=== PATIENT | female | born 1985 | race Caucasian/White ===

== ENCOUNTER 2017-08-20 10:41 | Outpatient (CLI) | payer OTHER ==
--- NOTE | 2017-08-20 14:02 | PRG ---
DATE OF SERVICE: 08/20/2017 HISTORY: Ms. Preethi Carroll is a very pleasant 32-year-old who presents to the Wound Center for evaluation of an abdominal wound subsequent to excision and debridement for treatment of an abd ominal wall/panniculus abscess on 12/31/[address] Brito. The patient also underwent wound VAC appl ication at the time of surgery. Two days later on 01/02/2017, the patient underwent wide excision o f a necrotizing soft tissue abdominal wall infection also by Dr. Brito. Upon discharge from [facility], the patient was referred to the Wound Center for assistance with dressing changes of the wound VAC. The patient was discharged to home on Levaquin and Flagyl. The patient required readmission for intraoperative debridement which she underwent on 02/21/2017. The patient continued to receive negative pressure therapy with dressing changes of the wound VAC here in the und Center. A smaller wound of the anterior abdominal wall from incision and drainage of an abscess in the Wound Center on 04/03/2017 superior to the large abdominal wound has healed completely and r emains healed. PHYSICAL EXAMINATION: VITAL SIGNS: Temperature 98.6, pulse 81, respirations 18, blood pressure 133/73. Accu-Chek 193. ABDOMEN: The wound of the abdomen has divided into 3 wounds with the largest measuring approximatel y 7.5 x 2.7 cm. Granulation tissue is present within the wound margins. No purulent drainage is as sociated with the wound. No cellulitis of the anterior abdominal wall is appreciated. No maceratio n of the skin of the periwound is noted. ASSESSMENT AND PLAN: 1. Large abdominal wound subsequent to excision and debridement for treatment of an abdominal wall/ panniculus abscess on 12/31/2016 followed by wide excision of a necrotizing soft tissue of abdominal wall infection on 01/02/2017. The patient also underwent intraoperative debridement of her wound o n 02/21/2017. All procedures were performed by Dr. Brito. The patient has completed a course of neg ative pressure therapy and dressing changes of Arglaes powder followed by an ABD secured with tape w ill be continued on a daily basis after cleansing and irrigation. Gauze will also be utilized at th e time of dressing changes as needed. I will see Ms. Carroll again in 2 weeks. The patient descri bes discomfort associated with her abdominal wound, which began recently. Previous cultures reveale d the growth of MRSA and the patient has been given a prescription for Bactrim DS #20 one p.o. b.i.d . x10 days. The patient agrees to return for a followup visit in 2 weeks. 2. Diabetes mellitus. The patient's Accu-Chek in clinic today is 193. The patient has been remind ed that for optimal wound healing, her blood glucoses should remain below 150. 3. Hypertension. 4. Gastroesophageal reflux disease. 5. Osteoarthritis. 6. Anemia.
== END 2017-08-20 10:42 | disposition home or self-care (01) ==
LOC: WCC 10:41
PROVIDERS: ATTEND Family Medicine
DX: T81.89XD Other complications of procedures, not elsewhere classified, subsequent encounter (principal); E11.9 Type 2 diabetes mellitus without complications; I10 Essential (primary) hypertension; K21.9 Gastro-esophageal reflux disease without esophagitis; D64.9 Anemia, unspecified; M19.90 Unspecified osteoarthritis, unspecified site
CPT/HCPCS: 97602

== ENCOUNTER 2017-09-03 14:13 | Outpatient (CLI) | payer OTHER ==
--- NOTE | 2017-09-03 15:39 | PRG ---
DATE OF SERVICE: 09/03/2017 SUBJECTIVE: Ms. Preethi Carroll is a very pleasant 32-year-old who presents to the [facility] for evaluation of an abdominal wound subsequent to excision and debridement for treatment of an abdominal wall/panniculus abscess on 12/31/[address] Brito. The patient also underwent wound VAC application at the time of surgery. Two days later on 01/02/2017, the patient underwent wide excisi on of a necrotizing soft tissue abdominal wall infection also by Dr. Brito. Upon discharge from [facility], the patient was referred to the Wound Center for assistance with sharifa ssing changes of the wound VAC. The patient was discharged to home on Levaquin and Flagyl. The pat ient required readmission for intraoperative debridement, which she underwent on 02/21/2017. The pa tient continued to receive negative pressure therapy with dressing changes of the wound VAC here in the Wound Center. A smaller wound of the anterior abdominal wall from incision and drainage of an a bscess in the Wound Center on 04/03/2017, superior to the large abdominal wound has healed completel y and remains healed. PHYSICAL EXAMINATION: VITAL SIGNS: Temperature 97.4, pulse 91, respirations 18, blood pressure 130/71. Accu-Chek 192. ABDOMEN: The wound of the abdomen has divided with a largest wound measuring approximately 7.0 x 2. 5 cm. Granulation tissue is present within the wound margins. No purulent drainage is associated w ith the wound. No cellulitis of the anterior abdominal wall is appreciated. No maceration of the s kin of the periwound is noted. ASSESSMENT AND PLAN: 1. Large abdominal wound subsequent to excision and debridement for treatment of an abdominal wall/ panniculus abscess on 12/31/2016 followed by wide excision of a necrotizing soft tissue abdominal wa ll infection on 01/02/2017. The patient also underwent intraoperative debridement of her wound on 0 02/21/2017. All procedures were performed by Dr. Brito. The patient has completed a course of negat joann pressure therapy and dressing changes of Arglaes powder will be continued on a daily basis after cleansing and irrigation. Gauze as needed and an ABD will be utilized as secondary dressings. I w ill see Ms. Carroll again in 4 weeks. 2. Diabetes mellitus. The patient's Accu-Chek in clinic today is 192. The patient has been remind ed that for optimal wound healing, her blood glucoses should remain below 150. 3. Hypertension. 4. Gastroesophageal reflux disease. 5. Osteoarthritis. 6. Anemia.
[2017-09-03] MEDS ORDERED: Sodium Chloride 0.9% 15 ML NEB ONE (17:29)
== END 2017-09-03 14:14 | disposition home or self-care (01) ==
LOC: WCC 14:13
PROVIDERS: ATTEND Family Medicine
DX: T81.89XD Other complications of procedures, not elsewhere classified, subsequent encounter (principal); E11.9 Type 2 diabetes mellitus without complications; I10 Essential (primary) hypertension; K21.9 Gastro-esophageal reflux disease without esophagitis; M19.90 Unspecified osteoarthritis, unspecified site; D64.9 Anemia, unspecified
CPT/HCPCS: 97602; A4218

== ENCOUNTER 2017-10-08 11:27 | Outpatient (CLI) | payer OTHER ==
--- NOTE | 2017-10-08 16:34 | PRG ---
DATE OF SERVICE: 10/08/2017 HISTORY: Ms. Preethi Carroll is a very pleasant 32-year-old who presents to the Wound Center for evaluation of an abdominal wound subsequent to excision and debridement for treatment of an abdomina l wall/panniculus abscess on 12/31/[address] Brito. The patient also underwent wound VAC applicati on at the time of surgery. Two days later on 01/02/2017, the patient underwent wide excision of a ne crotizing soft tissue abdominal wall infection also by Dr. Brito. Upon discharge from [facility], the patient was referred to the Wound Center for assistance with dressing change s of the wound VAC. The patient was discharged to home on Levaquin and Flagyl. The patient required readmission for intraoperative debridement, which she underwent on 02/21/2017. The patient continue d to receive negative pressure therapy with dressing changes of the wound VAC here in the Wound Cente r. The smaller wound of the anterior abdominal wall from incision and drainage of an abscess in the Wound Center on 04/03/2017, superior to the large abdominal wound has healed completely and remains h ealed. The patient has completed a course of negative pressure therapy and since her last visit to [facility] has been receiving dressing changes of Arglaes powder on a daily basis after cleansin g and irrigation. Today, Ms. Carroll complains of pain associated with her abdominal wound. PHYSICAL EXAMINATION: VITAL SIGNS: Temperature 97.8, pulse 82, respirations 14, blood pressure 120/58. Accu-Chek 163. ABDOMEN: The wound of the abdomen measures approximately 3.0 x 9.5 cm. Granulation tissue is presen t within the wound margins. A sample of granulation tissue was excised with the use of scissors and sent for aerobic and anaerobic cultures. No purulent drainage is associated with the wound. No cell ulitis of the anterior abdominal wall is appreciated. No maceration of the skin of the periwound is noted. ASSESSMENT AND PLAN: 1. Large abdominal wound subsequent to excision and debridement for treatment of an abdominal wall/p anniculus abscess on 12/31/2016 followed by wide excision of a necrotizing soft tissue abdominal wall infection on 01/02/2017. The patient also underwent intraoperative debridement of her wound on 02/08. All procedures were performed by Dr. Brito. Dressing changes of Arglaes powder will be disc ontinued. Dressing changes of Multidex powder will be initiated today. These dressing changes are t o be performed on a daily basis after cleansing and irrigation. Gauze as needed and an ABD will be u tilized as secondary dressings. I will see Ms. Carroll again in two weeks. The patient has been gi sanjuanita a prescription for Bactrim DS #20 one p.o. b.i.d. x10 days. Antibiotic therapy will be modified based upon the results of the tissue cultures obtained today. 2. Diabetes mellitus. The patient's Accu-Chek in clinic today is 163. The patient has been reminde d that for optimal wound healing, her blood glucoses should remain below 150. 3. Hypertension. 4. Gastroesophageal reflux disease. 5. Osteoarthritis. 6. Anemia.
[2017-10-08] MEDS ORDERED: Sodium Chloride 0.9% 15 ML NEB ONE (17:48)
[2017-10-08] MEDS ORDERED: Lidocaine 2% Jelly 5 ML TUBE ONE (17:48)
== END 2017-10-08 11:28 | disposition home or self-care (01) ==
LOC: WCC 11:27
PROVIDERS: ATTEND Family Medicine
DX: T81.89XD Other complications of procedures, not elsewhere classified, subsequent encounter (principal); E11.9 Type 2 diabetes mellitus without complications; I10 Essential (primary) hypertension; K21.9 Gastro-esophageal reflux disease without esophagitis; M19.90 Unspecified osteoarthritis, unspecified site; D64.9 Anemia, unspecified
CPT/HCPCS: 87070; 87077; 87186; 87205; 97602; A4218

== ENCOUNTER 2017-11-19 14:04 | Outpatient (CLI) | payer OTHER ==
--- NOTE | 2017-11-19 18:02 | PRG ---
DATE OF SERVICE: 11/19/2017 HISTORY: Ms. Preethi Carroll is a very pleasant 32-year-old who presents to the Wound Center for evaluation of an abdominal wound subsequent to multiple surgical procedures. Today, the patient pres ents to the Wound Center for evaluation of a lesion of the left medial buttock. The patient states t hat the lesion has been present for 2 days. She reports significant pain associated with the lesion. She denies any fever or chills. PHYSICAL EXAMINATION: VITAL SIGNS: Temperature 98.2, pulse 85, respirations 19, blood pressure 132/63. Accu-Chek 173. BACK: An abscess of the left medial buttock is present. A sample of the purulent drainage from the abscess was sent for aerobic and anaerobic cultures with the use of a culturette. The left medial bu ttock was prepped with alcohol swabs followed by Betadine swabs, 2% injectable lidocaine was utilized to achieve local anesthesia, the lidocaine was injected in a subcutaneous fashion. A scalpel was th en utilized to enlarge the opening in the center of the abscess. Loculations within the abscess cavi ty were disrupted digitally. After irrigation of the wound with normal saline including the abscess cavity, the wound was dressed with iodoform gauze followed by 4 x 4s. ASSESSMENT AND PLAN: 1. Left medial buttock abscess. Incision and drainage of the left medial buttock abscess was perfor med in clinic today. The patient is to receive dressing changes of iodoform gauze followed by 4 x 4s on a daily basis after cleansing and irrigation. The patient has also been instructed to perform si tz baths on a daily basis. Ms. Carroll has been given a prescription for Bactrim DS #20 one p.o. b. i.d. x10 days. I will see the patient again in 1 week. 2. Large abdominal wound subsequent to multiple surgical procedures. Dressing changes of Multidex p owder will be continued on a daily basis after cleansing and irrigation. Gauze as needed and an ABD will be utilized as secondary dressings. 3. Diabetes mellitus. The patient's Accu-Chek in clinic today is 173. The patient has been reminde d that for optimal wound healing, her blood glucoses should remain below 150. 4. Hypertension. 5. Gastroesophageal reflux disease. 6. Osteoarthritis. 7. Anemia.
== END 2017-11-19 14:05 | disposition home or self-care (01) ==
LOC: WCC 14:04
PROVIDERS: ATTEND Family Medicine
DX: L02.31 Cutaneous abscess of buttock (principal); T81.89XD Other complications of procedures, not elsewhere classified, subsequent encounter; E11.9 Type 2 diabetes mellitus without complications; K21.9 Gastro-esophageal reflux disease without esophagitis; M19.90 Unspecified osteoarthritis, unspecified site; D64.9 Anemia, unspecified; I10 Essential (primary) hypertension
CPT/HCPCS: 87070; 87077; 87186; 87205; 97602; 99213; G0463

== ENCOUNTER 2017-12-11 13:58 | Outpatient (CLI) | payer OTHER ==
--- NOTE | 2017-12-11 17:47 | PRG ---
DATE OF SERVICE: 12/11/2017 HISTORY: Ms. Preethi Carroll is a very pleasant 32-year-old who presents to the Wound Center for evaluation of an abdominal wound subsequent to multiple surgical procedures. The patient also presents to the Wound Center with a wound of the left medial buttock subsequent to incision and drainage of an abscess. The patient has no other complaints today. She denies any fever or chills. PHYSICAL EXAMINATION: VITAL SIGNS: Temperature 97.7, pulse 88, respirations 18, blood pressure 133/ 61. Accu-Chek 163. ABDOMEN: A wound of the abdomen is present which measures approximately 3.5 x 7.0 cm. Granulation tissue is present within the wound margins. No purulent drainage is associated with the wound. No cellulitis of the anterior abdominal wall is appreciated. No maceration of the skin of the periwound is noted. EXTREMITIES: The left buttock wound has almost healed completely. ASSESSMENT AND PLAN: 1. Large abdominal wound subsequent to excisional debridement for treatment of an abdominal wall/panniculus abscess on 12/31/2016 followed by wide excision of a necrotizing soft tissue abdominal wall infection on 01/02/2017. The patient also underwent intraoperative debridement of her wound on 02/21/2017. All procedures were performed by Dr. Brito. Dressing changes of Multidex powder will be continued on a daily basis after cleansing and irrigation. Gauze as needed and an ABD will be utilized as secondary dressings. I will see Ms. Carroll again in four weeks. The patient states she completed Bactrim DS as previously prescribed. 2. Left buttock wound. As stated above, this wound has almost healed completely. The patient has been instructed to keep this wound clean, dry, and covered. 3. Diabetes mellitus. The patient's Accu-Chek in clinic today is 163. The patient has been reminded that for optimal wound healing, her blood glucoses should remain below 150. 4. Hypertension. 5. Gastroesophageal reflux disease. 6. Osteoarthritis. 7. Anemia. MTDD
== END 2017-12-11 13:59 | disposition home or self-care (01) ==
LOC: WCC 13:58
PROVIDERS: ATTEND Family Medicine
DX: T81.89XD Other complications of procedures, not elsewhere classified, subsequent encounter (principal); E11.9 Type 2 diabetes mellitus without complications; K21.9 Gastro-esophageal reflux disease without esophagitis; M19.90 Unspecified osteoarthritis, unspecified site; D64.9 Anemia, unspecified; I10 Essential (primary) hypertension
CPT/HCPCS: 97602

== ENCOUNTER 2018-02-04 10:14 | Outpatient (CLI) | payer OTHER ==
--- NOTE | 2018-02-04 11:33 | PRG ---
DATE OF SERVICE: 02/04/2018 SUBJECTIVE: Ms. Shona Carroll is a very pleasant 32-year-old who presents to the Wound Ce nter for evaluation of an abdominal wound subsequent to multiple surgical procedures. The patient estrada s no other complaints today. She denies any fever or chills. The patient has been receiving dressin g changes of Multidex powder for the abdominal wound. OBJECTIVE: VITAL SIGNS: Temperature 97.6, pulse 79, respirations 18, blood pressure 139/72. Accu-Chek 210. ABDOMEN: The wound of the abdomen has divided into 2 wounds with the largest measuring approximately 5.0 x 1.0 cm. Granulation tissue is present within the wound margins. No purulent drainage is asso ciated with the wound. No erythema of the skin surrounding the wound is present. No maceration of t he skin of the periwound is noted. ASSESSMENT AND PLAN: 1. Large abdominal wound subsequent to excision and debridement for treatment of an abdominal wall/p anniculus abscess on 12/31/2016, followed by wide excision of a necrotizing soft tissue abdominal wal l infection on 01/02/2017. The patient also underwent intraoperative debridement of her wound on . All procedures were performed by Dr. Brito. Dressing changes of Multidex powder will be co ntinued on a daily basis after cleansing and irrigation. Gauze and ABD will be utilized as secondary dressings. I will see Ms. Carroll again in four weeks. 2. Diabetes mellitus. The patient's Accu-Chek in clinic today is 210. The patient has been reminde d that for optimal wound healing, her blood glucoses should remain below 150. 3. Hypertension. 4. Gastroesophageal reflux disease. 5. Osteoarthritis. 6. Anemia.
[2018-02-04] MEDS ORDERED: Sodium Chloride 0.9% 15 ML NEB ONE (18:00)
== END 2018-02-04 10:15 | disposition home or self-care (01) ==
LOC: WCC 10:14
PROVIDERS: ATTEND Family Medicine
DX: T81.89XD Other complications of procedures, not elsewhere classified, subsequent encounter (principal); E11.9 Type 2 diabetes mellitus without complications; I10 Essential (primary) hypertension; K21.9 Gastro-esophageal reflux disease without esophagitis; M19.90 Unspecified osteoarthritis, unspecified site; D64.9 Anemia, unspecified
CPT/HCPCS: A4218

== ENCOUNTER 2018-03-11 13:36 | Outpatient (CLI) | payer OTHER ==
[~2018-03-11 13:36] MED LIST: Sodium Chloride 0.9% 15 ML NEB ONE
--- NOTE | 2018-03-11 14:10 | PRG ---
DATE OF SERVICE: 03/11/2018 HISTORY: Ms. Preethi Carroll is a very pleasant 32-year-old who presents to the Wound Center for evaluation of an abdominal wound subsequent to multiple surgical procedures. The patient has no other complaints today. She denies any fever or chills. The patient has been receiving dressing trung nges of Multidex powder for her abdominal wound. PHYSICAL EXAMINATION: VITAL SIGNS: Temperature 98.7, pulse 105, respirations 18, blood pressure 150/78. Accu-Chek 99. ABDOMEN: The wound of the abdomen has divided into 2 wounds with the largest measuring approximately 4.0 x 0.9 cm. Granulation tissue is present within the wound margins. No purulent drainage is asso ciated with the wound. No erythema of the skin surrounding the wound is present. No maceration of t he skin of the periwound is noted. ASSESSMENT AND PLAN: 1. Large abdominal wound subsequent to excision and debridement for treatment of an abdominal wall/p anniculus abscess on 12/31/2016 followed by wide excision of a necrotizing soft tissue abdominal wall infection on 01/02/2017. The patient also underwent intraoperative debridement of her wound on 02/08. All procedures were performed by Dr. Brito. Dressing changes of Multidex powder will be con tinued on a daily basis after cleansing and irrigation. Gauze and an ABD will be utilized as seconda ry dressings. I will see Ms. Carroll again in four weeks. 2. Diabetes mellitus. The patient's Accu-Chek in clinic today is 99. The patient has been reminded that for optimal wound healing, her blood glucoses should remain below 150. 3. Hypertension. 4. Gastroesophageal reflux disease. 5. Osteoarthritis. 6. Anemia.
== END 2018-03-11 13:37 | disposition home or self-care (01) ==
LOC: WCC 13:36
PROVIDERS: ATTEND Family Medicine
DX: T81.89XD Other complications of procedures, not elsewhere classified, subsequent encounter (principal); E11.9 Type 2 diabetes mellitus without complications; D64.9 Anemia, unspecified; I10 Essential (primary) hypertension; K21.9 Gastro-esophageal reflux disease without esophagitis; M19.90 Unspecified osteoarthritis, unspecified site
CPT/HCPCS: 97602; A4218

== ENCOUNTER 2018-04-16 10:01 | Outpatient (CLI) | payer OTHER ==
--- NOTE | 2018-04-16 11:50 | PRG ---
DATE OF SERVICE: 04/15/2018 HISTORY: Ms. Preethi Carroll is a very pleasant 32-year-old who presents to the Wound Center for evaluation of an abdominal wound subsequent to multiple surgical procedures. The patient has bee n receiving dressing changes of Multidex powder for her abdominal wound. Ms. Carroll also complains of tenderness of her anterior abdominal wall superior to her abdominal wound. She also reports feve r yesterday. PHYSICAL EXAMINATION: VITAL SIGNS: Temperature 97.8, pulse 101, respirations 19, blood pressure 174/81. Accu-Chek 162. ABDOMEN: The abdominal wound measures approximately 5.1 x 0.5 cm. Granulation tissue is present wit hin the wound margins. No purulent drainage is associated with the wound. No erythema of the skin s urrounding the wound is present. No maceration of the skin of the periwound is noted. A fluctuant m ass is present superior to the abdominal wound subsequent to multiple surgical procedures after the a nterior abdominal wall in the region of the fluctuant mass was prepped with alcohol and Betadine. Lo sampson anesthesia was obtained with the use of lidocaine injected in a subcutaneous fashion. An incisio n was made over the fluctuant mass with the scalpel resulting in the copious drainage of purulence. A sample of the drainage was sent for aerobic and anaerobic cultures. The wound was then irrigated w ith normal saline after the abscess cavity was freed of all loculations digitally. The abscess cavit y was packed with saline-moistened gauze. ASSESSMENT AND PLAN: 1. Large abdominal wound subsequent to excision and debridement for treatment of an abdominal wall/p anniculus abscess on 12/31/2016 followed by wide excision of a necrotizing soft tissue abdominal wall infection on 01/02/2017. The patient also underwent intraoperative debridement of her wound on 02/08. All procedures were performed by Dr. Brito. Dressing changes of Multidex powder will be con tinued on a daily basis after cleansing and irrigation. Gauze and an ABD will be utilized as seconda ry dressings. The patient is to receive wet to dry dressing changes on a daily basis for the abdomin al wound subsequent to incision and drainage today. I will see Ms. Carroll again in four weeks. Th e patient has been given prescriptions for Bactrim DS #20 one p.o. b.i.d. x10 days and Tylenol 3, #20 one to two p.o. q.4-6 hours p.r.n. pain. 2. Diabetes mellitus. The patient's Accu-Chek in clinic today is 162. The patient has been reminde d that for optimal wound healing, her blood glucoses should remain below 150. 3. Hypertension. 4. Gastroesophageal reflux disease. 5. Osteoarthritis. 6. Anemia.
== END 2018-04-16 10:02 | disposition home or self-care (01) ==
LOC: WCC 10:01
PROVIDERS: ATTEND Family Medicine
DX: T81.89XD Other complications of procedures, not elsewhere classified, subsequent encounter (principal); E11.9 Type 2 diabetes mellitus without complications; I10 Essential (primary) hypertension; K21.9 Gastro-esophageal reflux disease without esophagitis; D64.9 Anemia, unspecified; M19.90 Unspecified osteoarthritis, unspecified site
CPT/HCPCS: 87070; 87077; 87186; 87205

== ENCOUNTER 2018-05-14 13:30 | Outpatient (CLI) | payer OTHER ==
--- NOTE | 2018-05-14 14:35 | PRG ---
DATE OF SERVICE: 05/14/2018 HISTORY: Ms. Preethi Carroll is a very pleasant 33-year-old who presents to the Wound Center for evaluation of an abdominal wound subsequent to multiple surgical procedures. The patient also estrada s an abdominal wound subsequent to incision and drainage of an abscess of the anterior abdominal wall on 04/16/2018. Ms. Carroll has no complaints today. She denies any fever or chills. PHYSICAL EXAMINATION: VITAL SIGNS: Temperature 97.6, pulse 84, respirations 16, blood pressure 143/69. Accu-Chek 173. ABDOMEN: The abdominal wound subsequent to multiple surgical procedures measures approximately 0.3 x 2.0 cm. Granulation tissue is present within the wound margins. No purulent drainage is associated with the wound. No erythema of the skin surrounding the wound is present. No maceration of the ski n of the periwound is noted. The abdominal wound subsequent to incision and drainage of an abscess o f the anterior abdominal wall on 04/16/2018 is healing without complications or any signs of infectio n. ASSESSMENT AND PLAN: 1. Large abdominal wound subsequent to excision and debridement for treatment of an abdominal wall/p anniculus abscess on 12/31/2016 followed by wide excision of a necrotizing soft tissue abdominal wall infection on 01/02/2017. The patient also underwent intraoperative debridement of her wound on 02/08. All procedures were performed by Dr. Brito. Dressing changes of Multidex powder will be con tinued on a daily basis after cleansing and irrigation. Gauze and an ABD will be continued as second faviola dressings. The wound now measures as stated above approximately 2.0 x 0.3 cm. For the abdominal wound subsequent to incision and drainage of an abscess of the anterior abdominal wall on 04/16/2018 in the Wound Center, dressing changes of saline-moistened gauze secured with bordered gauze will be continued also on a daily basis after cleansing and irrigation. I will see Ms. Carroll again in 4 w eeks if her wounds are still present at this time. The patient understands and is in agreement with the preceding treatment plan. 2. Diabetes mellitus. The patient's Accu-Chek in clinic today is 173. The patient has been reminde d that for optimal wound healing, her blood glucoses should remain below 150. 3. Hypertension. 4. Gastroesophageal reflux disease. 5. Osteoarthritis. 6. Anemia.
== END 2018-05-14 13:31 | disposition home or self-care (01) ==
LOC: WCC 13:30
PROVIDERS: ATTEND Family Medicine
DX: T81.89XA Other complications of procedures, not elsewhere classified, initial encounter (principal); S31.109A Unspecified open wound of abdominal wall, unspecified quadrant without penetration into peritoneal cavity, initial encounter; E11.9 Type 2 diabetes mellitus without complications; I10 Essential (primary) hypertension; D64.9 Anemia, unspecified; K21.9 Gastro-esophageal reflux disease without esophagitis; M19.90 Unspecified osteoarthritis, unspecified site
CPT/HCPCS: 97602; A4218

== ENCOUNTER 2018-07-09 13:59 | Outpatient (CLI) | payer OTHER ==
--- NOTE | 2018-07-09 15:32 | PRG ---
DATE OF SERVICE: 07/09/2018 HISTORY: Ms. Preethi Carroll is a very pleasant 33-year-old who presents to the Wound Center for evaluation of an abdominal wound subsequent to multiple surgical procedures. The patient states that the wound had healed completely, but opened again after her nephew accidentally kicked her anter ior abdominal wall. The patient denies any fever or chills. PHYSICAL EXAMINATION: VITAL SIGNS: Temperature 98.1, pulse 86, respirations 16, blood pressure 140/74. Accu-Chek 172. ABDOMEN: An abdominal wound subsequent to multiple surgical procedures is present. Granulation tiss ue is present within the wound margins. No purulent drainage is associated with the wound. No eryth monique of the skin surrounding the wound is present. No maceration of the skin of the periwound is note d. ASSESSMENT AND PLAN: 1. Large abdominal wound subsequent to excisional debridement for treatment of an abdominal wall/mckeon niculus abscess on 12/31/2016 followed by wide excision of a necrotizing soft tissue abdominal wall i nfection on 01/02/2017. The patient also underwent intraoperative debridement of her wound on 2016. All procedures were performed by Dr. Brito. Dressing changes of Medihoney, gauze and an ABD s ecured with tape will be initiated today. These dressing changes are to be performed on a daily basi s after cleansing and irrigation. The wound now is small and the patient has been reassured that no signs of infection are associated with her wound. Ms. Carroll will return to clinic on an as needed basis. The patient understands and is in agreement with the preceding treatment plan. 2. Diabetes mellitus. The patient's Accu-Chek in clinic today is 172. The patient has been reminde d that for optimal wound healing, her blood glucoses should remain below 150. 3. Hypertension. 4. Gastroesophageal reflux disease. 5. Osteoarthritis. 6. Anemia.
== END 2018-07-09 14:00 | disposition home or self-care (01) ==
LOC: WCC 13:59
PROVIDERS: ATTEND Family Medicine
DX: T81.89XD Other complications of procedures, not elsewhere classified, subsequent encounter (principal); E11.9 Type 2 diabetes mellitus without complications; K21.9 Gastro-esophageal reflux disease without esophagitis; M19.90 Unspecified osteoarthritis, unspecified site; D64.9 Anemia, unspecified; I10 Essential (primary) hypertension
CPT/HCPCS: A4218

== ENCOUNTER 2018-09-25 16:47 | Emergency (ER) | payer OTHER ==
--- NOTE | 2018-09-25 20:53 | ULT ---
LEFT LOWER EXTREMITY VENOUS DOPPLER ULTRASOUND: 09/25/2018 HISTORY: Pain. Assess for DVT. COMPARISON: None. TECHNIQUE: Multiplanar feliz-scale sonographic imaging of the venous structures of the left lower extremity obtdevang arteaga, as detailed below. FINDINGS: Secondary to body habitus and immobility, the greater saphenous vein, the common femoral vein, the pr oximal aspect of the femoral vein, and the profunda femoral vein could not be adequately assessed. B lood flow is documented within the mid/distal femoral vein, as well as the popliteal vein and the pos terior tibial veins. IMPRESSION: The imaged venous structures of the left lower extremity are unremarkable with no evidence for deep v enous thrombosis; however, the venous structures from the level of the common femoral vein through th e mid femoral vein could not be assessed. POS: RANDI
== END 2018-09-25 20:22 | disposition home or self-care (01) ==
LOC: ERS 16:47
DX: M79.662 Pain in left lower leg (principal); R60.0 Localized edema; R79.1 Abnormal coagulation profile; E66.9 Obesity, unspecified; E78.5 Hyperlipidemia, unspecified; E10.40 Type 1 diabetes mellitus with diabetic neuropathy, unspecified; I10 Essential (primary) hypertension; M19.90 Unspecified osteoarthritis, unspecified site; F31.9 Bipolar disorder, unspecified; F41.9 Anxiety disorder, unspecified; Z79.899 Other long term (current) drug therapy; Z79.82 Long term (current) use of aspirin
CPT/HCPCS: 36415; 85379

== ENCOUNTER 2018-10-28 13:58 | Outpatient (CLI) | payer OTHER ==
[2018-10-28] MEDS ORDERED: Sodium Chloride 0.9% 15 ML NEB ONE (15:00)
--- NOTE | 2018-10-28 16:24 | PRG ---
DATE OF SERVICE: 10/28/2018 HISTORY: Ms. Preethi Carroll is a very pleasant 33-year-old, who presents to the wound center for evaluation of two small abdominal wounds subsequent to multiple surgical procedures. The patient previously stated that her abdominal wound had healed completely, but opened again after her nephew accidentally kicked her anterior abdominal wall. The patient has no complaints today. She denies any fever or chills. PHYSICAL EXAMINATION: VITAL SIGNS: Temperature 98.4, pulse 87, respirations 18, and blood pressure 164/72. Accu-Chek 173. ABDOMEN: Two small abdominal wounds which measured approximately 0.8 x 0.5 cm and 0.2 x 0.2 cm remain. No purulent drainage is associated with either wound. No erythema of the skin surrounding either wound is present. No maceration of the skin of the periwound of either wound is noted. ASSESSMENT AND PLAN: 1. Two small abdominal wounds as described above. 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 The patient also underwent intraoperative debridement of her wound on 02/21/2017. All procedures were performed by Dr. Brito. Dressing changes of Medihoney gauze and an ABD, secured with tape will be continued on a daily basis after cleansing and irrigation. The two remaining wounds are small and the patient has been reassured that no signs of infection are associated with either wound. The patient will return to clinic on an as-needed basis. Ms. Carroll understands and is in agreement with the preceding treatment plan. 2. Diabetes mellitus: The patient's Accu-Chek in clinic today is 173. The patient has been reminded that for optimal wound healing, her blood glucoses should remain below 150. 3. Hypertension. 4. Gastroesophageal reflux disease. 5. Osteoarthritis. 6. Anemia. Job ID: [id number]
== END 2018-10-28 13:59 | disposition home or self-care (01) ==
LOC: WCC 13:58
PROVIDERS: ATTEND Family Medicine
DX: T81.89XD Other complications of procedures, not elsewhere classified, subsequent encounter (principal); E11.9 Type 2 diabetes mellitus without complications; I10 Essential (primary) hypertension; K21.9 Gastro-esophageal reflux disease without esophagitis; M19.90 Unspecified osteoarthritis, unspecified site; D64.9 Anemia, unspecified
CPT/HCPCS: 97602; A4218

== ENCOUNTER 2018-12-22 09:48 | Outpatient (CLI) | payer OTHER | END 2018-12-22 09:49 | disposition home or self-care (01) | LOC: EDSTATUS 10:00 | PROVIDERS: ATTEND Nurse Practitioner Family | DX: Z74.09 Other reduced mobility (principal) ==

== ENCOUNTER 2019-01-20 08:44 | Outpatient (CLI) | payer OTHER | END 2019-01-20 08:45 | disposition home or self-care (01) | LOC: DTY/OP 08:44 | PROVIDERS: ATTEND Specialist | DX: Z01.818 Encounter for other preprocedural examination (principal); E66.01 Morbid (severe) obesity due to excess calories | CPT/HCPCS: 97802 ==

== ENCOUNTER 2019-02-10 18:43 | Emergency (ER) | payer OTHER ==
--- NOTE | 2019-02-10 19:58 | RAD ---
FEXAM: Left wrist radiographs 3 views PROVIDED CLINICAL HISTORY: Pain FINDINGS: There is no evidence for fracture or other acute osseous abnormality. Alignment appears anatomic. Neva nt spaces appear preserved. IMPRESSION: No evidence for an acute osseous abnormality. If there is persistent clinical concern, conservative m anagement and follow-up imaging advised.
--- NOTE | 2019-02-10 19:58 | RAD ---
FEXAM: Left knee radiographs 4 views PROVIDED CLINICAL HISTORY: Pain FINDINGS: There is no evidence for fracture or other acute osseous abnormality. Alignment appears anatomic. Neva nt spaces appear preserved. IMPRESSION: No evidence for an acute osseous abnormality. If there is persistent clinical concern, conservative m anagement and follow-up imaging advised.
--- NOTE | 2019-02-10 19:59 | RAD ---
FEXAM: Left elbow radiographs 4 views PROVIDED CLINICAL HISTORY: Pain FINDINGS: There is no evidence for fracture or other acute osseous abnormality. Alignment appears anatomic. Neva nt spaces appear preserved. IMPRESSION: No evidence for an acute osseous abnormality. If there is persistent clinical concern, conservative m anagement and follow-up imaging advised.
[2019-02-10] MEDS ORDERED: Ketorolac Tromethamine 60 MG/2 ML VIAL ONE (20:20)
== END 2019-02-10 20:52 | disposition home or self-care (01) ==
LOC: ERS 18:43
DX: S63.502A Unspecified sprain of left wrist, initial encounter (principal); S93.402A Sprain of unspecified ligament of left ankle, initial encounter; S53.402A Unspecified sprain of left elbow, initial encounter; M19.90 Unspecified osteoarthritis, unspecified site; E78.5 Hyperlipidemia, unspecified; E10.40 Type 1 diabetes mellitus with diabetic neuropathy, unspecified; I10 Essential (primary) hypertension; F31.9 Bipolar disorder, unspecified; F41.9 Anxiety disorder, unspecified; W19.XXXA Unspecified fall, initial encounter
CPT/HCPCS: 96372; J1885

== ENCOUNTER 2019-02-18 14:03 | Outpatient (CLI) | payer OTHER | END 2019-02-18 14:04 | disposition home or self-care (01) | LOC: DTY/OP 14:03 | PROVIDERS: ATTEND Specialist | DX: Z01.818 Encounter for other preprocedural examination (principal); E66.01 Morbid (severe) obesity due to excess calories | CPT/HCPCS: 97802 ==

== ENCOUNTER 2019-03-22 14:53 | Outpatient (CLI) | payer OTHER | END 2019-03-22 14:54 | disposition home or self-care (01) | LOC: DTY/OP 14:53 | PROVIDERS: ATTEND Specialist | DX: Z01.818 Encounter for other preprocedural examination (principal); E66.01 Morbid (severe) obesity due to excess calories | CPT/HCPCS: 97802 ==

== ENCOUNTER 2019-04-22 14:50 | Outpatient (CLI) | payer OTHER | END 2019-04-22 14:51 | disposition home or self-care (01) | LOC: DTY/OP 14:50 | PROVIDERS: ATTEND Specialist | DX: Z01.818 Encounter for other preprocedural examination (principal); E66.01 Morbid (severe) obesity due to excess calories | CPT/HCPCS: 97802 ==

== ENCOUNTER 2019-05-25 15:08 | Outpatient (CLI) | payer OTHER | END 2019-05-25 15:09 | disposition home or self-care (01) | LOC: DTY/OP 15:08 | PROVIDERS: ATTEND Specialist | DX: Z01.818 Encounter for other preprocedural examination (principal); E66.01 Morbid (severe) obesity due to excess calories | CPT/HCPCS: 97802 ==

== ENCOUNTER 2019-06-23 13:33 | Outpatient (CLI) | payer OTHER | END 2019-06-23 13:34 | disposition home or self-care (01) | LOC: DTY/OP 13:33 | PROVIDERS: ATTEND Specialist | DX: Z01.818 Encounter for other preprocedural examination (principal); E66.01 Morbid (severe) obesity due to excess calories | CPT/HCPCS: 97802 ==

== ENCOUNTER 2019-08-31 07:04 | Day surgery (SDC) | payer OTHER ==
--- NOTE | 2019-08-31 13:00 | OP ---
DATE OF PROCEDURE: 08/31/2019 [employer] C[employer]ER SURGEON: None. PROCEDURE PERFORMED: Esophagogastroduodenoscopy, diagnostic. INDICATIONS: 1. Chronic GERD. 2. Preoperative evaluation, for planned gastric bypass operation. 3. Morbid obesity. MEDICATIONS: See Anesthesia record. FINDINGS: After discussion of the risks, benefits, and alternatives of the procedure, informed consent was obtained and witnessed. Pre-endoscopic cardiopulmonary examination was satisfactory. Time-out was performed before sedation was achieved. Sedation was achieved with Anesthesia assistance in the endoscopy unit. A Pentax adult upper endoscope was placed into the oropharynx and passed through the cricopharyngeus under direct visualization. The esophageal mucosa appeared normal throughout with a normal-appearing Z-line at 38 cm from the incisors. The endoscope was then advanced into the stomach. Forward and retroflexed views of the entire gastric mucosa were obtained. The gastric mucosa appeared normal throughout. The endoscope was advanced through the pylorus and into the first and second portions of the duodenum, which also appeared normal. The upper endoscope was then completely withdrawn and the patient allowed to recover. The patient tolerated the procedure well. There were no immediate postprocedure complications. IMPRESSION: Normal esophagogastroduodenoscopy. RECOMMENDATIONS: 1. Discharge home on previous diet. 2. Follow up as planned with bariatric surgeon. 3. The patient can follow up in the GI clinic as needed. Job ID: [id number]
[2019-08-31] MEDS ORDERED: PROPOFOL 200 MG/20 ML VIAL ONE (15:45)
[2019-08-31] MEDS ORDERED: Lidocaine 1% PF 5 ML VIAL ONE (15:45)
== END 2019-08-31 10:55 | disposition home or self-care (01) ==
LOC: SDC 07:04
PROVIDERS: ATTEND Internal Medicine
PROC: 0DJ08ZZ Inspection of Upper Intestinal Tract, Via Natural or Artificial Opening Endoscopic (ICD-10-PCS; principal; 2019-08-31)
DX: K21.9 Gastro-esophageal reflux disease without esophagitis (principal); E66.01 Morbid (severe) obesity due to excess calories; F41.9 Anxiety disorder, unspecified; F32.9 Major depressive disorder, single episode, unspecified; I10 Essential (primary) hypertension; E10.9 Type 1 diabetes mellitus without complications; E78.00 Pure hypercholesterolemia, unspecified; Z68.45 Body mass index [BMI] 70 or greater, adult; Z79.4 Long term (current) use of insulin; Z79.82 Long term (current) use of aspirin; Z79.899 Other long term (current) drug therapy; Z79.1 Long term (current) use of non-steroidal anti-inflammatories (NSAID); Z88.0 Allergy status to penicillin; Z88.5 Allergy status to narcotic agent
CPT/HCPCS: 36416

== ENCOUNTER 2019-09-14 12:45 | Outpatient (CLI) | payer OTHER ==
--- NOTE | 2019-09-14 13:28 | RAD ---
XR Chest Pa Lat @ [facility] HISTORY: Dyspnea COMPARISON: 06/19/2013 study. FINDINGS: Heart size appears slightly enlarged. There are no infiltrative changes or signs of failure . Mediastinal structures appear unremarkable. There are arthritic changes of the spine. IMPRESSION: Mild cardiomegaly. Stable chest.
== END 2019-09-14 12:46 | disposition home or self-care (01) ==
LOC: RAD 12:45
PROVIDERS: ATTEND Internal Medicine Critical Care Medicine
DX: R06.00 Dyspnea, unspecified (principal); I51.7 Cardiomegaly
CPT/HCPCS: 71046

== ENCOUNTER 2019-12-07 20:30 | Outpatient (CLI) | payer OTHER | END 2019-12-07 20:31 | disposition home or self-care (01) | LOC: SLEEPLAB 20:30 | PROVIDERS: ATTEND Internal Medicine Critical Care Medicine | DX: G47.33 Obstructive sleep apnea (adult) (pediatric) (principal); R53.83 Other fatigue | CPT/HCPCS: 95811 ==

== ENCOUNTER 2020-08-10 08:59 | Outpatient (CLI) | payer OTHER ==
--- NOTE | 2020-08-10 11:59 | RAD ---
CHEST 2 VIEWS: Date: 08/10/2020 HISTORY: Dyspnea. COMPARISON: Radiograph dated 06/14/2020. FINDINGS: Heart size is enlarged. Moderate pulmonary edema. No pneumothorax. No significant effusion. No acute osseous abnormality. IMPRESSION: Cardiomegaly with moderate pulmonary edema. Atypical viral infectious process is felt somewhat less l ikely. POS: AH
== END 2020-08-10 09:00 | disposition home or self-care (01) ==
LOC: BICRAD 08:59
PROVIDERS: ATTEND Internal Medicine Critical Care Medicine
DX: R06.00 Dyspnea, unspecified (principal); I51.7 Cardiomegaly; J81.1 Chronic pulmonary edema
CPT/HCPCS: 71046

== ENCOUNTER 2021-03-07 02:10 | Inpatient (IN) | payer OTHER ==
[2021-03-07] MEDS ORDERED: Furosemide 40 MG/4 ML VIAL ONE (02:23)
[2021-03-07] MEDS ORDERED: Acetaminophen 500 MG TAB ONE (02:41)
[2021-03-07 03:26] LABS: ALT (SGPT) 8 U/L (8-55); AST (SGOT) 13 U/L (5-34); Albumin 2.7 g/dL (3.5-5.0); Alkaline Phosphatase 94 U/L (40-110); Anion Gap 14 mmol/L (10-20); BUN (Urea Nitrogen) 39 mg/dL (7.0-18.7); Bilirubin, Total 0.4 mg/dL (0.2-1.2); Calc. Creatinine Clearance 0 mL/min (70-130); Calcium 8.6 mg/dL (7.8-10.44); Carbon Dioxide 20 mmol/L (22-29); Chloride 108 mmol/L (98-107); Globulin 5.2 g/dL (2.4-3.5); Glucose 274 mg/dL (70-105); Magnesium 1.7 mg/dL (1.6-2.6); Potassium 6.5 mmol/L (3.5-5.1); Protein, Total 7.9 g/dL (6.0-8.3); Sodium 135 mmol/L (136-145)
[2021-03-07 03:45] LABS: CKMB 1.8 ng/mL (0-6.6)
[2021-03-07 03:47] LABS: SARS-CoV-2 NAA Rapid Test Not Detected (NotDetected)
[2021-03-07] MEDS ORDERED: Aspirin Chewable 81 MG TAB ONE (03:59)
[2021-03-07 04:11] LABS: Hemoglobin 7.6 g/dL (12.0-16.0); Mean Corpuscular HGB CONC 30.6 g/dL (32.0-36.0); Mean Corpuscular Hemoglobin 22.3 pg (27.0-31.0); Mean Corpuscular Volume 72.9 fL (78.0-98.0); Platelet Count 388 thou/uL (130-400); RBC Distribution Width 18.3 % (11.5-14.5); Red Blood Cell (RBC) Count 3.43 mill/uL (4.20-5.40); White Blood Cell (WBC) Count 25.6 thou/uL (4.8-10.8)
[2021-03-07 04:12] LABS: Anisocytosis SLIGHT = 6-15 cells (100X) (0-5/hpf); Band 12 % (5-11); Lymphocytes 5 % (21-51); MDiff Complete? YES; Microcytosis SLIGHT = 6-15 cells (100X) (0-5/hpf); Monocytes 2 % (0-10); Neutrophil 81 % (42-75)
[2021-03-07 04:16] LABS: Bacteria/HPF None Seen HPF (None Seen); Bilirubin Negative (Negative); Blood, Urine 2+ (Negative); Clarity Turbid (Clear); Glucose, Urine (Dipstick) 70 mg/dL (Negative); Ketone, Urine Negative (Negative); Leukocyte Negative Leu/uL (Negative); Nitrite Negative (Negative); Protein, Urine (Dipstick) 600 mg/dL (Neg-Trace); Specific Gravity, Urine 1.017 (1.002-1.036); Squamous Epithelial 0-3 HPF (0-3); Urobilinogen Normal mg/dL (Less than 2); WBC/HPF 0-3 HPF (0-3)
[2021-03-07 05:39] VITALS: BMI 109.9
[2021-03-07] MEDS ORDERED: Dextrose 5% in Water 1,000 ML IV PRN ×2 (05:52→07:40)
[2021-03-07] MEDS ORDERED: Dextrose 50% Abboject 50 ML SYRINGE SLOW IVP PRN ×2 (05:52→07:40)
[2021-03-07] MEDS ORDERED: HumaLOG 300 UNITS/3 ML VIAL SC PRN (05:52)
[2021-03-07 05:56] LABS: Anion Gap 14 mmol/L (10-20); BUN (Urea Nitrogen) 39 mg/dL (7.0-18.7); Calc. Creatinine Clearance 129 mL/min (70-130); Calcium 8.1 mg/dL (7.8-10.44); Carbon Dioxide 21 mmol/L (22-29); Chloride 108 mmol/L (98-107); Glucose 263 mg/dL (70-105); Sodium 136 mmol/L (136-145)
[2021-03-07 05:58] LABS: Potassium 6.6 mmol/L (3.5-5.1)
[2021-03-07] MEDS ORDERED: Calcium Gluc 4.6 MEQ/10 ML (100 MG/ML) SLOW IVP SCH (06:13)
[2021-03-07] MEDS ORDERED: Insulin Regular 300 UNITS/3 ML VIAL IVP SCH (06:15)
[2021-03-07 06:20] LABS: Troponin I 0.629 ng/mL (< 0.028)
[2021-03-07] MEDS ORDERED: Heparin 10,000 UNITS/ 10 ML VIAL SLOW IVP SCH (06:45)
[2021-03-07] MEDS ORDERED: Heparin 25,000 units/D5W 500 ML IVPB SCH (06:45)
[2021-03-07] MEDS ORDERED: Sodium Chloride 0.9% 1,000 ML IV SCH (07:45)
[2021-03-07] MEDS ORDERED: Vancomycin HCl 1.5 GM in Sodium Chloride 0.9% 250 ML 250 ML IVPB SCH (09:00)
[2021-03-07 09:26] LABS: Hemoglobin 6.3 g/dL (12.0-16.0); Platelet Count 325 thou/uL (130-400)
[2021-03-07] MEDS: cefTRIAXone\\ROCEPHIN 2 GM in Sodium Chloride 0.9% 100 ML IVPB SCH (09:29)
[2021-03-07 09:42] LABS: Glucose 265 mg/dL (70-105)
[2021-03-07 09:47] LABS: Anion Gap 15 mmol/L (10-20); BUN (Urea Nitrogen) 41 mg/dL (7.0-18.7); Calc. Creatinine Clearance 125 mL/min (70-130); Calcium 8.5 mg/dL (7.8-10.44); Carbon Dioxide 19 mmol/L (22-29); Chloride 108 mmol/L (98-107); Glucose 268 mg/dL (70-105); Sodium 135 mmol/L (136-145)
[2021-03-07 09:52] LABS: Potassium 6.7 mmol/L (3.5-5.1)
[2021-03-07 09:58] LABS: Troponin I 1.271 ng/mL (< 0.028)
[2021-03-07] MEDS ORDERED: Sodium Bicarbonate 150 MEQ in Dextrose 5% in Water 1,000 ML IV SCH (10:00)
[2021-03-07] MEDS: LOKELMA 10 GM PACKET PO SCH ×3 (11:03→20:56)
[2021-03-07 15:43] LABS: Glucose 281 mg/dL (70-105)
[2021-03-07 15:47] LABS: Anion Gap 13 mmol/L (10-20); BUN (Urea Nitrogen) 40 mg/dL (7.0-18.7); Calc. Creatinine Clearance 129 mL/min (70-130); Calcium 8.7 mg/dL (7.8-10.44); Carbon Dioxide 21 mmol/L (22-29); Chloride 106 mmol/L (98-107); Glucose 280 mg/dL (70-105); Potassium 5.9 mmol/L (3.5-5.1); Sodium 134 mmol/L (136-145)
[2021-03-07] MEDS: HumaLOG 300 UNITS/3 ML VIAL SC PRN ×2 (16:56→22:23)
[2021-03-07 17:02] LABS: Anion Gap 13 mmol/L (10-20); BUN (Urea Nitrogen) 39 mg/dL (7.0-18.7); Calc. Creatinine Clearance 129 mL/min (70-130); Calcium 8.3 mg/dL (7.8-10.44); Carbon Dioxide 20 mmol/L (22-29); Chloride 108 mmol/L (98-107); Glucose 264 mg/dL (70-105); Potassium 5.9 mmol/L (3.5-5.1); Sodium 135 mmol/L (136-145)
[2021-03-07] MEDS: Acetaminophen 325 MG TAB PO PRN (20:55)
[2021-03-07 22:06] LABS: Anion Gap 15 mmol/L (10-20); BUN (Urea Nitrogen) 38 mg/dL (7.0-18.7); Calc. Creatinine Clearance 137 mL/min (70-130); Calcium 8.1 mg/dL (7.8-10.44); Carbon Dioxide 19 mmol/L (22-29); Chloride 108 mmol/L (98-107); Glucose 289 mg/dL (70-105); Potassium 5.7 mmol/L (3.5-5.1); Sodium 136 mmol/L (136-145)
[2021-03-07] MEDS: HYDROcodone/Acetaminophen 5/325 mg Tablet PO PRN (22:22)
[2021-03-07] MEDS: cloNIDine 0.1 MG TAB PO PRN (22:22)
[2021-03-07] MEDS ORDERED: guaiFENesin ER 600 MG TAB PO SCH (22:30)
[2021-03-08 02:16] LABS: Glucose 272 mg/dL (70-105)
[2021-03-08] MEDS: HumaLOG 300 UNITS/3 ML VIAL SC PRN ×5 (02:59→21:28)
[2021-03-08 04:03] LABS: Anion Gap 14 mmol/L (10-20); BUN (Urea Nitrogen) 38 mg/dL (7.0-18.7); Calc. Creatinine Clearance 149 mL/min (70-130); Calcium 8.5 mg/dL (7.8-10.44); Carbon Dioxide 19 mmol/L (22-29); Chloride 106 mmol/L (98-107); Glucose 250 mg/dL (70-105); Potassium 5.3 mmol/L (3.5-5.1); Sodium 134 mmol/L (136-145)
[2021-03-08] MEDS: cloNIDine 0.1 MG TAB PO PRN ×3 (04:20→21:43)
[2021-03-08 04:31] LABS: Band 3 % (5-11); Hemoglobin 7.2 g/dL (12.0-16.0); Hypochromia SLIGHT = 6-15 cells (100X) (0-5/hpf); Lymphocytes 8 % (21-51); MDiff Complete? YES; Mean Corpuscular HGB CONC 30.5 g/dL (32.0-36.0); Mean Corpuscular Hemoglobin 22.7 pg (27.0-31.0); Mean Corpuscular Volume 74.4 fL (78.0-98.0); Mean Platelet Volume 9.6 fL (7.4-10.4); Microcytosis SLIGHT = 6-15 cells (100X) (0-5/hpf); Monocytes 2 % (0-10); Neutrophil 87 % (42-75); Platelet Count 287 thou/uL (130-400); RBC Distribution Width 18.8 % (11.5-14.5); Red Blood Cell (RBC) Count 3.19 mill/uL (4.20-5.40); White Blood Cell (WBC) Count 13.3 thou/uL (4.8-10.8)
[2021-03-08] MEDS ORDERED: Sodium Bicarbonate 150 MEQ in Dextrose 5% in Water 1,000 ML IV SCH (07:00)
[2021-03-08] MEDS ORDERED: Lantus 1000 UNITS/10 ML VIAL SC SCH (07:30)
[2021-03-08] MEDS ORDERED: Melatonin 3 MG TAB PO PRN (07:43)
[2021-03-08] MEDS ORDERED: hydrALAZINE 20 MG/ML VIAL SLOW IVP PRN (07:46)
[2021-03-08 07:52] LABS: Hemoglobin A1c 8.5 % (4.0-6.0)
[2021-03-08 08:19] LABS: Vancomycin, Trough 31.5 ug/mL
[2021-03-08] MEDS ORDERED: Amlodipine 5 MG TAB PO SCH ×2 (09:00→19:00)
[2021-03-08] MEDS ORDERED: Morphine 2 MG/ML VIAL SLOW IVP PRN (09:54)
[2021-03-08] MEDS ORDERED: Morphine 4 MG/ML VIAL ONE (09:55)
[2021-03-08] MEDS: Cholecalciferol 1,000 UNITS (25 MCG) TAB PO SCH (11:03)
[2021-03-08] MEDS: Escitalopram Oxalate 20 mg Tablet PO SCH (11:04)
[2021-03-08] MEDS: Ferrous Sulfate 325 MG TAB PO SCH (11:04)
[2021-03-08] MEDS: guaiFENesin ER 600 MG TAB PO SCH ×2 (11:04→21:31)
[2021-03-08] MEDS: Methocarbamol 500 MG TAB PO SCH ×2 (11:06→21:31)
[2021-03-08] MEDS: cefTRIAXone\\ROCEPHIN 2 GM in Sodium Chloride 0.9% 100 ML IVPB SCH (11:06)
[2021-03-08] MEDS: Cyanocobalamin (Vitamin B-12) 1,000 MCG TAB PO SCH ×2 (11:06→21:31)
[2021-03-08] MEDS: Lantus 1000 UNITS/10 ML VIAL SC SCH ×2 (11:08→21:28)
[2021-03-08] MEDS: Morphine 4 MG/ML VIAL SLOW IVP PRN (16:00)
[2021-03-08] MEDS: HYDROcodone/Acetaminophen 5/325 mg Tablet PO PRN (16:39)
[2021-03-08] MEDS: Atorvastatin Calcium 10 MG TAB PO SCH (21:31)
[2021-03-09] MEDS: HumaLOG 300 UNITS/3 ML VIAL SC PRN ×3 (00:22→20:47)
[2021-03-09] MEDS: Morphine 4 MG/ML VIAL SLOW IVP PRN ×7 (01:46→22:47)
[2021-03-09] MEDS: HYDROcodone/Acetaminophen 5/325 mg Tablet PO PRN ×3 (01:51→21:02)
[2021-03-09 03:57] LABS: #Eosinphils 0.1 thou/uL (0.0-0.7); #Lymphocytes 0.9 thou/uL (1.20-3.40); #Monocytes 0.7 thou/uL (0.11-0.59); #Neutrophils 8.9 thou/uL (1.40-6.50); %Basophils 0.2 % (0.0-1.0); %Eosinophils 1.2 % (0.0-10.0); %Lymphocytes 8.7 % (21.0-51.0); %Monocytes 6.6 % (0.0-10.0); %Neutrophils 83.3 % (42.0-75.0); Mean Corpuscular HGB CONC 30.4 g/dL (32.0-36.0); Mean Corpuscular Hemoglobin 22.6 pg (27.0-31.0); Mean Corpuscular Volume 74.2 fL (78.0-98.0); Mean Platelet Volume 9.1 fL (7.4-10.4); Platelet Count 285 thou/uL (130-400); RBC Distribution Width 18.4 % (11.5-14.5); Red Blood Cell (RBC) Count 2.67 mill/uL (4.20-5.40); White Blood Cell (WBC) Count 10.7 thou/uL (4.8-10.8)
[2021-03-09] MEDS: cloNIDine 0.1 MG TAB PO PRN ×3 (04:05→16:43)
[2021-03-09 04:23] LABS: Anion Gap 12 mmol/L (10-20); BUN (Urea Nitrogen) 43 mg/dL (7.0-18.7); Calc. Creatinine Clearance 147 mL/min (70-130); Calcium 8.2 mg/dL (7.8-10.44); Carbon Dioxide 23 mmol/L (22-29); Chloride 104 mmol/L (98-107); Glucose 220 mg/dL (70-105); Iron Less than 8 ug/dL (50-170); Iron Binding Capacity, Total 223 mcg/dL (265-497); Potassium 5.3 mmol/L (3.5-5.1); Sodium 134 mmol/L (136-145)
[2021-03-09] MEDS: Lantus 1000 UNITS/10 ML VIAL SC SCH ×2 (09:15→20:48)
[2021-03-09] MEDS: Cholecalciferol 1,000 UNITS (25 MCG) TAB PO SCH (09:17)
[2021-03-09] MEDS: cefTRIAXone\\ROCEPHIN 2 GM in Sodium Chloride 0.9% 100 ML IVPB SCH (09:18)
[2021-03-09] MEDS: Methocarbamol 500 MG TAB PO SCH ×2 (09:19→21:00)
[2021-03-09] MEDS: Escitalopram Oxalate 20 mg Tablet PO SCH (09:23)
[2021-03-09] MEDS: Amlodipine 10 MG TAB PO SCH (09:24)
[2021-03-09] MEDS: Ferrous Sulfate 325 MG TAB PO SCH (09:24)
[2021-03-09] MEDS: guaiFENesin ER 600 MG TAB PO SCH ×2 (09:24→21:02)
[2021-03-09] MEDS: Acetaminophen 325 MG TAB PO PRN (09:25)
[2021-03-09] MEDS: Cyanocobalamin (Vitamin B-12) 1,000 MCG TAB PO SCH ×2 (09:26→21:01)
[2021-03-09 13:47] LABS: Hemoglobin 6.8 g/dL (12.0-16.0)
[2021-03-09 14:05] LABS: Glucose 225 mg/dL (70-105)
[2021-03-09 14:09] LABS: Vancomycin, Random 17.4 ug/mL (See Comment)
[2021-03-09] MEDS ORDERED: BIOTENE MOUTH SPRAY 44.3 ML MM PRN (15:38)
[2021-03-09 16:44] VITALS: BP 177/72
[2021-03-09] MEDS: Cefepime 1 GM in Sodium Chloride 0.9% 100 ML IVPB SCH (18:32)
[2021-03-09] MEDS: Atorvastatin Calcium 10 MG TAB PO SCH (21:00)
[2021-03-09] MEDS: metroNIDAZOLE 250 MG, Admixture Fee 1 EACH in Premix Bag 1 BAG IVPB SCH (23:18)
[2021-03-10] MEDS: HumaLOG 300 UNITS/3 ML VIAL SC PRN (04:17)
[2021-03-10] MEDS: cloNIDine 0.1 MG TAB PO PRN (04:38)
[2021-03-10] MEDS: Morphine 4 MG/ML VIAL SLOW IVP PRN ×4 (04:39→21:50)
[2021-03-10] MEDS: metroNIDAZOLE 250 MG, Admixture Fee 1 EACH in Premix Bag 1 BAG IVPB SCH ×3 (06:26→21:37)
[2021-03-10 07:07] LABS: #Eosinphils 0.1 thou/uL (0.0-0.7); #Lymphocytes 1.1 thou/uL (1.20-3.40); #Neutrophils 10.1 thou/uL (1.40-6.50); %Basophils 0.1 % (0.0-1.0); %Eosinophils 1.1 % (0.0-10.0); %Lymphocytes 9.1 % (21.0-51.0); %Monocytes 8.2 % (0.0-10.0); %Neutrophils 81.6 % (42.0-75.0); Mean Corpuscular HGB CONC 31.2 g/dL (32.0-36.0); Mean Corpuscular Hemoglobin 23.4 pg (27.0-31.0); Mean Corpuscular Volume 74.9 fL (78.0-98.0); Mean Platelet Volume 9.3 fL (7.4-10.4); Platelet Count 286 thou/uL (130-400); RBC Distribution Width 18.4 % (11.5-14.5); Red Blood Cell (RBC) Count 3.01 mill/uL (4.20-5.40); White Blood Cell (WBC) Count 12.3 thou/uL (4.8-10.8)
[2021-03-10 07:26] LABS: Vancomycin, Trough 28.1 ug/mL
[2021-03-10 07:27] LABS: Anion Gap 15 mmol/L (10-20); BUN (Urea Nitrogen) 51 mg/dL (7.0-18.7); Calc. Creatinine Clearance 134 mL/min (70-130); Calcium 8.5 mg/dL (7.8-10.44); Carbon Dioxide 20 mmol/L (22-29); Chloride 104 mmol/L (98-107); Glucose 172 mg/dL (70-105); Potassium 5.5 mmol/L (3.5-5.1); Sodium 133 mmol/L (136-145)
[2021-03-10] MEDS: Methocarbamol 500 MG TAB PO SCH ×2 (08:40→21:38)
[2021-03-10] MEDS: guaiFENesin ER 600 MG TAB PO SCH ×2 (08:40→21:38)
[2021-03-10] MEDS: Escitalopram Oxalate 20 mg Tablet PO SCH (08:41)
[2021-03-10] MEDS: Cholecalciferol 1,000 UNITS (25 MCG) TAB PO SCH (08:41)
[2021-03-10] MEDS: Cyanocobalamin (Vitamin B-12) 1,000 MCG TAB PO SCH ×2 (08:41→21:38)
[2021-03-10] MEDS: Amlodipine 10 MG TAB PO SCH (08:41)
[2021-03-10] MEDS: Ferrous Sulfate 325 MG TAB PO SCH (08:41)
[2021-03-10] MEDS: Lantus 1000 UNITS/10 ML VIAL SC SCH ×2 (09:41→21:38)
[2021-03-10] MEDS: LOKELMA 10 GM PACKET PO SCH ×3 (12:33→23:50)
[2021-03-10] MEDS: Cefepime 1 GM in Sodium Chloride 0.9% 100 ML IVPB SCH (15:45)
[2021-03-10 20:18] LABS: Vancomycin, Random 20.5 ug/mL (See Comment)
[2021-03-10] MEDS: Atorvastatin Calcium 10 MG TAB PO SCH (21:39)
[2021-03-11] MEDS: Morphine 4 MG/ML VIAL SLOW IVP PRN (04:50)
[2021-03-11] MEDS: metroNIDAZOLE 250 MG, Admixture Fee 1 EACH in Premix Bag 1 BAG IVPB SCH ×2 (05:43→15:18)
[2021-03-11 06:18] LABS: #Eosinphils 0.3 thou/uL (0.0-0.7); #Lymphocytes 1.1 thou/uL (1.20-3.40); #Monocytes 1.2 thou/uL (0.11-0.59); #Neutrophils 11.6 thou/uL (1.40-6.50); %Basophils 0.1 % (0.0-1.0); %Eosinophils 2.4 % (0.0-10.0); %Monocytes 8.3 % (0.0-10.0); %Neutrophils 81.3 % (42.0-75.0); Mean Corpuscular HGB CONC 29.2 g/dL (32.0-36.0); Mean Corpuscular Hemoglobin 22.1 pg (27.0-31.0); Mean Corpuscular Volume 75.7 fL (78.0-98.0); Mean Platelet Volume 8.7 fL (7.4-10.4); Platelet Count 302 thou/uL (130-400); RBC Distribution Width 18.2 % (11.5-14.5); Red Blood Cell (RBC) Count 3.14 mill/uL (4.20-5.40); White Blood Cell (WBC) Count 14.3 thou/uL (4.8-10.8)
[2021-03-11 06:36] LABS: Anion Gap 15 mmol/L (10-20); BUN (Urea Nitrogen) 58 mg/dL (7.0-18.7); Calc. Creatinine Clearance 116 mL/min (70-130); Calcium 8.6 mg/dL (7.8-10.44); Carbon Dioxide 21 mmol/L (22-29); Chloride 104 mmol/L (98-107); Glucose 175 mg/dL (70-105); Potassium 5.5 mmol/L (3.5-5.1); Sodium 134 mmol/L (136-145)
[2021-03-11 07:26] VITALS: TEMP 97.6
[2021-03-11] MEDS: Methocarbamol 500 MG TAB PO SCH (08:17)
[2021-03-11] MEDS: Amlodipine 10 MG TAB PO SCH (08:17)
[2021-03-11] MEDS: Escitalopram Oxalate 20 mg Tablet PO SCH (08:18)
[2021-03-11] MEDS: Ferrous Sulfate 325 MG TAB PO SCH (08:18)
[2021-03-11] MEDS: Cholecalciferol 1,000 UNITS (25 MCG) TAB PO SCH (08:18)
[2021-03-11] MEDS: Lantus 1000 UNITS/10 ML VIAL SC SCH (08:18)
[2021-03-11] MEDS: Cyanocobalamin (Vitamin B-12) 1,000 MCG TAB PO SCH (08:18)
[2021-03-11] MEDS: guaiFENesin ER 600 MG TAB PO SCH (08:20)
== END 2021-03-11 16:57 | disposition left against medical advice (07) | DRG 871 ==
LOC: ERS 02:10 → IMCU/EMU 04:15
PROVIDERS: ADMIT Student in an Organized Health Care Education/Training Program; ATTEND Internal Medicine
PROC: 5A09457 Assistance with Respiratory Ventilation, 24-96 Consecutive Hours, Continuous Positive Airway Pressure (ICD-10-PCS; principal; 2021-03-08)
DX: A41.9 Sepsis, unspecified organism (principal); I50.33 Acute on chronic diastolic (congestive) heart failure; I21.A1 Myocardial infarction type 2; J96.01 Acute respiratory failure with hypoxia; N17.9 Acute kidney failure, unspecified; I13.0 Hypertensive heart and chronic kidney disease with heart failure and stage 1 through stage 4 chronic kidney disease, or unspecified chronic kidney disease; E87.2 Acidosis; Z68.45 Body mass index [BMI] 70 or greater, adult; E66.2 Morbid (severe) obesity with alveolar hypoventilation; E87.1 Hypo-osmolality and hyponatremia; N18.4 Chronic kidney disease, stage 4 (severe); Z20.822 Contact with and (suspected) exposure to COVID-19; E87.5 Hyperkalemia; Z53.29 Procedure and treatment not carried out because of patient's decision for other reasons; M19.90 Unspecified osteoarthritis, unspecified site; E78.5 Hyperlipidemia, unspecified; E78.00 Pure hypercholesterolemia, unspecified; K21.9 Gastro-esophageal reflux disease without esophagitis; G25.81 Restless legs syndrome; F31.9 Bipolar disorder, unspecified; E10.22 Type 1 diabetes mellitus with diabetic chronic kidney disease; E10.65 Type 1 diabetes mellitus with hyperglycemia; E88.09 Other disorders of plasma-protein metabolism, not elsewhere classified; F41.9 Anxiety disorder, unspecified; Z88.0 Allergy status to penicillin; Z88.5 Allergy status to narcotic agent; Z79.4 Long term (current) use of insulin; Z79.899 Other long term (current) drug therapy; E10.42 Type 1 diabetes mellitus with diabetic polyneuropathy; E55.9 Vitamin D deficiency, unspecified; I50.814 Right heart failure due to left heart failure
CPT/HCPCS: 0240U; 36415; 36416; 36430; 51702; 71045; 80048; 80053; 80202; 81003; 81015; 82553; 83036; 83540; 83550; 83605; 83735; 83880; 84484; 85007; 85025; 85027; 85730; 86850; 86900; 86901; 87040; 87086; 93005; 93306; 94660; 96365; 96375; J0692; J0696; J1644; J1815; J1940; J1956; J2001; J2270; J3370; J3490; J7030; J7070; P9016

== ENCOUNTER 2021-04-23 16:24 | Inpatient (IN) | payer OTHER ==
[~2021-04-23 16:24] MED LIST changes: +Acetaminophen 325 MG TAB PO PRN; +Ondansetron ODT 4 MG TAB SL PRN; +Ondansetron PF 4 MG/2 ML Vial IVP PRN; +Sodium Chloride 0.9% 1,000 ML IV SCH; -Sodium Chloride 0.9% 15 ML NEB ONE
[2021-04-23] MEDS ORDERED: hydrALAZINE 20 MG/ML VIAL SLOW IVP PRN (18:02)
[2021-04-23] MEDS ORDERED: Dextrose 5% in Water 1,000 ML IV PRN (18:02)
[2021-04-23] MEDS ORDERED: Dextrose 50% Abboject 50 ML SYRINGE SLOW IVP PRN (18:02)
[2021-04-23] MEDS ORDERED: Ondansetron PF 4 MG/2 ML Vial IVP PRN (18:02)
[2021-04-23] MEDS ORDERED: Morphine 2 MG/ML VIAL SLOW IVP PRN (18:02)
[2021-04-23] MEDS: Fentanyl 100 MCG/2 ML VIAL SLOW IVP PRN ×2 (18:13→21:06)
[2021-04-23 18:24] VITALS: BMI 102.0
[2021-04-23] MEDS ORDERED: Cyclobenzaprine 10 MG TAB PO PRN (18:40)
[2021-04-23] MEDS ORDERED: Acetaminophen/Codeine 30-300mg Tablet PO PRN (18:42)
[2021-04-23 18:46] LABS: Hemoglobin 6.1 g/dL (12.0-16.0); Mean Corpuscular HGB CONC 28.4 g/dL (32.0-36.0); Mean Corpuscular Hemoglobin 20.5 pg (27.0-31.0); Mean Corpuscular Volume 72.2 fL (78.0-98.0); Mean Platelet Volume 8.6 fL (7.4-10.4); Platelet Count 496 thou/uL (130-400); RBC Distribution Width 18.5 % (11.5-14.5); Red Blood Cell (RBC) Count 2.98 mill/uL (4.20-5.40); White Blood Cell (WBC) Count 16.2 thou/uL (4.8-10.8)
[2021-04-23] MEDS: tiZANidine HCl 4 MG TAB PO PRN (21:01)
[2021-04-23] MEDS: Pregabalin 75 MG CAP PO SCH (21:02)
[2021-04-23] MEDS: busPIRone HCl 5 MG TAB PO SCH (21:03)
[2021-04-23] MEDS: Senokot S 8.6-50 MG TAB PO SCH (21:03)
[2021-04-23] MEDS: rOPINIRole HCl 2 MG TAB PO SCH (21:03)
[2021-04-23] MEDS: Famotidine/PF 20 mg/2ml Vial SLOW IVP SCH (21:05)
[2021-04-23] MEDS ORDERED: Ibuprofen 600 MG TAB PO SCH (22:00)
[2021-04-23] MEDS: Acetaminophen 500 MG TAB PO SCH (23:15)
[2021-04-23] MEDS ORDERED: Sodium Chloride 0.9% 1,000 ML IV SCH (23:55)
[2021-04-24] MEDS: Acetaminophen 500 MG TAB PO SCH ×5 (00:39→18:41)
[2021-04-24 00:53] LABS: SARS-CoV-2 NAA Rapid Test Not Detected (NotDetected)
[2021-04-24] MEDS: Acetaminophen/Codeine 30-300mg Tablet PO PRN (03:04)
[2021-04-24] MEDS: tiZANidine HCl 4 MG TAB PO PRN ×2 (05:28→17:55)
[2021-04-24 07:27] LABS: #Eosinphils 0.2 thou/uL (0.0-0.7); #Lymphocytes 1.9 thou/uL (1.20-3.40); #Monocytes 1.3 thou/uL (0.11-0.59); #Neutrophils 11.3 thou/uL (1.40-6.50); %Basophils 0.1 % (0.0-1.0); %Eosinophils 1.6 % (0.0-10.0); %Lymphocytes 12.8 % (21.0-51.0); %Neutrophils 76.4 % (42.0-75.0); Hemoglobin 6.3 g/dL (12.0-16.0); Mean Corpuscular Hemoglobin 22.5 pg (27.0-31.0); Mean Corpuscular Volume 74.9 fL (78.0-98.0); Mean Platelet Volume 8.6 fL (7.4-10.4); Platelet Count 431 thou/uL (130-400); RBC Distribution Width 19.7 % (11.5-14.5); Red Blood Cell (RBC) Count 2.78 mill/uL (4.20-5.40); White Blood Cell (WBC) Count 14.8 thou/uL (4.8-10.8)
[2021-04-24] MEDS ORDERED: Clindamycin/D5W 900 MG in Premix Bag 1 BAG IVPB SCH (07:30)
[2021-04-24 07:40] LABS: Phosphorus 4.9 mg/dL (2.3-4.7)
[2021-04-24 07:43] LABS: Anion Gap 9 mmol/L (10-20); BUN (Urea Nitrogen) 43 mg/dL (7.0-18.7); Calc. Creatinine Clearance 124 mL/min (70-130); Calcium 7.8 mg/dL (7.8-10.44); Carbon Dioxide 23 mmol/L (22-29); Chloride 105 mmol/L (98-107); Glucose 141 mg/dL (70-105); Magnesium 1.6 mg/dL (1.6-2.6); Potassium 4.7 mmol/L (3.5-5.1); Sodium 132 mmol/L (136-145)
[2021-04-24 08:12] LABS: Hypochromia SLIGHT = 6-15 cells (100X) (0-5/hpf); MDiff Complete? YES; Microcytosis SLIGHT = 6-15 cells (100X) (0-5/hpf); Platelet Morphology Comment Appears Increased; Polychromasia SLIGHT = 2-3 cells (100X) (0-2/hpf)
[2021-04-24] MEDS ORDERED: Magnesium 2 GM/50 ML 2 GM in Premix Bag 1 BAG IVPB SCH (09:00)
[2021-04-24] MEDS: Famotidine/PF 20 mg/2ml Vial SLOW IVP SCH ×2 (09:19→20:43)
[2021-04-24] MEDS: Ferrous Sulfate 325 MG TAB PO SCH (10:23)
[2021-04-24] MEDS: busPIRone HCl 5 MG TAB PO SCH ×2 (10:23→20:43)
[2021-04-24] MEDS: Senokot S 8.6-50 MG TAB PO SCH ×2 (10:24→20:42)
[2021-04-24] MEDS: Polyethylene Glycol 3350 17 GM Packet PO SCH (10:24)
[2021-04-24 10:37] LABS: Bilirubin Negative (Negative); Blood, Urine Moderate (Negative); Glucose, Urine (Dipstick) Negative (Negative); Ketone, Urine Trace mg/dL (Negative); Leukocyte Negative (Negative); Nitrite Negative (Negative); Protein, Urine (Dipstick) 100 mg/dL (Neg-Trace); Urobilinogen 0.2 mg/dL (Less than 2)
[2021-04-24] MEDS ORDERED: Clindamycin/D5W 600 mg/50 ml Premix Bag ONE (10:38)
[2021-04-24 10:39] LABS: Clarity Hazy (Clear); Specific Gravity, Urine 1.018 (1.002-1.036)
[2021-04-24 10:45] LABS: RBC/HPF 21-50 HPF (0-3)
[2021-04-24 10:53] LABS: Bacteria/HPF 2+ HPF (None Seen)
[2021-04-24 10:55] LABS: Urine Culture Reflex No No
[2021-04-24] MEDS ORDERED: Fentanyl 100 MCG/2 ML VIAL ONE ×4 (12:06→15:08)
[2021-04-24] MEDS ORDERED: Sodium Chloride 0.9% 1,000 ML IV SCH (12:15)
[2021-04-24] MEDS ORDERED: Midazolam HCl 2 mg/2 ml Vial ONE (12:16)
[2021-04-24] MEDS ORDERED: Ondansetron PF 4 MG/2 ML Vial ONE (12:26)
[2021-04-24] MEDS ORDERED: PROPOFOL 200 MG/20 ML VIAL ONE (12:26)
[2021-04-24] MEDS ORDERED: Lidocaine 1% PF 5 ML VIAL ONE (12:26)
[2021-04-24] MEDS ORDERED: PHENYLEPHRINE-NS 100 MCG/ML 10 ML SYRINGE ONE (12:26)
[2021-04-24] MEDS ORDERED: Rocuronium Bromide 10 MG/ML (10ML VIAL) ONE (12:26)
[2021-04-24] MEDS ORDERED: Succinylcholine 200 MG/10 ml SYRINGE FS ONE (12:26)
[2021-04-24] MEDS ORDERED: Metoclopramide HCl 10 MG/2 ML VIAL ONE (12:26)
[2021-04-24] MEDS ORDERED: SUGAMMADEX SODIUM 500 MG/5 ML VIAL ONE (14:12)
[2021-04-24 16:14] LABS: Anion Gap 8 mmol/L (10-20); BUN (Urea Nitrogen) 44 mg/dL (7.0-18.7); Calc. Creatinine Clearance 112 mL/min (70-130); Calcium 7.6 mg/dL (7.8-10.44); Carbon Dioxide 25 mmol/L (22-29); Chloride 107 mmol/L (98-107); Glucose 112 mg/dL (70-105); Magnesium 1.6 mg/dL (1.6-2.6); Phosphorus 5.3 mg/dL (2.3-4.7); Potassium 4.6 mmol/L (3.5-5.1); Sodium 135 mmol/L (136-145)
[2021-04-24] MEDS: Escitalopram Oxalate 20 mg Tablet PO SCH (16:20)
[2021-04-24] MEDS: Pregabalin 75 MG CAP PO SCH (20:41)
[2021-04-24] MEDS: rOPINIRole HCl 2 MG TAB PO SCH (20:42)
[2021-04-24] MEDS: Clindamycin/D5W 900 MG in Premix Bag 1 BAG IVPB SCH (20:44)
[2021-04-25] MEDS: Acetaminophen 500 MG TAB PO SCH ×4 (01:41→18:53)
[2021-04-25] MEDS: tiZANidine HCl 4 MG TAB PO PRN ×2 (01:42→20:40)
[2021-04-25] MEDS: Clindamycin/D5W 900 MG in Premix Bag 1 BAG IVPB SCH (05:07)
[2021-04-25 06:03] LABS: #Eosinphils 0.3 thou/uL (0.0-0.7); #Lymphocytes 1.9 thou/uL (1.20-3.40); #Monocytes 1.6 thou/uL (0.11-0.59); #Neutrophils 12.2 thou/uL (1.40-6.50); %Basophils 0.1 % (0.0-1.0); %Eosinophils 1.7 % (0.0-10.0); %Lymphocytes 11.8 % (21.0-51.0); %Monocytes 9.7 % (0.0-10.0); %Neutrophils 76.8 % (42.0-75.0); Hemoglobin 6.2 g/dL (12.0-16.0); Mean Corpuscular HGB CONC 29.8 g/dL (32.0-36.0); Mean Corpuscular Hemoglobin 22.4 pg (27.0-31.0); Mean Corpuscular Volume 75.3 fL (78.0-98.0); Mean Platelet Volume 8.9 fL (7.4-10.4); Platelet Count 409 thou/uL (130-400); RBC Distribution Width 19.7 % (11.5-14.5); Red Blood Cell (RBC) Count 2.76 mill/uL (4.20-5.40); White Blood Cell (WBC) Count 15.9 thou/uL (4.8-10.8)
[2021-04-25 06:24] LABS: Anion Gap 16 mmol/L (10-20); BUN (Urea Nitrogen) 48 mg/dL (7.0-18.7); Calc. Creatinine Clearance 106 mL/min (70-130); Calcium 7.7 mg/dL (7.8-10.44); Carbon Dioxide 19 mmol/L (22-29); Chloride 105 mmol/L (98-107); Glucose 157 mg/dL (70-105); Magnesium 1.8 mg/dL (1.6-2.6); Phosphorus 5.5 mg/dL (2.3-4.7); Sodium 135 mmol/L (136-145)
[2021-04-25] MEDS: Senokot S 8.6-50 MG TAB PO SCH ×3 (08:34→20:40)
[2021-04-25] MEDS: Escitalopram Oxalate 20 mg Tablet PO SCH (08:34)
[2021-04-25] MEDS: busPIRone HCl 5 MG TAB PO SCH ×2 (08:34→20:39)
[2021-04-25] MEDS: Ferrous Sulfate 325 MG TAB PO SCH (08:35)
[2021-04-25] MEDS: Famotidine/PF 20 mg/2ml Vial SLOW IVP SCH ×2 (08:35→20:39)
[2021-04-25] MEDS: Polyethylene Glycol 3350 17 GM Packet PO SCH (08:36)
[2021-04-25] MEDS ORDERED: Magnesium 2 GM/50 ML 2 GM in Premix Bag 1 BAG IVPB SCH (16:00)
[2021-04-25] MEDS: Acetaminophen/Codeine 30-300mg Tablet PO PRN (17:44)
[2021-04-25] MEDS: Pregabalin 75 MG CAP PO SCH (20:39)
[2021-04-25] MEDS: rOPINIRole HCl 2 MG TAB PO SCH (20:40)
[2021-04-26] MEDS: Acetaminophen 500 MG TAB PO SCH ×4 (02:27→18:45)
[2021-04-26 05:43] LABS: #Basophils 0.1 thou/uL (0.0-0.2); #Eosinphils 0.6 thou/uL (0.0-0.7); #Lymphocytes 1.8 thou/uL (1.20-3.40); #Monocytes 1.4 thou/uL (0.11-0.59); #Neutrophils 11.6 thou/uL (1.40-6.50); %Basophils 0.4 % (0.0-1.0); %Eosinophils 3.6 % (0.0-10.0); %Lymphocytes 11.4 % (21.0-51.0); %Monocytes 8.8 % (0.0-10.0); %Neutrophils 75.7 % (42.0-75.0); Hemoglobin 6.5 g/dL (12.0-16.0); Mean Corpuscular HGB CONC 29.8 g/dL (32.0-36.0); Mean Corpuscular Hemoglobin 22.7 pg (27.0-31.0); Mean Platelet Volume 8.6 fL (7.4-10.4); Platelet Count 439 thou/uL (130-400); RBC Distribution Width 19.8 % (11.5-14.5); Red Blood Cell (RBC) Count 2.85 mill/uL (4.20-5.40); White Blood Cell (WBC) Count 15.4 thou/uL (4.8-10.8)
[2021-04-26 06:06] LABS: Anion Gap 13 mmol/L (10-20); BUN (Urea Nitrogen) 53 mg/dL (7.0-18.7); Calc. Creatinine Clearance 99 mL/min (70-130); Calcium 8.2 mg/dL (7.8-10.44); Carbon Dioxide 22 mmol/L (22-29); Chloride 107 mmol/L (98-107); Glucose 128 mg/dL (70-105); Magnesium 2.2 mg/dL (1.6-2.6); Phosphorus 6.1 mg/dL (2.3-4.7); Sodium 137 mmol/L (136-145)
[2021-04-26] MEDS: Ferrous Sulfate 325 MG TAB PO SCH (08:56)
[2021-04-26] MEDS: busPIRone HCl 5 MG TAB PO SCH ×2 (08:56→19:57)
[2021-04-26] MEDS: tiZANidine HCl 4 MG TAB PO PRN ×2 (08:56→19:54)
[2021-04-26] MEDS: Famotidine/PF 20 mg/2ml Vial SLOW IVP SCH (08:56)
[2021-04-26] MEDS: Escitalopram Oxalate 20 mg Tablet PO SCH (08:56)
[2021-04-26] MEDS: Ascorbic Acid 500 mg Chewable Tablet PO SCH (08:57)
[2021-04-26] MEDS: Polyethylene Glycol 3350 17 GM Packet PO SCH (08:58)
[2021-04-26] MEDS: Senokot S 8.6-50 MG TAB PO SCH ×2 (08:58→20:00)
[2021-04-26] MEDS: Acetaminophen/Codeine 30-300mg Tablet PO PRN ×3 (12:21→22:26)
[2021-04-26 19:37] LABS: Hemoglobin 8.2 g/dL (12.0-16.0); Mean Corpuscular Hemoglobin 23.6 pg (27.0-31.0); Mean Corpuscular Volume 76.2 fL (78.0-98.0); Mean Platelet Volume 8.7 fL (7.4-10.4); Platelet Count 468 thou/uL (130-400); RBC Distribution Width 20.4 % (11.5-14.5); Red Blood Cell (RBC) Count 3.45 mill/uL (4.20-5.40); White Blood Cell (WBC) Count 17.1 thou/uL (4.8-10.8)
[2021-04-26] MEDS: rOPINIRole HCl 2 MG TAB PO SCH (19:55)
[2021-04-26] MEDS: Pregabalin 75 MG CAP PO SCH (19:56)
[2021-04-27] MEDS: Acetaminophen 500 MG TAB PO SCH ×4 (00:44→18:26)
[2021-04-27] MEDS: Acetaminophen/Codeine 30-300mg Tablet PO PRN ×4 (06:32→22:29)
[2021-04-27] MEDS ORDERED: Non-Formulary Item 1 EACH (Potassium Chloride [Potassium Chloride] 10 MEQ Capsule.Er) PO SCH (07:45)
[2021-04-27] MEDS ORDERED: INSULIN ASPART SC SCH (07:45)
[2021-04-27] MEDS: Multivit, Therapeutic 1 TAB PO SCH (08:13)
[2021-04-27] MEDS: Escitalopram Oxalate 20 mg Tablet PO SCH (08:13)
[2021-04-27] MEDS: Ferrous Sulfate 325 MG TAB PO SCH ×2 (08:13→20:48)
[2021-04-27] MEDS: Ascorbic Acid 500 mg Chewable Tablet PO SCH (08:13)
[2021-04-27] MEDS: busPIRone HCl 5 MG TAB PO SCH ×2 (08:13→20:48)
[2021-04-27] MEDS ORDERED: Furosemide 40 MG TAB PO SCH (09:00)
[2021-04-27] MEDS: Polyethylene Glycol 3350 17 GM Packet PO SCH (11:04)
[2021-04-27] MEDS: Senokot S 8.6-50 MG TAB PO SCH ×2 (11:05→20:50)
[2021-04-27] MEDS: tiZANidine HCl 4 MG TAB PO PRN ×2 (12:17→20:54)
[2021-04-27] MEDS: Apixaban 2.5 MG TAB PO SCH ×2 (12:22→20:54)
[2021-04-27] MEDS ORDERED: Furosemide 80 MG TAB PO SCH (12:30)
[2021-04-27] MEDS: Atorvastatin Calcium 10 MG TAB PO SCH (20:47)
[2021-04-27] MEDS: rOPINIRole HCl 2 MG TAB PO SCH (20:47)
[2021-04-27] MEDS: Pregabalin 75 MG CAP PO SCH (20:48)
[2021-04-27] MEDS ORDERED: Cyclobenzaprine 10 MG TAB PO PRN (20:54)
[2021-04-28] MEDS: Acetaminophen 500 MG TAB PO SCH ×5 (00:20→23:07)
[2021-04-28] MEDS: Acetaminophen/Codeine 30-300mg Tablet PO PRN ×4 (05:29→20:20)
[2021-04-28 05:55] LABS: #Eosinphils 0.7 thou/uL (0.0-0.7); #Lymphocytes 1.9 thou/uL (1.20-3.40); #Monocytes 1.4 thou/uL (0.11-0.59); #Neutrophils 11.1 thou/uL (1.40-6.50); %Basophils 0.2 % (0.0-1.0); %Eosinophils 4.7 % (0.0-10.0); %Lymphocytes 12.9 % (21.0-51.0); %Monocytes 8.9 % (0.0-10.0); %Neutrophils 73.4 % (42.0-75.0); Hemoglobin 6.9 g/dL (12.0-16.0); Mean Corpuscular HGB CONC 29.9 g/dL (32.0-36.0); Mean Corpuscular Volume 76.9 fL (78.0-98.0); Mean Platelet Volume 8.4 fL (7.4-10.4); Platelet Count 485 thou/uL (130-400); RBC Distribution Width 20.6 % (11.5-14.5); Red Blood Cell (RBC) Count 2.98 mill/uL (4.20-5.40); White Blood Cell (WBC) Count 15.1 thou/uL (4.8-10.8)
[2021-04-28 06:06] LABS: Anion Gap 12 mmol/L (10-20); BUN (Urea Nitrogen) 56 mg/dL (7.0-18.7); Calc. Creatinine Clearance 118 mL/min (70-130); Calcium 8.2 mg/dL (7.8-10.44); Carbon Dioxide 24 mmol/L (22-29); Chloride 105 mmol/L (98-107); Glucose 124 mg/dL (70-105); Potassium 5.6 mmol/L (3.5-5.1); Sodium 135 mmol/L (136-145)
[2021-04-28] MEDS: Senokot S 8.6-50 MG TAB PO SCH ×2 (09:05→20:15)
[2021-04-28] MEDS: busPIRone HCl 5 MG TAB PO SCH ×2 (09:05→20:17)
[2021-04-28] MEDS: Acyclovir 800 mg Tablet PO SCH (09:05)
[2021-04-28] MEDS: Apixaban 2.5 MG TAB PO SCH ×2 (09:05→20:18)
[2021-04-28] MEDS: Cyanocobalamin (Vitamin B-12) 1,000 MCG TAB PO SCH (09:06)
[2021-04-28] MEDS: Ferrous Sulfate 325 MG TAB PO SCH ×2 (09:07→20:21)
[2021-04-28] MEDS: Polyethylene Glycol 3350 17 GM Packet PO SCH (09:07)
[2021-04-28] MEDS: Multivit, Therapeutic 1 TAB PO SCH (09:07)
[2021-04-28] MEDS: Ascorbic Acid 500 mg Chewable Tablet PO SCH (09:07)
[2021-04-28] MEDS: Escitalopram Oxalate 20 mg Tablet PO SCH (09:07)
[2021-04-28] MEDS ORDERED: Furosemide 80 MG TAB PO SCH (10:00)
[2021-04-28] MEDS ORDERED: Hydrocortisone Sod Succ/PF 100 mg/2 ml Vial IVP SCH (13:15)
[2021-04-28 14:45] LABS: #Eosinphils 0.5 thou/uL (0.0-0.7); #Lymphocytes 1.6 thou/uL (1.20-3.40); #Monocytes 1.1 thou/uL (0.11-0.59); %Basophils 0.3 % (0.0-1.0); %Eosinophils 3.7 % (0.0-10.0); %Lymphocytes 11.1 % (21.0-51.0); %Monocytes 7.5 % (0.0-10.0); %Neutrophils 77.4 % (42.0-75.0); Hemoglobin 7.7 g/dL (12.0-16.0); Mean Corpuscular HGB CONC 30.1 g/dL (32.0-36.0); Mean Corpuscular Hemoglobin 23.3 pg (27.0-31.0); Mean Corpuscular Volume 77.2 fL (78.0-98.0); Mean Platelet Volume 8.5 fL (7.4-10.4); Platelet Count 500 thou/uL (130-400); RBC Distribution Width 20.8 % (11.5-14.5); Red Blood Cell (RBC) Count 3.32 mill/uL (4.20-5.40); White Blood Cell (WBC) Count 14.3 thou/uL (4.8-10.8)
[2021-04-28 14:59] LABS: Anion Gap 13 mmol/L (10-20); BUN (Urea Nitrogen) 54 mg/dL (7.0-18.7); Calc. Creatinine Clearance 127 mL/min (70-130); Calcium 8.2 mg/dL (7.8-10.44); Carbon Dioxide 22 mmol/L (22-29); Chloride 105 mmol/L (98-107); Glucose 101 mg/dL (70-105); Magnesium 2.1 mg/dL (1.6-2.6); Phosphorus 5.6 mg/dL (2.3-4.7); Potassium 4.6 mmol/L (3.5-5.1); Sodium 135 mmol/L (136-145)
[2021-04-28] MEDS: rOPINIRole HCl 2 MG TAB PO SCH (20:16)
[2021-04-28] MEDS: Furosemide 80 MG TAB PO SCH (20:17)
[2021-04-28] MEDS: Pregabalin 75 MG CAP PO SCH (20:18)
[2021-04-28] MEDS: Atorvastatin Calcium 10 MG TAB PO SCH (20:21)
[2021-04-28] MEDS: Melatonin 3 MG TAB PO PRN (23:08)
[2021-04-28] MEDS: Hydrocortisone Sod Succ/PF 100 mg/2 ml Vial IVP SCH (23:09)
[2021-04-29] MEDS: Acetaminophen/Codeine 30-300mg Tablet PO PRN ×3 (00:22→11:25)
[2021-04-29] MEDS: Acetaminophen 500 MG TAB PO SCH ×3 (06:23→18:03)
[2021-04-29] MEDS: tiZANidine HCl 4 MG TAB PO PRN ×2 (06:23→21:34)
[2021-04-29] MEDS: Hydrocortisone Sod Succ/PF 100 mg/2 ml Vial IVP SCH (06:24)
[2021-04-29] MEDS ORDERED: Magnesium Citrate 300 ML BOT PO SCH (07:30)
[2021-04-29] MEDS: Senokot S 8.6-50 MG TAB PO SCH ×2 (08:48→20:27)
[2021-04-29] MEDS: Cyanocobalamin (Vitamin B-12) 1,000 MCG TAB PO SCH (08:49)
[2021-04-29] MEDS: Apixaban 2.5 MG TAB PO SCH ×2 (08:49→20:27)
[2021-04-29] MEDS: Ascorbic Acid 500 mg Chewable Tablet PO SCH (08:49)
[2021-04-29] MEDS: Multivit, Therapeutic 1 TAB PO SCH (08:50)
[2021-04-29] MEDS: Ferrous Sulfate 325 MG TAB PO SCH ×2 (08:51→20:27)
[2021-04-29] MEDS: busPIRone HCl 5 MG TAB PO SCH ×2 (08:51→20:27)
[2021-04-29] MEDS: Escitalopram Oxalate 20 mg Tablet PO SCH (08:51)
[2021-04-29] MEDS: Acyclovir 800 mg Tablet PO SCH (09:23)
[2021-04-29] MEDS: Furosemide 80 MG TAB PO SCH ×2 (09:23→20:27)
[2021-04-29] MEDS: Polyethylene Glycol 3350 17 GM Packet PO SCH (09:24)
[2021-04-29] MEDS ORDERED: Morphine 4 MG/ML VIAL SLOW IVP SCH (16:39)
[2021-04-29] MEDS ORDERED: Mineral Oil ENEMA PR SCH (16:43)
[2021-04-29] MEDS: Pregabalin 75 MG CAP PO SCH (20:25)
[2021-04-29] MEDS: rOPINIRole HCl 2 MG TAB PO SCH (20:26)
[2021-04-29] MEDS: Atorvastatin Calcium 10 MG TAB PO SCH (20:27)
[2021-04-29] MEDS: Melatonin 3 MG TAB PO PRN (21:35)
[2021-04-30] MEDS: Acetaminophen 500 MG TAB PO SCH ×5 (00:37→23:29)
[2021-04-30] MEDS: Acetaminophen/Codeine 30-300mg Tablet PO PRN ×3 (05:40→16:38)
[2021-04-30 05:59] LABS: #Eosinphils 0.4 thou/uL (0.0-0.7); #Lymphocytes 1.9 thou/uL (1.20-3.40); #Monocytes 1.2 thou/uL (0.11-0.59); #Neutrophils 10.1 thou/uL (1.40-6.50); %Basophils 0.3 % (0.0-1.0); %Eosinophils 2.6 % (0.0-10.0); %Lymphocytes 14.1 % (21.0-51.0); Hemoglobin 7.6 g/dL (12.0-16.0); Mean Corpuscular HGB CONC 30.6 g/dL (32.0-36.0); Mean Corpuscular Hemoglobin 23.5 pg (27.0-31.0); Mean Corpuscular Volume 76.9 fL (78.0-98.0); Mean Platelet Volume 8.3 fL (7.4-10.4); Platelet Count 506 thou/uL (130-400); RBC Distribution Width 20.7 % (11.5-14.5); Red Blood Cell (RBC) Count 3.24 mill/uL (4.20-5.40); White Blood Cell (WBC) Count 13.7 thou/uL (4.8-10.8)
[2021-04-30] MEDS: Senokot S 8.6-50 MG TAB PO SCH ×2 (09:53→20:53)
[2021-04-30] MEDS: Furosemide 80 MG TAB PO SCH ×2 (09:53→20:55)
[2021-04-30] MEDS: Acyclovir 800 mg Tablet PO SCH (09:53)
[2021-04-30] MEDS: Polyethylene Glycol 3350 17 GM Packet PO SCH (09:53)
[2021-04-30] MEDS: Cyanocobalamin (Vitamin B-12) 1,000 MCG TAB PO SCH (09:54)
[2021-04-30] MEDS: Ascorbic Acid 500 mg Chewable Tablet PO SCH (09:54)
[2021-04-30] MEDS: busPIRone HCl 5 MG TAB PO SCH ×2 (09:54→20:57)
[2021-04-30] MEDS: Apixaban 2.5 MG TAB PO SCH ×2 (09:55→20:54)
[2021-04-30] MEDS: Escitalopram Oxalate 20 mg Tablet PO SCH (09:55)
[2021-04-30] MEDS: Multivit, Therapeutic 1 TAB PO SCH (09:55)
[2021-04-30] MEDS: Ferrous Sulfate 325 MG TAB PO SCH ×2 (09:55→20:53)
[2021-04-30] MEDS ORDERED: Cyclobenzaprine 10 MG TAB PO PRN (10:52)
[2021-04-30] MEDS ORDERED: Acetaminophen 325 MG TAB PO SCH (11:00)
[2021-04-30] MEDS ORDERED: Ibuprofen 600 MG TAB PO SCH (11:00)
[2021-04-30] MEDS: tiZANidine HCl 4 MG TAB PO PRN (16:38)
[2021-04-30] MEDS ORDERED: Nystatin Powder 15 GM BOT TOP PRN (17:11)
[2021-04-30] MEDS: Pregabalin 75 MG CAP PO SCH (20:53)
[2021-04-30] MEDS: rOPINIRole HCl 2 MG TAB PO SCH (20:53)
[2021-04-30] MEDS: Atorvastatin Calcium 10 MG TAB PO SCH (20:54)
[2021-05-01] MEDS: Acetaminophen/Codeine 30-300mg Tablet PO PRN ×4 (03:27→20:43)
[2021-05-01] MEDS: Acetaminophen 500 MG TAB PO SCH ×3 (05:31→15:18)
[2021-05-01] MEDS: Acyclovir 800 mg Tablet PO SCH (08:45)
[2021-05-01] MEDS: Apixaban 2.5 MG TAB PO SCH ×2 (08:45→20:43)
[2021-05-01] MEDS: Ascorbic Acid 500 mg Chewable Tablet PO SCH (08:45)
[2021-05-01] MEDS: busPIRone HCl 5 MG TAB PO SCH ×2 (08:45→20:43)
[2021-05-01] MEDS: Ferrous Sulfate 325 MG TAB PO SCH ×2 (08:46→20:42)
[2021-05-01] MEDS: Polyethylene Glycol 3350 17 GM Packet PO SCH ×2 (08:46→08:48)
[2021-05-01] MEDS: Escitalopram Oxalate 20 mg Tablet PO SCH (08:46)
[2021-05-01] MEDS: Cyanocobalamin (Vitamin B-12) 1,000 MCG TAB PO SCH (08:46)
[2021-05-01] MEDS: Multivit, Therapeutic 1 TAB PO SCH (08:46)
[2021-05-01] MEDS: Senokot S 8.6-50 MG TAB PO SCH ×2 (08:46→20:44)
[2021-05-01] MEDS: Furosemide 80 MG TAB PO SCH ×2 (08:46→20:43)
[2021-05-01] MEDS: rOPINIRole HCl 2 MG TAB PO SCH (20:42)
[2021-05-01] MEDS: Pregabalin 75 MG CAP PO SCH (20:42)
[2021-05-01] MEDS: tiZANidine HCl 4 MG TAB PO PRN (20:43)
[2021-05-01] MEDS: Atorvastatin Calcium 10 MG TAB PO SCH (20:43)
[2021-05-02] MEDS: Acetaminophen 500 MG TAB PO SCH ×5 (00:16→23:41)
[2021-05-02] MEDS: Acetaminophen/Codeine 30-300mg Tablet PO PRN ×5 (03:37→18:42)
[2021-05-02] MEDS: tiZANidine HCl 4 MG TAB PO PRN ×2 (03:39→18:42)
[2021-05-02] MEDS: Apixaban 2.5 MG TAB PO SCH ×2 (08:48→20:43)
[2021-05-02] MEDS: Acyclovir 800 mg Tablet PO SCH (08:48)
[2021-05-02] MEDS: Ascorbic Acid 500 mg Chewable Tablet PO SCH (08:48)
[2021-05-02] MEDS: busPIRone HCl 5 MG TAB PO SCH ×2 (08:49→20:43)
[2021-05-02] MEDS: Escitalopram Oxalate 20 mg Tablet PO SCH (08:49)
[2021-05-02] MEDS: Ferrous Sulfate 325 MG TAB PO SCH ×2 (08:49→20:43)
[2021-05-02] MEDS: Furosemide 80 MG TAB PO SCH ×2 (08:49→20:43)
[2021-05-02] MEDS: Multivit, Therapeutic 1 TAB PO SCH (08:49)
[2021-05-02] MEDS: Cyanocobalamin (Vitamin B-12) 1,000 MCG TAB PO SCH (08:49)
[2021-05-02] MEDS: Polyethylene Glycol 3350 17 GM Packet PO SCH (08:50)
[2021-05-02] MEDS: Senokot S 8.6-50 MG TAB PO SCH ×2 (08:50→20:43)
[2021-05-02] MEDS: Pregabalin 75 MG CAP PO SCH (20:42)
[2021-05-02] MEDS: rOPINIRole HCl 2 MG TAB PO SCH (20:42)
[2021-05-02] MEDS: Atorvastatin Calcium 10 MG TAB PO SCH (20:43)
[2021-05-03] MEDS: Acetaminophen 500 MG TAB PO SCH ×4 (05:50→23:36)
[2021-05-03] MEDS: Senokot S 8.6-50 MG TAB PO SCH ×2 (10:06→20:56)
[2021-05-03] MEDS: busPIRone HCl 5 MG TAB PO SCH ×2 (10:07→20:54)
[2021-05-03] MEDS: Ferrous Sulfate 325 MG TAB PO SCH ×2 (10:07→20:54)
[2021-05-03] MEDS: Furosemide 80 MG TAB PO SCH ×2 (10:07→20:53)
[2021-05-03] MEDS: Multivit, Therapeutic 1 TAB PO SCH (10:08)
[2021-05-03] MEDS: Escitalopram Oxalate 20 mg Tablet PO SCH (10:08)
[2021-05-03] MEDS: Polyethylene Glycol 3350 17 GM Packet PO SCH (10:12)
[2021-05-03] MEDS: Ascorbic Acid 500 mg Chewable Tablet PO SCH (11:34)
[2021-05-03] MEDS: Acyclovir 800 mg Tablet PO SCH (11:34)
[2021-05-03] MEDS: Apixaban 2.5 MG TAB PO SCH ×2 (11:34→21:08)
[2021-05-03] MEDS: Cyanocobalamin (Vitamin B-12) 1,000 MCG TAB PO SCH (12:27)
[2021-05-03] MEDS: tiZANidine HCl 4 MG TAB PO PRN ×2 (12:27→20:54)
[2021-05-03] MEDS: Acetaminophen/Codeine 30-300mg Tablet PO PRN (16:46)
[2021-05-03] MEDS: rOPINIRole HCl 2 MG TAB PO SCH (20:54)
[2021-05-03] MEDS: Pregabalin 75 MG CAP PO SCH (20:55)
[2021-05-03] MEDS: Atorvastatin Calcium 10 MG TAB PO SCH (20:56)
[2021-05-04] MEDS: Acetaminophen/Codeine 30-300mg Tablet PO PRN ×2 (03:32→17:04)
[2021-05-04] MEDS: Acetaminophen 500 MG TAB PO SCH ×3 (06:00→17:07)
[2021-05-04] MEDS: Acyclovir 800 mg Tablet PO SCH (10:02)
[2021-05-04] MEDS: Apixaban 2.5 MG TAB PO SCH ×2 (10:03→21:51)
[2021-05-04] MEDS: tiZANidine HCl 4 MG TAB PO PRN ×2 (10:03→20:19)
[2021-05-04] MEDS: Senokot S 8.6-50 MG TAB PO SCH ×2 (10:03→23:03)
[2021-05-04] MEDS: Cyanocobalamin (Vitamin B-12) 1,000 MCG TAB PO SCH (10:03)
[2021-05-04] MEDS: Multivit, Therapeutic 1 TAB PO SCH (10:14)
[2021-05-04] MEDS: busPIRone HCl 5 MG TAB PO SCH ×2 (10:14→20:11)
[2021-05-04] MEDS: Escitalopram Oxalate 20 mg Tablet PO SCH (10:15)
[2021-05-04] MEDS: Ferrous Sulfate 325 MG TAB PO SCH ×2 (10:16→20:12)
[2021-05-04] MEDS: Polyethylene Glycol 3350 17 GM Packet PO SCH (10:17)
[2021-05-04] MEDS: Furosemide 80 MG TAB PO SCH ×2 (10:18→21:51)
[2021-05-04] MEDS: Ascorbic Acid 500 mg Chewable Tablet PO SCH (10:19)
[2021-05-04] MEDS ORDERED: Acetaminophen/Codeine 30-300mg Tablet PO PRN (13:59)
[2021-05-04] MEDS ORDERED: Morphine 2 MG/ML VIAL SLOW IVP PRN (19:28)
[2021-05-04] MEDS: Pregabalin 75 MG CAP PO SCH (20:11)
[2021-05-04] MEDS: Atorvastatin Calcium 10 MG TAB PO SCH (20:11)
[2021-05-04] MEDS: rOPINIRole HCl 2 MG TAB PO SCH (20:11)
[2021-05-04] MEDS: HYDROcodone/Acetaminophen 7.5/325 mg Tablet PO PRN (20:12)
[2021-05-05] MEDS: Acetaminophen 500 MG TAB PO SCH ×3 (01:33→10:54)
[2021-05-05] MEDS: Acetaminophen/Codeine 30-300mg Tablet PO PRN ×2 (03:53→10:44)
[2021-05-05] MEDS: HYDROcodone/Acetaminophen 7.5/325 mg Tablet PO PRN (08:28)
[2021-05-05] MEDS: Apixaban 2.5 MG TAB PO SCH (08:30)
[2021-05-05] MEDS: Cyanocobalamin (Vitamin B-12) 1,000 MCG TAB PO SCH (08:30)
[2021-05-05] MEDS: Ferrous Sulfate 325 MG TAB PO SCH (08:30)
[2021-05-05] MEDS: Multivit, Therapeutic 1 TAB PO SCH (08:30)
[2021-05-05] MEDS: Ascorbic Acid 500 mg Chewable Tablet PO SCH (08:30)
[2021-05-05] MEDS: Senokot S 8.6-50 MG TAB PO SCH (08:31)
[2021-05-05] MEDS: Acyclovir 800 mg Tablet PO SCH (08:31)
[2021-05-05] MEDS: Escitalopram Oxalate 20 mg Tablet PO SCH (08:31)
[2021-05-05] MEDS: busPIRone HCl 5 MG TAB PO SCH (08:31)
[2021-05-05] MEDS: Furosemide 80 MG TAB PO SCH (08:31)
[2021-05-05] MEDS: Polyethylene Glycol 3350 17 GM Packet PO SCH (08:31)
[2021-05-05 11:39] VITALS: BP 119/64; TEMP 99.1
== END 2021-05-05 11:45 | DRG 493 ==
LOC: SURG B 17:40 → OBSVTOIN 18:02 → SJJU 04-25 18:29
PROVIDERS: ADMIT Surgery; ATTEND Surgery
PROC: 30233N1 Transfusion of Nonautologous Red Blood Cells into Peripheral Vein, Percutaneous Approach (ICD-10-PCS; 2021-04-23)
PROC: 5A09357 Assistance with Respiratory Ventilation, Less than 24 Consecutive Hours, Continuous Positive Airway Pressure (ICD-10-PCS; 2021-04-23)
PROC: 0QSG04Z Reposition Right Tibia with Internal Fixation Device, Open Approach (ICD-10-PCS; principal; 2021-04-24)
PROC: 0QSJ04Z Reposition Right Fibula with Internal Fixation Device, Open Approach (ICD-10-PCS; 2021-04-24)
DX: S82.851A Displaced trimalleolar fracture of right lower leg, initial encounter for closed fracture (principal); Z68.45 Body mass index [BMI] 70 or greater, adult; N18.4 Chronic kidney disease, stage 4 (severe); I13.0 Hypertensive heart and chronic kidney disease with heart failure and stage 1 through stage 4 chronic kidney disease, or unspecified chronic kidney disease; L02.211 Cutaneous abscess of abdominal wall; N17.9 Acute kidney failure, unspecified; Z20.822 Contact with and (suspected) exposure to COVID-19; E66.01 Morbid (severe) obesity due to excess calories; E78.5 Hyperlipidemia, unspecified; I50.9 Heart failure, unspecified; W01.0XXA Fall on same level from slipping, tripping and stumbling without subsequent striking against object, initial encounter; K21.9 Gastro-esophageal reflux disease without esophagitis; F32.9 Major depressive disorder, single episode, unspecified; F41.9 Anxiety disorder, unspecified; G25.81 Restless legs syndrome; E10.40 Type 1 diabetes mellitus with diabetic neuropathy, unspecified; E10.22 Type 1 diabetes mellitus with diabetic chronic kidney disease; E55.9 Vitamin D deficiency, unspecified; G47.30 Sleep apnea, unspecified; M19.90 Unspecified osteoarthritis, unspecified site; D63.1 Anemia in chronic kidney disease; K59.00 Constipation, unspecified; E87.5 Hyperkalemia; Z88.6 Allergy status to analgesic agent; Z86.14 Personal history of Methicillin resistant Staphylococcus aureus infection; Z88.0 Allergy status to penicillin; Z79.899 Other long term (current) drug therapy; Z79.4 Long term (current) use of insulin; Z79.01 Long term (current) use of anticoagulants
CPT/HCPCS: 36415; 36416; 36430; 76000; 80048; 81001; 82533; 83735; 84100; 85025; 86850; 86900; 86901; 87086; 94660; C1713; C1769; J1720; J1956; J2250; J2270; J2405; J2704; J2765; J3010; J3475; J3490; P9016; S0028; U0002; U0005

== ENCOUNTER 2021-07-10 16:05 | Inpatient (IN) | payer OTHER ==
[2021-07-10 17:49] LABS: Hemoglobin 4.7 g/dL (12.0-16.0); Mean Corpuscular HGB CONC 29.3 g/dL (32.0-36.0); Mean Corpuscular Hemoglobin 21.9 pg (27.0-31.0); Mean Corpuscular Volume 74.8 fL (78.0-98.0); Mean Platelet Volume 7.6 fL (7.4-10.4); Platelet Count 435 thou/uL (130-400); RBC Distribution Width 16.7 % (11.5-14.5); Red Blood Cell (RBC) Count 2.15 mill/uL (4.20-5.40); White Blood Cell (WBC) Count 14.5 thou/uL (4.8-10.8)
[2021-07-10 18:00] LABS: Albumin 1.8 g/dL (3.5-5.0)
[2021-07-10 18:01] LABS: Chloride 104 mmol/L (98-107); Potassium 4.9 mmol/L (3.5-5.1)
[2021-07-10 18:02] LABS: Calcium 7.9 mg/dL (7.8-10.44); Sodium 133 mmol/L (136-145)
[2021-07-10 18:03] LABS: Globulin 4.4 g/dL (2.4-3.5); Glucose 122 mg/dL (70-105); Protein, Total 6.2 g/dL (6.0-8.3)
[2021-07-10 18:04] LABS: Anion Gap 15 mmol/L (10-20); Carbon Dioxide 19 mmol/L (22-29)
[2021-07-10 18:05] LABS: Bilirubin, Total 0.2 mg/dL (0.2-1.2)
[2021-07-10 18:06] LABS: Alkaline Phosphatase 87 U/L (40-110); Calc. Creatinine Clearance 0 mL/min (70-130)
[2021-07-10 18:07] LABS: BUN (Urea Nitrogen) 75 mg/dL (7.0-18.7)
[2021-07-10 18:08] LABS: AST (SGOT) 8 U/L (5-34); Iron Binding Capacity, Total 116 mcg/dL (265-497)
[2021-07-10 18:09] LABS: ALT (SGPT) Less than 7 U/L (8-55); Iron 13 ug/dL (50-170)
[2021-07-10 18:31] LABS: Band 4 % (5-11); Hypochromia MODERATE=16-30 cells (100X) (0-5/hpf); Lymphocytes 8 % (21-51); MDiff Complete? YES; Metamyelocyte 1 % (0-0); Microcytosis SLIGHT = 6-15 cells (100X) (0-5/hpf); Monocytes 5 % (0-10); Myelocyte 1 % (0-0); Neutrophil 79 % (42-75); Platelet Morphology Comment Appears Increased; Polychromasia SLIGHT = 2-3 cells (100X) (0-2/hpf); Reactive Lymphocytes 2 % (0-10); Reflex for Review?? YES; Tear Drops SLIGHT = 2-5 cells (100X) (0-1/hpf)
[2021-07-10] MEDS ORDERED: Zolpidem Tartrate 5 MG TAB PO PRN (19:49)
[2021-07-10] MEDS ORDERED: Dextrose 50% Abboject 50 ML SYRINGE SLOW IVP PRN (19:49)
[2021-07-10] MEDS ORDERED: Dextrose 5% in Water 1,000 ML IV PRN (19:49)
[2021-07-10] MEDS ORDERED: Bisacodyl 5 MG TAB PO PRN (19:49)
[2021-07-10] MEDS ORDERED: HumaLOG 300 UNITS/3 ML VIAL SC PRN ×2 (19:49)
[2021-07-10] MEDS ORDERED: hydrALAZINE 20 MG/ML VIAL SLOW IVP PRN (19:53)
[2021-07-10] MEDS ORDERED: Nystatin Powder 15 GM BOT TOP PRN (19:54)
[2021-07-10] MEDS ORDERED: Vancomycin 1 GM in Premix Bag 1 BAG IVPB SCH (20:00)
[2021-07-10] MEDS ORDERED: Morphine 2 MG/ML VIAL ONE (20:01)
[2021-07-10] MEDS ORDERED: Furosemide 20 MG/2 ML VIAL IVP SCH (21:00)
[2021-07-11] MEDS: Morphine 2 MG/ML VIAL SLOW IVP PRN ×4 (01:29→22:37)
[2021-07-11 01:50] VITALS: BMI 102.0
[2021-07-11] MEDS: Methocarbamol 500 MG TAB PO SCH ×3 (03:10→22:21)
[2021-07-11] MEDS: busPIRone HCl 5 MG TAB PO SCH ×3 (03:10→22:20)
[2021-07-11] MEDS: Atorvastatin Calcium 10 MG TAB PO SCH ×2 (03:10→22:21)
[2021-07-11] MEDS: Pregabalin 75 MG CAP PO SCH ×2 (03:10→22:20)
[2021-07-11 03:34] LABS: SARS-CoV-2 NAA Rapid Test Not Detected (NotDetected)
[2021-07-11 06:09] LABS: ALT (SGPT) Less than 7 U/L (8-55); AST (SGOT) 10 U/L (5-34); Albumin 1.7 g/dL (3.5-5.0); Alkaline Phosphatase 74 U/L (40-110); Anion Gap 17 mmol/L (10-20); BUN (Urea Nitrogen) 77 mg/dL (7.0-18.7); Bilirubin, Total 0.3 mg/dL (0.2-1.2); Calc. Creatinine Clearance 76 mL/min (70-130); Calcium 7.8 mg/dL (7.8-10.44); Carbon Dioxide 15 mmol/L (22-29); Chloride 110 mmol/L (98-107); Glucose 73 mg/dL (70-105); Potassium 5.7 mmol/L (3.5-5.1); Protein, Total 5.7 g/dL (6.0-8.3); Sodium 136 mmol/L (136-145)
[2021-07-11 06:48] LABS: Band 4 % (5-11); Eosinophils 1 % (0-10); Hemoglobin 5.6 g/dL (12.0-16.0); Lymphocytes 14 % (21-51); MDiff Complete? YES; Mean Corpuscular HGB CONC 30.4 g/dL (32.0-36.0); Mean Corpuscular Hemoglobin 23.6 pg (27.0-31.0); Mean Corpuscular Volume 77.6 fL (78.0-98.0); Monocytes 10 % (0-10); Neutrophil 71 % (42-75); Platelet Count 371 thou/uL (130-400); RBC Distribution Width 17.7 % (11.5-14.5); Red Blood Cell (RBC) Count 2.38 mill/uL (4.20-5.40); White Blood Cell (WBC) Count 13.6 thou/uL (4.8-10.8)
[2021-07-11] MEDS: Famotidine 20 MG TAB PO SCH (09:35)
[2021-07-11] MEDS: Zinc Sulfate 220 MG CAP PO SCH (09:35)
[2021-07-11] MEDS: Ascorbic Acid 500 mg Chewable Tablet PO SCH (09:35)
[2021-07-11] MEDS: Cholecalciferol 1,000 UNITS (25 MCG) TAB PO SCH (09:35)
[2021-07-11] MEDS ORDERED: Sodium Bicarbonate 150 MEQ in Dextrose 5% in Water 1,000 ML IV SCH (11:45)
[2021-07-11] MEDS: Albumin 25% 25 GM/100 ML BOT IVPB SCH ×3 (13:07→23:57)
[2021-07-11] MEDS ORDERED: Calcium Chloride 1 GM/10 ML Abboject SYRINGE IVP SCH (15:00)
[2021-07-11] MEDS ORDERED: Calcium Chloride 13.6 MEQ in Sodium Chloride 0.9% 100 ML IVPB SCH (15:15)
[2021-07-11 15:23] LABS: #Eosinphils 0.4 thou/uL (0.0-0.7); #Lymphocytes 1.5 thou/uL (1.20-3.40); #Monocytes 1.6 thou/uL (0.11-0.59); #Neutrophils 10.9 thou/uL (1.40-6.50); %Basophils 0.1 % (0.0-1.0); %Eosinophils 2.4 % (0.0-10.0); %Lymphocytes 10.7 % (21.0-51.0); %Monocytes 10.8 % (0.0-10.0); %Neutrophils 75.9 % (42.0-75.0); Hemoglobin 6.2 g/dL (12.0-16.0); Mean Corpuscular HGB CONC 31.3 g/dL (32.0-36.0); Mean Corpuscular Hemoglobin 24.6 pg (27.0-31.0); Mean Corpuscular Volume 78.4 fL (78.0-98.0); Mean Platelet Volume 7.5 fL (7.4-10.4); Platelet Count 405 thou/uL (130-400); RBC Distribution Width 17.7 % (11.5-14.5); Red Blood Cell (RBC) Count 2.54 mill/uL (4.20-5.40); White Blood Cell (WBC) Count 14.4 thou/uL (4.8-10.8)
[2021-07-11] MEDS: LOKELMA 10 GM PACKET PO SCH ×2 (16:06→22:31)
[2021-07-11 16:44] LABS: Anion Gap 13 mmol/L (10-20); BUN (Urea Nitrogen) 74 mg/dL (7.0-18.7); Calc. Creatinine Clearance 83 mL/min (70-130); Calcium 7.5 mg/dL (7.8-10.44); Carbon Dioxide 19 mmol/L (22-29); Chloride 105 mmol/L (98-107); Glucose 145 mg/dL (70-105); Potassium 4.8 mmol/L (3.5-5.1); Sodium 132 mmol/L (136-145)
[2021-07-11 16:51] LABS: Anisocytosis SLIGHT = 6-15 cells (100X) (0-5/hpf); Eosinophils 1 % (0-10); Hemoglobin 6.4 g/dL (12.0-16.0); Hypochromia MODERATE=16-30 cells (100X) (0-5/hpf); Lymphocytes 15 % (21-51); MDiff Complete? YES; Mean Corpuscular HGB CONC 32.6 g/dL (32.0-36.0); Mean Corpuscular Hemoglobin 25.6 pg (27.0-31.0); Mean Corpuscular Volume 78.5 fL (78.0-98.0); Mean Platelet Volume 7.5 fL (7.4-10.4); Monocytes 5 % (0-10); Neutrophil 79 % (42-75); Platelet Count 363 thou/uL (130-400); Platelet Morphology Comment Appears Increased; RBC Distribution Width 17.6 % (11.5-14.5); Red Blood Cell (RBC) Count 2.48 mill/uL (4.20-5.40)
[2021-07-11] MEDS: HYDROcodone/Acetaminophen 5/325 mg Tablet PO PRN (17:17)
[2021-07-11 18:21] LABS: Bacteria/HPF 4+ HPF (None Seen); Bilirubin Negative (Negative); Blood, Urine 2+ (Negative); Clarity Extra Turbid (Clear); Glucose, Urine (Dipstick) Normal (Negative); Ketone, Urine Negative (Negative); Leukocyte 500 Leu/uL (Negative); Nitrite Negative (Negative); Protein, Urine (Dipstick) 70 mg/dL (Neg-Trace); Renal Epithelial 0-3 HPF (None Seen); Specific Gravity, Urine 1.014 (1.002-1.036); Urobilinogen Normal mg/dL (Less than 2); WBC/HPF Greater than 50 HPF (0-3); Yeast-Budding 1+ HPF (None Seen); Yeast-Hyphae Rare HPF (None Seen)
[2021-07-11 18:22] LABS: Urine Culture Reflex No No
[2021-07-11] MEDS ORDERED: Hydrocortisone Sod Succ/PF 100 mg/2 ml Vial IVP SCH (18:45)
[2021-07-11] MEDS ORDERED: Sodium Chloride 0.9% 1,000 ML IV SCH (23:30)
[2021-07-12] MEDS: Hydrocortisone Sod Succ/PF 100 mg/2 ml Vial IVP SCH ×3 (02:17→18:19)
[2021-07-12 05:58] LABS: Mean Corpuscular HGB CONC 32.4 g/dL (32.0-36.0); Mean Corpuscular Volume 80.2 fL (78.0-98.0); Mean Platelet Volume 7.7 fL (7.4-10.4); Platelet Count 372 thou/uL (130-400); RBC Distribution Width 17.9 % (11.5-14.5); White Blood Cell (WBC) Count 14.5 thou/uL (4.8-10.8)
[2021-07-12 06:05] LABS: Anion Gap 15 mmol/L (10-20); BUN (Urea Nitrogen) 70 mg/dL (7.0-18.7); Calc. Creatinine Clearance 85 mL/min (70-130); Calcium 7.9 mg/dL (7.8-10.44); Carbon Dioxide 20 mmol/L (22-29); Chloride 105 mmol/L (98-107); Glucose 174 mg/dL (70-105); Magnesium 1.9 mg/dL (1.6-2.6); Phosphorus 6.4 mg/dL (2.3-4.7); Potassium 4.6 mmol/L (3.5-5.1); Sodium 135 mmol/L (136-145)
[2021-07-12 06:19] LABS: INR-International Normal Ratio 1.3; Prothrombin Time 16.3 sec (12.0-14.7)
[2021-07-12] MEDS: Morphine 2 MG/ML VIAL SLOW IVP PRN ×2 (06:27→14:38)
[2021-07-12] MEDS: Albumin 25% 25 GM/100 ML BOT IVPB SCH (06:27)
[2021-07-12 07:40] LABS: Band 11 % (5-11); Eosinophils 3 % (0-10); Lymphocytes 8 % (21-51); MDiff Complete? YES; Metamyelocyte 1 % (0-0); Monocytes 3 % (0-10); Neutrophil 74 % (42-75); Platelet Morphology Comment Appears Adequate; Polychromasia SLIGHT = 2-3 cells (100X) (0-2/hpf)
[2021-07-12] MEDS ORDERED: Fentanyl 100 MCG/2 ML VIAL ONE (10:26)
[2021-07-12] MEDS ORDERED: Lidocaine 2% Jelly 5 ML TUBE ONE (10:26)
[2021-07-12] MEDS ORDERED: Succinylcholine 200 MG/10 ml SYRINGE FS ONE (11:00)
[2021-07-12] MEDS ORDERED: Lidocaine 1% PF 5 ML VIAL ONE (11:00)
[2021-07-12] MEDS ORDERED: Ondansetron PF 4 MG/2 ML Vial ONE (11:00)
[2021-07-12] MEDS ORDERED: Glycopyrrolate 0.2 MG/ML 5 ML SYRINGE ONE (11:00)
[2021-07-12] MEDS ORDERED: PHENYLEPHRINE-NS 100 MCG/ML 10 ML SYRINGE ONE (11:00)
[2021-07-12] MEDS ORDERED: ePHEDrine 50 MG/ML VIAL ONE (11:00)
[2021-07-12] MEDS ORDERED: PROPOFOL 200 MG/20 ML VIAL ONE (11:00)
[2021-07-12] MEDS: busPIRone HCl 5 MG TAB PO SCH ×2 (12:42→20:34)
[2021-07-12] MEDS: Ascorbic Acid 500 mg Chewable Tablet PO SCH (12:42)
[2021-07-12] MEDS: Zinc Sulfate 220 MG CAP PO SCH (12:43)
[2021-07-12] MEDS: Methocarbamol 500 MG TAB PO SCH ×2 (12:43→20:34)
[2021-07-12] MEDS: Famotidine 20 MG TAB PO SCH (12:43)
[2021-07-12] MEDS: Nitrofurantoin Monohyd/M-Cryst 100 MG CAP PO SCH ×2 (12:43→20:34)
[2021-07-12] MEDS: Cholecalciferol 1,000 UNITS (25 MCG) TAB PO SCH (12:43)
[2021-07-12] MEDS ORDERED: Ondansetron HCl/PF 4 MG/2 ML Vial IVP PRN (13:30)
[2021-07-12] MEDS ORDERED: Promethazine HCl 25 MG/ML VIAL IVPB PRN (13:30)
[2021-07-12] MEDS ORDERED: Promethazine HCl 25 MG/ML VIAL IM PRN (13:30)
[2021-07-12] MEDS: HYDROcodone/Acetaminophen 5/325 mg Tablet PO PRN (15:52)
[2021-07-12] MEDS ORDERED: Sodium Chloride 0.9% 1,000 ML IV SCH (17:15)
[2021-07-12] MEDS ORDERED: Meropenem 1 GM in Sodium Chloride 0.9% 100 ML IVPB SCH (17:30)
[2021-07-12] MEDS ORDERED: HYDROmorphone 0.5 MG/0.5 ML SYRINGE SLOW IVP SCH ×2 (17:30→19:30)
[2021-07-12] MEDS ORDERED: MEROPENEM 1 GM/50 ML 1 GM in Premix Bag 1 BAG IVPB SCH (18:30)
[2021-07-12] MEDS: Pregabalin 75 MG CAP PO SCH (20:34)
[2021-07-12] MEDS: Atorvastatin Calcium 10 MG TAB PO SCH (20:35)
[2021-07-12] MEDS: Nystatin Powder 15 GM BOT TOP SCH (20:35)
[2021-07-13 00:02] LABS: Hemoglobin 8.5 g/dL (12.0-16.0)
[2021-07-13] MEDS: Hydrocortisone Sod Succ/PF 100 mg/2 ml Vial IVP SCH ×3 (01:32→17:50)
[2021-07-13] MEDS: MEROPENEM 1 GM/50 ML 1 GM in Premix Bag 1 BAG IVPB SCH ×2 (01:32→13:59)
[2021-07-13 02:31] LABS: Hemoglobin 7.9 g/dL (12.0-16.0); Mean Corpuscular Hemoglobin 26.9 pg (27.0-31.0); Mean Corpuscular Volume 84.1 fL (78.0-98.0); Mean Platelet Volume 7.3 fL (7.4-10.4); Platelet Count 345 thou/uL (130-400); RBC Distribution Width 18.7 % (11.5-14.5); Red Blood Cell (RBC) Count 2.93 mill/uL (4.20-5.40); White Blood Cell (WBC) Count 13.6 thou/uL (4.8-10.8)
[2021-07-13 02:46] LABS: Band 1 % (5-11); Eosinophils 1 % (0-10); Hypochromia SLIGHT = 6-15 cells (100X) (0-5/hpf); Lymphocytes 10 % (21-51); MDiff Complete? YES; Monocytes 6 % (0-10); Neutrophil 82 % (42-75); Platelet Morphology Comment Appears Adequate
[2021-07-13 02:48] LABS: Vancomycin, Trough 18.3 ug/mL
[2021-07-13 03:20] LABS: Anion Gap 16 mmol/L (10-20); BUN (Urea Nitrogen) 71 mg/dL (7.0-18.7); Calc. Creatinine Clearance 91 mL/min (70-130); Carbon Dioxide 19 mmol/L (22-29); Chloride 106 mmol/L (98-107); Glucose 173 mg/dL (70-105); Magnesium 1.9 mg/dL (1.6-2.6); Phosphorus 6.6 mg/dL (2.3-4.7); Potassium 4.5 mmol/L (3.5-5.1); Sodium 136 mmol/L (136-145)
[2021-07-13] MEDS: Fluconazole 100 MG TAB PO SCH (08:52)
[2021-07-13] MEDS: Cholecalciferol 1,000 UNITS (25 MCG) TAB PO SCH (08:52)
[2021-07-13] MEDS: busPIRone HCl 5 MG TAB PO SCH ×2 (08:53→20:19)
[2021-07-13] MEDS: Zinc Sulfate 220 MG CAP PO SCH (08:53)
[2021-07-13] MEDS: Methocarbamol 500 MG TAB PO SCH ×2 (08:53→20:20)
[2021-07-13] MEDS: Ascorbic Acid 500 mg Chewable Tablet PO SCH (08:53)
[2021-07-13] MEDS: Famotidine 20 MG TAB PO SCH (08:53)
[2021-07-13] MEDS: Nitrofurantoin Monohyd/M-Cryst 100 MG CAP PO SCH (08:53)
[2021-07-13] MEDS: Morphine 2 MG/ML VIAL SLOW IVP PRN ×2 (09:07→22:36)
[2021-07-13] MEDS: Nystatin Powder 15 GM BOT TOP SCH ×2 (09:08→20:20)
[2021-07-13] MEDS ORDERED: HYDROmorphone 0.5 MG/0.5 ML SYRINGE SLOW IVP PRN (10:23)
[2021-07-13] MEDS ORDERED: HYDROmorphone 2 MG TAB PO PRN (10:31)
[2021-07-13] MEDS: Calcium Acetate 667 MG CAP PO SCH ×2 (12:16→17:49)
[2021-07-13] MEDS: Sodium Bicarbonate Tab 325 MG TAB PO SCH ×2 (13:59→20:19)
[2021-07-13] MEDS: Atorvastatin Calcium 10 MG TAB PO SCH (20:19)
[2021-07-13] MEDS: Pregabalin 75 MG CAP PO SCH (20:20)
[2021-07-13] MEDS ORDERED: HYDROcodone/Acetaminophen 7.5/325 mg Tablet PO PRN (21:35)
[2021-07-13] MEDS: HYDROcodone/Acetaminophen 7.5/325 mg Tablet PO PRN (22:35)
[2021-07-14] MEDS: Hydrocortisone Sod Succ/PF 100 mg/2 ml Vial IVP SCH ×3 (00:59→21:04)
[2021-07-14] MEDS: MEROPENEM 1 GM/50 ML 1 GM in Premix Bag 1 BAG IVPB SCH ×2 (00:59→14:56)
[2021-07-14 05:55] LABS: #Eosinphils 0.4 thou/uL (0.0-0.7); #Lymphocytes 1.1 thou/uL (1.20-3.40); #Monocytes 1.2 thou/uL (0.11-0.59); #Neutrophils 12.5 thou/uL (1.40-6.50); %Eosinophils 2.3 % (0.0-10.0); %Monocytes 7.8 % (0.0-10.0); %Neutrophils 82.8 % (42.0-75.0); Hemoglobin 9.6 g/dL (12.0-16.0); Mean Corpuscular Hemoglobin 26.5 pg (27.0-31.0); Mean Corpuscular Volume 85.3 fL (78.0-98.0); Mean Platelet Volume 7.4 fL (7.4-10.4); Platelet Count 379 thou/uL (130-400); RBC Distribution Width 19.2 % (11.5-14.5); Red Blood Cell (RBC) Count 3.63 mill/uL (4.20-5.40); White Blood Cell (WBC) Count 15.1 thou/uL (4.8-10.8)
[2021-07-14 06:03] LABS: Anion Gap 14 mmol/L (10-20); BUN (Urea Nitrogen) 69 mg/dL (7.0-18.7); Calc. Creatinine Clearance 109 mL/min (70-130); Calcium 8.3 mg/dL (7.8-10.44); Carbon Dioxide 21 mmol/L (22-29); Chloride 104 mmol/L (98-107); Glucose 152 mg/dL (70-105); Potassium 4.6 mmol/L (3.5-5.1); Sodium 134 mmol/L (136-145)
[2021-07-14] MEDS: Calcium Acetate 667 MG CAP PO SCH ×3 (09:12→18:26)
[2021-07-14] MEDS: Sodium Bicarbonate Tab 325 MG TAB PO SCH ×3 (09:12→21:07)
[2021-07-14] MEDS: Zinc Sulfate 220 MG CAP PO SCH (09:12)
[2021-07-14] MEDS: Cholecalciferol 1,000 UNITS (25 MCG) TAB PO SCH (09:13)
[2021-07-14] MEDS: Ascorbic Acid 500 mg Chewable Tablet PO SCH (09:13)
[2021-07-14] MEDS: Famotidine 20 MG TAB PO SCH (09:13)
[2021-07-14] MEDS: busPIRone HCl 5 MG TAB PO SCH ×2 (09:13→21:05)
[2021-07-14] MEDS: Fluconazole 100 MG TAB PO SCH (09:13)
[2021-07-14] MEDS: Methocarbamol 500 MG TAB PO SCH ×2 (09:14→21:05)
[2021-07-14] MEDS: Morphine 2 MG/ML VIAL SLOW IVP PRN (09:22)
[2021-07-14] MEDS: Nystatin Powder 15 GM BOT TOP SCH ×2 (12:09→21:06)
[2021-07-14] MEDS: Morphine 4 MG/ML VIAL SLOW IVP PRN (15:00)
[2021-07-14] MEDS: Atorvastatin Calcium 10 MG TAB PO SCH (21:04)
[2021-07-14] MEDS: Pregabalin 75 MG CAP PO SCH (21:06)
[2021-07-15 02:06] LABS: Vancomycin, Trough 30.8 ug/mL
[2021-07-15] MEDS: Hydrocortisone Sod Succ/PF 100 mg/2 ml Vial IVP SCH ×2 (02:21→09:07)
[2021-07-15] MEDS: HYDROcodone/Acetaminophen 7.5/325 mg Tablet PO PRN (02:21)
[2021-07-15] MEDS: MEROPENEM 1 GM/50 ML 1 GM in Premix Bag 1 BAG IVPB SCH ×2 (02:30→14:15)
[2021-07-15] MEDS: busPIRone HCl 5 MG TAB PO SCH ×2 (09:05→20:26)
[2021-07-15] MEDS: Cholecalciferol 1,000 UNITS (25 MCG) TAB PO SCH (09:05)
[2021-07-15] MEDS: Calcium Acetate 667 MG CAP PO SCH ×3 (09:05→18:17)
[2021-07-15] MEDS: Zinc Sulfate 220 MG CAP PO SCH (09:06)
[2021-07-15] MEDS: Famotidine 20 MG TAB PO SCH (09:06)
[2021-07-15] MEDS: Sodium Bicarbonate Tab 325 MG TAB PO SCH ×3 (09:06→20:29)
[2021-07-15] MEDS: Methocarbamol 500 MG TAB PO SCH ×2 (09:06→20:27)
[2021-07-15] MEDS: Fluconazole 100 MG TAB PO SCH (09:06)
[2021-07-15] MEDS: Nystatin Powder 15 GM BOT TOP SCH ×2 (09:07→20:28)
[2021-07-15] MEDS: Ascorbic Acid 500 mg Chewable Tablet PO SCH (09:07)
[2021-07-15] MEDS: Morphine 4 MG/ML VIAL SLOW IVP PRN ×3 (09:19→20:46)
[2021-07-15 14:27] LABS: Vancomycin, Random 25.3 ug/mL (See Comment)
[2021-07-15] MEDS ORDERED: Vancomycin HCl 1 GM in Sodium Chloride 0.9% 250 ML 250 ML IVPB SCH (15:00)
[2021-07-15] MEDS: Atorvastatin Calcium 10 MG TAB PO SCH (20:25)
[2021-07-15] MEDS: Pregabalin 75 MG CAP PO SCH (20:28)
[2021-07-16] MEDS: Morphine 4 MG/ML VIAL SLOW IVP PRN ×4 (00:39→20:03)
[2021-07-16] MEDS: MEROPENEM 1 GM/50 ML 1 GM in Premix Bag 1 BAG IVPB SCH ×2 (00:42→14:23)
[2021-07-16 02:15] LABS: #Basophils 0.1 thou/uL (0.0-0.2); #Eosinphils 0.5 thou/uL (0.0-0.7); #Lymphocytes 2.2 thou/uL (1.20-3.40); #Monocytes 1.6 thou/uL (0.11-0.59); #Neutrophils 8.8 thou/uL (1.40-6.50); %Basophils 0.4 % (0.0-1.0); %Lymphocytes 16.4 % (21.0-51.0); %Monocytes 12.3 % (0.0-10.0); %Neutrophils 66.8 % (42.0-75.0); Hemoglobin 8.9 g/dL (12.0-16.0); Mean Corpuscular HGB CONC 31.4 g/dL (32.0-36.0); Mean Corpuscular Hemoglobin 26.6 pg (27.0-31.0); Mean Corpuscular Volume 84.6 fL (78.0-98.0); Mean Platelet Volume 7.5 fL (7.4-10.4); Platelet Count 370 thou/uL (130-400); RBC Distribution Width 19.4 % (11.5-14.5); Red Blood Cell (RBC) Count 3.34 mill/uL (4.20-5.40); White Blood Cell (WBC) Count 13.1 thou/uL (4.8-10.8)
[2021-07-16 02:32] LABS: Vancomycin, Random 22.6 ug/mL (See Comment)
[2021-07-16 02:37] LABS: Anion Gap 10 mmol/L (10-20); BUN (Urea Nitrogen) 77 mg/dL (7.0-18.7); Calc. Creatinine Clearance 126 mL/min (70-130); Carbon Dioxide 22 mmol/L (22-29); Chloride 110 mmol/L (98-107); Glucose 98 mg/dL (70-105); Potassium 4.5 mmol/L (3.5-5.1); Sodium 137 mmol/L (136-145)
[2021-07-16] MEDS: HYDROcodone/Acetaminophen 7.5/325 mg Tablet PO PRN ×2 (05:24→17:03)
[2021-07-16] MEDS: Nystatin Powder 15 GM BOT TOP SCH ×2 (09:00→21:44)
[2021-07-16] MEDS: busPIRone HCl 5 MG TAB PO SCH ×2 (09:07→21:35)
[2021-07-16] MEDS: Methocarbamol 500 MG TAB PO SCH ×2 (09:07→21:36)
[2021-07-16] MEDS: Famotidine 20 MG TAB PO SCH (09:07)
[2021-07-16] MEDS: Calcium Acetate 667 MG CAP PO SCH ×3 (09:08→17:03)
[2021-07-16] MEDS: Sodium Bicarbonate Tab 325 MG TAB PO SCH ×3 (09:08→21:36)
[2021-07-16] MEDS: Fluconazole 100 MG TAB PO SCH (09:08)
[2021-07-16] MEDS: Ascorbic Acid 500 mg Chewable Tablet PO SCH (09:08)
[2021-07-16] MEDS: Cholecalciferol 1,000 UNITS (25 MCG) TAB PO SCH (09:08)
[2021-07-16] MEDS: Zinc Sulfate 220 MG CAP PO SCH (09:08)
[2021-07-16] MEDS: Hydrocortisone Sod Succ/PF 100 mg/2 ml Vial IVP SCH (09:09)
[2021-07-16] MEDS: Pregabalin 75 MG CAP PO SCH (21:34)
[2021-07-16] MEDS: Atorvastatin Calcium 10 MG TAB PO SCH (21:35)
[2021-07-16] MEDS ORDERED: Ondansetron PF 4 MG/2 ML Vial IVP PRN (21:55)
[2021-07-17] MEDS: MEROPENEM 1 GM/50 ML 1 GM in Premix Bag 1 BAG IVPB SCH ×2 (02:39→14:12)
[2021-07-17 05:35] LABS: #Basophils 0.1 thou/uL (0.0-0.2); #Eosinphils 0.8 thou/uL (0.0-0.7); #Lymphocytes 2.4 thou/uL (1.20-3.40); #Monocytes 1.5 thou/uL (0.11-0.59); #Neutrophils 8.8 thou/uL (1.40-6.50); %Basophils 0.6 % (0.0-1.0); %Eosinophils 5.7 % (0.0-10.0); %Lymphocytes 17.7 % (21.0-51.0); %Monocytes 11.2 % (0.0-10.0); %Neutrophils 64.8 % (42.0-75.0); Hemoglobin 8.6 g/dL (12.0-16.0); Mean Corpuscular HGB CONC 31.4 g/dL (32.0-36.0); Mean Corpuscular Hemoglobin 26.8 pg (27.0-31.0); Mean Corpuscular Volume 85.3 fL (78.0-98.0); Mean Platelet Volume 7.8 fL (7.4-10.4); Platelet Count 366 thou/uL (130-400); RBC Distribution Width 19.6 % (11.5-14.5); White Blood Cell (WBC) Count 13.5 thou/uL (4.8-10.8)
[2021-07-17] MEDS: Morphine 4 MG/ML VIAL SLOW IVP PRN ×2 (05:52→19:33)
[2021-07-17 05:53] LABS: Vancomycin, Random 17.9 ug/mL (See Comment)
[2021-07-17 05:54] LABS: Anion Gap 11 mmol/L (10-20); BUN (Urea Nitrogen) 84 mg/dL (7.0-18.7); Calc. Creatinine Clearance 110 mL/min (70-130); Calcium 8.1 mg/dL (7.8-10.44); Carbon Dioxide 23 mmol/L (22-29); Chloride 109 mmol/L (98-107); Glucose 82 mg/dL (70-105); Potassium 4.7 mmol/L (3.5-5.1); Sodium 138 mmol/L (136-145)
[2021-07-17] MEDS ORDERED: Vancomycin HCl 750 MG in Sodium Chloride 0.9% 250 ML 250 ML IVPB SCH (06:15)
[2021-07-17] MEDS: Cholecalciferol 1,000 UNITS (25 MCG) TAB PO SCH (08:41)
[2021-07-17] MEDS: busPIRone HCl 5 MG TAB PO SCH ×2 (08:41→20:35)
[2021-07-17] MEDS: Sodium Bicarbonate Tab 325 MG TAB PO SCH ×3 (08:41→20:34)
[2021-07-17] MEDS: Fluconazole 100 MG TAB PO SCH (08:41)
[2021-07-17] MEDS: Famotidine 20 MG TAB PO SCH (08:41)
[2021-07-17] MEDS: Zinc Sulfate 220 MG CAP PO SCH (08:41)
[2021-07-17] MEDS: Ascorbic Acid 500 mg Chewable Tablet PO SCH (08:41)
[2021-07-17] MEDS: Calcium Acetate 667 MG CAP PO SCH ×3 (08:42→17:33)
[2021-07-17] MEDS: Methocarbamol 500 MG TAB PO SCH ×2 (08:42→20:34)
[2021-07-17] MEDS: Nystatin Powder 15 GM BOT TOP SCH ×2 (08:42→20:36)
[2021-07-17] MEDS: Hydrocortisone Sod Succ/PF 100 mg/2 ml Vial IVP SCH (08:42)
[2021-07-17] MEDS ORDERED: HYDROmorphone 0.5 MG/0.5 ML SYRINGE SLOW IVP SCH ×2 (09:45)
[2021-07-17] MEDS: Pregabalin 75 MG CAP PO SCH (20:34)
[2021-07-17] MEDS: Atorvastatin Calcium 10 MG TAB PO SCH (20:35)
[2021-07-18] MEDS: MEROPENEM 1 GM/50 ML 1 GM in Premix Bag 1 BAG IVPB SCH ×2 (01:10→13:01)
[2021-07-18] MEDS: Calcium Acetate 667 MG CAP PO SCH ×3 (09:47→17:09)
[2021-07-18] MEDS: Sodium Bicarbonate Tab 325 MG TAB PO SCH ×3 (09:47→21:11)
[2021-07-18] MEDS: Methocarbamol 500 MG TAB PO SCH ×2 (09:47→21:11)
[2021-07-18] MEDS: busPIRone HCl 5 MG TAB PO SCH ×2 (09:48→21:11)
[2021-07-18] MEDS: Cholecalciferol 1,000 UNITS (25 MCG) TAB PO SCH (09:48)
[2021-07-18] MEDS: Ascorbic Acid 500 mg Chewable Tablet PO SCH (09:48)
[2021-07-18] MEDS: Zinc Sulfate 220 MG CAP PO SCH (09:48)
[2021-07-18] MEDS: Famotidine 20 MG TAB PO SCH (09:49)
[2021-07-18] MEDS: Nystatin Powder 15 GM BOT TOP SCH ×2 (09:49→21:11)
[2021-07-18] MEDS: Fluconazole 100 MG TAB PO SCH (09:49)
[2021-07-18 11:25] LABS: SARS-CoV-2 PCR by NAA Not Detected (NotDetected)
[2021-07-18] MEDS: Morphine 4 MG/ML VIAL SLOW IVP PRN ×2 (12:59→21:37)
[2021-07-18] MEDS ORDERED: Clindamycin/D5W 900 MG in Premix Bag 1 BAG IVPB SCH ×2 (13:00→13:15)
[2021-07-18] MEDS: Atorvastatin Calcium 10 MG TAB PO SCH (21:11)
[2021-07-18] MEDS: Pregabalin 75 MG CAP PO SCH (21:12)
[2021-07-19] MEDS: MEROPENEM 1 GM/50 ML 1 GM in Premix Bag 1 BAG IVPB SCH ×2 (01:58→15:02)
[2021-07-19] MEDS: Morphine 4 MG/ML VIAL SLOW IVP PRN ×3 (06:19→23:57)
[2021-07-19 07:25] LABS: #Basophils 0.1 thou/uL (0.0-0.2); #Lymphocytes 1.9 thou/uL (1.20-3.40); #Monocytes 1.3 thou/uL (0.11-0.59); #Neutrophils 10.3 thou/uL (1.40-6.50); %Basophils 0.4 % (0.0-1.0); %Lymphocytes 12.7 % (21.0-51.0); %Monocytes 8.9 % (0.0-10.0); %Neutrophils 70.9 % (42.0-75.0); Hemoglobin 8.3 g/dL (12.0-16.0); Mean Corpuscular HGB CONC 30.9 g/dL (32.0-36.0); Mean Corpuscular Hemoglobin 26.5 pg (27.0-31.0); Mean Corpuscular Volume 85.8 fL (78.0-98.0); Mean Platelet Volume 8.2 fL (7.4-10.4); Platelet Count 391 thou/uL (130-400); RBC Distribution Width 19.9 % (11.5-14.5); Red Blood Cell (RBC) Count 3.14 mill/uL (4.20-5.40); White Blood Cell (WBC) Count 14.5 thou/uL (4.8-10.8)
[2021-07-19 07:29] LABS: Anion Gap 12 mmol/L (10-20); BUN (Urea Nitrogen) 87 mg/dL (7.0-18.7); Calc. Creatinine Clearance 139 mL/min (70-130); Calcium 8.5 mg/dL (7.8-10.44); Carbon Dioxide 23 mmol/L (22-29); Chloride 108 mmol/L (98-107); Glucose 165 mg/dL (70-105); Potassium 5.2 mmol/L (3.5-5.1); Sodium 138 mmol/L (136-145)
[2021-07-19] MEDS ORDERED: Dexmedetomidine 200 MCG/2 ML VIAL ONE (08:39)
[2021-07-19] MEDS ORDERED: Lidocaine 1% (PF) 30 ML VIAL ONE (09:07)
[2021-07-19] MEDS: Calcium Acetate 667 MG CAP PO SCH ×3 (09:28→17:20)
[2021-07-19] MEDS: Cholecalciferol 1,000 UNITS (25 MCG) TAB PO SCH (09:28)
[2021-07-19] MEDS: busPIRone HCl 5 MG TAB PO SCH ×2 (09:28→20:29)
[2021-07-19] MEDS: Methocarbamol 500 MG TAB PO SCH ×2 (09:28→20:28)
[2021-07-19] MEDS: Ascorbic Acid 500 mg Chewable Tablet PO SCH (09:28)
[2021-07-19] MEDS: Famotidine 20 MG TAB PO SCH (09:28)
[2021-07-19] MEDS: Sodium Bicarbonate Tab 325 MG TAB PO SCH ×3 (09:29→20:28)
[2021-07-19] MEDS: Zinc Sulfate 220 MG CAP PO SCH (09:29)
[2021-07-19 09:31] LABS: Potassium 5.2 mmol/L (3.5-5.1)
[2021-07-19] MEDS ORDERED: Clindamycin/D5W 900 mg/50 ml Premix Bag ONE (10:05)
[2021-07-19] MEDS ORDERED: Dexamethasone 20 MG/5 ML VIAL ONE (10:58)
[2021-07-19] MEDS ORDERED: PROPOFOL 200 MG/20 ML VIAL ONE (10:58)
[2021-07-19] MEDS ORDERED: Ondansetron PF 4 MG/2 ML Vial ONE (10:58)
[2021-07-19] MEDS ORDERED: Lidocaine 1% PF 5 ML VIAL ONE (10:58)
[2021-07-19] MEDS ORDERED: Succinylcholine 200 MG/10 ml SYRINGE FS ONE (10:58)
[2021-07-19 14:56] LABS: Anion Gap 15 mmol/L (10-20); BUN (Urea Nitrogen) 86 mg/dL (7.0-18.7); Calc. Creatinine Clearance 153 mL/min (70-130); Calcium 8.3 mg/dL (7.8-10.44); Carbon Dioxide 18 mmol/L (22-29); Chloride 108 mmol/L (98-107); Glucose 200 mg/dL (70-105); Potassium 5.7 mmol/L (3.5-5.1); Sodium 135 mmol/L (136-145)
[2021-07-19] MEDS: Fluconazole 100 MG TAB PO SCH (15:02)
[2021-07-19] MEDS: Nystatin Powder 15 GM BOT TOP SCH ×2 (15:03→20:29)
[2021-07-19 18:10] LABS: Actual Bicarbonate (HCO3a) 20.8 mEq/L (22-28); Base Excess (BEa) -5.3 mEq/L (-2.0 to +3.0); CO2 Tension 43.1 mmHg (35.0-45.0); Calcium, Ionized (arterial) 1.16 mmol/L (1.12-1.30); Carboxyhemoglobin (COHb) 0.7 gm% (0.0-3.0); Hemoglobin (Hb) 9.3 g/dL (12.0-16.0); Potassium - ABG Lab 5.81 mmol/L (3.70-5.30)
[2021-07-19 18:16] LABS: ALV-art Gradient 11.855 mmHg (0-20)
[2021-07-19] MEDS: Pregabalin 75 MG CAP PO SCH (20:28)
[2021-07-19] MEDS: Atorvastatin Calcium 10 MG TAB PO SCH (20:29)
[2021-07-19 22:48] LABS: Anion Gap 15 mmol/L (10-20); BUN (Urea Nitrogen) 89 mg/dL (7.0-18.7); Calc. Creatinine Clearance 124 mL/min (70-130); Calcium 8.7 mg/dL (7.8-10.44); Carbon Dioxide 19 mmol/L (22-29); Chloride 106 mmol/L (98-107); Glucose 274 mg/dL (70-105); Potassium 5.4 mmol/L (3.5-5.1); Sodium 135 mmol/L (136-145)
[2021-07-19] MEDS: Sodium Bicarbonate 150 MEQ in Dextrose 5% in Water 1,000 ML IV SCH (23:52)
[2021-07-20] MEDS: MEROPENEM 1 GM/50 ML 1 GM in Premix Bag 1 BAG IVPB SCH ×2 (02:43→14:10)
[2021-07-20] MEDS: Morphine 4 MG/ML VIAL SLOW IVP PRN ×3 (05:55→18:26)
[2021-07-20 06:55] LABS: Anion Gap 15 mmol/L (10-20); BUN (Urea Nitrogen) 92 mg/dL (7.0-18.7); Calc. Creatinine Clearance 139 mL/min (70-130); Calcium 8.9 mg/dL (7.8-10.44); Carbon Dioxide 22 mmol/L (22-29); Chloride 105 mmol/L (98-107); Glucose 161 mg/dL (70-105); Potassium 5.1 mmol/L (3.5-5.1); Sodium 137 mmol/L (136-145)
[2021-07-20 07:11] LABS: #Basophils 0.1 thou/uL (0.0-0.2); #Eosinphils 0.1 thou/uL (0.0-0.7); #Lymphocytes 0.8 thou/uL (1.20-3.40); #Neutrophils 11.6 thou/uL (1.40-6.50); %Basophils 0.4 % (0.0-1.0); %Eosinophils 0.9 % (0.0-10.0); %Lymphocytes 6.1 % (21.0-51.0); %Monocytes 7.2 % (0.0-10.0); %Neutrophils 85.4 % (42.0-75.0); Hemoglobin 8.5 g/dL (12.0-16.0); Mean Corpuscular HGB CONC 31.1 g/dL (32.0-36.0); Mean Corpuscular Hemoglobin 26.6 pg (27.0-31.0); Mean Corpuscular Volume 85.4 fL (78.0-98.0); Mean Platelet Volume 8.3 fL (7.4-10.4); Platelet Count 398 thou/uL (130-400); RBC Distribution Width 19.2 % (11.5-14.5); Red Blood Cell (RBC) Count 3.18 mill/uL (4.20-5.40); White Blood Cell (WBC) Count 13.6 thou/uL (4.8-10.8)
[2021-07-20] MEDS: Ascorbic Acid 500 mg Chewable Tablet PO SCH (09:32)
[2021-07-20] MEDS: Cholecalciferol 1,000 UNITS (25 MCG) TAB PO SCH (09:32)
[2021-07-20] MEDS: Calcium Acetate 667 MG CAP PO SCH ×3 (09:32→18:02)
[2021-07-20] MEDS: busPIRone HCl 5 MG TAB PO SCH ×2 (09:32→20:48)
[2021-07-20] MEDS: Famotidine 20 MG TAB PO SCH (09:33)
[2021-07-20] MEDS: Zinc Sulfate 220 MG CAP PO SCH (09:33)
[2021-07-20] MEDS: Fluconazole 100 MG TAB PO SCH (09:33)
[2021-07-20] MEDS: Sodium Bicarbonate Tab 325 MG TAB PO SCH (09:33)
[2021-07-20] MEDS: Methocarbamol 500 MG TAB PO SCH ×2 (09:33→20:49)
[2021-07-20] MEDS: Nystatin Powder 15 GM BOT TOP SCH ×2 (09:34→20:52)
[2021-07-20] MEDS: CEFIDEROCOL IV SCH ×5 (11:10→21:56)
[2021-07-20] MEDS: SODIUM CHLORIDE 0.9% IV SCH ×5 (11:10→21:56)
[2021-07-20] MEDS: Sodium Bicarbonate 150 MEQ in Dextrose 5% in Water 1,000 ML IV SCH (13:46)
[2021-07-20] MEDS: Atorvastatin Calcium 10 MG TAB PO SCH (20:48)
[2021-07-20] MEDS: Pregabalin 75 MG CAP PO SCH (20:49)
[2021-07-21] MEDS: HYDROcodone/Acetaminophen 7.5/325 mg Tablet PO PRN (00:16)
[2021-07-21] MEDS: Sodium Bicarbonate 150 MEQ in Dextrose 5% in Water 1,000 ML IV SCH ×2 (03:56→22:53)
[2021-07-21] MEDS: Morphine 4 MG/ML VIAL SLOW IVP PRN ×3 (03:57→22:42)
[2021-07-21] MEDS ORDERED: SODIUM CHLORIDE 0.9% IV SCH (06:00)
[2021-07-21] MEDS ORDERED: CEFIDEROCOL IV SCH (06:00)
[2021-07-21] MEDS: CEFIDEROCOL IV SCH ×3 (06:11→22:46)
[2021-07-21] MEDS: SODIUM CHLORIDE 0.9% IV SCH ×3 (06:11→22:46)
[2021-07-21] MEDS: Zinc Sulfate 220 MG CAP PO SCH (08:33)
[2021-07-21] MEDS: Calcium Acetate 667 MG CAP PO SCH ×3 (08:33→18:08)
[2021-07-21] MEDS: Ascorbic Acid 500 mg Chewable Tablet PO SCH (08:33)
[2021-07-21] MEDS: Methocarbamol 500 MG TAB PO SCH ×2 (08:33→19:54)
[2021-07-21] MEDS: Cholecalciferol 1,000 UNITS (25 MCG) TAB PO SCH (08:33)
[2021-07-21] MEDS: busPIRone HCl 5 MG TAB PO SCH ×2 (08:34→19:53)
[2021-07-21] MEDS: Famotidine 20 MG TAB PO SCH (08:34)
[2021-07-21] MEDS: Nystatin Powder 15 GM BOT TOP SCH ×2 (08:34→19:54)
[2021-07-21 12:00] LABS: Anion Gap 14 mmol/L (10-20); BUN (Urea Nitrogen) 90 mg/dL (7.0-18.7); Calc. Creatinine Clearance 155 mL/min (70-130); Calcium 8.3 mg/dL (7.8-10.44); Carbon Dioxide 23 mmol/L (22-29); Chloride 106 mmol/L (98-107); Glucose 131 mg/dL (70-105); Potassium 4.8 mmol/L (3.5-5.1); Sodium 138 mmol/L (136-145)
[2021-07-21] MEDS: Pregabalin 75 MG CAP PO SCH (19:53)
[2021-07-21] MEDS: Atorvastatin Calcium 10 MG TAB PO SCH (19:53)
[2021-07-22] MEDS: Morphine 4 MG/ML VIAL SLOW IVP PRN ×3 (04:33→17:32)
[2021-07-22] MEDS: CEFIDEROCOL IV SCH ×3 (05:46→21:27)
[2021-07-22] MEDS: SODIUM CHLORIDE 0.9% IV SCH ×3 (05:46→21:27)
[2021-07-22 05:50] LABS: #Basophils 0.1 thou/uL (0.0-0.2); #Eosinphils 0.3 thou/uL (0.0-0.7); #Lymphocytes 2.1 thou/uL (1.20-3.40); #Monocytes 1.6 thou/uL (0.11-0.59); #Neutrophils 10.3 thou/uL (1.40-6.50); %Basophils 0.4 % (0.0-1.0); %Eosinophils 2.1 % (0.0-10.0); %Lymphocytes 14.8 % (21.0-51.0); %Neutrophils 71.7 % (42.0-75.0); Hemoglobin 8.1 g/dL (12.0-16.0); Mean Corpuscular HGB CONC 30.2 g/dL (32.0-36.0); Mean Corpuscular Hemoglobin 25.7 pg (27.0-31.0); Mean Corpuscular Volume 85.3 fL (78.0-98.0); Mean Platelet Volume 8.4 fL (7.4-10.4); Platelet Count 384 thou/uL (130-400); RBC Distribution Width 19.1 % (11.5-14.5); Red Blood Cell (RBC) Count 3.15 mill/uL (4.20-5.40); White Blood Cell (WBC) Count 14.3 thou/uL (4.8-10.8)
[2021-07-22 06:11] LABS: ALT (SGPT) 24 U/L (8-55); AST (SGOT) 38 U/L (5-34); Albumin 2.3 g/dL (3.5-5.0); Alkaline Phosphatase 114 U/L (40-110); Anion Gap 11 mmol/L (10-20); BUN (Urea Nitrogen) 96 mg/dL (7.0-18.7); Bilirubin, Total 0.2 mg/dL (0.2-1.2); Calc. Creatinine Clearance 138 mL/min (70-130); Calcium 8.2 mg/dL (7.8-10.44); Carbon Dioxide 25 mmol/L (22-29); Chloride 106 mmol/L (98-107); Globulin 3.8 g/dL (2.4-3.5); Glucose 101 mg/dL (70-105); Potassium 5.3 mmol/L (3.5-5.1); Protein, Total 6.1 g/dL (6.0-8.3); Sodium 137 mmol/L (136-145)
[2021-07-22] MEDS: Calcium Acetate 667 MG CAP PO SCH ×3 (09:12→16:48)
[2021-07-22] MEDS: Methocarbamol 500 MG TAB PO SCH ×2 (09:12→21:29)
[2021-07-22] MEDS: Cholecalciferol 1,000 UNITS (25 MCG) TAB PO SCH (09:12)
[2021-07-22] MEDS: Ascorbic Acid 500 mg Chewable Tablet PO SCH (09:13)
[2021-07-22] MEDS: busPIRone HCl 5 MG TAB PO SCH ×2 (09:13→21:29)
[2021-07-22] MEDS: Zinc Sulfate 220 MG CAP PO SCH (09:13)
[2021-07-22] MEDS: Famotidine 20 MG TAB PO SCH (09:13)
[2021-07-22] MEDS: Nystatin Powder 15 GM BOT TOP SCH ×2 (09:15→21:27)
[2021-07-22] MEDS: Sodium Bicarbonate 150 MEQ in Dextrose 5% in Water 1,000 ML IV SCH (09:21)
[2021-07-22] MEDS ORDERED: Dextrose 50% Abboject 50 ML SYRINGE SLOW IVP SCH (10:30)
[2021-07-22] MEDS ORDERED: Insulin Regular 300 UNITS/3 ML VIAL IVP SCH (10:30)
[2021-07-22 17:41] LABS: Anion Gap 12 mmol/L (10-20); BUN (Urea Nitrogen) 95 mg/dL (7.0-18.7); Calc. Creatinine Clearance 148 mL/min (70-130); Calcium 8.1 mg/dL (7.8-10.44); Carbon Dioxide 24 mmol/L (22-29); Chloride 107 mmol/L (98-107); Glucose 103 mg/dL (70-105); Potassium 5.4 mmol/L (3.5-5.1); Sodium 138 mmol/L (136-145)
[2021-07-22] MEDS: Pregabalin 75 MG CAP PO SCH (21:28)
[2021-07-22] MEDS: Amlodipine 5 MG TAB PO SCH (21:28)
[2021-07-22] MEDS: Atorvastatin Calcium 10 MG TAB PO SCH (21:29)
[2021-07-23] MEDS: SODIUM CHLORIDE 0.9% IV SCH ×3 (06:18→22:30)
[2021-07-23] MEDS: CEFIDEROCOL IV SCH ×3 (06:18→22:30)
[2021-07-23 06:45] LABS: #Eosinphils 0.6 thou/uL (0.0-0.7); #Lymphocytes 2.2 thou/uL (1.20-3.40); #Monocytes 1.6 thou/uL (0.11-0.59); #Neutrophils 7.9 thou/uL (1.40-6.50); %Basophils 0.1 % (0.0-1.0); %Eosinophils 4.8 % (0.0-10.0); %Lymphocytes 18.1 % (21.0-51.0); %Monocytes 12.6 % (0.0-10.0); %Neutrophils 64.4 % (42.0-75.0); Hemoglobin 8.1 g/dL (12.0-16.0); Mean Corpuscular HGB CONC 30.4 g/dL (32.0-36.0); Mean Corpuscular Hemoglobin 25.9 pg (27.0-31.0); Mean Corpuscular Volume 85.4 fL (78.0-98.0); Mean Platelet Volume 8.7 fL (7.4-10.4); Platelet Count 348 thou/uL (130-400); RBC Distribution Width 19.2 % (11.5-14.5); Red Blood Cell (RBC) Count 3.14 mill/uL (4.20-5.40); White Blood Cell (WBC) Count 12.3 thou/uL (4.8-10.8)
[2021-07-23 07:02] LABS: Anion Gap 15 mmol/L (10-20); BUN (Urea Nitrogen) 93 mg/dL (7.0-18.7); Calc. Creatinine Clearance 158 mL/min (70-130); Calcium 7.9 mg/dL (7.8-10.44); Carbon Dioxide 21 mmol/L (22-29); Chloride 108 mmol/L (98-107); Glucose 92 mg/dL (70-105); Magnesium 1.7 mg/dL (1.6-2.6); Potassium 5.5 mmol/L (3.5-5.1); Sodium 138 mmol/L (136-145)
[2021-07-23] MEDS: Cholecalciferol 1,000 UNITS (25 MCG) TAB PO SCH (09:20)
[2021-07-23] MEDS: Calcium Acetate 667 MG CAP PO SCH ×3 (09:20→18:08)
[2021-07-23] MEDS: Zinc Sulfate 220 MG CAP PO SCH (09:20)
[2021-07-23] MEDS: Ascorbic Acid 500 mg Chewable Tablet PO SCH (09:21)
[2021-07-23] MEDS: busPIRone HCl 5 MG TAB PO SCH ×2 (09:21→20:25)
[2021-07-23] MEDS: Famotidine 20 MG TAB PO SCH (09:21)
[2021-07-23] MEDS ORDERED: LOKELMA 10 GM PACKET PO SCH (10:30)
[2021-07-23] MEDS: Methocarbamol 500 MG TAB PO SCH ×2 (12:50→20:25)
[2021-07-23] MEDS: Nystatin Powder 15 GM BOT TOP SCH ×2 (12:51→20:26)
[2021-07-23] MEDS: Morphine 4 MG/ML VIAL SLOW IVP PRN ×2 (13:16→20:50)
[2021-07-23] MEDS: Pregabalin 75 MG CAP PO SCH (20:24)
[2021-07-23] MEDS: Amlodipine 5 MG TAB PO SCH (20:25)
[2021-07-23] MEDS: Atorvastatin Calcium 10 MG TAB PO SCH (20:25)
[2021-07-24] MEDS: HYDROcodone/Acetaminophen 7.5/325 mg Tablet PO PRN (03:22)
[2021-07-24] MEDS: CEFIDEROCOL IV SCH ×3 (06:02→21:24)
[2021-07-24] MEDS: SODIUM CHLORIDE 0.9% IV SCH ×3 (06:02→21:24)
[2021-07-24] MEDS: Morphine 4 MG/ML VIAL SLOW IVP PRN ×3 (06:06→23:37)
[2021-07-24] MEDS: Calcium Acetate 667 MG CAP PO SCH ×3 (07:49→17:33)
[2021-07-24] MEDS: Cholecalciferol 1,000 UNITS (25 MCG) TAB PO SCH (07:49)
[2021-07-24] MEDS: Ascorbic Acid 500 mg Chewable Tablet PO SCH (07:49)
[2021-07-24] MEDS: Famotidine 20 MG TAB PO SCH (07:50)
[2021-07-24] MEDS: busPIRone HCl 5 MG TAB PO SCH ×2 (07:50→20:14)
[2021-07-24] MEDS: Zinc Sulfate 220 MG CAP PO SCH (07:50)
[2021-07-24] MEDS: Methocarbamol 500 MG TAB PO SCH ×2 (07:52→20:14)
[2021-07-24] MEDS: Nystatin Powder 15 GM BOT TOP SCH ×2 (07:54→20:15)
[2021-07-24 14:25] LABS: Anion Gap 11 mmol/L (10-20); Calcium 8.1 mg/dL (7.8-10.44); Carbon Dioxide 26 mmol/L (22-29); Chloride 107 mmol/L (98-107); Potassium 5.1 mmol/L (3.5-5.1); Sodium 139 mmol/L (136-145)
[2021-07-24 14:32] LABS: Calc. Creatinine Clearance 189 mL/min (70-130)
[2021-07-24 14:33] LABS: BUN (Urea Nitrogen) 81 mg/dL (7.0-18.7)
[2021-07-24 14:36] LABS: Glucose 57 mg/dL (70-105)
[2021-07-24] MEDS: Amlodipine 5 MG TAB PO SCH (20:14)
[2021-07-24] MEDS: Pregabalin 75 MG CAP PO SCH (20:15)
[2021-07-24] MEDS: Atorvastatin Calcium 10 MG TAB PO SCH (20:15)
[2021-07-25] MEDS: HYDROcodone/Acetaminophen 7.5/325 mg Tablet PO PRN ×3 (00:24→15:45)
[2021-07-25] MEDS: SODIUM CHLORIDE 0.9% IV SCH ×2 (06:10→15:00)
[2021-07-25] MEDS: CEFIDEROCOL IV SCH ×2 (06:10→15:00)
[2021-07-25] MEDS: Methocarbamol 500 MG TAB PO SCH (08:33)
[2021-07-25] MEDS: Calcium Acetate 667 MG CAP PO SCH ×2 (08:33→12:11)
[2021-07-25] MEDS: Cholecalciferol 1,000 UNITS (25 MCG) TAB PO SCH (08:33)
[2021-07-25] MEDS: Zinc Sulfate 220 MG CAP PO SCH (08:33)
[2021-07-25] MEDS: Ascorbic Acid 500 mg Chewable Tablet PO SCH (08:34)
[2021-07-25] MEDS: Famotidine 20 MG TAB PO SCH (08:34)
[2021-07-25] MEDS: busPIRone HCl 5 MG TAB PO SCH (08:34)
[2021-07-25] MEDS: Nystatin Powder 15 GM BOT TOP SCH (08:35)
[2021-07-25 11:58] VITALS: TEMP 97.9
[2021-07-25 16:34] VITALS: BP 177/82
== END 2021-07-25 16:47 | DRG 571 ==
LOC: ERS 16:05 → SURG A 19:43
PROVIDERS: ADMIT Internal Medicine; ATTEND Internal Medicine
PROC: 30233N1 Transfusion of Nonautologous Red Blood Cells into Peripheral Vein, Percutaneous Approach (ICD-10-PCS; 2021-07-10)
PROC: 0JB80ZZ Excision of Abdomen Subcutaneous Tissue and Fascia, Open Approach (ICD-10-PCS; principal; 2021-07-12)
PROC: 30233K1 Transfusion of Nonautologous Frozen Plasma into Peripheral Vein, Percutaneous Approach (ICD-10-PCS; 2021-07-12)
PROC: 0QPL04Z Removal of Internal Fixation Device from Right Tarsal, Open Approach (ICD-10-PCS; 2021-07-19)
DX: L03.311 Cellulitis of abdominal wall (principal); N39.0 Urinary tract infection, site not specified; T83.511A Infection and inflammatory reaction due to indwelling urethral catheter, initial encounter; I50.32 Chronic diastolic (congestive) heart failure; N17.9 Acute kidney failure, unspecified; N18.4 Chronic kidney disease, stage 4 (severe); E87.2 Acidosis; Z68.45 Body mass index [BMI] 70 or greater, adult; D62 Acute posthemorrhagic anemia; E87.1 Hypo-osmolality and hyponatremia; J96.10 Chronic respiratory failure, unspecified whether with hypoxia or hypercapnia; T84.116A Breakdown (mechanical) of internal fixation device of bone of right lower leg, initial encounter; Z16.24 Resistance to multiple antibiotics; I13.0 Hypertensive heart and chronic kidney disease with heart failure and stage 1 through stage 4 chronic kidney disease, or unspecified chronic kidney disease; I97.42 Intraoperative hemorrhage and hematoma of a circulatory system organ or structure complicating other procedure; E10.52 Type 1 diabetes mellitus with diabetic peripheral angiopathy with gangrene; I96 Gangrene, not elsewhere classified; M79.3 Panniculitis, unspecified; L02.211 Cutaneous abscess of abdominal wall; Z20.822 Contact with and (suspected) exposure to COVID-19; G47.33 Obstructive sleep apnea (adult) (pediatric); G89.29 Other chronic pain; E78.5 Hyperlipidemia, unspecified; E78.00 Pure hypercholesterolemia, unspecified; K21.9 Gastro-esophageal reflux disease without esophagitis; G25.81 Restless legs syndrome; E55.9 Vitamin D deficiency, unspecified; F31.9 Bipolar disorder, unspecified; F41.9 Anxiety disorder, unspecified; E66.01 Morbid (severe) obesity due to excess calories; M54.16 Radiculopathy, lumbar region; E87.5 Hyperkalemia; E88.09 Other disorders of plasma-protein metabolism, not elsewhere classified; B36.8 Other specified superficial mycoses; Y83.1 Surgical operation with implant of artificial internal device as the cause of abnormal reaction of the patient, or of later complication, without mention of misadventure at the time of the procedure; Y84.6 Urinary catheterization as the cause of abnormal reaction of the patient, or of later complication, without mention of misadventure at the time of the procedure; B96.1 Klebsiella pneumoniae [K. pneumoniae] as the cause of diseases classified elsewhere; B96.5 Pseudomonas (aeruginosa) (mallei) (pseudomallei) as the cause of diseases classified elsewhere; D63.1 Anemia in chronic kidney disease; E10.22 Type 1 diabetes mellitus with diabetic chronic kidney disease; E10.65 Type 1 diabetes mellitus with hyperglycemia; E10.40 Type 1 diabetes mellitus with diabetic neuropathy, unspecified; Y84.8 Other medical procedures as the cause of abnormal reaction of the patient, or of later complication, without mention of misadventure at the time of the procedure; Z88.5 Allergy status to narcotic agent; Z88.6 Allergy status to analgesic agent; Z88.0 Allergy status to penicillin; Z79.899 Other long term (current) drug therapy; Z79.4 Long term (current) use of insulin; Z79.01 Long term (current) use of anticoagulants; Z98.890 Other specified postprocedural states; Z82.49 Family history of ischemic heart disease and other diseases of the circulatory system; Z83.6 Family history of other diseases of the respiratory system
CPT/HCPCS: 36415; 36416; 36430; 76000; 76770; 80048; 80053; 80202; 82274; 82533; 82728; 82805; 83540; 83550; 83735; 83880; 84100; 85007; 85025; 85027; 85060; 85610; 85730; 86850; 86900; 86901; 87040; 87070; 87077; 87086; 87186; 87205; 88304; 93005; 93010; 94660; 96374; J0693; J1100; J1170; J1720; J1815; J1940; J2001; J2185; J2270; J2405; J2704; J3010; J3370; J3490; J7030; J7050; J7070; P9016; P9047; P9059; U0002; U0003; U0005

== ENCOUNTER 2021-08-08 22:17 | Inpatient (IN) | payer OTHER ==
[2021-08-08] MEDS ORDERED: Fentanyl 100 MCG/2 ML VIAL ONE (23:27)
[2021-08-08] MEDS ORDERED: Ondansetron PF 4 MG/2 ML Vial ONE (23:27)
[2021-08-08 23:39] LABS: Albumin 1.8 g/dL (3.5-5.0)
[2021-08-08 23:40] LABS: Calcium 6.6 mg/dL (7.8-10.44); Chloride 105 mmol/L (98-107); Potassium 5.5 mmol/L (3.5-5.1); Sodium 135 mmol/L (136-145)
[2021-08-08 23:41] LABS: Glucose 113 mg/dL (70-105); Protein, Total 5.8 g/dL (6.0-8.3)
[2021-08-08 23:43] LABS: Bilirubin, Total 0.3 mg/dL (0.2-1.2); Carbon Dioxide 14 mmol/L (22-29)
[2021-08-08 23:44] LABS: Alkaline Phosphatase 173 U/L (40-110); Band 13 % (5-11); Hemoglobin 7.2 g/dL (12.0-16.0); Lymphocytes 10 % (21-51); MDiff Complete? YES; Mean Corpuscular HGB CONC 31.5 g/dL (32.0-36.0); Mean Corpuscular Hemoglobin 25.9 pg (27.0-31.0); Mean Platelet Volume 8.6 fL (7.4-10.4); Monocytes 3 % (0-10); Neutrophil 74 % (42-75); Platelet Count 442 thou/uL (130-400); RBC Distribution Width 18.5 % (11.5-14.5); White Blood Cell (WBC) Count 20.3 thou/uL (4.8-10.8)
[2021-08-08 23:45] LABS: BUN (Urea Nitrogen) 104 mg/dL (7.0-18.7); Calc. Creatinine Clearance 0 mL/min (70-130)
[2021-08-08 23:46] LABS: AST (SGOT) 18 U/L (5-34)
[2021-08-08 23:47] LABS: ALT (SGPT) 13 U/L (8-55)
[2021-08-09 00:02] LABS: Anion Gap 22 mmol/L (10-20)
[2021-08-09] MEDS ORDERED: Insulin Regular 300 UNITS/3 ML VIAL ONE (00:22)
[2021-08-09] MEDS ORDERED: Sodium Bicarb 50 MEQ/50 ML Abboject 8.4% SYRINGE ONE (00:22)
[2021-08-09] MEDS ORDERED: Dextrose 50% Abboject 50 ML SYRINGE ONE ×2 (00:22→12:12)
[2021-08-09] MEDS ORDERED: Cefepime 2 GM VIAL ONE (00:22)
[2021-08-09 00:31] LABS: Bacteria/HPF 3+ HPF (None Seen); Bilirubin Negative (Negative); Blood, Urine 3+ (Negative); Clarity Extra Turbid (Clear); Glucose, Urine (Dipstick) Normal (Negative); Ketone, Urine Negative (Negative); Leukocyte 500 Leu/uL (Negative); Nitrite Negative (Negative); Protein, Urine (Dipstick) 70 mg/dL (Neg-Trace); RBC/HPF 21-50 HPF (0-3); Specific Gravity, Urine 1.021 (1.002-1.036); Squamous Epithelial 0-3 HPF (0-3); Urobilinogen Normal mg/dL (Less than 2); WBC/HPF Greater than 50 HPF (0-3); Yeast-Budding 2+ HPF (None Seen)
[2021-08-09] MEDS ORDERED: Vancomycin 1 GM/200 ML BAG ONE (02:45)
[2021-08-09 03:48] LABS: SARS-CoV-2 NAA Rapid Test Not Detected (NotDetected)
[2021-08-09] MEDS ORDERED: Sodium Chloride 0.9% 1,000 ML IV SCH (04:30)
[2021-08-09] MEDS ORDERED: Ondansetron PF 4 MG/2 ML Vial IVP PRN (04:30)
[2021-08-09] MEDS ORDERED: Acetaminophen 325 MG TAB PO PRN (04:30)
[2021-08-09] MEDS ORDERED: Ondansetron ODT 4 MG TAB SL PRN (04:30)
[2021-08-09] MEDS ORDERED: Heparin 10,000 UNITS/ 10 ML VIAL ONE ×2 (08:58→16:00)
[2021-08-09] MEDS ORDERED: Nystatin Powder 15 GM BOT TOP PRN (10:44)
[2021-08-09] MEDS ORDERED: INSULIN ASPART SC SCH (11:00)
[2021-08-09 11:54] LABS: Anion Gap 18 mmol/L (10-20); BUN (Urea Nitrogen) 105 mg/dL (7.0-18.7); Calc. Creatinine Clearance 44 mL/min (70-130); Calcium 6.2 mg/dL (7.8-10.44); Carbon Dioxide 15 mmol/L (22-29); Chloride 107 mmol/L (98-107); Potassium 5.7 mmol/L (3.5-5.1); Sodium 134 mmol/L (136-145)
[2021-08-09 12:03] LABS: Glucose 52 mg/dL (70-105)
[2021-08-09] MEDS ORDERED: Epoetin (ESRD) 20,000 UNITS/ML IVP SCH (12:15)
[2021-08-09] MEDS ORDERED: Propofol 500 MG/50 ML VIAL ONE (12:22)
[2021-08-09] MEDS ORDERED: HumaLOG 300 UNITS/3 ML VIAL FS SCH (12:30)
[2021-08-09 12:31] LABS: HBSAB Concentration Less than 8.00 mIU/mL; HBSAg Index 0.22 S/CO (0-0.99); Hep B Surf AB Non-Reactive (NonReactive); Hep B Surf Ag Non-Reactive S/CO (NonReactive)
[2021-08-09] MEDS ORDERED: Clindamycin/D5W 900 MG in Premix Bag 1 BAG IVPB SCH (14:00)
[2021-08-09] MEDS ORDERED: Bupivacaine PF 0.5% 30 ML VIAL ONE (16:00)
[2021-08-09] MEDS ORDERED: Lidocaine 1% w/Epinephrine 1:100K 20 ML VIAL ONE (16:00)
[2021-08-09] MEDS ORDERED: Sodium Chloride 0.9% 20 ML ONE (16:00)
[2021-08-09] MEDS ORDERED: Sodium Chloride 0.9% 0 ML ONE (16:00)
[2021-08-09] MEDS ORDERED: Clindamycin/D5W 900 mg/50 ml Premix Bag ONE (16:16)
[2021-08-09] MEDS ORDERED: Midazolam HCl 2 mg/2 ml Vial ONE (16:21)
[2021-08-09] MEDS ORDERED: Fentanyl 100 MCG/2 ML VIAL ONE ×2 (16:21→17:45)
[2021-08-09] MEDS ORDERED: Ketamine 50 MG/ML (10ML VIAL) ONE (16:21)
[2021-08-09 17:27] LABS: HBSAB Concentration Less than 8.00 mIU/mL; HBSAg Index 0.23 S/CO (0-0.99); Hep B Core Total Ab Non-Reactive (NonReactive); Hep B Core Total Index 0.08 S/CO (0-0.79); Hep B Surf AB Non-Reactive (NonReactive); Hep B Surf Ag Non-Reactive S/CO (NonReactive); Hep C IgG Ab Non-Reactive (NonReactive); Hep C Index 0.17 S/CO (0-0.79)
[2021-08-09] MEDS ORDERED: CRANBERRY PLUS VITAMIN C PO SCH (21:00)
[2021-08-09] MEDS ORDERED: ASCORBIC ACID PO SCH (21:00)
[2021-08-09] MEDS ORDERED: PREGABALIN PO SCH (21:00)
[2021-08-09] MEDS ORDERED: CRANBERRY PO SCH (21:00)
[2021-08-09] MEDS ORDERED: [UNRECOGNIZED DRUG - OTHER] PO SCH (21:00)
[2021-08-09] MEDS: EPOETIN ALFA-EPBX (ESRD) 10,000 UNIT/ML VIAL IVP SCH (21:38)
[2021-08-09] MEDS: Vancomycin 1 GM in Premix Bag 1 BAG IVPB SCH (21:38)
[2021-08-09] MEDS: Pregabalin 75 MG CAP PO SCH (21:39)
[2021-08-09] MEDS: busPIRone HCl 5 MG TAB PO SCH (21:40)
[2021-08-09] MEDS: rOPINIRole HCl 2 MG TAB PO SCH (21:40)
[2021-08-09] MEDS: Atorvastatin Calcium 10 MG TAB PO SCH (21:40)
[2021-08-09] MEDS: Fentanyl 100 MCG/2 ML VIAL SLOW IVP PRN (21:41)
[2021-08-10] MEDS: Fentanyl 100 MCG/2 ML VIAL SLOW IVP PRN ×4 (00:45→20:32)
[2021-08-10] MEDS: Methocarbamol 500 MG TAB PO SCH ×3 (00:46→22:20)
[2021-08-10] MEDS: Vancomycin 1 GM in Premix Bag 1 BAG IVPB SCH (08:30)
[2021-08-10] MEDS: Cyanocobalamin (Vitamin B-12) 1,000 MCG TAB PO SCH (08:30)
[2021-08-10] MEDS: Cholecalciferol 1,000 UNITS (25 MCG) TAB PO SCH (08:31)
[2021-08-10] MEDS: Ascorbic Acid 500 mg Chewable Tablet PO SCH (08:31)
[2021-08-10] MEDS: busPIRone HCl 5 MG TAB PO SCH ×2 (08:32→22:21)
[2021-08-10] MEDS: Acetaminophen/Codeine 30-300mg Tablet PO PRN (08:32)
[2021-08-10] MEDS: Acetaminophen 500 MG TAB PO PRN (08:32)
[2021-08-10] MEDS: Multivit, Therapeutic 1 TAB PO SCH (08:32)
[2021-08-10] MEDS ORDERED: Ferrous Sulfate 325 MG TAB PO SCH (09:00)
[2021-08-10] MEDS ORDERED: Non-Formulary Item 1 EACH (Cyanocobalamin (Vitamin B-12) [Vitamin B12] 2,500 MCG Tablet) PO SCH (09:00)
[2021-08-10] MEDS ORDERED: Heparin 10,000 UNITS/ 10 ML VIAL ONE (09:30)
[2021-08-10 11:37] LABS: #Eosinphils 0.1 thou/uL (0.0-0.7); #Lymphocytes 1.4 thou/uL (1.20-3.40); #Monocytes 1.3 thou/uL (0.11-0.59); %Basophils 0.1 % (0.0-1.0); %Eosinophils 0.8 % (0.0-10.0); %Lymphocytes 8.4 % (21.0-51.0); %Monocytes 7.4 % (0.0-10.0); %Neutrophils 83.3 % (42.0-75.0); Hemoglobin 6.3 g/dL (12.0-16.0); Mean Corpuscular HGB CONC 30.3 g/dL (32.0-36.0); Mean Corpuscular Hemoglobin 24.8 pg (27.0-31.0); Platelet Count 381 thou/uL (130-400); RBC Distribution Width 18.7 % (11.5-14.5); Red Blood Cell (RBC) Count 2.55 mill/uL (4.20-5.40); White Blood Cell (WBC) Count 16.8 thou/uL (4.8-10.8)
[2021-08-10 11:57] LABS: ALT (SGPT) 9 U/L (8-55); AST (SGOT) 13 U/L (5-34); Albumin 1.6 g/dL (3.5-5.0); Alkaline Phosphatase 160 U/L (40-110); Anion Gap 14 mmol/L (10-20); BUN (Urea Nitrogen) 85 mg/dL (7.0-18.7); Bilirubin, Total 0.3 mg/dL (0.2-1.2); Calc. Creatinine Clearance 51 mL/min (70-130); Calcium 6.1 mg/dL (7.8-10.44); Carbon Dioxide 21 mmol/L (22-29); Chloride 103 mmol/L (98-107); Globulin 3.7 g/dL (2.4-3.5); Glucose 78 mg/dL (70-105); Potassium 5.1 mmol/L (3.5-5.1); Protein, Total 5.3 g/dL (6.0-8.3); Sodium 133 mmol/L (136-145)
[2021-08-10] MEDS ORDERED: Tuberculin PPD 0.1 ML VIAL I-DERMAL SCH (12:00)
[2021-08-10 12:08] LABS: Hypochromia SLIGHT = 6-15 cells (100X) (0-5/hpf); MDiff Complete? YES; Platelet Morphology Comment Appears Adequate; Polychromasia SLIGHT = 2-3 cells (100X) (0-2/hpf)
[2021-08-10] MEDS ORDERED: MEROPENEM 1 GM/50 ML 1 GM in Premix Bag 1 BAG IVPB SCH (16:30)
[2021-08-10] MEDS: Pregabalin 75 MG CAP PO SCH (22:20)
[2021-08-10] MEDS: Atorvastatin Calcium 10 MG TAB PO SCH (22:21)
[2021-08-10] MEDS: Heparin 5,000 UNITS/ML VIAL SC SCH (22:21)
[2021-08-10] MEDS: rOPINIRole HCl 2 MG TAB PO SCH (22:21)
[2021-08-11] MEDS: Fentanyl 100 MCG/2 ML VIAL SLOW IVP PRN ×2 (05:22→09:12)
[2021-08-11] MEDS ORDERED: Meropenem 500 MG in Sodium Chloride 0.9% 100 ML IVPB SCH (09:00)
[2021-08-11] MEDS: Cholecalciferol 1,000 UNITS (25 MCG) TAB PO SCH (09:03)
[2021-08-11] MEDS: busPIRone HCl 5 MG TAB PO SCH ×2 (09:05→20:33)
[2021-08-11] MEDS: Cyanocobalamin (Vitamin B-12) 1,000 MCG TAB PO SCH (09:05)
[2021-08-11] MEDS: Ascorbic Acid 500 mg Chewable Tablet PO SCH (09:05)
[2021-08-11] MEDS: Multivit, Therapeutic 1 TAB PO SCH (09:05)
[2021-08-11] MEDS: Heparin 5,000 UNITS/ML VIAL SC SCH ×3 (09:06→20:37)
[2021-08-11] MEDS: Methocarbamol 500 MG TAB PO SCH ×2 (09:06→20:33)
[2021-08-11] MEDS: Acetaminophen 500 MG TAB PO PRN (09:12)
[2021-08-11] MEDS: Acetaminophen/Codeine 30-300mg Tablet PO PRN (09:14)
[2021-08-11 09:17] LABS: #Eosinphils 0.5 thou/uL (0.0-0.7); #Lymphocytes 1.6 thou/uL (1.20-3.40); #Monocytes 1.6 thou/uL (0.11-0.59); #Neutrophils 12.7 thou/uL (1.40-6.50); %Basophils 0.1 % (0.0-1.0); %Eosinophils 2.8 % (0.0-10.0); %Lymphocytes 9.6 % (21.0-51.0); %Monocytes 9.6 % (0.0-10.0); Hemoglobin 6.5 g/dL (12.0-16.0); Mean Corpuscular HGB CONC 31.5 g/dL (32.0-36.0); Mean Corpuscular Hemoglobin 25.8 pg (27.0-31.0); Platelet Count 337 thou/uL (130-400); RBC Distribution Width 18.3 % (11.5-14.5); Red Blood Cell (RBC) Count 2.51 mill/uL (4.20-5.40); White Blood Cell (WBC) Count 16.3 thou/uL (4.8-10.8)
[2021-08-11 09:18] LABS: Anion Gap 16 mmol/L (10-20); BUN (Urea Nitrogen) 76 mg/dL (7.0-18.7); Calc. Creatinine Clearance 57 mL/min (70-130); Carbon Dioxide 21 mmol/L (22-29); Chloride 102 mmol/L (98-107); Glucose 124 mg/dL (70-105); Potassium 4.7 mmol/L (3.5-5.1); Sodium 134 mmol/L (136-145)
[2021-08-11] MEDS ORDERED: Heparin 10,000 UNITS/ 10 ML VIAL ONE (09:26)
[2021-08-11] MEDS ORDERED: Ketorolac Tromethamine 30 MG/ML VIAL IVP SCH (11:15)
[2021-08-11] MEDS: Morphine 4 MG/ML VIAL SLOW IVP PRN ×2 (14:18→20:34)
[2021-08-11] MEDS: Calcium Acetate 667 MG CAP PO SCH ×2 (14:19→17:31)
[2021-08-11] MEDS: EPOETIN ALFA-EPBX (ESRD) 10,000 UNIT/ML VIAL IVP SCH (18:22)
[2021-08-11] MEDS: rOPINIRole HCl 2 MG TAB PO SCH (20:31)
[2021-08-11] MEDS: Pregabalin 75 MG CAP PO SCH (20:32)
[2021-08-11] MEDS: Meropenem 500 MG in Sodium Chloride 0.9% 100 ML IVPB SCH (20:33)
[2021-08-11] MEDS: Atorvastatin Calcium 10 MG TAB PO SCH (20:33)
[2021-08-12] MEDS: Ondansetron PF 4 MG/2 ML Vial IVP PRN ×2 (00:01→09:27)
[2021-08-12] MEDS: Morphine 4 MG/ML VIAL SLOW IVP PRN ×4 (04:29→21:31)
[2021-08-12 05:37] LABS: Phosphorus 5.9 mg/dL (2.3-4.7)
[2021-08-12 05:39] LABS: Anion Gap 11 mmol/L (10-20); BUN (Urea Nitrogen) 55 mg/dL (7.0-18.7); Calc. Creatinine Clearance 75 mL/min (70-130); Calcium 6.5 mg/dL (7.8-10.44); Carbon Dioxide 26 mmol/L (22-29); Chloride 102 mmol/L (98-107); Glucose 129 mg/dL (70-105); Potassium 4.1 mmol/L (3.5-5.1); Sodium 135 mmol/L (136-145)
[2021-08-12 05:41] LABS: Eosinophils 4 % (0-10); Lymphocytes 9 % (21-51); MDiff Complete? YES; Mean Corpuscular HGB CONC 31.1 g/dL (32.0-36.0); Mean Corpuscular Hemoglobin 26.1 pg (27.0-31.0); Mean Corpuscular Volume 83.8 fL (78.0-98.0); Mean Platelet Volume 9.6 fL (7.4-10.4); Monocytes 10 % (0-10); Neutrophil 77 % (42-75); Platelet Count 301 thou/uL (130-400); Platelet Morphology Comment Appears Adequate; RBC Distribution Width 17.7 % (11.5-14.5); Red Blood Cell (RBC) Count 3.07 mill/uL (4.20-5.40); White Blood Cell (WBC) Count 15.7 thou/uL (4.8-10.8)
[2021-08-12] MEDS: Cholecalciferol 1,000 UNITS (25 MCG) TAB PO SCH (09:13)
[2021-08-12] MEDS: Cyanocobalamin (Vitamin B-12) 1,000 MCG TAB PO SCH (09:14)
[2021-08-12] MEDS: Calcium Acetate 667 MG CAP PO SCH ×4 (09:14→16:12)
[2021-08-12] MEDS: Ascorbic Acid 500 mg Chewable Tablet PO SCH (09:14)
[2021-08-12] MEDS: busPIRone HCl 5 MG TAB PO SCH ×2 (09:15→21:32)
[2021-08-12] MEDS: Multivit, Therapeutic 1 TAB PO SCH (09:15)
[2021-08-12] MEDS: Methocarbamol 500 MG TAB PO SCH ×2 (09:15→21:33)
[2021-08-12] MEDS: Heparin 5,000 UNITS/ML VIAL SC SCH ×3 (09:16→21:34)
[2021-08-12] MEDS: Acetaminophen/Codeine 30-300mg Tablet PO PRN ×2 (09:28→17:33)
[2021-08-12] MEDS ORDERED: Diphenoxylate HCl/Atropine Tablet PO PRN (12:00)
[2021-08-12] MEDS: Meropenem 500 MG in Sodium Chloride 0.9% 100 ML IVPB SCH (16:12)
[2021-08-12] MEDS: Atorvastatin Calcium 10 MG TAB PO SCH (21:32)
[2021-08-12] MEDS: rOPINIRole HCl 2 MG TAB PO SCH (21:32)
[2021-08-12] MEDS: Pregabalin 75 MG CAP PO SCH (21:33)
[2021-08-13] MEDS: Morphine 4 MG/ML VIAL SLOW IVP PRN ×2 (06:47→18:10)
[2021-08-13] MEDS: metroNIDAZOLE 500 MG TAB PO SCH ×3 (08:30→20:04)
[2021-08-13] MEDS: Cyanocobalamin (Vitamin B-12) 1,000 MCG TAB PO SCH (08:30)
[2021-08-13] MEDS: Multivit, Therapeutic 1 TAB PO SCH (08:30)
[2021-08-13] MEDS: busPIRone HCl 5 MG TAB PO SCH ×2 (08:30→20:04)
[2021-08-13] MEDS: Cholecalciferol 1,000 UNITS (25 MCG) TAB PO SCH (08:31)
[2021-08-13] MEDS: Ascorbic Acid 500 mg Chewable Tablet PO SCH (08:31)
[2021-08-13] MEDS: Calcium Acetate 667 MG CAP PO SCH ×3 (08:31→17:50)
[2021-08-13] MEDS: Methocarbamol 500 MG TAB PO SCH ×2 (08:31→20:04)
[2021-08-13] MEDS: Acetaminophen/Codeine 30-300mg Tablet PO PRN (08:32)
[2021-08-13] MEDS: Heparin 5,000 UNITS/ML VIAL SC SCH ×3 (08:32→20:05)
[2021-08-13] MEDS ORDERED: Heparin 10,000 UNITS/ 10 ML VIAL ONE (08:44)
[2021-08-13 09:32] LABS: Anisocytosis MODERATE=16-30 cells (100X) (0-5/hpf); Band 2 % (5-11); Eosinophils 4 % (0-10); Hemoglobin 7.4 g/dL (12.0-16.0); Hypochromia SLIGHT = 6-15 cells (100X) (0-5/hpf); Lymphocytes 9 % (21-51); MDiff Complete? YES; Mean Corpuscular HGB CONC 32.3 g/dL (32.0-36.0); Mean Corpuscular Hemoglobin 25.8 pg (27.0-31.0); Mean Corpuscular Volume 79.9 fL (78.0-98.0); Mean Platelet Volume 9.6 fL (7.4-10.4); Monocytes 8 % (0-10); Neutrophil 77 % (42-75); Platelet Count 459 thou/uL (130-400); Platelet Morphology Comment Appears Adequate; RBC Distribution Width 24.8 % (11.5-14.5); Red Blood Cell (RBC) Count 2.85 mill/uL (4.20-5.40); Toxic Granulation SLIGHT
[2021-08-13] MEDS: Vancomycin HCl 25 MG/ML Oral PO SCH ×3 (10:05→20:04)
[2021-08-13] MEDS: EPOETIN ALFA-EPBX (ESRD) 10,000 UNIT/ML VIAL IVP SCH (10:06)
[2021-08-13] MEDS ORDERED: Ketorolac Tromethamine 30 MG/ML VIAL IVP SCH (11:30)
[2021-08-13 15:08] LABS: Chloride 102 mmol/L (98-107); Potassium 4.5 mmol/L (3.5-5.1)
[2021-08-13 15:09] LABS: Calcium 7.1 mg/dL (7.8-10.44); Glucose 187 mg/dL (70-105); Sodium 135 mmol/L (136-145)
[2021-08-13 15:11] LABS: Anion Gap 16 mmol/L (10-20); Carbon Dioxide 22 mmol/L (22-29)
[2021-08-13 15:13] LABS: Calc. Creatinine Clearance 60 mL/min (70-130)
[2021-08-13 15:14] LABS: BUN (Urea Nitrogen) 61 mg/dL (7.0-18.7)
[2021-08-13] MEDS: Ondansetron PF 4 MG/2 ML Vial IVP PRN (17:50)
[2021-08-13] MEDS: Meropenem 500 MG in Sodium Chloride 0.9% 100 ML IVPB SCH (17:51)
[2021-08-13] MEDS: Atorvastatin Calcium 10 MG TAB PO SCH (20:04)
[2021-08-13] MEDS: rOPINIRole HCl 2 MG TAB PO SCH (20:04)
[2021-08-13] MEDS: Pregabalin 75 MG CAP PO SCH (20:04)
[2021-08-14] MEDS: Vancomycin HCl 25 MG/ML Oral PO SCH ×4 (03:50→21:57)
[2021-08-14] MEDS: Morphine 4 MG/ML VIAL SLOW IVP PRN ×3 (04:09→16:32)
[2021-08-14 05:24] LABS: Anion Gap 13 mmol/L (10-20); BUN (Urea Nitrogen) 47 mg/dL (7.0-18.7); Calc. Creatinine Clearance 77 mL/min (70-130); Carbon Dioxide 27 mmol/L (22-29); Chloride 100 mmol/L (98-107); Glucose 149 mg/dL (70-105); Potassium 4.2 mmol/L (3.5-5.1); Sodium 136 mmol/L (136-145)
[2021-08-14 05:37] LABS: Band 1 % (5-11); Hemoglobin 8.4 g/dL (12.0-16.0); Hypochromia SLIGHT = 6-15 cells (100X) (0-5/hpf); Lymphocytes 20 % (21-51); MDiff Complete? YES; Mean Corpuscular HGB CONC 30.8 g/dL (32.0-36.0); Mean Corpuscular Hemoglobin 26.3 pg (27.0-31.0); Mean Corpuscular Volume 85.6 fL (78.0-98.0); Mean Platelet Volume 9.5 fL (7.4-10.4); Monocytes 3 % (0-10); Neutrophil 76 % (42-75); Platelet Count 262 thou/uL (130-400); Platelet Morphology Comment Appears Decreased; RBC Distribution Width 17.3 % (11.5-14.5); Red Blood Cell (RBC) Count 3.19 mill/uL (4.20-5.40); White Blood Cell (WBC) Count 20.8 thou/uL (4.8-10.8)
[2021-08-14] MEDS: Cyanocobalamin (Vitamin B-12) 1,000 MCG TAB PO SCH (08:39)
[2021-08-14] MEDS: Cholecalciferol 1,000 UNITS (25 MCG) TAB PO SCH (08:39)
[2021-08-14] MEDS: Calcium Acetate 667 MG CAP PO SCH ×3 (08:41→16:34)
[2021-08-14] MEDS: metroNIDAZOLE 500 MG TAB PO SCH ×3 (08:41→21:57)
[2021-08-14] MEDS: busPIRone HCl 5 MG TAB PO SCH ×2 (08:41→21:56)
[2021-08-14] MEDS: Methocarbamol 500 MG TAB PO SCH ×2 (08:41→21:56)
[2021-08-14] MEDS: Multivit, Therapeutic 1 TAB PO SCH (08:41)
[2021-08-14] MEDS: Ascorbic Acid 500 mg Chewable Tablet PO SCH (08:41)
[2021-08-14] MEDS: Heparin 5,000 UNITS/ML VIAL SC SCH ×3 (08:42→21:57)
[2021-08-14] MEDS: Acetaminophen/Codeine 30-300mg Tablet PO PRN ×2 (13:51→23:33)
[2021-08-14] MEDS: Meropenem 500 MG in Sodium Chloride 0.9% 100 ML IVPB SCH (15:41)
[2021-08-14] MEDS ORDERED: Lidocaine 4% Topical Sol 50 ML BOT TOP SCH (20:15)
[2021-08-14] MEDS: Pregabalin 75 MG CAP PO SCH (21:55)
[2021-08-14] MEDS: rOPINIRole HCl 2 MG TAB PO SCH (21:55)
[2021-08-14] MEDS: Atorvastatin Calcium 10 MG TAB PO SCH (21:56)
[2021-08-15] MEDS: Vancomycin HCl 25 MG/ML Oral PO SCH ×4 (03:08→20:49)
[2021-08-15] MEDS: Morphine 4 MG/ML VIAL SLOW IVP PRN ×3 (03:28→22:49)
[2021-08-15 05:04] LABS: #Eosinphils 1.2 thou/uL (0.0-0.7); #Lymphocytes 2.4 thou/uL (1.20-3.40); #Neutrophils 18.6 thou/uL (1.40-6.50); %Basophils 0.1 % (0.0-1.0); %Eosinophils 4.9 % (0.0-10.0); %Lymphocytes 9.9 % (21.0-51.0); %Monocytes 8.1 % (0.0-10.0); %Neutrophils 76.9 % (42.0-75.0); Hemoglobin 7.7 g/dL (12.0-16.0); Mean Corpuscular HGB CONC 31.1 g/dL (32.0-36.0); Mean Corpuscular Hemoglobin 26.9 pg (27.0-31.0); Mean Corpuscular Volume 86.5 fL (78.0-98.0); Mean Platelet Volume 9.6 fL (7.4-10.4); Platelet Count 241 thou/uL (130-400); RBC Distribution Width 17.2 % (11.5-14.5); Red Blood Cell (RBC) Count 2.86 mill/uL (4.20-5.40); White Blood Cell (WBC) Count 24.2 thou/uL (4.8-10.8)
[2021-08-15 05:49] LABS: Anion Gap 11 mmol/L (10-20); BUN (Urea Nitrogen) 61 mg/dL (7.0-18.7); Calc. Creatinine Clearance 64 mL/min (70-130); Calcium 7.1 mg/dL (7.8-10.44); Carbon Dioxide 26 mmol/L (22-29); Chloride 101 mmol/L (98-107); Glucose 82 mg/dL (70-105); Potassium 4.4 mmol/L (3.5-5.1); Sodium 134 mmol/L (136-145)
[2021-08-15] MEDS ORDERED: Heparin 5,000 UNITS/ML VIAL ONE (08:59)
[2021-08-15] MEDS ORDERED: Lidocaine 1% w/Epinephrine 1:100K 20 ML VIAL ONE (08:59)
[2021-08-15] MEDS ORDERED: Protamine Sulfate 50 MG/5 ML VIAL ONE (08:59)
[2021-08-15] MEDS ORDERED: Bupivacaine PF 0.5% 30 ML VIAL ONE (08:59)
[2021-08-15] MEDS ORDERED: Heparin 10,000 UNITS/ 10 ML VIAL ONE (09:08)
[2021-08-15] MEDS ORDERED: Ondansetron PF 4 MG/2 ML Vial ONE (09:27)
[2021-08-15] MEDS ORDERED: PROPOFOL 200 MG/20 ML VIAL ONE (09:27)
[2021-08-15] MEDS ORDERED: diphenhydrAMINE 50 MG/ML VIAL ONE (09:27)
[2021-08-15] MEDS ORDERED: Rocuronium Bromide 10 MG/ML (10ML VIAL) ONE (09:27)
[2021-08-15] MEDS ORDERED: Ketorolac Tromethamine 30 MG/ML VIAL ONE (09:27)
[2021-08-15] MEDS ORDERED: Glycopyrrolate 0.2 MG/ML 5 ML SYRINGE ONE (09:27)
[2021-08-15] MEDS ORDERED: ePHEDrine 50 MG/ML VIAL ONE (09:27)
[2021-08-15] MEDS ORDERED: PHENYLEPHRINE-NS 100 MCG/ML 10 ML SYRINGE ONE (09:27)
[2021-08-15] MEDS ORDERED: Lidocaine 1% PF 5 ML VIAL ONE (09:27)
[2021-08-15] MEDS ORDERED: Fentanyl 250 MCG/5 ML VIAL ONE (09:30)
[2021-08-15] MEDS: Ascorbic Acid 500 mg Chewable Tablet PO SCH (09:32)
[2021-08-15] MEDS: Heparin 5,000 UNITS/ML VIAL SC SCH ×3 (09:32→20:49)
[2021-08-15] MEDS: Cholecalciferol 1,000 UNITS (25 MCG) TAB PO SCH (09:32)
[2021-08-15] MEDS: Calcium Acetate 667 MG CAP PO SCH ×3 (09:32→18:04)
[2021-08-15] MEDS: Cyanocobalamin (Vitamin B-12) 1,000 MCG TAB PO SCH (09:32)
[2021-08-15] MEDS: Multivit, Therapeutic 1 TAB PO SCH (09:33)
[2021-08-15] MEDS: EPOETIN ALFA-EPBX (ESRD) 10,000 UNIT/ML VIAL IVP SCH (09:33)
[2021-08-15] MEDS: Methocarbamol 500 MG TAB PO SCH ×2 (09:33→20:53)
[2021-08-15] MEDS: busPIRone HCl 5 MG TAB PO SCH ×2 (09:33→20:48)
[2021-08-15] MEDS: metroNIDAZOLE 500 MG TAB PO SCH ×3 (09:34→20:49)
[2021-08-15] MEDS ORDERED: Promethazine HCl 25 MG/ML VIAL IM PRN (11:54)
[2021-08-15] MEDS ORDERED: Promethazine HCl 25 MG/ML VIAL IVPB PRN (11:54)
[2021-08-15] MEDS ORDERED: HYDROmorphone 2 MG/ML VIAL SLOW IVP PRN (11:54)
[2021-08-15] MEDS ORDERED: Fentanyl 100 MCG/2 ML VIAL ONE ×2 (12:17→13:19)
[2021-08-15] MEDS ORDERED: Albumin 25% 25 GM/100 ML BOT IVPB SCH (14:45)
[2021-08-15] MEDS: Meropenem 500 MG in Sodium Chloride 0.9% 100 ML IVPB SCH (18:04)
[2021-08-15] MEDS: rOPINIRole HCl 2 MG TAB PO SCH (20:45)
[2021-08-15] MEDS: Pregabalin 75 MG CAP PO SCH (20:45)
[2021-08-15] MEDS: Atorvastatin Calcium 10 MG TAB PO SCH (20:48)
[2021-08-16] MEDS: Vancomycin HCl 25 MG/ML Oral PO SCH ×4 (03:49→21:18)
[2021-08-16] MEDS: Morphine 4 MG/ML VIAL SLOW IVP PRN ×4 (03:49→21:16)
[2021-08-16 06:42] LABS: Hemoglobin 7.5 g/dL (12.0-16.0); Mean Corpuscular HGB CONC 31.1 g/dL (32.0-36.0); Mean Corpuscular Hemoglobin 27.1 pg (27.0-31.0); Mean Corpuscular Volume 87.2 fL (78.0-98.0); Platelet Count 241 thou/uL (130-400); Red Blood Cell (RBC) Count 2.76 mill/uL (4.20-5.40); White Blood Cell (WBC) Count 24.9 thou/uL (4.8-10.8)
[2021-08-16 06:47] LABS: Anion Gap 12 mmol/L (10-20); BUN (Urea Nitrogen) 49 mg/dL (7.0-18.7); Calc. Creatinine Clearance 71 mL/min (70-130); Carbon Dioxide 27 mmol/L (22-29); Chloride 100 mmol/L (98-107); Glucose 209 mg/dL (70-105); Potassium 4.1 mmol/L (3.5-5.1); Sodium 135 mmol/L (136-145)
[2021-08-16] MEDS: Heparin 5,000 UNITS/ML VIAL SC SCH ×3 (08:29→21:15)
[2021-08-16] MEDS: Methocarbamol 500 MG TAB PO SCH ×2 (08:30→21:15)
[2021-08-16] MEDS: Multivit, Therapeutic 1 TAB PO SCH (08:30)
[2021-08-16] MEDS: Cyanocobalamin (Vitamin B-12) 1,000 MCG TAB PO SCH (08:30)
[2021-08-16] MEDS: Calcium Acetate 667 MG CAP PO SCH ×3 (08:30→17:21)
[2021-08-16] MEDS: metroNIDAZOLE 500 MG TAB PO SCH ×3 (08:30→21:15)
[2021-08-16] MEDS: Cholecalciferol 1,000 UNITS (25 MCG) TAB PO SCH (08:30)
[2021-08-16] MEDS: busPIRone HCl 5 MG TAB PO SCH ×2 (08:30→21:15)
[2021-08-16] MEDS: Ascorbic Acid 500 mg Chewable Tablet PO SCH (08:31)
[2021-08-16 08:38] LABS: Band 8 % (5-11); Eosinophils 1 % (0-10); Lymphocytes 11 % (21-51); MDiff Complete? YES; Monocytes 5 % (0-10); Neutrophil 75 % (42-75); RBC Morphology Normal
[2021-08-16] MEDS: Acetaminophen/Codeine 30-300mg Tablet PO PRN (12:04)
[2021-08-16 12:31] LABS: SARS-CoV-2 PCR by NAA Not Detected (NotDetected)
[2021-08-16] MEDS: Meropenem 500 MG in Sodium Chloride 0.9% 100 ML IVPB SCH (15:15)
[2021-08-16] MEDS: Pregabalin 75 MG CAP PO SCH (21:13)
[2021-08-16] MEDS: Atorvastatin Calcium 10 MG TAB PO SCH (21:15)
[2021-08-16] MEDS: rOPINIRole HCl 2 MG TAB PO SCH (21:15)
[2021-08-17] MEDS: Morphine 4 MG/ML VIAL SLOW IVP PRN ×3 (03:09→21:01)
[2021-08-17] MEDS: Vancomycin HCl 25 MG/ML Oral PO SCH ×5 (03:09→21:01)
[2021-08-17 05:55] LABS: #Eosinphils 1.2 thou/uL (0.0-0.7); #Lymphocytes 2.1 thou/uL (1.20-3.40); #Monocytes 1.9 thou/uL (0.11-0.59); %Basophils 0.2 % (0.0-1.0); %Eosinophils 5.3 % (0.0-10.0); %Monocytes 8.1 % (0.0-10.0); %Neutrophils 77.4 % (42.0-75.0); Hemoglobin 7.2 g/dL (12.0-16.0); Mean Corpuscular HGB CONC 31.3 g/dL (32.0-36.0); Mean Corpuscular Hemoglobin 27.2 pg (27.0-31.0); Mean Corpuscular Volume 86.9 fL (78.0-98.0); Mean Platelet Volume 9.8 fL (7.4-10.4); Platelet Count 255 thou/uL (130-400); RBC Distribution Width 17.3 % (11.5-14.5); Red Blood Cell (RBC) Count 2.65 mill/uL (4.20-5.40); White Blood Cell (WBC) Count 23.3 thou/uL (4.8-10.8)
[2021-08-17 06:20] LABS: Anion Gap 12 mmol/L (10-20); BUN (Urea Nitrogen) 54 mg/dL (7.0-18.7); Calc. Creatinine Clearance 64 mL/min (70-130); Calcium 7.8 mg/dL (7.8-10.44); Carbon Dioxide 25 mmol/L (22-29); Chloride 98 mmol/L (98-107); Glucose 118 mg/dL (70-105); Potassium 4.3 mmol/L (3.5-5.1); Sodium 131 mmol/L (136-145)
[2021-08-17] MEDS: metroNIDAZOLE 500 MG TAB PO SCH ×3 (07:17→21:01)
[2021-08-17] MEDS ORDERED: Heparin 10,000 UNITS/ 10 ML VIAL ONE (10:46)
[2021-08-17] MEDS: EPOETIN ALFA-EPBX (ESRD) 10,000 UNIT/ML VIAL IVP SCH (13:21)
[2021-08-17] MEDS: Ascorbic Acid 500 mg Chewable Tablet PO SCH (13:21)
[2021-08-17] MEDS: Cyanocobalamin (Vitamin B-12) 1,000 MCG TAB PO SCH (13:22)
[2021-08-17] MEDS: Calcium Acetate 667 MG CAP PO SCH ×3 (13:23→19:29)
[2021-08-17] MEDS: busPIRone HCl 5 MG TAB PO SCH ×2 (13:23→21:01)
[2021-08-17] MEDS: Cholecalciferol 1,000 UNITS (25 MCG) TAB PO SCH (13:23)
[2021-08-17] MEDS: Heparin 5,000 UNITS/ML VIAL SC SCH ×3 (13:23→21:01)
[2021-08-17] MEDS: Methocarbamol 500 MG TAB PO SCH ×2 (13:24→21:01)
[2021-08-17] MEDS: Multivit, Therapeutic 1 TAB PO SCH (13:24)
[2021-08-17] MEDS: Acetaminophen/Codeine 30-300mg Tablet PO PRN (14:54)
[2021-08-17] MEDS: Meropenem 500 MG in Sodium Chloride 0.9% 100 ML IVPB SCH (15:03)
[2021-08-17] MEDS: Pregabalin 75 MG CAP PO SCH (21:00)
[2021-08-17] MEDS: rOPINIRole HCl 2 MG TAB PO SCH (21:01)
[2021-08-17] MEDS: Atorvastatin Calcium 10 MG TAB PO SCH (21:01)
[2021-08-18] MEDS: Vancomycin HCl 25 MG/ML Oral PO SCH ×4 (02:21→22:13)
[2021-08-18] MEDS: Morphine 4 MG/ML VIAL SLOW IVP PRN ×3 (05:20→22:26)
[2021-08-18 06:49] LABS: Anion Gap 11 mmol/L (10-20); BUN (Urea Nitrogen) 44 mg/dL (7.0-18.7); Calc. Creatinine Clearance 71 mL/min (70-130); Carbon Dioxide 28 mmol/L (22-29); Chloride 100 mmol/L (98-107); Glucose 198 mg/dL (70-105); Potassium 4.3 mmol/L (3.5-5.1); Sodium 135 mmol/L (136-145)
[2021-08-18] MEDS: metroNIDAZOLE 500 MG TAB PO SCH ×3 (08:02→22:15)
[2021-08-18] MEDS: Cyanocobalamin (Vitamin B-12) 1,000 MCG TAB PO SCH (08:02)
[2021-08-18] MEDS: Ascorbic Acid 500 mg Chewable Tablet PO SCH (08:02)
[2021-08-18] MEDS: Methocarbamol 500 MG TAB PO SCH ×2 (08:02→22:16)
[2021-08-18] MEDS: Calcium Acetate 667 MG CAP PO SCH ×3 (08:02→17:11)
[2021-08-18] MEDS: busPIRone HCl 5 MG TAB PO SCH ×2 (08:02→22:15)
[2021-08-18] MEDS: Heparin 5,000 UNITS/ML VIAL SC SCH ×3 (08:03→22:16)
[2021-08-18] MEDS: Multivit, Therapeutic 1 TAB PO SCH (08:03)
[2021-08-18] MEDS: Cholecalciferol 1,000 UNITS (25 MCG) TAB PO SCH (08:03)
[2021-08-18 08:12] LABS: Anisocytosis SLIGHT = 6-15 cells (100X) (0-5/hpf); Band 3 % (5-11); Eosinophils 5 % (0-10); Hemoglobin 6.9 g/dL (12.0-16.0); Lymphocytes 6 % (21-51); MDiff Complete? YES; Mean Corpuscular HGB CONC 29.8 g/dL (32.0-36.0); Mean Corpuscular Hemoglobin 26.2 pg (27.0-31.0); Mean Corpuscular Volume 88.1 fL (78.0-98.0); Mean Platelet Volume 10.9 fL (7.4-10.4); Monocytes 4 % (0-10); Neutrophil 82 % (42-75); Platelet Count 243 thou/uL (130-400); Polychromasia SLIGHT = 2-3 cells (100X) (0-2/hpf); RBC Distribution Width 17.4 % (11.5-14.5); Red Blood Cell (RBC) Count 2.63 mill/uL (4.20-5.40); White Blood Cell (WBC) Count 19.5 thou/uL (4.8-10.8)
[2021-08-18] MEDS: Acetaminophen/Codeine 30-300mg Tablet PO PRN ×2 (08:56→19:30)
[2021-08-18] MEDS: Zinc Sulfate 220 MG CAP PO SCH (09:39)
[2021-08-18] MEDS: Multivitamin W/ Minerals 1 TAB PO SCH (09:39)
[2021-08-18] MEDS: Meropenem 500 MG in Sodium Chloride 0.9% 100 ML IVPB SCH (15:44)
[2021-08-18] MEDS: Ferrous Sulfate 325 MG TAB PO SCH (17:11)
[2021-08-18 17:46] LABS: Potassium 3.7 mmol/L (3.5-5.1)
[2021-08-18] MEDS: rOPINIRole HCl 2 MG TAB PO SCH (22:14)
[2021-08-18] MEDS: Atorvastatin Calcium 10 MG TAB PO SCH (22:14)
[2021-08-18] MEDS: Pregabalin 75 MG CAP PO SCH (22:16)
[2021-08-19] MEDS: Vancomycin HCl 25 MG/ML Oral PO SCH ×4 (03:30→20:57)
[2021-08-19] MEDS: Acetaminophen/Codeine 30-300mg Tablet PO PRN ×3 (03:41→20:54)
[2021-08-19] MEDS: Acetaminophen 500 MG TAB PO PRN (03:41)
[2021-08-19] MEDS: Ondansetron PF 4 MG/2 ML Vial IVP PRN (03:43)
[2021-08-19] MEDS: metroNIDAZOLE 500 MG TAB PO SCH ×3 (08:29→20:56)
[2021-08-19] MEDS: Heparin 5,000 UNITS/ML VIAL SC SCH ×3 (08:29→20:57)
[2021-08-19] MEDS: Ascorbic Acid 500 mg Chewable Tablet PO SCH (08:30)
[2021-08-19] MEDS: Calcium Acetate 667 MG CAP PO SCH ×3 (08:30→18:22)
[2021-08-19] MEDS: Cyanocobalamin (Vitamin B-12) 1,000 MCG TAB PO SCH (08:30)
[2021-08-19] MEDS: Multivitamin W/ Minerals 1 TAB PO SCH (08:31)
[2021-08-19] MEDS: Cholecalciferol 1,000 UNITS (25 MCG) TAB PO SCH (08:31)
[2021-08-19] MEDS: busPIRone HCl 5 MG TAB PO SCH ×2 (08:31→20:56)
[2021-08-19] MEDS: Zinc Sulfate 220 MG CAP PO SCH (08:31)
[2021-08-19] MEDS: Ferrous Sulfate 325 MG TAB PO SCH ×2 (08:31→18:22)
[2021-08-19] MEDS: Morphine 4 MG/ML VIAL SLOW IVP PRN ×3 (08:32→22:09)
[2021-08-19] MEDS: Methocarbamol 500 MG TAB PO SCH ×2 (09:29→20:56)
[2021-08-19 14:07] LABS: Hemoglobin 7.4 g/dL (12.0-16.0)
[2021-08-19] MEDS: Meropenem 500 MG in Sodium Chloride 0.9% 100 ML IVPB SCH (16:20)
[2021-08-19] MEDS: rOPINIRole HCl 2 MG TAB PO SCH (20:55)
[2021-08-19] MEDS: Pregabalin 75 MG CAP PO SCH (20:55)
[2021-08-19] MEDS: Atorvastatin Calcium 10 MG TAB PO SCH (20:56)
[2021-08-20] MEDS: Vancomycin HCl 25 MG/ML Oral PO SCH ×4 (03:48→21:18)
[2021-08-20] MEDS: Morphine 4 MG/ML VIAL SLOW IVP PRN ×3 (05:48→21:21)
[2021-08-20 06:28] LABS: Anion Gap 14 mmol/L (10-20); BUN (Urea Nitrogen) 65 mg/dL (7.0-18.7); Calc. Creatinine Clearance 59 mL/min (70-130); Calcium 7.3 mg/dL (7.8-10.44); Carbon Dioxide 25 mmol/L (22-29); Chloride 98 mmol/L (98-107); Glucose 172 mg/dL (70-105); Potassium 4.4 mmol/L (3.5-5.1); Sodium 133 mmol/L (136-145)
[2021-08-20 06:30] LABS: Hemoglobin 7.4 g/dL (12.0-16.0); Mean Corpuscular HGB CONC 30.1 g/dL (32.0-36.0); Mean Corpuscular Hemoglobin 26.3 pg (27.0-31.0); Mean Corpuscular Volume 87.5 fL (78.0-98.0); Mean Platelet Volume 9.4 fL (7.4-10.4); Platelet Count 294 thou/uL (130-400); RBC Distribution Width 17.1 % (11.5-14.5); Red Blood Cell (RBC) Count 2.82 mill/uL (4.20-5.40); White Blood Cell (WBC) Count 20.1 thou/uL (4.8-10.8)
[2021-08-20 08:09] LABS: Band 9 % (5-11); Eosinophils 4 % (0-10); Lymphocytes 9 % (21-51); MDiff Complete? YES; Monocytes 2 % (0-10); Neutrophil 75 % (42-75); Polychromasia SLIGHT = 2-3 cells (100X) (0-2/hpf)
[2021-08-20] MEDS: Ferrous Sulfate 325 MG TAB PO SCH ×2 (09:04→17:46)
[2021-08-20] MEDS: Calcium Acetate 667 MG CAP PO SCH ×3 (09:04→17:46)
[2021-08-20] MEDS: Heparin 5,000 UNITS/ML VIAL SC SCH ×3 (10:38→21:19)
[2021-08-20] MEDS ORDERED: Heparin 10,000 UNITS/ 10 ML VIAL ONE (10:49)
[2021-08-20] MEDS: Cholecalciferol 1,000 UNITS (25 MCG) TAB PO SCH (15:10)
[2021-08-20] MEDS: Ascorbic Acid 500 mg Chewable Tablet PO SCH (15:10)
[2021-08-20] MEDS: Cyanocobalamin (Vitamin B-12) 1,000 MCG TAB PO SCH (15:10)
[2021-08-20] MEDS: EPOETIN ALFA-EPBX (ESRD) 10,000 UNIT/ML VIAL IVP SCH (15:10)
[2021-08-20] MEDS: busPIRone HCl 5 MG TAB PO SCH ×2 (15:10→21:18)
[2021-08-20] MEDS: Multivitamin W/ Minerals 1 TAB PO SCH (15:11)
[2021-08-20] MEDS: Methocarbamol 500 MG TAB PO SCH ×2 (15:11→21:19)
[2021-08-20] MEDS: metroNIDAZOLE 500 MG TAB PO SCH ×3 (15:11→21:18)
[2021-08-20] MEDS: Zinc Sulfate 220 MG CAP PO SCH (15:58)
[2021-08-20] MEDS: Meropenem 500 MG in Sodium Chloride 0.9% 100 ML IVPB SCH (17:45)
[2021-08-20] MEDS: Acetaminophen/Codeine 30-300mg Tablet PO PRN (17:46)
[2021-08-20] MEDS: Acetaminophen 500 MG TAB PO PRN (17:47)
[2021-08-20] MEDS: rOPINIRole HCl 2 MG TAB PO SCH (21:18)
[2021-08-20] MEDS: Pregabalin 75 MG CAP PO SCH (21:19)
[2021-08-20] MEDS: Atorvastatin Calcium 10 MG TAB PO SCH (21:19)
[2021-08-21] MEDS: Vancomycin HCl 25 MG/ML Oral PO SCH ×4 (02:28→21:16)
[2021-08-21] MEDS: Morphine 4 MG/ML VIAL SLOW IVP PRN ×2 (02:28→12:52)
[2021-08-21] MEDS: Ascorbic Acid 500 mg Chewable Tablet PO SCH (09:06)
[2021-08-21] MEDS: Cholecalciferol 1,000 UNITS (25 MCG) TAB PO SCH ×2 (09:06→09:08)
[2021-08-21] MEDS: Calcium Acetate 667 MG CAP PO SCH ×3 (09:06→17:05)
[2021-08-21] MEDS: Cyanocobalamin (Vitamin B-12) 1,000 MCG TAB PO SCH ×2 (09:07→09:09)
[2021-08-21] MEDS: Zinc Sulfate 220 MG CAP PO SCH (09:09)
[2021-08-21] MEDS: Ferrous Sulfate 325 MG TAB PO SCH ×2 (09:09→17:04)
[2021-08-21] MEDS: busPIRone HCl 5 MG TAB PO SCH ×2 (09:09→21:16)
[2021-08-21] MEDS: metroNIDAZOLE 500 MG TAB PO SCH ×3 (09:09→21:15)
[2021-08-21] MEDS: Multivitamin W/ Minerals 1 TAB PO SCH (09:09)
[2021-08-21] MEDS: Methocarbamol 500 MG TAB PO SCH ×2 (09:10→21:14)
[2021-08-21] MEDS: Heparin 5,000 UNITS/ML VIAL SC SCH ×3 (09:16→21:15)
[2021-08-21] MEDS: Meropenem 500 MG in Sodium Chloride 0.9% 100 ML IVPB SCH (17:04)
[2021-08-21 18:02] LABS: ALT (SGPT) 7 U/L (8-55); AST (SGOT) 13 U/L (5-34); Albumin 1.6 g/dL (3.5-5.0); Alkaline Phosphatase 140 U/L (40-110); Anion Gap 16 mmol/L (10-20); BUN (Urea Nitrogen) 52 mg/dL (7.0-18.7); Bilirubin, Total 0.2 mg/dL (0.2-1.2); Calc. Creatinine Clearance 72 mL/min (70-130); Calcium 7.2 mg/dL (7.8-10.44); Carbon Dioxide 24 mmol/L (22-29); Chloride 98 mmol/L (98-107); Globulin 3.4 g/dL (2.4-3.5); Glucose 128 mg/dL (70-105); Sodium 134 mmol/L (136-145)
[2021-08-21] MEDS ORDERED: Morphine IR 10 MG/5 ML UDCUP PO PRN (18:34)
[2021-08-21 20:17] LABS: Anisocytosis SLIGHT = 6-15 cells (100X) (0-5/hpf); Band 14 % (5-11); Eosinophils 3 % (0-10); Hemoglobin 6.8 g/dL (12.0-16.0); Lymphocytes 10 % (21-51); MDiff Complete? YES; Mean Corpuscular HGB CONC 30.6 g/dL (32.0-36.0); Mean Corpuscular Hemoglobin 26.9 pg (27.0-31.0); Mean Corpuscular Volume 87.9 fL (78.0-98.0); Mean Platelet Volume 9.4 fL (7.4-10.4); Monocytes 8 % (0-10); Myelocyte 2 % (0-0); Neutrophil 62 % (42-75); Platelet Count 308 thou/uL (130-400); Platelet Morphology Comment Appears Adequate; Red Blood Cell (RBC) Count 2.51 mill/uL (4.20-5.40); White Blood Cell (WBC) Count 17.3 thou/uL (4.8-10.8)
[2021-08-21] MEDS: Atorvastatin Calcium 10 MG TAB PO SCH (21:14)
[2021-08-21] MEDS: Pregabalin 75 MG CAP PO SCH (21:15)
[2021-08-21] MEDS: rOPINIRole HCl 2 MG TAB PO SCH (21:15)
[2021-08-22] MEDS: Vancomycin HCl 25 MG/ML Oral PO SCH ×4 (02:42→21:05)
[2021-08-22] MEDS: Morphine 4 MG/ML VIAL SLOW IVP PRN (05:03)
[2021-08-22 05:56] LABS: Anion Gap 14 mmol/L (10-20); BUN (Urea Nitrogen) 55 mg/dL (7.0-18.7); Calc. Creatinine Clearance 70 mL/min (70-130); Calcium 7.3 mg/dL (7.8-10.44); Carbon Dioxide 25 mmol/L (22-29); Chloride 100 mmol/L (98-107); Glucose 100 mg/dL (70-105); Potassium 3.9 mmol/L (3.5-5.1); Sodium 135 mmol/L (136-145)
[2021-08-22] MEDS: busPIRone HCl 5 MG TAB PO SCH ×2 (09:30→21:03)
[2021-08-22] MEDS: Ferrous Sulfate 325 MG TAB PO SCH ×2 (09:30→17:57)
[2021-08-22] MEDS: Calcium Acetate 667 MG CAP PO SCH ×3 (09:30→17:57)
[2021-08-22] MEDS: Ascorbic Acid 500 mg Chewable Tablet PO SCH (09:30)
[2021-08-22] MEDS: Heparin 5,000 UNITS/ML VIAL SC SCH ×3 (09:31→21:47)
[2021-08-22] MEDS: metroNIDAZOLE 500 MG TAB PO SCH ×3 (09:31→21:04)
[2021-08-22] MEDS: Zinc Sulfate 220 MG CAP PO SCH (09:31)
[2021-08-22] MEDS: Multivitamin W/ Minerals 1 TAB PO SCH (09:31)
[2021-08-22] MEDS: Methocarbamol 500 MG TAB PO SCH ×2 (09:31→21:04)
[2021-08-22] MEDS ORDERED: Heparin 10,000 UNITS/ 10 ML VIAL ONE (11:37)
[2021-08-22 13:30] LABS: Hemoglobin 7.5 g/dL (12.0-16.0); Mean Corpuscular HGB CONC 29.8 g/dL (32.0-36.0); Mean Corpuscular Hemoglobin 26.3 pg (27.0-31.0); Mean Corpuscular Volume 88.3 fL (78.0-98.0); Mean Platelet Volume 11.4 fL (7.4-10.4); Platelet Count 343 thou/uL (130-400); RBC Distribution Width 17.1 % (11.5-14.5); Red Blood Cell (RBC) Count 2.83 mill/uL (4.20-5.40)
[2021-08-22 13:54] LABS: Band 32 % (5-11); Eosinophils 1 % (0-10); Hypochromia SLIGHT = 6-15 cells (100X) (0-5/hpf); Lymphocytes 8 % (21-51); MDiff Complete? YES; Metamyelocyte 1 % (0-0); Monocytes 4 % (0-10); Neutrophil 54 % (42-75); Platelet Morphology Comment Appears Adequate; Polychromasia SLIGHT = 2-3 cells (100X) (0-2/hpf)
[2021-08-22] MEDS: EPOETIN ALFA-EPBX (ESRD) 10,000 UNIT/ML VIAL IVP SCH (14:42)
[2021-08-22] MEDS ORDERED: Fentanyl 100 MCG/2 ML VIAL SLOW IVP PRN (14:46)
[2021-08-22 14:56] LABS: #Basophils 0.1 thou/uL (0.0-0.2); #Eosinphils 0.8 thou/uL (0.0-0.7); #Lymphocytes 1.6 thou/uL (1.20-3.40); #Monocytes 1.8 thou/uL (0.11-0.59); #Neutrophils 11.6 thou/uL (1.40-6.50); %Basophils 0.5 % (0.0-1.0); %Eosinophils 5.4 % (0.0-10.0); %Lymphocytes 9.9 % (21.0-51.0); %Monocytes 11.1 % (0.0-10.0); %Neutrophils 73.2 % (42.0-75.0); Hemoglobin 7.3 g/dL (12.0-16.0); Mean Corpuscular HGB CONC 30.3 g/dL (32.0-36.0); Mean Corpuscular Hemoglobin 26.5 pg (27.0-31.0); Mean Corpuscular Volume 87.4 fL (78.0-98.0); Mean Platelet Volume 9.4 fL (7.4-10.4); Platelet Count 333 thou/uL (130-400); RBC Distribution Width 16.9 % (11.5-14.5); Red Blood Cell (RBC) Count 2.74 mill/uL (4.20-5.40); White Blood Cell (WBC) Count 15.8 thou/uL (4.8-10.8)
[2021-08-22] MEDS: Meropenem 500 MG in Sodium Chloride 0.9% 100 ML IVPB SCH (15:26)
[2021-08-22] MEDS: Atorvastatin Calcium 10 MG TAB PO SCH (21:03)
[2021-08-22] MEDS: Pregabalin 75 MG CAP PO SCH (21:04)
[2021-08-22] MEDS: rOPINIRole HCl 2 MG TAB PO SCH (21:05)
[2021-08-22] MEDS: Ketorolac Tromethamine 30 MG/ML VIAL IVP PRN (23:59)
[2021-08-23] MEDS: Vancomycin HCl 25 MG/ML Oral PO SCH ×4 (03:07→21:29)
[2021-08-23 06:02] LABS: Thyroid Stimulating Hormone 2.1748 uIU/mL (0.35-4.94)
[2021-08-23] MEDS: Ascorbic Acid 500 mg Chewable Tablet PO SCH (08:50)
[2021-08-23] MEDS: Cholecalciferol 1,000 UNITS (25 MCG) TAB PO SCH (08:51)
[2021-08-23] MEDS: Heparin 5,000 UNITS/ML VIAL SC SCH ×3 (08:51→21:20)
[2021-08-23] MEDS: Methocarbamol 500 MG TAB PO SCH ×2 (08:51→21:15)
[2021-08-23] MEDS: busPIRone HCl 5 MG TAB PO SCH ×2 (08:52→21:15)
[2021-08-23] MEDS: Cyanocobalamin (Vitamin B-12) 1,000 MCG TAB PO SCH (08:52)
[2021-08-23] MEDS: Ferrous Sulfate 325 MG TAB PO SCH ×2 (08:52→16:06)
[2021-08-23] MEDS: Folic Acid 1 MG TAB PO SCH (08:52)
[2021-08-23] MEDS: Calcium Acetate 667 MG CAP PO SCH ×3 (08:52→16:06)
[2021-08-23] MEDS: Zinc Sulfate 220 MG CAP PO SCH (08:53)
[2021-08-23] MEDS: Multivitamin W/ Minerals 1 TAB PO SCH (08:53)
[2021-08-23] MEDS: metroNIDAZOLE 500 MG TAB PO SCH ×2 (08:53→14:17)
[2021-08-23 13:31] LABS: Hemoglobin 7.6 g/dL (12.0-16.0); Mean Corpuscular HGB CONC 29.6 g/dL (32.0-36.0); Mean Corpuscular Hemoglobin 26.2 pg (27.0-31.0); Mean Corpuscular Volume 88.4 fL (78.0-98.0); Mean Platelet Volume 9.1 fL (7.4-10.4); Platelet Count 395 thou/uL (130-400); RBC Distribution Width 16.7 % (11.5-14.5); Red Blood Cell (RBC) Count 2.89 mill/uL (4.20-5.40); White Blood Cell (WBC) Count 15.6 thou/uL (4.8-10.8)
[2021-08-23 13:45] LABS: Anisocytosis SLIGHT = 6-15 cells (100X) (0-5/hpf); Band 3 % (5-11); Eosinophils 5 % (0-10); Lymphocytes 10 % (21-51); MDiff Complete? YES; Metamyelocyte 1 % (0-0); Monocytes 7 % (0-10); Neutrophil 74 % (42-75); Platelet Morphology Comment Appears Adequate; Polychromasia SLIGHT = 2-3 cells (100X) (0-2/hpf)
[2021-08-23 15:05] LABS: Albumin 1.7 g/dL (3.5-5.0)
[2021-08-23 15:06] LABS: Chloride 99 mmol/L (98-107); Potassium 4.1 mmol/L (3.5-5.1); Sodium 135 mmol/L (136-145)
[2021-08-23 15:07] LABS: Calcium 7.5 mg/dL (7.8-10.44)
[2021-08-23 15:08] LABS: Globulin 3.7 g/dL (2.4-3.5); Glucose 129 mg/dL (70-105); Protein, Total 5.4 g/dL (6.0-8.3)
[2021-08-23 15:09] LABS: Bilirubin, Total 0.2 mg/dL (0.2-1.2); Carbon Dioxide 27 mmol/L (22-29)
[2021-08-23 15:10] LABS: Alkaline Phosphatase 179 U/L (40-110)
[2021-08-23 15:11] LABS: Calc. Creatinine Clearance 82 mL/min (70-130)
[2021-08-23 15:12] LABS: BUN (Urea Nitrogen) 41 mg/dL (7.0-18.7)
[2021-08-23 15:13] LABS: ALT (SGPT) 8 U/L (8-55); AST (SGOT) 18 U/L (5-34)
[2021-08-23] MEDS: Ketorolac Tromethamine 30 MG/ML VIAL IVP PRN (16:06)
[2021-08-23 19:21] LABS: Anion Gap 13 mmol/L (10-20)
[2021-08-23] MEDS: Atorvastatin Calcium 10 MG TAB PO SCH (21:14)
[2021-08-23] MEDS: Pregabalin 75 MG CAP PO SCH (21:16)
[2021-08-23] MEDS: rOPINIRole HCl 2 MG TAB PO SCH (21:17)
[2021-08-24 01:05] LABS: SARS-CoV-2 PCR by NAA Not Detected (NotDetected)
[2021-08-24] MEDS: Vancomycin HCl 25 MG/ML Oral PO SCH ×4 (03:57→21:16)
[2021-08-24 04:23] LABS: #Basophils 0.1 thou/uL (0.0-0.2); #Eosinphils 1.4 thou/uL (0.0-0.7); #Lymphocytes 1.9 thou/uL (1.20-3.40); #Monocytes 1.6 thou/uL (0.11-0.59); %Basophils 0.4 % (0.0-1.0); %Eosinophils 9.6 % (0.0-10.0); %Lymphocytes 12.6 % (21.0-51.0); %Monocytes 10.8 % (0.0-10.0); %Neutrophils 66.6 % (42.0-75.0); Hemoglobin 6.8 g/dL (12.0-16.0); Mean Corpuscular Hemoglobin 26.4 pg (27.0-31.0); Mean Corpuscular Volume 88.2 fL (78.0-98.0); Platelet Count 384 thou/uL (130-400); RBC Distribution Width 16.6 % (11.5-14.5); Red Blood Cell (RBC) Count 2.58 mill/uL (4.20-5.40); White Blood Cell (WBC) Count 15.1 thou/uL (4.8-10.8)
[2021-08-24 04:44] LABS: Anion Gap 14 mmol/L (10-20); BUN (Urea Nitrogen) 41 mg/dL (7.0-18.7); Calc. Creatinine Clearance 80 mL/min (70-130); Calcium 7.4 mg/dL (7.8-10.44); Carbon Dioxide 27 mmol/L (22-29); Chloride 98 mmol/L (98-107); Glucose 93 mg/dL (70-105); Potassium 3.9 mmol/L (3.5-5.1); Sodium 135 mmol/L (136-145)
[2021-08-24 04:47] LABS: Hemoglobin A1c 4.9 % (4.0-6.0)
[2021-08-24] MEDS: EPOETIN ALFA-EPBX (ESRD) 10,000 UNIT/ML VIAL IVP SCH (09:00)
[2021-08-24] MEDS: Ascorbic Acid 500 mg Chewable Tablet PO SCH (09:17)
[2021-08-24] MEDS: Cyanocobalamin (Vitamin B-12) 1,000 MCG TAB PO SCH (09:17)
[2021-08-24] MEDS: Ferrous Sulfate 325 MG TAB PO SCH ×2 (09:17→18:56)
[2021-08-24] MEDS: Folic Acid 1 MG TAB PO SCH (09:18)
[2021-08-24] MEDS: Multivitamin W/ Minerals 1 TAB PO SCH (09:18)
[2021-08-24] MEDS: Calcium Acetate 667 MG CAP PO SCH ×3 (09:18→18:57)
[2021-08-24] MEDS: busPIRone HCl 5 MG TAB PO SCH ×2 (09:19→21:17)
[2021-08-24] MEDS: Zinc Sulfate 220 MG CAP PO SCH (09:19)
[2021-08-24] MEDS: Heparin 5,000 UNITS/ML VIAL SC SCH ×3 (09:22→21:16)
[2021-08-24] MEDS: Cholecalciferol 1,000 UNITS (25 MCG) TAB PO SCH (09:22)
[2021-08-24] MEDS: Methocarbamol 500 MG TAB PO SCH ×2 (09:30→21:17)
[2021-08-24] MEDS ORDERED: Heparin 10,000 UNITS/ 10 ML VIAL ONE (14:20)
[2021-08-24] MEDS: rOPINIRole HCl 2 MG TAB PO SCH (21:16)
[2021-08-24] MEDS: Pregabalin 75 MG CAP PO SCH (21:17)
[2021-08-24] MEDS: Atorvastatin Calcium 10 MG TAB PO SCH (21:17)
[2021-08-25] MEDS: Vancomycin HCl 25 MG/ML Oral PO SCH ×4 (02:15→21:15)
[2021-08-25] MEDS: Morphine IR 10 MG/5 ML UDCUP PO PRN ×2 (03:29→21:10)
[2021-08-25 06:15] LABS: #Basophils 0.1 thou/uL (0.0-0.2); #Eosinphils 1.2 thou/uL (0.0-0.7); #Lymphocytes 2.3 thou/uL (1.20-3.40); #Monocytes 2.1 thou/uL (0.11-0.59); #Neutrophils 11.5 thou/uL (1.40-6.50); %Basophils 0.3 % (0.0-1.0); %Eosinophils 6.8 % (0.0-10.0); %Lymphocytes 13.3 % (21.0-51.0); %Monocytes 12.2 % (0.0-10.0); %Neutrophils 67.4 % (42.0-75.0); Hemoglobin 7.4 g/dL (12.0-16.0); Mean Corpuscular HGB CONC 30.4 g/dL (32.0-36.0); Mean Corpuscular Hemoglobin 26.8 pg (27.0-31.0); Mean Platelet Volume 8.8 fL (7.4-10.4); Platelet Count 431 thou/uL (130-400); RBC Distribution Width 16.4 % (11.5-14.5); Red Blood Cell (RBC) Count 2.75 mill/uL (4.20-5.40); White Blood Cell (WBC) Count 17.1 thou/uL (4.8-10.8)
[2021-08-25] MEDS: Acetaminophen 500 MG TAB PO PRN (06:27)
[2021-08-25] MEDS: Acetaminophen/Codeine 30-300mg Tablet PO PRN (06:28)
[2021-08-25] MEDS: busPIRone HCl 5 MG TAB PO SCH ×2 (10:51→21:06)
[2021-08-25] MEDS: Ascorbic Acid 500 mg Chewable Tablet PO SCH (10:52)
[2021-08-25] MEDS: Folic Acid 1 MG TAB PO SCH (10:53)
[2021-08-25] MEDS: Cyanocobalamin (Vitamin B-12) 1,000 MCG TAB PO SCH (10:53)
[2021-08-25] MEDS: Calcium Acetate 667 MG CAP PO SCH ×3 (10:53→18:00)
[2021-08-25] MEDS: Cholecalciferol 1,000 UNITS (25 MCG) TAB PO SCH (10:53)
[2021-08-25] MEDS: Methocarbamol 500 MG TAB PO SCH ×2 (10:54→21:07)
[2021-08-25] MEDS: Ferrous Sulfate 325 MG TAB PO SCH ×2 (10:54→18:00)
[2021-08-25] MEDS: Multivitamin W/ Minerals 1 TAB PO SCH (10:55)
[2021-08-25] MEDS: Zinc Sulfate 220 MG CAP PO SCH (10:55)
[2021-08-25] MEDS: Heparin 5,000 UNITS/ML VIAL SC SCH ×3 (11:02→21:07)
[2021-08-25] MEDS: rOPINIRole HCl 2 MG TAB PO SCH (21:06)
[2021-08-25] MEDS: Atorvastatin Calcium 10 MG TAB PO SCH (21:07)
[2021-08-25] MEDS: Pregabalin 75 MG CAP PO SCH (21:07)
[2021-08-26] MEDS: Acetaminophen/Codeine 30-300mg Tablet PO PRN (00:43)
[2021-08-26] MEDS: Acetaminophen 500 MG TAB PO PRN (00:43)
[2021-08-26] MEDS: Vancomycin HCl 25 MG/ML Oral PO SCH ×4 (03:45→20:30)
[2021-08-26 05:58] LABS: #Basophils 0.1 thou/uL (0.0-0.2); #Eosinphils 1.6 thou/uL (0.0-0.7); #Lymphocytes 2.4 thou/uL (1.20-3.40); #Monocytes 2.4 thou/uL (0.11-0.59); #Neutrophils 12.6 thou/uL (1.40-6.50); %Basophils 0.5 % (0.0-1.0); %Eosinophils 8.2 % (0.0-10.0); %Lymphocytes 12.4 % (21.0-51.0); %Monocytes 12.8 % (0.0-10.0); %Neutrophils 66.2 % (42.0-75.0); Hemoglobin 7.2 g/dL (12.0-16.0); Mean Corpuscular HGB CONC 29.7 g/dL (32.0-36.0); Mean Corpuscular Hemoglobin 26.2 pg (27.0-31.0); Mean Corpuscular Volume 88.1 fL (78.0-98.0); Mean Platelet Volume 8.6 fL (7.4-10.4); Platelet Count 443 thou/uL (130-400); RBC Distribution Width 16.5 % (11.5-14.5); Red Blood Cell (RBC) Count 2.73 mill/uL (4.20-5.40)
[2021-08-26] MEDS: Methocarbamol 500 MG TAB PO SCH ×2 (08:17→20:30)
[2021-08-26] MEDS: Heparin 5,000 UNITS/ML VIAL SC SCH ×3 (08:17→20:31)
[2021-08-26] MEDS: busPIRone HCl 5 MG TAB PO SCH ×2 (08:18→20:28)
[2021-08-26] MEDS: Cyanocobalamin (Vitamin B-12) 1,000 MCG TAB PO SCH (08:18)
[2021-08-26] MEDS: Ascorbic Acid 500 mg Chewable Tablet PO SCH (08:18)
[2021-08-26] MEDS: Folic Acid 1 MG TAB PO SCH (08:18)
[2021-08-26] MEDS: Zinc Sulfate 220 MG CAP PO SCH (08:19)
[2021-08-26] MEDS: Multivitamin W/ Minerals 1 TAB PO SCH (08:19)
[2021-08-26] MEDS: Ferrous Sulfate 325 MG TAB PO SCH ×2 (08:19→16:53)
[2021-08-26] MEDS: Cholecalciferol 1,000 UNITS (25 MCG) TAB PO SCH (08:19)
[2021-08-26] MEDS: Calcium Acetate 667 MG CAP PO SCH ×3 (08:19→16:52)
[2021-08-26 09:02] LABS: Anion Gap 10 mmol/L (10-20); BUN (Urea Nitrogen) 37 mg/dL (7.0-18.7); Calc. Creatinine Clearance 78 mL/min (70-130); Calcium 7.9 mg/dL (7.8-10.44); Carbon Dioxide 28 mmol/L (22-29); Chloride 96 mmol/L (98-107); Glucose 124 mg/dL (70-105); Sodium 130 mmol/L (136-145)
[2021-08-26] MEDS: Albumin 25% 25 GM/100 ML BOT IVPB SCH ×3 (13:59→14:13)
[2021-08-26] MEDS: Morphine IR 10 MG/5 ML UDCUP PO PRN ×2 (18:06→22:16)
[2021-08-26] MEDS: Pregabalin 75 MG CAP PO SCH (20:29)
[2021-08-26] MEDS: Atorvastatin Calcium 10 MG TAB PO SCH (20:29)
[2021-08-26] MEDS: rOPINIRole HCl 2 MG TAB PO SCH (20:29)
[2021-08-27] MEDS: Vancomycin HCl 25 MG/ML Oral PO SCH ×4 (02:39→22:43)
[2021-08-27 04:07] LABS: Band 4 % (5-11); Eosinophils 1 % (0-10); Hemoglobin 7.4 g/dL (12.0-16.0); Hypochromia SLIGHT = 6-15 cells (100X) (0-5/hpf); Lymphocytes 19 % (21-51); MDiff Complete? YES; Mean Corpuscular HGB CONC 30.6 g/dL (32.0-36.0); Mean Corpuscular Volume 88.2 fL (78.0-98.0); Mean Platelet Volume 8.8 fL (7.4-10.4); Monocytes 15 % (0-10); Neutrophil 61 % (42-75); Platelet Count 456 thou/uL (130-400); Platelet Morphology Comment Appears Increased; RBC Distribution Width 16.7 % (11.5-14.5); Red Blood Cell (RBC) Count 2.74 mill/uL (4.20-5.40)
[2021-08-27] MEDS ORDERED: Heparin 10,000 UNITS/ 10 ML VIAL ONE (08:44)
[2021-08-27] MEDS: Ferrous Sulfate 325 MG TAB PO SCH ×2 (09:06→17:00)
[2021-08-27] MEDS: Calcium Acetate 667 MG CAP PO SCH ×3 (09:17→17:00)
[2021-08-27] MEDS: Multivitamin W/ Minerals 1 TAB PO SCH (09:18)
[2021-08-27] MEDS: busPIRone HCl 5 MG TAB PO SCH ×2 (09:18→20:29)
[2021-08-27] MEDS: Cholecalciferol 1,000 UNITS (25 MCG) TAB PO SCH (09:18)
[2021-08-27] MEDS: Heparin 5,000 UNITS/ML VIAL SC SCH ×3 (09:18→20:32)
[2021-08-27] MEDS: Methocarbamol 500 MG TAB PO SCH ×2 (09:18→20:46)
[2021-08-27] MEDS: Cyanocobalamin (Vitamin B-12) 1,000 MCG TAB PO SCH (09:18)
[2021-08-27] MEDS: Ascorbic Acid 500 mg Chewable Tablet PO SCH (09:18)
[2021-08-27] MEDS: Folic Acid 1 MG TAB PO SCH (09:18)
[2021-08-27] MEDS: Zinc Sulfate 220 MG CAP PO SCH (09:19)
[2021-08-27] MEDS: EPOETIN ALFA-EPBX (ESRD) 10,000 UNIT/ML VIAL IVP SCH (14:50)
[2021-08-27] MEDS: Atorvastatin Calcium 10 MG TAB PO SCH (20:28)
[2021-08-27] MEDS: rOPINIRole HCl 2 MG TAB PO SCH (20:28)
[2021-08-27] MEDS: Pregabalin 75 MG CAP PO SCH (20:28)
[2021-08-27] MEDS: Morphine IR 10 MG/5 ML UDCUP PO PRN (20:30)
[2021-08-28] MEDS: Vancomycin HCl 25 MG/ML Oral PO SCH ×4 (03:40→21:55)
[2021-08-28 04:33] LABS: Anion Gap 14 mmol/L (10-20); BUN (Urea Nitrogen) 33 mg/dL (7.0-18.7); Calc. Creatinine Clearance 88 mL/min (70-130); Calcium 7.3 mg/dL (7.8-10.44); Carbon Dioxide 27 mmol/L (22-29); Chloride 98 mmol/L (98-107); Glucose 130 mg/dL (70-105); Potassium 4.4 mmol/L (3.5-5.1); Sodium 135 mmol/L (136-145)
[2021-08-28 04:45] LABS: Band 13 % (5-11); Eosinophils 5 % (0-10); Lymphocytes 14 % (21-51); MDiff Complete? YES; Mean Corpuscular HGB CONC 31.6 g/dL (32.0-36.0); Mean Corpuscular Hemoglobin 27.8 pg (27.0-31.0); Mean Platelet Volume 8.8 fL (7.4-10.4); Metamyelocyte 1 % (0-0); Monocytes 13 % (0-10); Myelocyte 6 % (0-0); Neutrophil 46 % (42-75); Platelet Count 454 thou/uL (130-400); Platelet Morphology Comment Appears Increased; Polychromasia SLIGHT = 2-3 cells (100X) (0-2/hpf); RBC Distribution Width 16.5 % (11.5-14.5); Reactive Lymphocytes 1 % (0-10); Red Blood Cell (RBC) Count 2.52 mill/uL (4.20-5.40); Toxic Granulation SLIGHT; White Blood Cell (WBC) Count 24.6 thou/uL (4.8-10.8)
[2021-08-28] MEDS: Cholecalciferol 1,000 UNITS (25 MCG) TAB PO SCH (08:19)
[2021-08-28] MEDS: Ferrous Sulfate 325 MG TAB PO SCH ×2 (08:19→16:06)
[2021-08-28] MEDS: busPIRone HCl 5 MG TAB PO SCH ×2 (08:19→20:15)
[2021-08-28] MEDS: Ascorbic Acid 500 mg Chewable Tablet PO SCH (08:19)
[2021-08-28] MEDS: Heparin 5,000 UNITS/ML VIAL SC SCH ×3 (08:20→21:54)
[2021-08-28] MEDS: Multivitamin W/ Minerals 1 TAB PO SCH (08:20)
[2021-08-28] MEDS: Zinc Sulfate 220 MG CAP PO SCH (08:20)
[2021-08-28] MEDS: Calcium Acetate 667 MG CAP PO SCH ×3 (08:20→16:06)
[2021-08-28] MEDS: Methocarbamol 500 MG TAB PO SCH ×2 (08:20→21:54)
[2021-08-28] MEDS: Cyanocobalamin (Vitamin B-12) 1,000 MCG TAB PO SCH (08:20)
[2021-08-28] MEDS: Folic Acid 1 MG TAB PO SCH (08:20)
[2021-08-28] MEDS: Morphine IR 10 MG/5 ML UDCUP PO PRN (09:59)
[2021-08-28] MEDS: Acetaminophen/Codeine 30-300mg Tablet PO PRN ×2 (11:09→18:32)
[2021-08-28] MEDS: Pregabalin 75 MG CAP PO SCH (20:13)
[2021-08-28] MEDS: Atorvastatin Calcium 10 MG TAB PO SCH (20:15)
[2021-08-28] MEDS: rOPINIRole HCl 2 MG TAB PO SCH (21:53)
[2021-08-29] MEDS: Vancomycin HCl 25 MG/ML Oral PO SCH ×3 (02:26→16:07)
[2021-08-29] MEDS: Acetaminophen 650 MG/20.3 ML UDCUP PO PRN ×2 (02:34→11:34)
[2021-08-29] MEDS: Morphine IR 10 MG/5 ML UDCUP PO PRN ×2 (04:32→22:21)
[2021-08-29 07:27] LABS: Hemoglobin 6.6 g/dL (12.0-16.0); Mean Corpuscular HGB CONC 30.8 g/dL (32.0-36.0); Mean Corpuscular Hemoglobin 26.9 pg (27.0-31.0); Mean Corpuscular Volume 87.4 fL (78.0-98.0); Mean Platelet Volume 8.6 fL (7.4-10.4); Platelet Count 443 thou/uL (130-400); RBC Distribution Width 16.5 % (11.5-14.5); Red Blood Cell (RBC) Count 2.46 mill/uL (4.20-5.40); White Blood Cell (WBC) Count 26.8 thou/uL (4.8-10.8)
[2021-08-29 07:35] LABS: Anion Gap 13 mmol/L (10-20); BUN (Urea Nitrogen) 41 mg/dL (7.0-18.7); Calc. Creatinine Clearance 68 mL/min (70-130); Calcium 7.4 mg/dL (7.8-10.44); Carbon Dioxide 26 mmol/L (22-29); Chloride 97 mmol/L (98-107); Glucose 113 mg/dL (70-105); Potassium 4.6 mmol/L (3.5-5.1); Sodium 131 mmol/L (136-145)
[2021-08-29] MEDS: Heparin 5,000 UNITS/ML VIAL SC SCH ×3 (08:59→22:25)
[2021-08-29 09:02] LABS: Band 6 % (5-11); Eosinophils 10 % (0-10); Lymphocytes 9 % (21-51); MDiff Complete? YES; Metamyelocyte 3 % (0-0); Monocytes 13 % (0-10); Myelocyte 1 % (0-0); Neutrophil 57 % (42-75); Platelet Morphology Comment Appears Increased; Polychromasia SLIGHT = 2-3 cells (100X) (0-2/hpf)
[2021-08-29] MEDS: busPIRone HCl 5 MG TAB PO SCH ×2 (09:31→22:20)
[2021-08-29] MEDS: Cholecalciferol 1,000 UNITS (25 MCG) TAB PO SCH (09:31)
[2021-08-29] MEDS: Cyanocobalamin (Vitamin B-12) 1,000 MCG TAB PO SCH (09:31)
[2021-08-29] MEDS: Folic Acid 1 MG TAB PO SCH (09:31)
[2021-08-29] MEDS: Ferrous Sulfate 325 MG TAB PO SCH ×2 (09:32→17:33)
[2021-08-29] MEDS: Methocarbamol 500 MG TAB PO SCH ×2 (09:32→22:20)
[2021-08-29] MEDS: Ascorbic Acid 500 mg Chewable Tablet PO SCH (09:32)
[2021-08-29] MEDS: Multivitamin W/ Minerals 1 TAB PO SCH (09:32)
[2021-08-29] MEDS: Zinc Sulfate 220 MG CAP PO SCH (09:32)
[2021-08-29] MEDS: Calcium Acetate 667 MG CAP PO SCH ×3 (11:34→16:07)
[2021-08-29] MEDS: Acetaminophen/Codeine 30-300mg Tablet PO PRN (16:07)
[2021-08-29] MEDS: EPOETIN ALFA-EPBX (ESRD) 10,000 UNIT/ML VIAL IVP SCH (16:25)
[2021-08-29] MEDS ORDERED: Vancomycin 1 GM in Premix Bag 1 BAG IVPB SCH (17:15)
[2021-08-29] MEDS ORDERED: Fentanyl 100 MCG/2 ML VIAL ONE ×3 (17:45→19:06)
[2021-08-29] MEDS ORDERED: Midazolam HCl 2 mg/2 ml Vial ONE (17:45)
[2021-08-29] MEDS ORDERED: Ketamine 50 MG/ML (10ML VIAL) ONE (17:45)
[2021-08-29] MEDS ORDERED: Succinylcholine 200 MG/10 ml SYRINGE FS ONE ×2 (18:05→18:10)
[2021-08-29] MEDS ORDERED: Ondansetron PF 4 MG/2 ML Vial ONE (18:10)
[2021-08-29] MEDS ORDERED: Dexamethasone 20 MG/5 ML VIAL ONE (18:10)
[2021-08-29] MEDS ORDERED: PHENYLEPHRINE-NS 100 MCG/ML 10 ML SYRINGE ONE (18:10)
[2021-08-29] MEDS ORDERED: Lidocaine 1% PF 5 ML VIAL ONE (18:10)
[2021-08-29] MEDS ORDERED: Promethazine HCl 25 MG/ML VIAL IVPB PRN (19:31)
[2021-08-29] MEDS ORDERED: Ondansetron HCl/PF 4 MG/2 ML Vial IVP PRN (19:31)
[2021-08-29] MEDS: Pregabalin 75 MG CAP PO SCH (22:19)
[2021-08-29] MEDS: Atorvastatin Calcium 10 MG TAB PO SCH (22:19)
[2021-08-29] MEDS: rOPINIRole HCl 2 MG TAB PO SCH (22:20)
[2021-08-30] MEDS: Morphine IR 10 MG/5 ML UDCUP PO PRN ×2 (03:28→23:27)
[2021-08-30 04:55] LABS: Anion Gap 14 mmol/L (10-20); BUN (Urea Nitrogen) 50 mg/dL (7.0-18.7); Calc. Creatinine Clearance 59 mL/min (70-130); Calcium 7.6 mg/dL (7.8-10.44); Carbon Dioxide 27 mmol/L (22-29); Chloride 96 mmol/L (98-107); Glucose 130 mg/dL (70-105); Potassium 5.4 mmol/L (3.5-5.1); Sodium 132 mmol/L (136-145)
[2021-08-30 05:58] LABS: Band 18 % (5-11); Eosinophils 1 % (0-10); Hemoglobin 7.9 g/dL (12.0-16.0); Hypochromia SLIGHT = 6-15 cells (100X) (0-5/hpf); Lymphocytes 4 % (21-51); MDiff Complete? YES; Mean Corpuscular HGB CONC 30.8 g/dL (32.0-36.0); Mean Corpuscular Volume 87.9 fL (78.0-98.0); Mean Platelet Volume 9.4 fL (7.4-10.4); Metamyelocyte 4 % (0-0); Monocytes 8 % (0-10); Myelocyte 3 % (0-0); Neutrophil 61 % (42-75); Platelet Count 464 thou/uL (130-400); Platelet Morphology Comment Appears Increased; Polychromasia SLIGHT = 2-3 cells (100X) (0-2/hpf); RBC Distribution Width 16.2 % (11.5-14.5); Reactive Lymphocytes 1 % (0-10); Red Blood Cell (RBC) Count 2.91 mill/uL (4.20-5.40); White Blood Cell (WBC) Count 36.6 thou/uL (4.8-10.8)
[2021-08-30] MEDS ORDERED: Heparin 10,000 UNITS/ 10 ML VIAL ONE (08:37)
[2021-08-30] MEDS: Heparin 5,000 UNITS/ML VIAL SC SCH ×4 (08:45→20:24)
[2021-08-30] MEDS: Vancomycin HCl 25 MG/ML Oral PO SCH (09:14)
[2021-08-30] MEDS: Cyanocobalamin (Vitamin B-12) 1,000 MCG TAB PO SCH (09:14)
[2021-08-30] MEDS: Cefepime 1 GM in Sodium Chloride 0.9% 100 ML IVPB SCH (09:14)
[2021-08-30] MEDS: Zinc Sulfate 220 MG CAP PO SCH (09:14)
[2021-08-30] MEDS: Cholecalciferol 1,000 UNITS (25 MCG) TAB PO SCH (09:15)
[2021-08-30] MEDS: Calcium Acetate 667 MG CAP PO SCH ×3 (09:15→17:00)
[2021-08-30] MEDS: Ascorbic Acid 500 mg Chewable Tablet PO SCH (09:15)
[2021-08-30] MEDS: busPIRone HCl 5 MG TAB PO SCH ×2 (09:15→20:23)
[2021-08-30] MEDS: Multivitamin W/ Minerals 1 TAB PO SCH (09:15)
[2021-08-30] MEDS: Ferrous Sulfate 325 MG TAB PO SCH ×2 (09:16→17:00)
[2021-08-30] MEDS: Folic Acid 1 MG TAB PO SCH (09:16)
[2021-08-30] MEDS: Methocarbamol 500 MG TAB PO SCH ×2 (09:16→21:45)
[2021-08-30] MEDS: Acetaminophen/Codeine 30-300mg Tablet PO PRN (15:11)
[2021-08-30] MEDS ORDERED: HYDROmorphone 0.5 MG/0.5 ML SYRINGE SLOW IVP SCH (16:00)
[2021-08-30] MEDS ORDERED: Vancomycin Sliding Scale 1 EACH FS ONE (17:15)
[2021-08-30] MEDS ORDERED: Vancomycin 1 GM in Premix Bag 1 BAG IVPB SCH (17:15)
[2021-08-30] MEDS ORDERED: Vancomycin HCl 1.5 GM in Sodium Chloride 0.9% 250 ML 300 ML IVPB SCH (17:15)
[2021-08-30] MEDS ORDERED: Vancomycin HCl 750 MG in Sodium Chloride 0.9% 250 ML 250 ML IVPB SCH (17:15)
[2021-08-30] MEDS ORDERED: HOLD VANCOMYCIN FOR LEVEL >20 FS SCH (17:15)
[2021-08-30] MEDS ORDERED: Vancomycin HCl 1.25 GM in Sodium Chloride 0.9% 250 ML 250 ML IVPB SCH ×2 (17:15→22:15)
[2021-08-30 19:00] LABS: Vancomycin, Random 5.8 ug/mL (See Comment)
[2021-08-30] MEDS: Pregabalin 75 MG CAP PO SCH (20:20)
[2021-08-30] MEDS: Atorvastatin Calcium 10 MG TAB PO SCH (20:23)
[2021-08-30] MEDS: Acetaminophen 650 MG/20.3 ML UDCUP PO PRN (20:24)
[2021-08-30] MEDS: rOPINIRole HCl 2 MG TAB PO SCH (21:45)
[2021-08-31 05:51] LABS: Hemoglobin 7.4 g/dL (12.0-16.0); Mean Corpuscular HGB CONC 31.1 g/dL (32.0-36.0); Mean Corpuscular Hemoglobin 27.8 pg (27.0-31.0); Mean Corpuscular Volume 89.2 fL (78.0-98.0); Mean Platelet Volume 8.4 fL (7.4-10.4); Platelet Count 392 thou/uL (130-400); RBC Distribution Width 16.1 % (11.5-14.5); Red Blood Cell (RBC) Count 2.68 mill/uL (4.20-5.40); White Blood Cell (WBC) Count 27.4 thou/uL (4.8-10.8)
[2021-08-31 06:13] LABS: Anion Gap 14 mmol/L (10-20); BUN (Urea Nitrogen) 36 mg/dL (7.0-18.7); Calc. Creatinine Clearance 80 mL/min (70-130); Calcium 7.5 mg/dL (7.8-10.44); Carbon Dioxide 26 mmol/L (22-29); Chloride 99 mmol/L (98-107); Glucose 206 mg/dL (70-105); Potassium 4.5 mmol/L (3.5-5.1); Sodium 134 mmol/L (136-145)
[2021-08-31] MEDS: Acetaminophen/Codeine 30-300mg Tablet PO PRN ×2 (06:29→22:20)
[2021-08-31] MEDS: Morphine IR 10 MG/5 ML UDCUP PO PRN ×2 (08:03→14:36)
[2021-08-31] MEDS ORDERED: Heparin 10,000 UNITS/ 10 ML VIAL ONE (09:11)
[2021-08-31 10:14] LABS: Band 7 % (5-11); Lymphocytes 5 % (21-51); MDiff Complete? YES; Metamyelocyte 2 % (0-0); Monocytes 6 % (0-10); Myelocyte 2 % (0-0); Neutrophil 78 % (42-75); Platelet Morphology Comment Appears Adequate; Polychromasia SLIGHT = 2-3 cells (100X) (0-2/hpf)
[2021-08-31 12:10] LABS: SARS-CoV-2 PCR by NAA Not Detected (NotDetected)
[2021-08-31] MEDS: EPOETIN ALFA-EPBX (ESRD) 10,000 UNIT/ML VIAL IVP SCH (12:20)
[2021-08-31 13:33] LABS: Vancomycin, Random 12.2 ug/mL (See Comment)
[2021-08-31] MEDS: Calcium Acetate 667 MG CAP PO SCH ×3 (14:19→17:10)
[2021-08-31] MEDS: Cyanocobalamin (Vitamin B-12) 1,000 MCG TAB PO SCH (14:21)
[2021-08-31] MEDS: Zinc Sulfate 220 MG CAP PO SCH (14:22)
[2021-08-31] MEDS: Ferrous Sulfate 325 MG TAB PO SCH ×2 (14:22→17:10)
[2021-08-31] MEDS: busPIRone HCl 5 MG TAB PO SCH ×2 (14:22→20:35)
[2021-08-31] MEDS: Multivitamin W/ Minerals 1 TAB PO SCH (14:22)
[2021-08-31] MEDS: Folic Acid 1 MG TAB PO SCH (14:22)
[2021-08-31] MEDS: Cefepime 1 GM in Sodium Chloride 0.9% 100 ML IVPB SCH (14:23)
[2021-08-31] MEDS: Cholecalciferol 1,000 UNITS (25 MCG) TAB PO SCH (14:23)
[2021-08-31] MEDS: Ascorbic Acid 500 mg Chewable Tablet PO SCH (14:23)
[2021-08-31] MEDS: Heparin 5,000 UNITS/ML VIAL SC SCH ×3 (14:23→20:34)
[2021-08-31] MEDS: Methocarbamol 500 MG TAB PO SCH ×2 (14:36→20:34)
[2021-08-31] MEDS: Vancomycin HCl 25 MG/ML Oral PO SCH (14:36)
[2021-08-31] MEDS: rOPINIRole HCl 2 MG TAB PO SCH (20:33)
[2021-08-31] MEDS: Atorvastatin Calcium 10 MG TAB PO SCH (20:34)
[2021-08-31] MEDS: Pregabalin 75 MG CAP PO SCH (20:34)
[2021-08-31] MEDS ORDERED: Vancomycin 1 GM in Premix Bag 1 BAG IVPB SCH (23:15)
[2021-09-01] MEDS: Morphine IR 10 MG/5 ML UDCUP PO PRN ×5 (01:44→22:37)
[2021-09-01] MEDS: Acetaminophen/Codeine 30-300mg Tablet PO PRN ×3 (05:49→15:54)
[2021-09-01 06:40] LABS: Hemoglobin 7.1 g/dL (12.0-16.0); Mean Corpuscular HGB CONC 31.5 g/dL (32.0-36.0); Mean Platelet Volume 8.2 fL (7.4-10.4); Platelet Count 374 thou/uL (130-400); RBC Distribution Width 16.3 % (11.5-14.5); Red Blood Cell (RBC) Count 2.55 mill/uL (4.20-5.40); White Blood Cell (WBC) Count 21.5 thou/uL (4.8-10.8)
[2021-09-01 06:57] LABS: Band 7 % (5-11); Eosinophils 1 % (0-10); Lymphocytes 9 % (21-51); MDiff Complete? YES; Metamyelocyte 1 % (0-0); Monocytes 6 % (0-10); Neutrophil 76 % (42-75)
[2021-09-01 06:58] LABS: Anion Gap 14 mmol/L (10-20); BUN (Urea Nitrogen) 27 mg/dL (7.0-18.7); Calc. Creatinine Clearance 104 mL/min (70-130); Calcium 7.6 mg/dL (7.8-10.44); Carbon Dioxide 28 mmol/L (22-29); Chloride 98 mmol/L (98-107); Glucose 107 mg/dL (70-105); Potassium 3.5 mmol/L (3.5-5.1); Sodium 136 mmol/L (136-145)
[2021-09-01] MEDS: Vancomycin HCl 25 MG/ML Oral PO SCH (08:25)
[2021-09-01] MEDS: Cefepime 1 GM in Sodium Chloride 0.9% 100 ML IVPB SCH (08:25)
[2021-09-01] MEDS: Multivitamin W/ Minerals 1 TAB PO SCH (08:26)
[2021-09-01] MEDS: Cholecalciferol 1,000 UNITS (25 MCG) TAB PO SCH (08:26)
[2021-09-01] MEDS: Ascorbic Acid 500 mg Chewable Tablet PO SCH (08:26)
[2021-09-01] MEDS: Methocarbamol 500 MG TAB PO SCH ×2 (08:26→21:40)
[2021-09-01] MEDS: Cyanocobalamin (Vitamin B-12) 1,000 MCG TAB PO SCH (08:27)
[2021-09-01] MEDS: busPIRone HCl 5 MG TAB PO SCH ×2 (08:28→21:40)
[2021-09-01] MEDS: Heparin 5,000 UNITS/ML VIAL SC SCH ×3 (08:28→21:40)
[2021-09-01] MEDS: Ferrous Sulfate 325 MG TAB PO SCH ×2 (08:28→17:59)
[2021-09-01] MEDS: Calcium Acetate 667 MG CAP PO SCH ×3 (08:28→17:59)
[2021-09-01] MEDS: Zinc Sulfate 220 MG CAP PO SCH (08:28)
[2021-09-01] MEDS: Folic Acid 1 MG TAB PO SCH (08:28)
[2021-09-01] MEDS: Atorvastatin Calcium 10 MG TAB PO SCH (21:38)
[2021-09-01] MEDS: Pregabalin 75 MG CAP PO SCH (21:38)
[2021-09-01] MEDS: rOPINIRole HCl 1 MG TAB PO SCH (21:40)
[2021-09-02] MEDS: Morphine IR 10 MG/5 ML UDCUP PO PRN ×3 (05:55→18:23)
[2021-09-02 06:44] LABS: BUN (Urea Nitrogen) 33 mg/dL (7.0-18.7); Calc. Creatinine Clearance 83 mL/min (70-130); Calcium 7.8 mg/dL (7.8-10.44); Carbon Dioxide 27 mmol/L (22-29); Chloride 97 mmol/L (98-107); Glucose 103 mg/dL (70-105); Potassium 3.8 mmol/L (3.5-5.1); Sodium 134 mmol/L (136-145)
[2021-09-02 07:19] LABS: Anion Gap 14 mmol/L (10-20)
[2021-09-02] MEDS: Cefepime 1 GM in Sodium Chloride 0.9% 100 ML IVPB SCH (07:52)
[2021-09-02] MEDS: Ascorbic Acid 500 mg Chewable Tablet PO SCH (07:53)
[2021-09-02] MEDS: Cyanocobalamin (Vitamin B-12) 1,000 MCG TAB PO SCH (07:53)
[2021-09-02] MEDS: Cholecalciferol 1,000 UNITS (25 MCG) TAB PO SCH (07:53)
[2021-09-02] MEDS: Multivitamin W/ Minerals 1 TAB PO SCH (07:54)
[2021-09-02] MEDS: busPIRone HCl 5 MG TAB PO SCH ×2 (07:54→21:42)
[2021-09-02] MEDS: Folic Acid 1 MG TAB PO SCH (07:54)
[2021-09-02] MEDS: Zinc Sulfate 220 MG CAP PO SCH (07:54)
[2021-09-02] MEDS: Calcium Acetate 667 MG CAP PO SCH ×3 (07:54→17:34)
[2021-09-02] MEDS: Methocarbamol 500 MG TAB PO SCH ×2 (07:54→21:43)
[2021-09-02] MEDS: Ferrous Sulfate 325 MG TAB PO SCH ×2 (07:54→17:34)
[2021-09-02] MEDS: Heparin 5,000 UNITS/ML VIAL SC SCH ×3 (07:55→21:40)
[2021-09-02 07:57] LABS: Band 9 % (5-11); Eosinophils 2 % (0-10); Hemoglobin 7.5 g/dL (12.0-16.0); Lymphocytes 12 % (21-51); MDiff Complete? YES; Mean Corpuscular HGB CONC 30.9 g/dL (32.0-36.0); Mean Corpuscular Hemoglobin 27.4 pg (27.0-31.0); Mean Corpuscular Volume 88.5 fL (78.0-98.0); Mean Platelet Volume 8.2 fL (7.4-10.4); Metamyelocyte 4 % (0-0); Monocytes 4 % (0-10); Myelocyte 1 % (0-0); Neutrophil 68 % (42-75); Platelet Count 394 thou/uL (130-400); RBC Distribution Width 16.8 % (11.5-14.5); Red Blood Cell (RBC) Count 2.74 mill/uL (4.20-5.40); White Blood Cell (WBC) Count 22.9 thou/uL (4.8-10.8)
[2021-09-02] MEDS: Acetaminophen/Codeine 30-300mg Tablet PO PRN ×2 (08:05→15:51)
[2021-09-02] MEDS: Vancomycin HCl 25 MG/ML Oral PO SCH (08:12)
[2021-09-02] MEDS: Morphine 4 MG/ML VIAL SLOW IVP PRN (09:24)
[2021-09-02] MEDS: rOPINIRole HCl 1 MG TAB PO SCH (21:41)
[2021-09-02] MEDS: Pregabalin 75 MG CAP PO SCH (21:41)
[2021-09-02] MEDS: Atorvastatin Calcium 10 MG TAB PO SCH (21:43)
[2021-09-03] MEDS: Morphine IR 10 MG/5 ML UDCUP PO PRN (05:51)
[2021-09-03] MEDS: Cefepime 1 GM in Sodium Chloride 0.9% 100 ML IVPB SCH (07:52)
[2021-09-03] MEDS: Ferrous Sulfate 325 MG TAB PO SCH ×2 (07:54→18:15)
[2021-09-03] MEDS: Heparin 5,000 UNITS/ML VIAL SC SCH ×3 (07:54→23:00)
[2021-09-03] MEDS: Ascorbic Acid 500 mg Chewable Tablet PO SCH (07:54)
[2021-09-03] MEDS: Methocarbamol 500 MG TAB PO SCH ×2 (07:54→23:00)
[2021-09-03] MEDS: Cyanocobalamin (Vitamin B-12) 1,000 MCG TAB PO SCH (07:55)
[2021-09-03] MEDS: Zinc Sulfate 220 MG CAP PO SCH (07:55)
[2021-09-03] MEDS: Folic Acid 1 MG TAB PO SCH (07:55)
[2021-09-03] MEDS: Multivitamin W/ Minerals 1 TAB PO SCH (07:55)
[2021-09-03] MEDS: Cholecalciferol 1,000 UNITS (25 MCG) TAB PO SCH (07:56)
[2021-09-03] MEDS: Calcium Acetate 667 MG CAP PO SCH ×3 (07:56→18:15)
[2021-09-03] MEDS: busPIRone HCl 5 MG TAB PO SCH ×2 (07:56→22:59)
[2021-09-03] MEDS: Vancomycin HCl 25 MG/ML Oral PO SCH (08:27)
[2021-09-03] MEDS: EPOETIN ALFA-EPBX (ESRD) 10,000 UNIT/ML VIAL IVP SCH (09:30)
[2021-09-03] MEDS ORDERED: Heparin 10,000 UNITS/ 10 ML VIAL ONE (10:23)
[2021-09-03 12:22] LABS: Hemoglobin 7.7 g/dL (12.0-16.0); Mean Corpuscular HGB CONC 32.6 g/dL (32.0-36.0); Mean Corpuscular Hemoglobin 28.3 pg (27.0-31.0); Mean Corpuscular Volume 86.9 fL (78.0-98.0); Mean Platelet Volume 8.5 fL (7.4-10.4); Platelet Count 412 thou/uL (130-400); RBC Distribution Width 17.2 % (11.5-14.5); Red Blood Cell (RBC) Count 2.71 mill/uL (4.20-5.40); White Blood Cell (WBC) Count 24.6 thou/uL (4.8-10.8)
[2021-09-03 12:25] LABS: Anion Gap 12 mmol/L (10-20); BUN (Urea Nitrogen) 28 mg/dL (7.0-18.7); Calc. Creatinine Clearance 108 mL/min (70-130); Calcium 7.6 mg/dL (7.8-10.44); Carbon Dioxide 29 mmol/L (22-29); Chloride 97 mmol/L (98-107); Glucose 109 mg/dL (70-105); Potassium 3.9 mmol/L (3.5-5.1); Sodium 134 mmol/L (136-145)
[2021-09-03 12:26] LABS: Vancomycin, Random 10.6 ug/mL (See Comment)
[2021-09-03] MEDS ORDERED: Vancomycin 1 GM in Premix Bag 1 BAG IVPB SCH ×2 (12:45→13:15)
[2021-09-03 12:58] LABS: Band 17 % (5-11); Eosinophils 1 % (0-10); Lymphocytes 5 % (21-51); MDiff Complete? YES; Metamyelocyte 2 % (0-0); Monocytes 9 % (0-10); Neutrophil 64 % (42-75); Platelet Morphology Comment Appears Increased; Polychromasia MODERATE = 3-4 cells (100X) (0-2/hpf); Reactive Lymphocytes 2 % (0-10)
[2021-09-03] MEDS: Morphine 4 MG/ML VIAL SLOW IVP PRN (14:34)
[2021-09-03] MEDS: HYDROcodone/Acetaminophen 5/325 mg Tablet PO PRN (18:20)
[2021-09-03] MEDS: rOPINIRole HCl 1 MG TAB PO SCH (22:58)
[2021-09-03] MEDS: Pregabalin 75 MG CAP PO SCH (22:59)
[2021-09-03] MEDS: Atorvastatin Calcium 10 MG TAB PO SCH (22:59)
[2021-09-04] MEDS: HYDROcodone/Acetaminophen 5/325 mg Tablet PO PRN ×3 (06:05→23:02)
[2021-09-04 07:10] LABS: Hemoglobin 7.1 g/dL (12.0-16.0); Mean Corpuscular HGB CONC 31.1 g/dL (32.0-36.0); Mean Corpuscular Hemoglobin 27.2 pg (27.0-31.0); Mean Corpuscular Volume 87.5 fL (78.0-98.0); Mean Platelet Volume 8.4 fL (7.4-10.4); Platelet Count 401 thou/uL (130-400); White Blood Cell (WBC) Count 27.2 thou/uL (4.8-10.8)
[2021-09-04 07:26] LABS: Anion Gap 13 mmol/L (10-20); BUN (Urea Nitrogen) 29 mg/dL (7.0-18.7); Calc. Creatinine Clearance 85 mL/min (70-130); Calcium 7.5 mg/dL (7.8-10.44); Carbon Dioxide 27 mmol/L (22-29); Chloride 99 mmol/L (98-107); Glucose 98 mg/dL (70-105); Sodium 135 mmol/L (136-145)
[2021-09-04] MEDS: Cefepime 1 GM in Sodium Chloride 0.9% 100 ML IVPB SCH (08:39)
[2021-09-04] MEDS: Methocarbamol 500 MG TAB PO SCH ×2 (08:39→22:00)
[2021-09-04] MEDS: busPIRone HCl 5 MG TAB PO SCH ×2 (08:40→20:59)
[2021-09-04] MEDS: Cholecalciferol 1,000 UNITS (25 MCG) TAB PO SCH (08:40)
[2021-09-04] MEDS: Calcium Acetate 667 MG CAP PO SCH ×3 (08:40→16:02)
[2021-09-04] MEDS: Folic Acid 1 MG TAB PO SCH (08:40)
[2021-09-04] MEDS: Heparin 5,000 UNITS/ML VIAL SC SCH ×3 (08:41→20:55)
[2021-09-04] MEDS: Ferrous Sulfate 325 MG TAB PO SCH ×2 (08:41→16:03)
[2021-09-04] MEDS: Zinc Sulfate 220 MG CAP PO SCH (08:41)
[2021-09-04] MEDS: Ascorbic Acid 500 mg Chewable Tablet PO SCH (08:41)
[2021-09-04] MEDS: Cyanocobalamin (Vitamin B-12) 1,000 MCG TAB PO SCH (08:41)
[2021-09-04] MEDS: Multivitamin W/ Minerals 1 TAB PO SCH (08:41)
[2021-09-04 09:12] LABS: Band 9 % (5-11); Eosinophils 2 % (0-10); Hypochromia SLIGHT = 6-15 cells (100X) (0-5/hpf); Lymphocytes 15 % (21-51); MDiff Complete? YES; Metamyelocyte 2 % (0-0); Monocytes 8 % (0-10); Myelocyte 2 % (0-0); Neutrophil 62 % (42-75); Platelet Morphology Comment Appears Increased; Polychromasia SLIGHT = 2-3 cells (100X) (0-2/hpf)
[2021-09-04] MEDS: Morphine 4 MG/ML VIAL SLOW IVP PRN (12:42)
[2021-09-04] MEDS: Vancomycin HCl 25 MG/ML Oral PO SCH (12:47)
[2021-09-04] MEDS ORDERED: Morphine 4 MG/ML VIAL SLOW IVP SCH (13:30)
[2021-09-04] MEDS: Acetaminophen 650 MG/20.3 ML UDCUP PO PRN (13:59)
[2021-09-04] MEDS ORDERED: FLU VACC QS2021-22(6MOS UP)/PF 60 MCG/0.5 ML SYRINGE IM ONE (18:30)
[2021-09-04] MEDS: rOPINIRole HCl 1 MG TAB PO SCH (20:56)
[2021-09-04] MEDS: Pregabalin 75 MG CAP PO SCH (20:58)
[2021-09-04] MEDS: Atorvastatin Calcium 10 MG TAB PO SCH (20:59)
[2021-09-05] MEDS: Morphine IR 10 MG/5 ML UDCUP PO PRN ×3 (00:04→19:47)
[2021-09-05] MEDS: Ferrous Sulfate 325 MG TAB PO SCH ×2 (07:37→16:00)
[2021-09-05] MEDS: Calcium Acetate 667 MG CAP PO SCH ×3 (07:37→16:00)
[2021-09-05] MEDS: busPIRone HCl 5 MG TAB PO SCH ×2 (07:38→19:52)
[2021-09-05] MEDS: Heparin 5,000 UNITS/ML VIAL SC SCH ×3 (07:39→19:53)
[2021-09-05] MEDS: Methocarbamol 500 MG TAB PO SCH ×2 (07:39→20:44)
[2021-09-05] MEDS ORDERED: Acetaminophen 325 MG/10.15 ML UDCUP PO SCH (08:00)
[2021-09-05 09:24] LABS: #Eosinphils 2.1 thou/uL (0.0-0.7); #Lymphocytes 2.7 thou/uL (1.20-3.40); #Monocytes 2.1 thou/uL (0.11-0.59); #Neutrophils 18.7 thou/uL (1.40-6.50); %Basophils 0.2 % (0.0-1.0); %Eosinophils 8.3 % (0.0-10.0); %Lymphocytes 10.4 % (21.0-51.0); %Monocytes 8.3 % (0.0-10.0); %Neutrophils 72.8 % (42.0-75.0); Hemoglobin 7.1 g/dL (12.0-16.0); Mean Corpuscular HGB CONC 31.4 g/dL (32.0-36.0); Mean Corpuscular Hemoglobin 27.6 pg (27.0-31.0); Mean Corpuscular Volume 87.7 fL (78.0-98.0); Mean Platelet Volume 8.3 fL (7.4-10.4); Platelet Count 390 thou/uL (130-400); RBC Distribution Width 17.2 % (11.5-14.5); Red Blood Cell (RBC) Count 2.58 mill/uL (4.20-5.40); White Blood Cell (WBC) Count 25.7 thou/uL (4.8-10.8)
[2021-09-05] MEDS: EPOETIN ALFA-EPBX (ESRD) 10,000 UNIT/ML VIAL IVP SCH (09:25)
[2021-09-05] MEDS ORDERED: Heparin 10,000 UNITS/ 10 ML VIAL ONE (09:29)
[2021-09-05 09:37] LABS: Anion Gap 11 mmol/L (10-20); BUN (Urea Nitrogen) 38 mg/dL (7.0-18.7); Calc. Creatinine Clearance 79 mL/min (70-130); Calcium 8.3 mg/dL (7.8-10.44); Carbon Dioxide 28 mmol/L (22-29); Chloride 98 mmol/L (98-107); Glucose 172 mg/dL (70-105); Potassium 4.1 mmol/L (3.5-5.1); Sodium 133 mmol/L (136-145); Vancomycin, Random 8.8 ug/mL (See Comment)
[2021-09-05] MEDS ORDERED: Vancomycin HCl 1.25 GM in Sodium Chloride 0.9% 250 ML 250 ML IVPB SCH (10:30)
[2021-09-05] MEDS: HYDROcodone/Acetaminophen 5/325 mg Tablet PO PRN ×3 (12:47→23:35)
[2021-09-05] MEDS: Ascorbic Acid 500 mg Chewable Tablet PO SCH (12:49)
[2021-09-05] MEDS: Cyanocobalamin (Vitamin B-12) 1,000 MCG TAB PO SCH (12:49)
[2021-09-05] MEDS: Cholecalciferol 1,000 UNITS (25 MCG) TAB PO SCH (12:50)
[2021-09-05] MEDS: Zinc Sulfate 220 MG CAP PO SCH (12:50)
[2021-09-05] MEDS: Folic Acid 1 MG TAB PO SCH (12:50)
[2021-09-05] MEDS: Multivitamin W/ Minerals 1 TAB PO SCH (12:50)
[2021-09-05] MEDS: Cefepime 1 GM in Sodium Chloride 0.9% 100 ML IVPB SCH (12:51)
[2021-09-05] MEDS: Vancomycin HCl 25 MG/ML Oral PO SCH (12:53)
[2021-09-05 14:34] VITALS: BMI 102.5
[2021-09-05] MEDS: Pregabalin 75 MG CAP PO SCH (19:51)
[2021-09-05] MEDS: rOPINIRole HCl 1 MG TAB PO SCH (19:52)
[2021-09-05] MEDS: Atorvastatin Calcium 10 MG TAB PO SCH (19:53)
[2021-09-06] MEDS: HYDROcodone/Acetaminophen 5/325 mg Tablet PO PRN ×3 (06:24→22:46)
[2021-09-06 06:29] LABS: Hemoglobin 7.7 g/dL (12.0-16.0); Mean Corpuscular HGB CONC 30.7 g/dL (32.0-36.0); Mean Corpuscular Hemoglobin 27.6 pg (27.0-31.0); Mean Corpuscular Volume 89.9 fL (78.0-98.0); Mean Platelet Volume 8.7 fL (7.4-10.4); Platelet Count 340 thou/uL (130-400); RBC Distribution Width 16.9 % (11.5-14.5); Red Blood Cell (RBC) Count 2.78 mill/uL (4.20-5.40); White Blood Cell (WBC) Count 23.7 thou/uL (4.8-10.8)
[2021-09-06 06:42] LABS: Anion Gap 15 mmol/L (10-20); BUN (Urea Nitrogen) 26 mg/dL (7.0-18.7); Calc. Creatinine Clearance 94 mL/min (70-130); Calcium 7.8 mg/dL (7.8-10.44); Carbon Dioxide 27 mmol/L (22-29); Chloride 98 mmol/L (98-107); Glucose 112 mg/dL (70-105); Sodium 136 mmol/L (136-145)
[2021-09-06 07:32] LABS: Band 7 % (5-11); Eosinophils 4 % (0-10); Lymphocytes 11 % (21-51); MDiff Complete? YES; Metamyelocyte 4 % (0-0); Monocytes 12 % (0-10); Myelocyte 4 % (0-0); Neutrophil 58 % (42-75); Platelet Morphology Comment Appears Adequate; Polychromasia SLIGHT = 2-3 cells (100X) (0-2/hpf)
[2021-09-06] MEDS: Calcium Acetate 667 MG CAP PO SCH ×3 (09:05→18:22)
[2021-09-06] MEDS: Cefepime 1 GM in Sodium Chloride 0.9% 100 ML IVPB SCH ×2 (09:08→14:40)
[2021-09-06] MEDS: Heparin 5,000 UNITS/ML VIAL SC SCH ×3 (09:12→20:10)
[2021-09-06] MEDS: Vancomycin HCl 25 MG/ML Oral PO SCH (09:17)
[2021-09-06] MEDS ORDERED: Sodium Chloride 0.9% 10 ML ONE (12:02)
[2021-09-06] MEDS ORDERED: Bupivacaine 0.25% HCL 30 ML VIAL ONE (12:02)
[2021-09-06] MEDS ORDERED: Lidocaine 1% w/Epinephrine 1:100K 20 ML VIAL ONE (12:02)
[2021-09-06] MEDS ORDERED: Fentanyl 100 MCG/2 ML VIAL ONE (12:45)
[2021-09-06] MEDS ORDERED: Midazolam HCl 2 mg/2 ml Vial ONE (12:45)
[2021-09-06] MEDS ORDERED: Heparin 10,000 UNITS/ 10 ML VIAL ONE (13:46)
[2021-09-06] MEDS: Cholecalciferol 1,000 UNITS (25 MCG) TAB PO SCH (14:26)
[2021-09-06] MEDS: Multivitamin W/ Minerals 1 TAB PO SCH (14:27)
[2021-09-06] MEDS: Methocarbamol 500 MG TAB PO SCH ×2 (14:27→22:48)
[2021-09-06] MEDS: Ferrous Sulfate 325 MG TAB PO SCH ×2 (14:28→18:22)
[2021-09-06] MEDS: Folic Acid 1 MG TAB PO SCH (14:28)
[2021-09-06] MEDS: Zinc Sulfate 220 MG CAP PO SCH (14:29)
[2021-09-06] MEDS: busPIRone HCl 5 MG TAB PO SCH ×2 (14:29→20:12)
[2021-09-06] MEDS: Ascorbic Acid 500 mg Chewable Tablet PO SCH (14:30)
[2021-09-06] MEDS: Cyanocobalamin (Vitamin B-12) 1,000 MCG TAB PO SCH (14:39)
[2021-09-06] MEDS: Morphine 4 MG/ML VIAL SLOW IVP PRN (18:27)
[2021-09-06] MEDS: rOPINIRole HCl 1 MG TAB PO SCH (20:11)
[2021-09-06] MEDS: Pregabalin 75 MG CAP PO SCH (20:12)
[2021-09-06] MEDS: Atorvastatin Calcium 10 MG TAB PO SCH (20:13)
[2021-09-07 05:52] LABS: #Basophils 0.1 thou/uL (0.0-0.2); #Eosinphils 0.7 thou/uL (0.0-0.7); #Lymphocytes 2.3 thou/uL (1.20-3.40); #Monocytes 2.6 thou/uL (0.11-0.59); #Neutrophils 14.5 thou/uL (1.40-6.50); %Basophils 0.5 % (0.0-1.0); %Eosinophils 3.3 % (0.0-10.0); %Lymphocytes 11.2 % (21.0-51.0); %Monocytes 13.1 % (0.0-10.0); %Neutrophils 71.9 % (42.0-75.0); Hemoglobin 7.2 g/dL (12.0-16.0); Mean Corpuscular HGB CONC 30.3 g/dL (32.0-36.0); Mean Corpuscular Hemoglobin 27.1 pg (27.0-31.0); Mean Corpuscular Volume 89.5 fL (78.0-98.0); Mean Platelet Volume 8.6 fL (7.4-10.4); Platelet Count 309 thou/uL (130-400); RBC Distribution Width 16.8 % (11.5-14.5); Red Blood Cell (RBC) Count 2.66 mill/uL (4.20-5.40); White Blood Cell (WBC) Count 20.1 thou/uL (4.8-10.8)
[2021-09-07 06:31] LABS: Anion Gap 11 mmol/L (10-20); BUN (Urea Nitrogen) 39 mg/dL (7.0-18.7); Calc. Creatinine Clearance 76 mL/min (70-130); Calcium 7.8 mg/dL (7.8-10.44); Carbon Dioxide 28 mmol/L (22-29); Chloride 99 mmol/L (98-107); Glucose 110 mg/dL (70-105); Potassium 4.3 mmol/L (3.5-5.1); Sodium 134 mmol/L (136-145)
[2021-09-07] MEDS: HYDROcodone/Acetaminophen 5/325 mg Tablet PO PRN ×3 (07:33→20:26)
[2021-09-07 08:17] LABS: Vancomycin, Random 11.2 ug/mL (See Comment)
[2021-09-07] MEDS ORDERED: Heparin 10,000 UNITS/ 10 ML VIAL ONE (08:52)
[2021-09-07] MEDS ORDERED: Vancomycin 1 GM in Premix Bag 1 BAG IVPB SCH (09:00)
[2021-09-07] MEDS: Calcium Acetate 667 MG CAP PO SCH ×3 (09:33→18:08)
[2021-09-07] MEDS: Ferrous Sulfate 325 MG TAB PO SCH ×2 (09:33→18:08)
[2021-09-07] MEDS: Heparin 5,000 UNITS/ML VIAL SC SCH ×3 (09:34→20:29)
[2021-09-07] MEDS: busPIRone HCl 5 MG TAB PO SCH ×2 (09:34→20:25)
[2021-09-07] MEDS: Methocarbamol 500 MG TAB PO SCH ×2 (09:34→20:56)
[2021-09-07] MEDS: Minocycline HCl 50 MG CAP PO SCH ×2 (09:35→20:56)
[2021-09-07] MEDS: EPOETIN ALFA-EPBX (ESRD) 10,000 UNIT/ML VIAL IVP SCH (13:20)
[2021-09-07] MEDS: Cyanocobalamin (Vitamin B-12) 1,000 MCG TAB PO SCH (14:07)
[2021-09-07] MEDS: Ascorbic Acid 500 mg Chewable Tablet PO SCH (14:08)
[2021-09-07] MEDS: Cholecalciferol 1,000 UNITS (25 MCG) TAB PO SCH (14:08)
[2021-09-07] MEDS: Multivitamin W/ Minerals 1 TAB PO SCH (14:08)
[2021-09-07] MEDS: Zinc Sulfate 220 MG CAP PO SCH (14:09)
[2021-09-07] MEDS: Vancomycin HCl 25 MG/ML Oral PO SCH (14:09)
[2021-09-07] MEDS: Folic Acid 1 MG TAB PO SCH (14:09)
[2021-09-07] MEDS: Cefepime 1 GM in Sodium Chloride 0.9% 100 ML IVPB SCH (14:09)
[2021-09-07] MEDS: Morphine 4 MG/ML VIAL SLOW IVP PRN (16:50)
[2021-09-07] MEDS: Pregabalin 75 MG CAP PO SCH (20:24)
[2021-09-07] MEDS: rOPINIRole HCl 1 MG TAB PO SCH (20:24)
[2021-09-07] MEDS: Atorvastatin Calcium 10 MG TAB PO SCH (20:25)
[2021-09-07] MEDS: Morphine IR 10 MG/5 ML UDCUP PO PRN (20:57)
[2021-09-07] MEDS: Acetaminophen/Codeine 30-300mg Tablet PO PRN (23:21)
[2021-09-08 00:36] LABS: SARS-CoV-2 PCR by NAA Not Detected (NotDetected)
[2021-09-08] MEDS: HYDROcodone/Acetaminophen 5/325 mg Tablet PO PRN ×3 (00:42→13:16)
[2021-09-08 07:07] LABS: #Basophils 0.1 thou/uL (0.0-0.2); #Eosinphils 0.5 thou/uL (0.0-0.7); #Monocytes 2.5 thou/uL (0.11-0.59); #Neutrophils 18.5 thou/uL (1.40-6.50); %Basophils 0.4 % (0.0-1.0); %Lymphocytes 8.5 % (21.0-51.0); %Monocytes 10.6 % (0.0-10.0); %Neutrophils 78.5 % (42.0-75.0); Hemoglobin 6.9 g/dL (12.0-16.0); Mean Corpuscular HGB CONC 31.9 g/dL (32.0-36.0); Mean Corpuscular Hemoglobin 28.3 pg (27.0-31.0); Mean Corpuscular Volume 88.5 fL (78.0-98.0); Mean Platelet Volume 8.5 fL (7.4-10.4); Platelet Count 307 thou/uL (130-400); RBC Distribution Width 16.4 % (11.5-14.5); Red Blood Cell (RBC) Count 2.43 mill/uL (4.20-5.40); White Blood Cell (WBC) Count 23.6 thou/uL (4.8-10.8)
[2021-09-08 07:25] LABS: Anion Gap 13 mmol/L (10-20); Calcium 7.5 mg/dL (7.8-10.44); Carbon Dioxide 28 mmol/L (22-29); Chloride 99 mmol/L (98-107); Potassium 3.9 mmol/L (3.5-5.1); Sodium 136 mmol/L (136-145)
[2021-09-08 07:35] LABS: BUN (Urea Nitrogen) 29 mg/dL (7.0-18.7); Calc. Creatinine Clearance 94 mL/min (70-130); Glucose 120 mg/dL (70-105)
[2021-09-08] MEDS: Ascorbic Acid 500 mg Chewable Tablet PO SCH (08:55)
[2021-09-08] MEDS: Calcium Acetate 667 MG CAP PO SCH ×3 (08:55→16:25)
[2021-09-08] MEDS: Multivitamin W/ Minerals 1 TAB PO SCH (08:56)
[2021-09-08] MEDS: Acetaminophen/Codeine 30-300mg Tablet PO PRN (08:56)
[2021-09-08] MEDS: Heparin 5,000 UNITS/ML VIAL SC SCH ×4 (08:56→22:00)
[2021-09-08] MEDS: busPIRone HCl 5 MG TAB PO SCH ×2 (08:56→21:55)
[2021-09-08] MEDS: Cholecalciferol 1,000 UNITS (25 MCG) TAB PO SCH (08:57)
[2021-09-08] MEDS: Zinc Sulfate 220 MG CAP PO SCH (08:57)
[2021-09-08] MEDS: Folic Acid 1 MG TAB PO SCH (08:57)
[2021-09-08] MEDS: Ferrous Sulfate 325 MG TAB PO SCH ×2 (08:57→16:24)
[2021-09-08] MEDS: Cyanocobalamin (Vitamin B-12) 1,000 MCG TAB PO SCH (08:57)
[2021-09-08] MEDS: Minocycline HCl 50 MG CAP PO SCH ×3 (08:58→22:00)
[2021-09-08] MEDS: Methocarbamol 500 MG TAB PO SCH ×3 (08:58→22:00)
[2021-09-08] MEDS: Vancomycin HCl 25 MG/ML Oral PO SCH (08:59)
[2021-09-08] MEDS: Morphine 4 MG/ML VIAL SLOW IVP PRN (10:25)
[2021-09-08] MEDS: Cefepime 1 GM in Sodium Chloride 0.9% 100 ML IVPB SCH (13:12)
[2021-09-08] MEDS: Pregabalin 75 MG CAP PO SCH ×2 (21:55→22:00)
[2021-09-08] MEDS: Atorvastatin Calcium 10 MG TAB PO SCH (21:55)
[2021-09-08] MEDS: rOPINIRole HCl 1 MG TAB PO SCH ×2 (21:57→22:00)
[2021-09-08] MEDS: Morphine IR 10 MG/5 ML UDCUP PO PRN (22:23)
[2021-09-09 07:07] LABS: #Monocytes 1.8 thou/uL (0.11-0.59); #Neutrophils 15.2 thou/uL (1.40-6.50); %Basophils 0.2 % (0.0-1.0); %Eosinophils 4.8 % (0.0-10.0); %Monocytes 9.1 % (0.0-10.0); %Neutrophils 75.8 % (42.0-75.0); Hemoglobin 6.7 g/dL (12.0-16.0); Mean Corpuscular Hemoglobin 27.7 pg (27.0-31.0); Mean Corpuscular Volume 89.2 fL (78.0-98.0); Mean Platelet Volume 8.6 fL (7.4-10.4); Platelet Count 299 thou/uL (130-400); RBC Distribution Width 16.4 % (11.5-14.5); Red Blood Cell (RBC) Count 2.42 mill/uL (4.20-5.40)
[2021-09-09 07:33] LABS: Anion Gap 13 mmol/L (10-20); BUN (Urea Nitrogen) 39 mg/dL (7.0-18.7); Calc. Creatinine Clearance 76 mL/min (70-130); Calcium 8.1 mg/dL (7.8-10.44); Carbon Dioxide 28 mmol/L (22-29); Chloride 98 mmol/L (98-107); Glucose 100 mg/dL (70-105); Sodium 135 mmol/L (136-145)
[2021-09-09] MEDS: Minocycline HCl 50 MG CAP PO SCH (08:58)
[2021-09-09] MEDS: Multivitamin W/ Minerals 1 TAB PO SCH (08:58)
[2021-09-09] MEDS: Ferrous Sulfate 325 MG TAB PO SCH ×2 (08:58→16:41)
[2021-09-09] MEDS: Cyanocobalamin (Vitamin B-12) 1,000 MCG TAB PO SCH (08:58)
[2021-09-09] MEDS: Calcium Acetate 667 MG CAP PO SCH ×3 (08:59→16:40)
[2021-09-09] MEDS: Vancomycin HCl 25 MG/ML Oral PO SCH (08:59)
[2021-09-09] MEDS: Cholecalciferol 1,000 UNITS (25 MCG) TAB PO SCH (08:59)
[2021-09-09] MEDS: Zinc Sulfate 220 MG CAP PO SCH (08:59)
[2021-09-09] MEDS: Folic Acid 1 MG TAB PO SCH (08:59)
[2021-09-09] MEDS: Ascorbic Acid 500 mg Chewable Tablet PO SCH (08:59)
[2021-09-09] MEDS: Heparin 5,000 UNITS/ML VIAL SC SCH ×2 (08:59→15:04)
[2021-09-09] MEDS: Methocarbamol 500 MG TAB PO SCH (08:59)
[2021-09-09] MEDS: busPIRone HCl 5 MG TAB PO SCH ×2 (09:01→22:00)
[2021-09-09] MEDS: Morphine 4 MG/ML VIAL SLOW IVP PRN ×2 (10:41→15:40)
[2021-09-09] MEDS: Acetaminophen/Codeine 30-300mg Tablet PO PRN (12:19)
[2021-09-09] MEDS: Cefepime 1 GM in Sodium Chloride 0.9% 100 ML IVPB SCH (13:10)
[2021-09-09] MEDS: HYDROcodone/Acetaminophen 5/325 mg Tablet PO PRN (16:40)
[2021-09-09] MEDS: Acetaminophen 650 MG/20.3 ML UDCUP PO PRN (20:00)
[2021-09-09] MEDS: Morphine IR 10 MG/5 ML UDCUP PO PRN (20:01)
[2021-09-09] MEDS: Atorvastatin Calcium 10 MG TAB PO SCH (22:00)
[2021-09-10 08:34] LABS: Vancomycin, Random 10.3 ug/mL (See Comment)
[2021-09-10] MEDS ORDERED: Heparin 10,000 UNITS/ 10 ML VIAL ONE (08:54)
[2021-09-10] MEDS ORDERED: Vancomycin 1 GM in Premix Bag 1 BAG IVPB SCH (10:00)
[2021-09-10 10:40] LABS: Hemoglobin 6.7 g/dL (12.0-16.0); Mean Corpuscular HGB CONC 30.4 g/dL (32.0-36.0); Mean Corpuscular Hemoglobin 26.7 pg (27.0-31.0); Mean Corpuscular Volume 87.8 fL (78.0-98.0); Mean Platelet Volume 8.7 fL (7.4-10.4); Platelet Count 322 thou/uL (130-400); RBC Distribution Width 16.2 % (11.5-14.5); Red Blood Cell (RBC) Count 2.49 mill/uL (4.20-5.40)
[2021-09-10] MEDS: Calcium Acetate 667 MG CAP PO SCH ×3 (11:03→17:05)
[2021-09-10] MEDS: Methocarbamol 500 MG TAB PO SCH ×2 (11:03→22:21)
[2021-09-10] MEDS: Minocycline HCl 50 MG CAP PO SCH ×2 (11:03→21:30)
[2021-09-10] MEDS: Ferrous Sulfate 325 MG TAB PO SCH ×2 (11:03→17:05)
[2021-09-10] MEDS: busPIRone HCl 5 MG TAB PO SCH ×2 (11:03→20:25)
[2021-09-10] MEDS: Heparin 5,000 UNITS/ML VIAL SC SCH ×3 (11:03→20:29)
[2021-09-10] MEDS: EPOETIN ALFA-EPBX (ESRD) 10,000 UNIT/ML VIAL IVP SCH (11:08)
[2021-09-10 11:14] LABS: HBSAB Concentration Less than 8.00 mIU/mL; HBSAg Index 0.31 S/CO (0-0.99); Hep B Surf AB Non-Reactive (NonReactive); Hep B Surf Ag Non-Reactive S/CO (NonReactive)
[2021-09-10 11:39] LABS: Band 4 % (5-11); Eosinophils 5 % (0-10); Hypochromia SLIGHT = 6-15 cells (100X) (0-5/hpf); Lymphocytes 13 % (21-51); MDiff Complete? YES; Metamyelocyte 2 % (0-0); Monocytes 2 % (0-10); Neutrophil 74 % (42-75); Platelet Morphology Comment Appears Adequate; Polychromasia MODERATE = 3-4 cells (100X) (0-2/hpf)
[2021-09-10] MEDS: Ascorbic Acid 500 mg Chewable Tablet PO SCH (14:11)
[2021-09-10] MEDS: Cholecalciferol 1,000 UNITS (25 MCG) TAB PO SCH (14:11)
[2021-09-10] MEDS: Cyanocobalamin (Vitamin B-12) 1,000 MCG TAB PO SCH (14:11)
[2021-09-10] MEDS: Folic Acid 1 MG TAB PO SCH (14:12)
[2021-09-10] MEDS: Zinc Sulfate 220 MG CAP PO SCH (14:12)
[2021-09-10] MEDS: Multivitamin W/ Minerals 1 TAB PO SCH (14:12)
[2021-09-10] MEDS: Cefepime 1 GM in Sodium Chloride 0.9% 100 ML IVPB SCH (14:59)
[2021-09-10] MEDS: Morphine 4 MG/ML VIAL SLOW IVP PRN (15:00)
[2021-09-10] MEDS: Vancomycin HCl 25 MG/ML Oral PO SCH (15:00)
[2021-09-10] MEDS: HYDROcodone/Acetaminophen 5/325 mg Tablet PO PRN (17:05)
[2021-09-10] MEDS: Acetaminophen/Codeine 30-300mg Tablet PO PRN (18:24)
[2021-09-10] MEDS: Pregabalin 75 MG CAP PO SCH (20:25)
[2021-09-10] MEDS: rOPINIRole HCl 1 MG TAB PO SCH (20:26)
[2021-09-10] MEDS: Atorvastatin Calcium 10 MG TAB PO SCH (20:27)
[2021-09-10] MEDS: Morphine IR 10 MG/5 ML UDCUP PO PRN (21:37)
[2021-09-11] MEDS: Acetaminophen 650 MG/20.3 ML UDCUP PO PRN ×2 (04:04→20:02)
[2021-09-11] MEDS: Morphine 4 MG/ML VIAL SLOW IVP PRN (08:38)
[2021-09-11] MEDS: Acetaminophen/Codeine 30-300mg Tablet PO PRN (08:51)
[2021-09-11] MEDS: Minocycline HCl 50 MG CAP PO SCH ×2 (08:52→19:48)
[2021-09-11] MEDS: Calcium Acetate 667 MG CAP PO SCH ×3 (08:52→17:02)
[2021-09-11] MEDS: busPIRone HCl 5 MG TAB PO SCH ×2 (08:53→19:45)
[2021-09-11] MEDS: Ferrous Sulfate 325 MG TAB PO SCH ×2 (08:53→18:05)
[2021-09-11] MEDS: Multivitamin W/ Minerals 1 TAB PO SCH (08:53)
[2021-09-11] MEDS: Cholecalciferol 1,000 UNITS (25 MCG) TAB PO SCH (08:53)
[2021-09-11] MEDS: Folic Acid 1 MG TAB PO SCH (08:54)
[2021-09-11] MEDS: Heparin 5,000 UNITS/ML VIAL SC SCH ×3 (08:54→19:50)
[2021-09-11] MEDS: Zinc Sulfate 220 MG CAP PO SCH (08:54)
[2021-09-11] MEDS: Ascorbic Acid 500 mg Chewable Tablet PO SCH (08:54)
[2021-09-11] MEDS: Cyanocobalamin (Vitamin B-12) 1,000 MCG TAB PO SCH (08:54)
[2021-09-11] MEDS: Methocarbamol 500 MG TAB PO SCH ×2 (08:54→19:48)
[2021-09-11] MEDS: Vancomycin HCl 25 MG/ML Oral PO SCH (10:05)
[2021-09-11] MEDS: Morphine IR 10 MG/5 ML UDCUP PO PRN ×2 (10:15→18:06)
[2021-09-11] MEDS: Cefepime 1 GM in Sodium Chloride 0.9% 100 ML IVPB SCH (13:08)
[2021-09-11] MEDS ORDERED: Ondansetron PF 4 MG/2 ML Vial IVP PRN ×2 (17:32→17:42)
[2021-09-11] MEDS ORDERED: Acetaminophen/Codeine 30-300mg Tablet PO PRN (17:35)
[2021-09-11] MEDS: Pregabalin 75 MG CAP PO SCH (19:45)
[2021-09-11] MEDS: Atorvastatin Calcium 10 MG TAB PO SCH ×2 (19:47→20:00)
[2021-09-11] MEDS: rOPINIRole HCl 1 MG TAB PO SCH (19:47)
[2021-09-11] MEDS ORDERED: Atorvastatin Calcium 10 MG TAB PO SCH (21:00)
[2021-09-11] MEDS ORDERED: busPIRone HCl 5 MG TAB PO SCH (21:00)
[2021-09-11] MEDS ORDERED: Pregabalin 75 MG CAP PO SCH (21:00)
[2021-09-12] MEDS: HYDROcodone/Acetaminophen 5/325 mg Tablet PO PRN ×3 (06:34→21:03)
[2021-09-12 07:52] LABS: Vancomycin, Random 11.3 ug/mL (See Comment)
[2021-09-12] MEDS ORDERED: Calcium Acetate 667 MG CAP PO SCH (08:00)
[2021-09-12] MEDS: Morphine IR 10 MG/5 ML UDCUP PO PRN ×3 (08:04→18:20)
[2021-09-12 08:05] LABS: Anion Gap 15 mmol/L (10-20); BUN (Urea Nitrogen) 40 mg/dL (7.0-18.7); Calc. Creatinine Clearance 73 mL/min (70-130); Calcium 7.9 mg/dL (7.8-10.44); Carbon Dioxide 24 mmol/L (22-29); Chloride 98 mmol/L (98-107); Glucose 130 mg/dL (70-105); Potassium 4.1 mmol/L (3.5-5.1); Sodium 133 mmol/L (136-145)
[2021-09-12] MEDS: Ferrous Sulfate 325 MG TAB PO SCH ×2 (08:22→17:36)
[2021-09-12] MEDS: Calcium Acetate 667 MG CAP PO SCH ×3 (08:22→17:36)
[2021-09-12] MEDS: busPIRone HCl 5 MG TAB PO SCH ×2 (08:22→21:05)
[2021-09-12] MEDS: Methocarbamol 500 MG TAB PO SCH ×2 (08:23→21:06)
[2021-09-12] MEDS: Heparin 5,000 UNITS/ML VIAL SC SCH ×3 (08:23→21:07)
[2021-09-12] MEDS: Minocycline HCl 50 MG CAP PO SCH ×2 (08:23→21:03)
[2021-09-12 08:56] LABS: Hemoglobin 7.3 g/dL (12.0-16.0); Mean Corpuscular HGB CONC 32.2 g/dL (32.0-36.0); Mean Corpuscular Hemoglobin 28.4 pg (27.0-31.0); Mean Corpuscular Volume 88.3 fL (78.0-98.0); Mean Platelet Volume 8.4 fL (7.4-10.4); Platelet Count 351 thou/uL (130-400); RBC Distribution Width 16.1 % (11.5-14.5); Red Blood Cell (RBC) Count 2.56 mill/uL (4.20-5.40); White Blood Cell (WBC) Count 20.3 thou/uL (4.8-10.8)
[2021-09-12] MEDS ORDERED: Cyanocobalamin (Vitamin B-12) 1,000 MCG TAB PO SCH (09:00)
[2021-09-12] MEDS ORDERED: Cholecalciferol 1,000 UNITS (25 MCG) TAB PO SCH (09:00)
[2021-09-12] MEDS ORDERED: Multivitamin W/ Minerals 1 TAB PO SCH (09:00)
[2021-09-12] MEDS ORDERED: Ascorbic Acid 500 mg Chewable Tablet PO SCH (09:00)
[2021-09-12] MEDS ORDERED: Heparin 10,000 UNITS/ 10 ML VIAL ONE (10:08)
[2021-09-12 10:37] LABS: Band 5 % (5-11); Eosinophils 4 % (0-10); Lymphocytes 9 % (21-51); MDiff Complete? YES; Monocytes 4 % (0-10); Myelocyte 1 % (0-0); Neutrophil 77 % (42-75); Platelet Morphology Comment Appears Adequate; Polychromasia SLIGHT = 2-3 cells (100X) (0-2/hpf)
[2021-09-12] MEDS: Cholecalciferol 1,000 UNITS (25 MCG) TAB PO SCH (12:48)
[2021-09-12] MEDS: Ascorbic Acid 500 mg Chewable Tablet PO SCH (12:48)
[2021-09-12] MEDS: Multivitamin W/ Minerals 1 TAB PO SCH (12:49)
[2021-09-12] MEDS: Zinc Sulfate 220 MG CAP PO SCH (12:49)
[2021-09-12] MEDS: Cefepime 1 GM in Sodium Chloride 0.9% 100 ML IVPB SCH (13:06)
[2021-09-12] MEDS: Cyanocobalamin (Vitamin B-12) 1,000 MCG TAB PO SCH (13:07)
[2021-09-12] MEDS: Folic Acid 1 MG TAB PO SCH (13:07)
[2021-09-12] MEDS: Vancomycin HCl 25 MG/ML Oral PO SCH (13:09)
[2021-09-12] MEDS: EPOETIN ALFA-EPBX (ESRD) 10,000 UNIT/ML VIAL IVP SCH (13:32)
[2021-09-12] MEDS: Morphine 4 MG/ML VIAL SLOW IVP PRN (16:45)
[2021-09-12] MEDS: rOPINIRole HCl 1 MG TAB PO SCH (21:02)
[2021-09-12] MEDS: Pregabalin 75 MG CAP PO SCH (21:05)
[2021-09-12] MEDS: Atorvastatin Calcium 10 MG TAB PO SCH (21:06)
[2021-09-13] MEDS: Morphine IR 10 MG/5 ML UDCUP PO PRN ×2 (04:46→21:55)
[2021-09-13] MEDS: busPIRone HCl 5 MG TAB PO SCH ×2 (08:32→20:50)
[2021-09-13] MEDS: Vancomycin HCl 25 MG/ML Oral PO SCH (08:32)
[2021-09-13] MEDS: Calcium Acetate 667 MG CAP PO SCH ×3 (08:32→16:37)
[2021-09-13] MEDS: Multivitamin W/ Minerals 1 TAB PO SCH (08:32)
[2021-09-13] MEDS: Cholecalciferol 1,000 UNITS (25 MCG) TAB PO SCH (08:32)
[2021-09-13] MEDS: Folic Acid 1 MG TAB PO SCH (08:32)
[2021-09-13] MEDS: Methocarbamol 500 MG TAB PO SCH ×2 (08:33→20:49)
[2021-09-13] MEDS: Cyanocobalamin (Vitamin B-12) 1,000 MCG TAB PO SCH (08:33)
[2021-09-13] MEDS: Minocycline HCl 50 MG CAP PO SCH ×2 (08:33→20:50)
[2021-09-13] MEDS: Ascorbic Acid 500 mg Chewable Tablet PO SCH (08:33)
[2021-09-13] MEDS: Zinc Sulfate 220 MG CAP PO SCH (08:33)
[2021-09-13] MEDS: Heparin 5,000 UNITS/ML VIAL SC SCH ×3 (08:34→20:50)
[2021-09-13] MEDS: Ferrous Sulfate 325 MG TAB PO SCH ×2 (08:34→16:37)
[2021-09-13 10:22] LABS: Hemoglobin 6.7 g/dL (12.0-16.0)
[2021-09-13] MEDS: Morphine 4 MG/ML VIAL SLOW IVP PRN (10:33)
[2021-09-13] MEDS: Cefepime 1 GM in Sodium Chloride 0.9% 100 ML IVPB SCH (13:53)
[2021-09-13] MEDS: HYDROcodone/Acetaminophen 5/325 mg Tablet PO PRN (16:37)
[2021-09-13] MEDS: rOPINIRole HCl 1 MG TAB PO SCH (20:48)
[2021-09-13] MEDS: Pregabalin 75 MG CAP PO SCH (20:48)
[2021-09-13] MEDS: Atorvastatin Calcium 10 MG TAB PO SCH (20:50)
[2021-09-14] MEDS: HYDROcodone/Acetaminophen 5/325 mg Tablet PO PRN (05:41)
[2021-09-14 08:42] LABS: Vancomycin, Random 16.1 ug/mL (See Comment)
[2021-09-14] MEDS ORDERED: Vancomycin HCl 750 MG in Sodium Chloride 0.9% 250 ML 250 ML IVPB SCH (09:00)
[2021-09-14] MEDS ORDERED: Heparin 10,000 UNITS/ 10 ML VIAL ONE (10:22)
[2021-09-14 11:22] LABS: Hemoglobin 7.3 g/dL (12.0-16.0)
[2021-09-14] MEDS: Ferrous Sulfate 325 MG TAB PO SCH ×2 (12:08→18:03)
[2021-09-14] MEDS: Calcium Acetate 667 MG CAP PO SCH ×3 (12:08→18:03)
[2021-09-14] MEDS: Heparin 5,000 UNITS/ML VIAL SC SCH ×3 (12:09→20:07)
[2021-09-14] MEDS: EPOETIN ALFA-EPBX (ESRD) 10,000 UNIT/ML VIAL IVP SCH ×2 (12:45→15:59)
[2021-09-14] MEDS: Methocarbamol 500 MG TAB PO SCH ×2 (15:59→20:17)
[2021-09-14] MEDS: Folic Acid 1 MG TAB PO SCH (15:59)
[2021-09-14] MEDS: busPIRone HCl 5 MG TAB PO SCH ×2 (15:59→20:06)
[2021-09-14] MEDS: Cyanocobalamin (Vitamin B-12) 1,000 MCG TAB PO SCH (15:59)
[2021-09-14] MEDS: Cholecalciferol 1,000 UNITS (25 MCG) TAB PO SCH (15:59)
[2021-09-14] MEDS: Ascorbic Acid 500 mg Chewable Tablet PO SCH (15:59)
[2021-09-14] MEDS: Multivitamin W/ Minerals 1 TAB PO SCH (16:00)
[2021-09-14] MEDS: Minocycline HCl 50 MG CAP PO SCH ×2 (16:00→20:17)
[2021-09-14] MEDS: Zinc Sulfate 220 MG CAP PO SCH (16:21)
[2021-09-14] MEDS: Vancomycin HCl 25 MG/ML Oral PO SCH (16:32)
[2021-09-14] MEDS: Cefepime 1 GM in Sodium Chloride 0.9% 100 ML IVPB SCH (18:03)
[2021-09-14] MEDS: rOPINIRole HCl 1 MG TAB PO SCH (20:04)
[2021-09-14] MEDS: Pregabalin 75 MG CAP PO SCH (20:05)
[2021-09-14] MEDS: Acetaminophen 325 MG TAB PO PRN (20:06)
[2021-09-14] MEDS: Atorvastatin Calcium 10 MG TAB PO SCH (20:07)
[2021-09-14] MEDS: Morphine 4 MG/ML VIAL SLOW IVP PRN (20:25)
[2021-09-15] MEDS: Morphine 4 MG/ML VIAL SLOW IVP PRN ×3 (03:52→20:38)
[2021-09-15] MEDS: Zinc Sulfate 220 MG CAP PO SCH (08:47)
[2021-09-15] MEDS: Ascorbic Acid 500 mg Chewable Tablet PO SCH (08:47)
[2021-09-15] MEDS: Cholecalciferol 1,000 UNITS (25 MCG) TAB PO SCH (08:47)
[2021-09-15] MEDS: Cyanocobalamin (Vitamin B-12) 1,000 MCG TAB PO SCH (08:47)
[2021-09-15] MEDS: Calcium Acetate 667 MG CAP PO SCH ×3 (08:48→17:34)
[2021-09-15] MEDS: Ferrous Sulfate 325 MG TAB PO SCH ×2 (08:48→17:34)
[2021-09-15] MEDS: Multivitamin W/ Minerals 1 TAB PO SCH (08:48)
[2021-09-15] MEDS: busPIRone HCl 5 MG TAB PO SCH ×2 (08:48→20:28)
[2021-09-15] MEDS: Folic Acid 1 MG TAB PO SCH (08:48)
[2021-09-15] MEDS: Heparin 5,000 UNITS/ML VIAL SC SCH ×3 (08:49→20:28)
[2021-09-15] MEDS: Minocycline HCl 50 MG CAP PO SCH ×2 (08:49→20:28)
[2021-09-15] MEDS: Methocarbamol 500 MG TAB PO SCH ×2 (08:49→20:29)
[2021-09-15] MEDS: Vancomycin HCl 25 MG/ML Oral PO SCH (08:50)
[2021-09-15] MEDS: Morphine IR 10 MG/5 ML UDCUP PO PRN (08:51)
[2021-09-15 12:34] LABS: Hemoglobin 7.6 g/dL (12.0-16.0); Mean Corpuscular HGB CONC 31.5 g/dL (32.0-36.0); Mean Corpuscular Hemoglobin 28.2 pg (27.0-31.0); Mean Corpuscular Volume 89.7 fL (78.0-98.0); Mean Platelet Volume 8.4 fL (7.4-10.4); Platelet Count 324 thou/uL (130-400); RBC Distribution Width 15.7 % (11.5-14.5); White Blood Cell (WBC) Count 18.6 thou/uL (4.8-10.8)
[2021-09-15 12:57] LABS: Band 6 % (5-11); Lymphocytes 19 % (21-51); MDiff Complete? YES; Monocytes 8 % (0-10); Myelocyte 2 % (0-0); Neutrophil 65 % (42-75); Platelet Morphology Comment Appears Adequate; RBC Morphology Normal
[2021-09-15] MEDS: Cefepime 1 GM in Sodium Chloride 0.9% 100 ML IVPB SCH (13:08)
[2021-09-15 15:21] LABS: SARS-CoV-2 PCR by NAA Not Detected (NotDetected)
[2021-09-15] MEDS: rOPINIRole HCl 1 MG TAB PO SCH (20:28)
[2021-09-15] MEDS: Acetaminophen 325 MG TAB PO PRN (20:29)
[2021-09-15] MEDS: Pregabalin 75 MG CAP PO SCH (20:29)
[2021-09-15] MEDS: Atorvastatin Calcium 10 MG TAB PO SCH (20:29)
[2021-09-15 21:55] VITALS: BP 107/63; TEMP 99.7
[2021-09-15] MEDS: HYDROcodone/Acetaminophen 5/325 mg Tablet PO PRN (22:24)
[2021-09-16] MEDS: Morphine 4 MG/ML VIAL SLOW IVP PRN (01:19)
== END 2021-09-16 01:25 | disposition short-term general hospital (02) | DRG 853 ==
LOC: ERS 22:17 → ERHOLD 08-09 01:00 → 3SE 08-09 03:47 → SURG A 08-09 12:17 → T4-A 08-28 10:10 → UNDODISIN 09-11 13:29
PROVIDERS: ADMIT Student in an Organized Health Care Education/Training Program; ATTEND Family Medicine
PROC: 0JH60XZ Insertion of Tunneled Vascular Access Device into Chest Subcutaneous Tissue and Fascia, Open Approach (ICD-10-PCS; 2021-08-09)
PROC: 02H633Z Insertion of Infusion Device into Right Atrium, Percutaneous Approach (ICD-10-PCS; 2021-08-09)
PROC: 02H633Z Insertion of Infusion Device into Right Atrium, Percutaneous Approach (ICD-10-PCS; 2021-08-09)
PROC: B5181ZA Fluoroscopy of Superior Vena Cava using Low Osmolar Contrast, Guidance (ICD-10-PCS; 2021-08-09)
PROC: B548ZZA Ultrasonography of Superior Vena Cava, Guidance (ICD-10-PCS; 2021-08-09)
PROC: 5A1D70Z Performance of Urinary Filtration, Intermittent, Less than 6 Hours Per Day (ICD-10-PCS; 2021-08-09)
PROC: 5A09357 Assistance with Respiratory Ventilation, Less than 24 Consecutive Hours, Continuous Positive Airway Pressure (ICD-10-PCS; 2021-08-09)
PROC: 3E0G76Z Introduction of Nutritional Substance into Upper GI, Via Natural or Artificial Opening (ICD-10-PCS; 2021-08-10)
PROC: 30233N1 Transfusion of Nonautologous Red Blood Cells into Peripheral Vein, Percutaneous Approach (ICD-10-PCS; 2021-08-11)
PROC: 8E0ZXY6 Isolation (ICD-10-PCS; 2021-08-12)
PROC: 031C0ZF Bypass Left Radial Artery to Lower Arm Vein, Open Approach (ICD-10-PCS; principal; 2021-08-15)
PROC: 0JB80ZZ Excision of Abdomen Subcutaneous Tissue and Fascia, Open Approach (ICD-10-PCS; 2021-08-15)
PROC: 0JB80ZZ Excision of Abdomen Subcutaneous Tissue and Fascia, Open Approach (ICD-10-PCS; 2021-08-29)
PROC: 0JH60XZ Insertion of Tunneled Vascular Access Device into Chest Subcutaneous Tissue and Fascia, Open Approach (ICD-10-PCS; 2021-09-06)
PROC: 02HV33Z Insertion of Infusion Device into Superior Vena Cava, Percutaneous Approach (ICD-10-PCS; 2021-09-06)
PROC: B5181ZA Fluoroscopy of Superior Vena Cava using Low Osmolar Contrast, Guidance (ICD-10-PCS; 2021-09-06)
PROC: B548ZZA Ultrasonography of Superior Vena Cava, Guidance (ICD-10-PCS; 2021-09-06)
DX: A41.9 Sepsis, unspecified organism (principal); N18.6 End stage renal disease; I96 Gangrene, not elsewhere classified; Z16.24 Resistance to multiple antibiotics; L03.311 Cellulitis of abdominal wall; D62 Acute posthemorrhagic anemia; Z68.45 Body mass index [BMI] 70 or greater, adult; I50.32 Chronic diastolic (congestive) heart failure; E10.52 Type 1 diabetes mellitus with diabetic peripheral angiopathy with gangrene; I13.2 Hypertensive heart and chronic kidney disease with heart failure and with stage 5 chronic kidney disease, or end stage renal disease; N17.9 Acute kidney failure, unspecified; E87.1 Hypo-osmolality and hyponatremia; E87.2 Acidosis; E66.2 Morbid (severe) obesity with alveolar hypoventilation; J96.10 Chronic respiratory failure, unspecified whether with hypoxia or hypercapnia; Z20.822 Contact with and (suspected) exposure to COVID-19; M79.3 Panniculitis, unspecified; F41.9 Anxiety disorder, unspecified; F32.A Depression, unspecified; E10.22 Type 1 diabetes mellitus with diabetic chronic kidney disease; E88.81 Metabolic syndrome and other insulin resistance; Z99.2 Dependence on renal dialysis; G89.29 Other chronic pain; M54.9 Dorsalgia, unspecified; E78.5 Hyperlipidemia, unspecified; E78.00 Pure hypercholesterolemia, unspecified; E10.42 Type 1 diabetes mellitus with diabetic polyneuropathy; K21.9 Gastro-esophageal reflux disease without esophagitis; G25.81 Restless legs syndrome; E87.5 Hyperkalemia; B37.2 Candidiasis of skin and nail; D63.1 Anemia in chronic kidney disease; E83.51 Hypocalcemia; E88.09 Other disorders of plasma-protein metabolism, not elsewhere classified; R65.20 Severe sepsis without septic shock; E83.39 Other disorders of phosphorus metabolism; D52.9 Folate deficiency anemia, unspecified; F39 Unspecified mood [affective] disorder; R19.7 Diarrhea, unspecified; Z88.6 Allergy status to analgesic agent; Z88.0 Allergy status to penicillin; Z79.899 Other long term (current) drug therapy; Z79.01 Long term (current) use of anticoagulants; Z79.4 Long term (current) use of insulin; Z83.6 Family history of other diseases of the respiratory system; Z82.49 Family history of ischemic heart disease and other diseases of the circulatory system; Z98.890 Other specified postprocedural states; Z99.89 Dependence on other enabling machines and devices
CPT/HCPCS: 36415; 36416; 36430; 71045; 76770; 80048; 80053; 80150; 80202; 81003; 81015; 82274; 82607; 82746; 83036; 83605; 83880; 84100; 84443; 85014; 85018; 85025; 86580; 86704; 86706; 86803; 86850; 86900; 86901; 87040; 87070; 87077; 87086; 87186; 87205; 87324; 87340; 87449; 87493; 90935; 93005; 93010; 93970; 94002; 96365; 96375; C1751; C1752; G0257; J0278; J0692; J1100; J1170; J1200; J1642; J1644; J1815; J1885; J2185; J2250; J2270; J2405; J2704; J2720; J3010; J3370; J3490; J7050; P9016; P9047; Q5105; S0020; U0002; U0003; U0005

== ENCOUNTER 2021-09-18 20:18 | Inpatient (IN) | payer OTHER ==
[2021-09-19] MEDS ORDERED: Vancomycin HCl 750 MG in Sodium Chloride 0.9% 250 ML 250 ML IVPB SCH (09:00)
[2021-09-19] MEDS ORDERED: HOLD VANCOMYCIN FOR LEVEL >20 FS SCH (09:00)
[2021-09-19] MEDS ORDERED: Vancomycin HCl 1.5 GM in Sodium Chloride 0.9% 250 ML 300 ML IVPB SCH (09:00)
[2021-09-19] MEDS ORDERED: Vancomycin HCl 1.25 GM in Sodium Chloride 0.9% 250 ML 250 ML IVPB SCH (09:00)
[2021-09-19] MEDS ORDERED: FLU VACC QS2021-22(6MOS UP)/PF 60 MCG/0.5 ML SYRINGE IM ONE (17:30)
[2021-09-19] MEDS ORDERED: Dextrose 50% Abboject 50 ML SYRINGE SLOW IVP PRN (18:16)
[2021-09-19] MEDS ORDERED: Dextrose 5% in Water 1,000 ML IV PRN (18:16)
[2021-09-19] MEDS ORDERED: Vancomycin 1 GM/200 ML BAG IVPB SCH (18:30)
[2021-09-19 18:38] LABS: Hemoglobin 7.3 g/dL (12.0-16.0); Mean Corpuscular HGB CONC 30.1 g/dL (32.0-36.0); Mean Corpuscular Volume 89.6 fL (78.0-98.0); Mean Platelet Volume 8.4 fL (7.4-10.4); Platelet Count 295 thou/uL (130-400); RBC Distribution Width 15.5 % (11.5-14.5); Red Blood Cell (RBC) Count 2.72 mill/uL (4.20-5.40)
[2021-09-19 18:57] LABS: ALT (SGPT) 19 U/L (8-55); AST (SGOT) 32 U/L (5-34); Albumin 1.7 g/dL (3.5-5.0); Alkaline Phosphatase 211 U/L (40-110); Anion Gap 14 mmol/L (10-20); BUN (Urea Nitrogen) 41 mg/dL (7.0-18.7); Bilirubin, Total 0.3 mg/dL (0.2-1.2); Calc. Creatinine Clearance 62 mL/min (70-130); Calcium 8.1 mg/dL (7.8-10.44); Carbon Dioxide 23 mmol/L (22-29); Chloride 100 mmol/L (98-107); Globulin 4.5 g/dL (2.4-3.5); Glucose 164 mg/dL (70-105); Potassium 4.1 mmol/L (3.5-5.1); Protein, Total 6.2 g/dL (6.0-8.3); Sodium 133 mmol/L (136-145)
[2021-09-19 19:06] LABS: Anisocytosis SLIGHT = 6-15 cells (100X) (0-5/hpf); Band 8 % (5-11); Eosinophils 1 % (0-10); Lymphocytes 9 % (21-51); MDiff Complete? YES; Monocytes 11 % (0-10); Myelocyte 2 % (0-0); Neutrophil 68 % (42-75); Platelet Morphology Comment Appears Adequate
[2021-09-19 21:20] LABS: Vancomycin, Random 19.4 ug/mL (See Comment)
[2021-09-19] MEDS: Atorvastatin Calcium 10 MG TAB PO SCH (21:33)
[2021-09-19] MEDS: busPIRone HCl 5 MG TAB PO SCH (21:34)
[2021-09-19] MEDS: Cefepime 1 GM in Sodium Chloride 0.9% 100 ML IVPB SCH (21:35)
[2021-09-19] MEDS: Heparin 5,000 UNITS/ML VIAL SC SCH (21:35)
[2021-09-19] MEDS: Methocarbamol 500 MG TAB PO SCH (21:36)
[2021-09-19] MEDS: Minocycline HCl 50 MG CAP PO SCH (21:37)
[2021-09-19] MEDS: Senokot S 8.6-50 MG TAB PO SCH (21:39)
[2021-09-19] MEDS: Pregabalin 75 MG CAP PO SCH (21:39)
[2021-09-19] MEDS: rOPINIRole HCl 2 MG TAB PO SCH (21:44)
[2021-09-19] MEDS: Acetaminophen/Codeine 30-300mg Tablet PO PRN (23:22)
[2021-09-20 06:44] LABS: Hemoglobin 7.1 g/dL (12.0-16.0); Mean Corpuscular HGB CONC 31.4 g/dL (32.0-36.0); Mean Corpuscular Hemoglobin 28.1 pg (27.0-31.0); Mean Corpuscular Volume 89.4 fL (78.0-98.0); Mean Platelet Volume 8.5 fL (7.4-10.4); Platelet Count 292 thou/uL (130-400); RBC Distribution Width 15.7 % (11.5-14.5); Red Blood Cell (RBC) Count 2.53 mill/uL (4.20-5.40); White Blood Cell (WBC) Count 17.9 thou/uL (4.8-10.8)
[2021-09-20] MEDS: HumaLOG 300 UNITS/3 ML VIAL SC PRN ×3 (06:48→17:41)
[2021-09-20 07:00] LABS: Anion Gap 13 mmol/L (10-20); BUN (Urea Nitrogen) 44 mg/dL (7.0-18.7); Calc. Creatinine Clearance 58 mL/min (70-130); Carbon Dioxide 24 mmol/L (22-29); Chloride 99 mmol/L (98-107); Glucose 208 mg/dL (70-105); Sodium 132 mmol/L (136-145)
[2021-09-20 07:01] LABS: Band 3 % (5-11); Eosinophils 4 % (0-10); Lymphocytes 14 % (21-51); MDiff Complete? YES; Metamyelocyte 3 % (0-0); Monocytes 7 % (0-10); Neutrophil 68 % (42-75)
[2021-09-20] MEDS: Acetaminophen/Codeine 30-300mg Tablet PO PRN (08:59)
[2021-09-20] MEDS: Calcium Acetate 667 MG CAP PO SCH ×3 (09:00→17:40)
[2021-09-20] MEDS: Heparin 5,000 UNITS/ML VIAL SC SCH ×3 (10:58→21:25)
[2021-09-20] MEDS: Lantus 1000 UNITS/10 ML VIAL SC SCH (10:59)
[2021-09-20] MEDS: Methocarbamol 500 MG TAB PO SCH ×2 (11:03→21:27)
[2021-09-20] MEDS: Senokot S 8.6-50 MG TAB PO SCH ×2 (11:04→21:23)
[2021-09-20] MEDS: Minocycline HCl 50 MG CAP PO SCH ×2 (11:04→21:27)
[2021-09-20] MEDS: busPIRone HCl 5 MG TAB PO SCH ×2 (11:05→21:22)
[2021-09-20] MEDS: Ferrous Sulfate 325 MG TAB PO SCH ×2 (11:05→17:40)
[2021-09-20] MEDS: Folic Acid 1 MG TAB PO SCH (11:06)
[2021-09-20] MEDS: Multivit, Therapeutic 1 TAB PO SCH (11:06)
[2021-09-20] MEDS: Cholecalciferol 1,000 UNITS (25 MCG) TAB PO SCH (11:07)
[2021-09-20] MEDS: Ascorbic Acid 500 mg Chewable Tablet PO SCH (11:09)
[2021-09-20] MEDS: Escitalopram Oxalate 20 mg Tablet PO SCH (11:09)
[2021-09-20] MEDS: Zinc Sulfate 220 MG CAP PO SCH (11:09)
[2021-09-20] MEDS: Cyanocobalamin (Vitamin B-12) 1,000 MCG TAB PO SCH (11:10)
[2021-09-20] MEDS ORDERED: Cefepime 1 GM VIAL IVPB SCH (13:00)
[2021-09-20] MEDS: Atorvastatin Calcium 10 MG TAB PO SCH (21:23)
[2021-09-20] MEDS: Pregabalin 75 MG CAP PO SCH (21:24)
[2021-09-20] MEDS: Cefepime 1 GM in Sodium Chloride 0.9% 100 ML IVPB SCH (21:27)
[2021-09-20] MEDS: rOPINIRole HCl 2 MG TAB PO SCH (22:00)
[2021-09-21] MEDS: Ondansetron PF 4 MG/2 ML Vial IVP PRN (05:56)
[2021-09-21 05:59] LABS: ALT (SGPT) 17 U/L (8-55); AST (SGOT) 25 U/L (5-34); Albumin 1.6 g/dL (3.5-5.0); Alkaline Phosphatase 194 U/L (40-110); Anion Gap 13 mmol/L (10-20); BUN (Urea Nitrogen) 50 mg/dL (7.0-18.7); Bilirubin, Total 0.3 mg/dL (0.2-1.2); Calc. Creatinine Clearance 52 mL/min (70-130); Calcium 8.2 mg/dL (7.8-10.44); Carbon Dioxide 24 mmol/L (22-29); Chloride 98 mmol/L (98-107); Globulin 4.8 g/dL (2.4-3.5); Glucose 153 mg/dL (70-105); Potassium 4.1 mmol/L (3.5-5.1); Protein, Total 6.4 g/dL (6.0-8.3); Sodium 131 mmol/L (136-145)
[2021-09-21 06:15] LABS: Band 2 % (5-11); Hemoglobin 6.9 g/dL (12.0-16.0); Hypochromia SLIGHT = 6-15 cells (100X) (0-5/hpf); Lymphocytes 12 % (21-51); MDiff Complete? YES; Mean Corpuscular HGB CONC 31.2 g/dL (32.0-36.0); Mean Corpuscular Volume 89.8 fL (78.0-98.0); Mean Platelet Volume 8.2 fL (7.4-10.4); Metamyelocyte 1 % (0-0); Monocytes 4 % (0-10); Myelocyte 1 % (0-0); Neutrophil 79 % (42-75); Platelet Count 292 thou/uL (130-400); Platelet Morphology Comment Appears Adequate; Polychromasia SLIGHT = 2-3 cells (100X) (0-2/hpf); RBC Distribution Width 15.6 % (11.5-14.5); Reactive Lymphocytes 1 % (0-10); Red Blood Cell (RBC) Count 2.48 mill/uL (4.20-5.40); White Blood Cell (WBC) Count 18.4 thou/uL (4.8-10.8)
[2021-09-21] MEDS: Acetaminophen/Codeine 30-300mg Tablet PO PRN ×3 (06:27→21:38)
[2021-09-21] MEDS: Calcium Acetate 667 MG CAP PO SCH ×3 (08:02→15:33)
[2021-09-21] MEDS: Cyanocobalamin (Vitamin B-12) 1,000 MCG TAB PO SCH (08:04)
[2021-09-21] MEDS: Multivit, Therapeutic 1 TAB PO SCH (08:05)
[2021-09-21] MEDS: Ferrous Sulfate 325 MG TAB PO SCH ×2 (08:06→15:33)
[2021-09-21] MEDS: Cholecalciferol 1,000 UNITS (25 MCG) TAB PO SCH (08:07)
[2021-09-21] MEDS: busPIRone HCl 5 MG TAB PO SCH ×2 (08:08→21:34)
[2021-09-21] MEDS: Ascorbic Acid 500 mg Chewable Tablet PO SCH (08:08)
[2021-09-21] MEDS: Escitalopram Oxalate 20 mg Tablet PO SCH (08:09)
[2021-09-21] MEDS: Heparin 5,000 UNITS/ML VIAL SC SCH ×3 (08:13→21:35)
[2021-09-21] MEDS: Folic Acid 1 MG TAB PO SCH (08:13)
[2021-09-21] MEDS: Zinc Sulfate 220 MG CAP PO SCH (08:13)
[2021-09-21] MEDS: Methocarbamol 500 MG TAB PO SCH ×2 (08:14→21:36)
[2021-09-21] MEDS: Minocycline HCl 50 MG CAP PO SCH ×2 (08:14→21:36)
[2021-09-21] MEDS: Lantus 1000 UNITS/10 ML VIAL SC SCH (08:18)
[2021-09-21 08:25] LABS: Vancomycin, Random 19.5 ug/mL (See Comment)
[2021-09-21] MEDS: Senokot S 8.6-50 MG TAB PO SCH ×2 (11:58→21:37)
[2021-09-21] MEDS: EPOETIN ALFA-EPBX (ESRD) 10,000 UNIT/ML VIAL IVP SCH (14:32)
[2021-09-21] MEDS: Atorvastatin Calcium 10 MG TAB PO SCH (21:33)
[2021-09-21] MEDS: Cefepime 1 GM in Sodium Chloride 0.9% 100 ML IVPB SCH (21:34)
[2021-09-21] MEDS: Pregabalin 75 MG CAP PO SCH (21:36)
[2021-09-21] MEDS: rOPINIRole HCl 2 MG TAB PO SCH (21:54)
[2021-09-22] MEDS: Morphine 4 MG/ML VIAL SLOW IVP PRN (07:40)
[2021-09-22] MEDS: Cyanocobalamin (Vitamin B-12) 1,000 MCG TAB PO SCH (07:50)
[2021-09-22] MEDS: Escitalopram Oxalate 20 mg Tablet PO SCH (07:51)
[2021-09-22] MEDS: Zinc Sulfate 220 MG CAP PO SCH (07:51)
[2021-09-22] MEDS: Multivit, Therapeutic 1 TAB PO SCH (07:51)
[2021-09-22] MEDS: Cholecalciferol 1,000 UNITS (25 MCG) TAB PO SCH (07:51)
[2021-09-22] MEDS: Calcium Acetate 667 MG CAP PO SCH ×3 (07:52→17:41)
[2021-09-22] MEDS: Ferrous Sulfate 325 MG TAB PO SCH ×2 (07:52→15:37)
[2021-09-22] MEDS: Minocycline HCl 50 MG CAP PO SCH ×2 (07:52→21:29)
[2021-09-22] MEDS: Ascorbic Acid 500 mg Chewable Tablet PO SCH (07:53)
[2021-09-22] MEDS: Methocarbamol 500 MG TAB PO SCH ×2 (07:53→21:30)
[2021-09-22] MEDS: busPIRone HCl 5 MG TAB PO SCH ×2 (07:53→21:30)
[2021-09-22] MEDS: Folic Acid 1 MG TAB PO SCH (07:53)
[2021-09-22] MEDS: Senokot S 8.6-50 MG TAB PO SCH ×2 (07:54→21:29)
[2021-09-22] MEDS: Heparin 5,000 UNITS/ML VIAL SC SCH ×3 (07:55→21:31)
[2021-09-22 08:11] LABS: Anion Gap 14 mmol/L (10-20); BUN (Urea Nitrogen) 33 mg/dL (7.0-18.7); Calc. Creatinine Clearance 66 mL/min (70-130); Calcium 8.1 mg/dL (7.8-10.44); Carbon Dioxide 25 mmol/L (22-29); Chloride 97 mmol/L (98-107); Glucose 85 mg/dL (70-105); Potassium 3.5 mmol/L (3.5-5.1); Sodium 132 mmol/L (136-145)
[2021-09-22 08:20] LABS: Hemoglobin 7.2 g/dL (12.0-16.0); Mean Corpuscular HGB CONC 31.3 g/dL (32.0-36.0); Mean Corpuscular Hemoglobin 28.2 pg (27.0-31.0); Mean Corpuscular Volume 90.3 fL (78.0-98.0); Mean Platelet Volume 8.6 fL (7.4-10.4); Platelet Count 291 thou/uL (130-400); RBC Distribution Width 15.7 % (11.5-14.5); Red Blood Cell (RBC) Count 2.57 mill/uL (4.20-5.40)
[2021-09-22 10:28] LABS: Anisocytosis SLIGHT = 6-15 cells (100X) (0-5/hpf); Band 1 % (5-11); Eosinophils 2 % (0-10); Lymphocytes 11 % (21-51); MDiff Complete? YES; Metamyelocyte 1 % (0-0); Monocytes 17 % (0-10); Neutrophil 67 % (42-75); Platelet Morphology Comment Appears Adequate; Polychromasia SLIGHT = 2-3 cells (100X) (0-2/hpf); Reactive Lymphocytes 1 % (0-10); White Blood Cell (WBC) Count 16.8 thou/uL (4.8-10.8)
[2021-09-22] MEDS: Lantus 1000 UNITS/10 ML VIAL SC SCH (15:34)
[2021-09-22] MEDS: HYDROcodone/Acetaminophen 5/325 mg Tablet PO PRN (15:35)
[2021-09-22] MEDS: Cefepime 1 GM in Sodium Chloride 0.9% 100 ML IVPB SCH (21:29)
[2021-09-22] MEDS: Pregabalin 75 MG CAP PO SCH (21:30)
[2021-09-22] MEDS: Atorvastatin Calcium 10 MG TAB PO SCH (21:31)
[2021-09-22] MEDS: rOPINIRole HCl 2 MG TAB PO SCH (21:34)
[2021-09-22] MEDS: Acetaminophen/Codeine 30-300mg Tablet PO PRN (22:38)
[2021-09-23 05:47] LABS: Anion Gap 12 mmol/L (10-20); BUN (Urea Nitrogen) 38 mg/dL (7.0-18.7); Calc. Creatinine Clearance 58 mL/min (70-130); Carbon Dioxide 26 mmol/L (22-29); Chloride 98 mmol/L (98-107); Glucose 136 mg/dL (70-105); Sodium 132 mmol/L (136-145)
[2021-09-23 05:53] LABS: Anisocytosis SLIGHT = 6-15 cells (100X) (0-5/hpf); Band 9 % (5-11); Eosinophils 2 % (0-10); Hemoglobin 8.2 g/dL (12.0-16.0); Lymphocytes 6 % (21-51); MDiff Complete? YES; Mean Corpuscular HGB CONC 31.2 g/dL (32.0-36.0); Mean Corpuscular Hemoglobin 28.2 pg (27.0-31.0); Mean Corpuscular Volume 90.2 fL (78.0-98.0); Mean Platelet Volume 8.5 fL (7.4-10.4); Metamyelocyte 2 % (0-0); Monocytes 5 % (0-10); Myelocyte 5 % (0-0); Neutrophil 71 % (42-75); Platelet Count 264 thou/uL (130-400); Platelet Morphology Comment Appears Adequate; Polychromasia SLIGHT = 2-3 cells (100X) (0-2/hpf); RBC Distribution Width 15.8 % (11.5-14.5); White Blood Cell (WBC) Count 15.4 thou/uL (4.8-10.8)
[2021-09-23] MEDS: Cholecalciferol 1,000 UNITS (25 MCG) TAB PO SCH (09:21)
[2021-09-23] MEDS: Ascorbic Acid 500 mg Chewable Tablet PO SCH (09:21)
[2021-09-23] MEDS: Minocycline HCl 50 MG CAP PO SCH ×2 (09:21→20:02)
[2021-09-23] MEDS: Methocarbamol 500 MG TAB PO SCH ×2 (09:21→20:04)
[2021-09-23] MEDS: Zinc Sulfate 220 MG CAP PO SCH (09:22)
[2021-09-23] MEDS: Escitalopram Oxalate 20 mg Tablet PO SCH (09:22)
[2021-09-23] MEDS: Ferrous Sulfate 325 MG TAB PO SCH ×2 (09:22→17:43)
[2021-09-23] MEDS: Calcium Acetate 667 MG CAP PO SCH ×3 (09:22→17:43)
[2021-09-23] MEDS: busPIRone HCl 5 MG TAB PO SCH ×2 (09:22→20:15)
[2021-09-23] MEDS: Folic Acid 1 MG TAB PO SCH (09:23)
[2021-09-23] MEDS: Cyanocobalamin (Vitamin B-12) 1,000 MCG TAB PO SCH (09:23)
[2021-09-23] MEDS: Multivit, Therapeutic 1 TAB PO SCH (09:23)
[2021-09-23] MEDS: Heparin 5,000 UNITS/ML VIAL SC SCH ×3 (09:24→20:08)
[2021-09-23] MEDS: Senokot S 8.6-50 MG TAB PO SCH ×2 (09:25→23:03)
[2021-09-23] MEDS: HYDROcodone/Acetaminophen 5/325 mg Tablet PO PRN ×2 (12:40→17:47)
[2021-09-23] MEDS: Atorvastatin Calcium 10 MG TAB PO SCH (20:02)
[2021-09-23] MEDS: Pregabalin 75 MG CAP PO SCH (20:03)
[2021-09-23] MEDS: Acetaminophen/Codeine 30-300mg Tablet PO PRN (20:14)
[2021-09-23] MEDS: rOPINIRole HCl 2 MG TAB PO SCH (20:16)
[2021-09-23] MEDS: Cefepime 1 GM in Sodium Chloride 0.9% 100 ML IVPB SCH (20:26)
[2021-09-24] MEDS: Calcium Acetate 667 MG CAP PO SCH ×3 (08:16→18:40)
[2021-09-24] MEDS: Ferrous Sulfate 325 MG TAB PO SCH ×2 (08:16→18:40)
[2021-09-24] MEDS: Acetaminophen/Codeine 30-300mg Tablet PO PRN (08:16)
[2021-09-24 08:32] LABS: Vancomycin, Random 14.5 ug/mL (See Comment)
[2021-09-24] MEDS: Zinc Sulfate 220 MG CAP PO SCH (08:41)
[2021-09-24] MEDS: busPIRone HCl 5 MG TAB PO SCH ×2 (08:41→20:14)
[2021-09-24] MEDS: Multivit, Therapeutic 1 TAB PO SCH (08:42)
[2021-09-24] MEDS: Cyanocobalamin (Vitamin B-12) 1,000 MCG TAB PO SCH (08:42)
[2021-09-24] MEDS: Cholecalciferol 1,000 UNITS (25 MCG) TAB PO SCH (08:42)
[2021-09-24] MEDS: Folic Acid 1 MG TAB PO SCH (08:42)
[2021-09-24] MEDS: Escitalopram Oxalate 20 mg Tablet PO SCH (08:42)
[2021-09-24] MEDS: Ascorbic Acid 500 mg Chewable Tablet PO SCH (08:45)
[2021-09-24] MEDS: Methocarbamol 500 MG TAB PO SCH ×2 (08:45→20:21)
[2021-09-24] MEDS: Minocycline HCl 50 MG CAP PO SCH ×2 (08:46→20:20)
[2021-09-24] MEDS ORDERED: Heparin 10,000 UNITS/ 10 ML VIAL ONE (09:35)
[2021-09-24] MEDS: Senokot S 8.6-50 MG TAB PO SCH (11:59)
[2021-09-24] MEDS: Heparin 5,000 UNITS/ML VIAL SC SCH ×3 (11:59→20:21)
[2021-09-24] MEDS ORDERED: Vancomycin 1 GM in Premix Bag 1 BAG IVPB SCH (12:00)
[2021-09-24] MEDS: EPOETIN ALFA-EPBX (ESRD) 10,000 UNIT/ML VIAL IVP SCH (16:59)
[2021-09-24] MEDS: Vancomycin 1 GM in Premix Bag 1 BAG IVPB SCH (17:02)
[2021-09-24] MEDS: Pregabalin 75 MG CAP PO SCH (20:14)
[2021-09-24] MEDS: rOPINIRole HCl 2 MG TAB PO SCH (20:19)
[2021-09-24] MEDS: Atorvastatin Calcium 10 MG TAB PO SCH (20:19)
[2021-09-24] MEDS: Cefepime 1 GM in Sodium Chloride 0.9% 100 ML IVPB SCH (20:20)
[2021-09-24] MEDS: HYDROcodone/Acetaminophen 5/325 mg Tablet PO PRN (22:17)
[2021-09-25] MEDS: Morphine 4 MG/ML VIAL SLOW IVP PRN ×4 (00:06→20:49)
[2021-09-25] MEDS: Senokot S 8.6-50 MG TAB PO SCH ×3 (00:06→20:46)
[2021-09-25] MEDS: Methocarbamol 500 MG TAB PO SCH ×2 (08:26→20:51)
[2021-09-25] MEDS: Minocycline HCl 50 MG CAP PO SCH ×2 (08:26→20:48)
[2021-09-25] MEDS: Zinc Sulfate 220 MG CAP PO SCH (08:27)
[2021-09-25] MEDS: Heparin 5,000 UNITS/ML VIAL SC SCH ×3 (08:27→20:52)
[2021-09-25] MEDS: Cyanocobalamin (Vitamin B-12) 1,000 MCG TAB PO SCH (08:27)
[2021-09-25] MEDS: busPIRone HCl 5 MG TAB PO SCH ×2 (08:27→20:49)
[2021-09-25] MEDS: Ascorbic Acid 500 mg Chewable Tablet PO SCH (08:27)
[2021-09-25] MEDS: Cholecalciferol 1,000 UNITS (25 MCG) TAB PO SCH (08:27)
[2021-09-25] MEDS: Folic Acid 1 MG TAB PO SCH (08:28)
[2021-09-25] MEDS: Escitalopram Oxalate 20 mg Tablet PO SCH (08:28)
[2021-09-25] MEDS: Multivit, Therapeutic 1 TAB PO SCH (08:28)
[2021-09-25] MEDS: Ferrous Sulfate 325 MG TAB PO SCH ×2 (08:28→16:46)
[2021-09-25] MEDS: Calcium Acetate 667 MG CAP PO SCH ×3 (08:28→16:46)
[2021-09-25] MEDS: HYDROcodone/Acetaminophen 5/325 mg Tablet PO PRN ×2 (08:39→13:14)
[2021-09-25] MEDS: Cefepime 1 GM in Sodium Chloride 0.9% 100 ML IVPB SCH (20:46)
[2021-09-25] MEDS: Pregabalin 75 MG CAP PO SCH (20:48)
[2021-09-25] MEDS: Atorvastatin Calcium 10 MG TAB PO SCH (20:49)
[2021-09-25] MEDS: rOPINIRole HCl 2 MG TAB PO SCH (20:51)
[2021-09-26] MEDS: Morphine 4 MG/ML VIAL SLOW IVP PRN ×4 (05:10→19:57)
[2021-09-26] MEDS: HumaLOG 300 UNITS/3 ML VIAL SC PRN (05:14)
[2021-09-26] MEDS: Cyanocobalamin (Vitamin B-12) 1,000 MCG TAB PO SCH (07:48)
[2021-09-26] MEDS: Methocarbamol 500 MG TAB PO SCH ×2 (07:48→20:00)
[2021-09-26] MEDS: Zinc Sulfate 220 MG CAP PO SCH (07:48)
[2021-09-26] MEDS: Heparin 5,000 UNITS/ML VIAL SC SCH ×3 (07:48→20:43)
[2021-09-26] MEDS: busPIRone HCl 5 MG TAB PO SCH ×2 (07:48→19:59)
[2021-09-26] MEDS: Calcium Acetate 667 MG CAP PO SCH ×3 (07:48→17:13)
[2021-09-26] MEDS: Escitalopram Oxalate 20 mg Tablet PO SCH (07:49)
[2021-09-26] MEDS: Folic Acid 1 MG TAB PO SCH (07:49)
[2021-09-26] MEDS: Multivit, Therapeutic 1 TAB PO SCH (07:49)
[2021-09-26] MEDS: Ferrous Sulfate 325 MG TAB PO SCH ×2 (07:49→17:14)
[2021-09-26] MEDS: Ascorbic Acid 500 mg Chewable Tablet PO SCH (07:49)
[2021-09-26] MEDS: Cholecalciferol 1,000 UNITS (25 MCG) TAB PO SCH (07:49)
[2021-09-26] MEDS: Senokot S 8.6-50 MG TAB PO SCH ×2 (07:50→20:01)
[2021-09-26] MEDS: Minocycline HCl 50 MG CAP PO SCH ×2 (07:50→20:00)
[2021-09-26] MEDS: HYDROcodone/Acetaminophen 5/325 mg Tablet PO PRN ×3 (07:54→17:13)
[2021-09-26 08:47] LABS: Vancomycin, Random 15.7 ug/mL (See Comment)
[2021-09-26] MEDS ORDERED: Heparin 10,000 UNITS/ 10 ML VIAL ONE (10:07)
[2021-09-26 10:21] LABS: Hemoglobin 6.9 g/dL (12.0-16.0)
[2021-09-26 12:40] LABS: Mean Corpuscular HGB CONC 31.9 g/dL (32.0-36.0); Mean Corpuscular Hemoglobin 28.5 pg (27.0-31.0); Mean Corpuscular Volume 89.5 fL (78.0-98.0); Mean Platelet Volume 8.6 fL (7.4-10.4); Platelet Count 224 thou/uL (130-400); RBC Distribution Width 15.6 % (11.5-14.5); Red Blood Cell (RBC) Count 2.44 mill/uL (4.20-5.40); White Blood Cell (WBC) Count 16.1 thou/uL (4.8-10.8)
[2021-09-26 13:51] LABS: Anisocytosis SLIGHT = 6-15 cells (100X) (0-5/hpf); Band 5 % (5-11); Eosinophils 3 % (0-10); Lymphocytes 11 % (21-51); MDiff Complete? YES; Monocytes 4 % (0-10); Neutrophil 77 % (42-75); Platelet Morphology Comment Appears Adequate; Polychromasia SLIGHT = 2-3 cells (100X) (0-2/hpf)
[2021-09-26] MEDS: EPOETIN ALFA-EPBX (ESRD) 10,000 UNIT/ML VIAL IVP SCH (17:15)
[2021-09-26] MEDS: Cefepime 1 GM in Sodium Chloride 0.9% 100 ML IVPB SCH (19:58)
[2021-09-26] MEDS: Pregabalin 75 MG CAP PO SCH (19:59)
[2021-09-26] MEDS: Atorvastatin Calcium 10 MG TAB PO SCH (20:00)
[2021-09-26] MEDS: rOPINIRole HCl 2 MG TAB PO SCH (20:01)
[2021-09-27] MEDS: HYDROcodone/Acetaminophen 5/325 mg Tablet PO PRN ×2 (06:13→14:38)
[2021-09-27] MEDS: HumaLOG 300 UNITS/3 ML VIAL SC PRN ×2 (06:19→17:00)
[2021-09-27] MEDS: Ascorbic Acid 500 mg Chewable Tablet PO SCH (08:42)
[2021-09-27] MEDS: Ferrous Sulfate 325 MG TAB PO SCH ×2 (08:42→17:00)
[2021-09-27] MEDS: Minocycline HCl 50 MG CAP PO SCH ×2 (08:42→20:07)
[2021-09-27] MEDS: Cyanocobalamin (Vitamin B-12) 1,000 MCG TAB PO SCH (08:43)
[2021-09-27] MEDS: Cholecalciferol 1,000 UNITS (25 MCG) TAB PO SCH (08:43)
[2021-09-27] MEDS: Methocarbamol 500 MG TAB PO SCH ×2 (08:43→20:07)
[2021-09-27] MEDS: busPIRone HCl 5 MG TAB PO SCH ×2 (08:43→20:06)
[2021-09-27] MEDS: Multivit, Therapeutic 1 TAB PO SCH (08:43)
[2021-09-27] MEDS: Folic Acid 1 MG TAB PO SCH (08:44)
[2021-09-27] MEDS: Senokot S 8.6-50 MG TAB PO SCH ×2 (08:44→20:05)
[2021-09-27] MEDS: Escitalopram Oxalate 20 mg Tablet PO SCH (08:44)
[2021-09-27] MEDS: Calcium Acetate 667 MG CAP PO SCH ×3 (08:44→17:00)
[2021-09-27] MEDS: Zinc Sulfate 220 MG CAP PO SCH (08:44)
[2021-09-27] MEDS: Heparin 5,000 UNITS/ML VIAL SC SCH ×3 (08:44→20:07)
[2021-09-27] MEDS: Morphine 4 MG/ML VIAL SLOW IVP PRN ×2 (12:28→20:05)
[2021-09-27 12:31] LABS: Hemoglobin 7.1 g/dL (12.0-16.0); Mean Corpuscular HGB CONC 31.4 g/dL (32.0-36.0); Mean Corpuscular Hemoglobin 28.1 pg (27.0-31.0); Mean Corpuscular Volume 89.5 fL (78.0-98.0); Mean Platelet Volume 8.6 fL (7.4-10.4); Platelet Count 195 thou/uL (130-400); RBC Distribution Width 15.6 % (11.5-14.5); Red Blood Cell (RBC) Count 2.52 mill/uL (4.20-5.40)
[2021-09-27 12:42] LABS: ALT (SGPT) 11 U/L (8-55); AST (SGOT) 20 U/L (5-34); Albumin 1.5 g/dL (3.5-5.0); Alkaline Phosphatase 115 U/L (40-110); Anion Gap 13 mmol/L (10-20); BUN (Urea Nitrogen) 24 mg/dL (7.0-18.7); Bilirubin, Total 0.2 mg/dL (0.2-1.2); Calc. Creatinine Clearance 83 mL/min (70-130); Calcium 7.7 mg/dL (7.8-10.44); Carbon Dioxide 27 mmol/L (22-29); Chloride 97 mmol/L (98-107); Globulin 4.7 g/dL (2.4-3.5); Glucose 164 mg/dL (70-105); Potassium 3.6 mmol/L (3.5-5.1); Protein, Total 6.2 g/dL (6.0-8.3); Sodium 133 mmol/L (136-145)
[2021-09-27 13:44] LABS: Band 9 % (5-11); Eosinophils 4 % (0-10); Lymphocytes 13 % (21-51); MDiff Complete? YES; Monocytes 6 % (0-10); Neutrophil 67 % (42-75); Platelet Morphology Comment Appears Adequate; RBC Morphology Normal
[2021-09-27] MEDS: Pregabalin 75 MG CAP PO SCH (20:06)
[2021-09-27] MEDS: Atorvastatin Calcium 10 MG TAB PO SCH (20:06)
[2021-09-27] MEDS: Cefepime 1 GM in Sodium Chloride 0.9% 100 ML IVPB SCH (20:07)
[2021-09-27] MEDS: rOPINIRole HCl 2 MG TAB PO SCH (20:08)
[2021-09-28] MEDS: HumaLOG 300 UNITS/3 ML VIAL SC PRN ×2 (05:52→22:40)
[2021-09-28] MEDS: HYDROcodone/Acetaminophen 5/325 mg Tablet PO PRN ×2 (06:47→15:29)
[2021-09-28] MEDS: Morphine 4 MG/ML VIAL SLOW IVP PRN ×3 (08:32→20:37)
[2021-09-28 09:10] LABS: Vancomycin, Random 14.4 ug/mL (See Comment)
[2021-09-28] MEDS ORDERED: Heparin 10,000 UNITS/ 10 ML VIAL ONE (10:36)
[2021-09-28] MEDS: Vancomycin 1 GM in Premix Bag 1 BAG IVPB SCH ×2 (12:57→15:11)
[2021-09-28] MEDS: Calcium Acetate 667 MG CAP PO SCH ×3 (15:00→17:04)
[2021-09-28] MEDS: Ascorbic Acid 500 mg Chewable Tablet PO SCH (15:01)
[2021-09-28] MEDS: Cholecalciferol 1,000 UNITS (25 MCG) TAB PO SCH (15:01)
[2021-09-28] MEDS: busPIRone HCl 5 MG TAB PO SCH ×2 (15:01→20:45)
[2021-09-28] MEDS: Folic Acid 1 MG TAB PO SCH (15:02)
[2021-09-28] MEDS: Escitalopram Oxalate 20 mg Tablet PO SCH (15:02)
[2021-09-28] MEDS: EPOETIN ALFA-EPBX (ESRD) 10,000 UNIT/ML VIAL IVP SCH (15:02)
[2021-09-28] MEDS: Heparin 5,000 UNITS/ML VIAL SC SCH ×3 (15:03→20:46)
[2021-09-28] MEDS: Methocarbamol 500 MG TAB PO SCH ×2 (15:03→20:45)
[2021-09-28] MEDS: Minocycline HCl 50 MG CAP PO SCH ×2 (15:03→20:46)
[2021-09-28] MEDS: Senokot S 8.6-50 MG TAB PO SCH ×2 (15:04→20:40)
[2021-09-28] MEDS: Multivit, Therapeutic 1 TAB PO SCH (15:04)
[2021-09-28] MEDS: Zinc Sulfate 220 MG CAP PO SCH (15:04)
[2021-09-28] MEDS: Ferrous Sulfate 325 MG TAB PO SCH ×2 (15:09→15:31)
[2021-09-28] MEDS: Cyanocobalamin (Vitamin B-12) 1,000 MCG TAB PO SCH (15:10)
[2021-09-28] MEDS: Pregabalin 75 MG CAP PO SCH (20:44)
[2021-09-28] MEDS: Atorvastatin Calcium 10 MG TAB PO SCH (20:45)
[2021-09-28] MEDS: rOPINIRole HCl 2 MG TAB PO SCH (20:46)
[2021-09-28] MEDS: Cefepime 1 GM in Sodium Chloride 0.9% 100 ML IVPB SCH (20:48)
[2021-09-29] MEDS: Morphine 4 MG/ML VIAL SLOW IVP PRN ×4 (05:29→23:11)
[2021-09-29 05:46] LABS: Hemoglobin 8.4 g/dL (12.0-16.0); Mean Corpuscular HGB CONC 31.4 g/dL (32.0-36.0); Mean Corpuscular Hemoglobin 27.9 pg (27.0-31.0); Mean Platelet Volume 9.1 fL (7.4-10.4); Platelet Count 183 thou/uL (130-400); RBC Distribution Width 15.4 % (11.5-14.5); Red Blood Cell (RBC) Count 2.99 mill/uL (4.20-5.40); White Blood Cell (WBC) Count 14.7 thou/uL (4.8-10.8)
[2021-09-29 05:53] LABS: Anion Gap 8 mmol/L (10-20); BUN (Urea Nitrogen) 26 mg/dL (7.0-18.7); Calc. Creatinine Clearance 103 mL/min (70-130); Calcium 7.7 mg/dL (7.8-10.44); Carbon Dioxide 30 mmol/L (22-29); Chloride 98 mmol/L (98-107); Glucose 196 mg/dL (70-105); Potassium 3.3 mmol/L (3.5-5.1); Sodium 133 mmol/L (136-145)
[2021-09-29] MEDS: Acetaminophen 325 MG TAB PO PRN ×2 (06:36→15:27)
[2021-09-29 06:47] LABS: Band 3 % (5-11); Eosinophils 2 % (0-10); Lymphocytes 10 % (21-51); MDiff Complete? YES; Monocytes 3 % (0-10); Neutrophil 82 % (42-75)
[2021-09-29] MEDS: Cyanocobalamin (Vitamin B-12) 1,000 MCG TAB PO SCH (08:02)
[2021-09-29] MEDS: Cholecalciferol 1,000 UNITS (25 MCG) TAB PO SCH (08:02)
[2021-09-29] MEDS: Escitalopram Oxalate 20 mg Tablet PO SCH (08:03)
[2021-09-29] MEDS: Calcium Acetate 667 MG CAP PO SCH ×3 (08:03→17:01)
[2021-09-29] MEDS: Zinc Sulfate 220 MG CAP PO SCH (08:03)
[2021-09-29] MEDS: Multivit, Therapeutic 1 TAB PO SCH (08:03)
[2021-09-29] MEDS: Ascorbic Acid 500 mg Chewable Tablet PO SCH (08:03)
[2021-09-29] MEDS: Folic Acid 1 MG TAB PO SCH (08:04)
[2021-09-29] MEDS: busPIRone HCl 5 MG TAB PO SCH ×2 (08:04→21:31)
[2021-09-29] MEDS: HYDROcodone/Acetaminophen 5/325 mg Tablet PO PRN ×2 (08:04→14:33)
[2021-09-29] MEDS: Ferrous Sulfate 325 MG TAB PO SCH ×2 (08:04→17:01)
[2021-09-29] MEDS: Minocycline HCl 50 MG CAP PO SCH ×3 (08:05→22:22)
[2021-09-29] MEDS: Methocarbamol 500 MG TAB PO SCH ×2 (08:05→21:31)
[2021-09-29] MEDS: Senokot S 8.6-50 MG TAB PO SCH ×2 (08:08→21:27)
[2021-09-29] MEDS ORDERED: Electrolyte Replacement Protocol 1 EACH FS ONE (10:09)
[2021-09-29] MEDS: Heparin 5,000 UNITS/ML VIAL SC SCH ×3 (10:22→21:32)
[2021-09-29] MEDS: tiZANidine HCl 4 MG TAB PO PRN (15:27)
[2021-09-29] MEDS: HYDROcodone/Acetaminophen 10/325 mg Tablet PO PRN (18:46)
[2021-09-29] MEDS: HumaLOG 300 UNITS/3 ML VIAL SC PRN ×2 (19:21→21:35)
[2021-09-29] MEDS: Cefepime 1 GM in Sodium Chloride 0.9% 100 ML IVPB SCH (21:31)
[2021-09-29] MEDS: Atorvastatin Calcium 10 MG TAB PO SCH (21:31)
[2021-09-29] MEDS: Pregabalin 75 MG CAP PO SCH (21:32)
[2021-09-29] MEDS: rOPINIRole HCl 2 MG TAB PO SCH (21:33)
[2021-09-30] MEDS: Morphine 4 MG/ML VIAL SLOW IVP PRN ×4 (05:42→23:19)
[2021-09-30] MEDS: HumaLOG 300 UNITS/3 ML VIAL SC PRN ×4 (06:14→21:59)
[2021-09-30] MEDS: HYDROcodone/Acetaminophen 10/325 mg Tablet PO PRN ×2 (06:17→20:34)
[2021-09-30 06:43] LABS: Anion Gap 11 mmol/L (10-20); BUN (Urea Nitrogen) 31 mg/dL (7.0-18.7); Calc. Creatinine Clearance 83 mL/min (70-130); Calcium 7.6 mg/dL (7.8-10.44); Carbon Dioxide 28 mmol/L (22-29); Chloride 96 mmol/L (98-107); Glucose 184 mg/dL (70-105); Potassium 3.7 mmol/L (3.5-5.1); Sodium 131 mmol/L (136-145)
[2021-09-30 08:19] LABS: Band 9 % (5-11); Eosinophils 3 % (0-10); Hemoglobin 8.2 g/dL (12.0-16.0); Lymphocytes 11 % (21-51); MDiff Complete? YES; Mean Corpuscular HGB CONC 31.3 g/dL (32.0-36.0); Mean Corpuscular Hemoglobin 28.2 pg (27.0-31.0); Mean Corpuscular Volume 90.3 fL (78.0-98.0); Mean Platelet Volume 9.1 fL (7.4-10.4); Metamyelocyte 1 % (0-0); Monocytes 3 % (0-10); Neutrophil 73 % (42-75); Platelet Count 201 thou/uL (130-400); RBC Distribution Width 15.6 % (11.5-14.5); Red Blood Cell (RBC) Count 2.91 mill/uL (4.20-5.40); White Blood Cell (WBC) Count 15.5 thou/uL (4.8-10.8)
[2021-09-30] MEDS: Cyanocobalamin (Vitamin B-12) 1,000 MCG TAB PO SCH (08:39)
[2021-09-30] MEDS: Senokot S 8.6-50 MG TAB PO SCH ×2 (08:39→21:56)
[2021-09-30] MEDS: Multivit, Therapeutic 1 TAB PO SCH (08:40)
[2021-09-30] MEDS: Methocarbamol 500 MG TAB PO SCH ×2 (08:40→21:58)
[2021-09-30] MEDS: busPIRone HCl 5 MG TAB PO SCH ×2 (08:40→21:57)
[2021-09-30] MEDS: Cholecalciferol 1,000 UNITS (25 MCG) TAB PO SCH (08:41)
[2021-09-30] MEDS: Zinc Sulfate 220 MG CAP PO SCH (08:41)
[2021-09-30] MEDS: Ascorbic Acid 500 mg Chewable Tablet PO SCH (08:41)
[2021-09-30] MEDS: Ferrous Sulfate 325 MG TAB PO SCH ×2 (08:41→17:29)
[2021-09-30] MEDS: Escitalopram Oxalate 20 mg Tablet PO SCH (08:41)
[2021-09-30] MEDS: Calcium Acetate 667 MG CAP PO SCH ×3 (08:41→17:29)
[2021-09-30] MEDS: Folic Acid 1 MG TAB PO SCH (08:41)
[2021-09-30] MEDS: Heparin 5,000 UNITS/ML VIAL SC SCH ×3 (08:42→21:59)
[2021-09-30] MEDS ORDERED: Heparin 10,000 UNITS/ 10 ML VIAL ONE (09:19)
[2021-09-30] MEDS ORDERED: Minocycline HCl 50 MG CAP PO SCH (11:00)
[2021-09-30] MEDS: Atorvastatin Calcium 10 MG TAB PO SCH (21:57)
[2021-09-30] MEDS: Minocycline HCl 50 MG CAP PO SCH (21:57)
[2021-09-30] MEDS: Pregabalin 75 MG CAP PO SCH (21:58)
[2021-09-30] MEDS: Cefepime 1 GM in Sodium Chloride 0.9% 100 ML IVPB SCH (21:58)
[2021-09-30] MEDS: rOPINIRole HCl 2 MG TAB PO SCH (21:58)
[2021-10-01] MEDS: Morphine 4 MG/ML VIAL SLOW IVP PRN ×4 (06:03→23:06)
[2021-10-01] MEDS: HumaLOG 300 UNITS/3 ML VIAL SC PRN ×3 (06:38→18:11)
[2021-10-01 06:50] LABS: Hemoglobin 8.4 g/dL (12.0-16.0); Mean Corpuscular Hemoglobin 28.7 pg (27.0-31.0); Mean Corpuscular Volume 89.5 fL (78.0-98.0); Mean Platelet Volume 8.8 fL (7.4-10.4); Platelet Count 199 thou/uL (130-400); RBC Distribution Width 15.6 % (11.5-14.5); Red Blood Cell (RBC) Count 2.94 mill/uL (4.20-5.40); White Blood Cell (WBC) Count 16.1 thou/uL (4.8-10.8)
[2021-10-01 07:07] LABS: Anion Gap 12 mmol/L (10-20); BUN (Urea Nitrogen) 36 mg/dL (7.0-18.7); Calc. Creatinine Clearance 72 mL/min (70-130); Calcium 7.9 mg/dL (7.8-10.44); Carbon Dioxide 26 mmol/L (22-29); Chloride 94 mmol/L (98-107); Glucose 178 mg/dL (70-105); Potassium 3.7 mmol/L (3.5-5.1); Sodium 128 mmol/L (136-145)
[2021-10-01 07:09] LABS: Vancomycin, Random 14.5 ug/mL (See Comment)
[2021-10-01] MEDS: Minocycline HCl 50 MG CAP PO SCH ×2 (08:11→21:45)
[2021-10-01] MEDS: HYDROcodone/Acetaminophen 10/325 mg Tablet PO PRN ×2 (08:11→20:52)
[2021-10-01] MEDS: EPOETIN ALFA-EPBX (ESRD) 10,000 UNIT/ML VIAL IVP SCH (08:11)
[2021-10-01] MEDS: Calcium Acetate 667 MG CAP PO SCH ×3 (08:11→17:43)
[2021-10-01] MEDS: Ferrous Sulfate 325 MG TAB PO SCH ×2 (08:11→17:43)
[2021-10-01] MEDS: Cyanocobalamin (Vitamin B-12) 1,000 MCG TAB PO SCH (08:12)
[2021-10-01] MEDS: Escitalopram Oxalate 20 mg Tablet PO SCH (08:13)
[2021-10-01] MEDS: Cholecalciferol 1,000 UNITS (25 MCG) TAB PO SCH (08:13)
[2021-10-01] MEDS: Zinc Sulfate 220 MG CAP PO SCH (08:13)
[2021-10-01] MEDS: Multivit, Therapeutic 1 TAB PO SCH (08:13)
[2021-10-01] MEDS: Folic Acid 1 MG TAB PO SCH (08:13)
[2021-10-01] MEDS: busPIRone HCl 5 MG TAB PO SCH ×2 (08:13→21:46)
[2021-10-01] MEDS: Ascorbic Acid 500 mg Chewable Tablet PO SCH (08:13)
[2021-10-01] MEDS: Senokot S 8.6-50 MG TAB PO SCH ×2 (08:14→21:47)
[2021-10-01 08:49] LABS: Band 12 % (5-11); Eosinophils 2 % (0-10); Lymphocytes 10 % (21-51); MDiff Complete? YES; Metamyelocyte 1 % (0-0); Monocytes 8 % (0-10); Neutrophil 65 % (42-75); Platelet Morphology Comment Appears Adequate; Polychromasia SLIGHT = 2-3 cells (100X) (0-2/hpf); Reactive Lymphocytes 1 % (0-10)
[2021-10-01] MEDS: Heparin 5,000 UNITS/ML VIAL SC SCH ×3 (09:00→21:46)
[2021-10-01] MEDS: Methocarbamol 500 MG TAB PO SCH ×2 (09:00→21:46)
[2021-10-01 10:18] LABS: Bacteria/HPF 4+ HPF (None Seen); Bilirubin Negative (Negative); Blood, Urine 3+ (Negative); Clarity Turbid (Clear); Glucose, Urine (Dipstick) Normal (Negative); Ketone, Urine Trace mg/dL (Negative); Leukocyte 500 Leu/uL (Negative); Nitrite Negative (Negative); Protein, Urine (Dipstick) 200 mg/dL (Neg-Trace); RBC/HPF Greater than 50 HPF (0-3); Squamous Epithelial 0-3 HPF (0-3); Urobilinogen Normal mg/dL (Less than 2); WBC/HPF Greater than 50 HPF (0-3); Yeast-Budding 3+ HPF (None Seen); Yeast-Hyphae 1+ HPF (None Seen); pH, Urine 5.5 (5.0-9.0)
[2021-10-01 10:19] LABS: Urine Culture Reflex Yes Yes
[2021-10-01] MEDS: Sodium Chloride 1 GM TAB PO SCH ×3 (10:53→21:45)
[2021-10-01 14:27] LABS: Phosphorus 3.1 mg/dL (2.3-4.7)
[2021-10-01] MEDS ORDERED: Epoetin (ESRD) 20,000 UNITS/ML SC SCH (15:15)
[2021-10-01] MEDS: Vancomycin 1 GM in Premix Bag 1 BAG IVPB SCH (15:45)
[2021-10-01] MEDS ORDERED: EPOETIN ALFA-EPBX (ESRD) 10,000 UNIT/ML VIAL SC SCH ×2 (16:30→17:30)
[2021-10-01] MEDS: Ondansetron PF 4 MG/2 ML Vial IVP PRN (19:05)
[2021-10-01] MEDS: rOPINIRole HCl 2 MG TAB PO SCH (21:45)
[2021-10-01] MEDS: Atorvastatin Calcium 10 MG TAB PO SCH (21:46)
[2021-10-01] MEDS: Cefepime 1 GM in Sodium Chloride 0.9% 100 ML IVPB SCH (21:46)
[2021-10-01] MEDS: Pregabalin 75 MG CAP PO SCH (21:47)
[2021-10-01] MEDS ORDERED: Loperamide HCl 2 MG CAP PO SCH (21:48)
[2021-10-02] MEDS: HumaLOG 300 UNITS/3 ML VIAL SC PRN ×3 (05:30→16:37)
[2021-10-02] MEDS: Morphine 4 MG/ML VIAL SLOW IVP PRN ×4 (05:32→23:20)
[2021-10-02 06:03] LABS: Hemoglobin 8.1 g/dL (12.0-16.0); Mean Corpuscular HGB CONC 32.3 g/dL (32.0-36.0); Mean Corpuscular Hemoglobin 29.1 pg (27.0-31.0); Mean Platelet Volume 8.9 fL (7.4-10.4); Platelet Count 184 thou/uL (130-400); RBC Distribution Width 15.8 % (11.5-14.5); Red Blood Cell (RBC) Count 2.78 mill/uL (4.20-5.40)
[2021-10-02 07:03] LABS: Band 8 % (5-11); Eosinophils 1 % (0-10); Lymphocytes 19 % (21-51); MDiff Complete? YES; Monocytes 4 % (0-10); Neutrophil 68 % (42-75)
[2021-10-02] MEDS: busPIRone HCl 5 MG TAB PO SCH ×2 (09:07→21:08)
[2021-10-02] MEDS: Folic Acid 1 MG TAB PO SCH (09:07)
[2021-10-02] MEDS: Multivit, Therapeutic 1 TAB PO SCH (09:08)
[2021-10-02] MEDS: Escitalopram Oxalate 20 mg Tablet PO SCH (09:08)
[2021-10-02] MEDS: Calcium Acetate 667 MG CAP PO SCH ×3 (09:08→16:33)
[2021-10-02] MEDS: Cholecalciferol 1,000 UNITS (25 MCG) TAB PO SCH (09:08)
[2021-10-02] MEDS: Zinc Sulfate 220 MG CAP PO SCH (09:08)
[2021-10-02] MEDS: Ascorbic Acid 500 mg Chewable Tablet PO SCH (09:08)
[2021-10-02] MEDS: Methocarbamol 500 MG TAB PO SCH ×2 (09:09→21:08)
[2021-10-02] MEDS: Ferrous Sulfate 325 MG TAB PO SCH ×2 (09:09→16:34)
[2021-10-02] MEDS: Cyanocobalamin (Vitamin B-12) 1,000 MCG TAB PO SCH (09:09)
[2021-10-02] MEDS: Senokot S 8.6-50 MG TAB PO SCH ×2 (09:10→21:06)
[2021-10-02] MEDS: Heparin 5,000 UNITS/ML VIAL SC SCH ×3 (09:10→21:08)
[2021-10-02] MEDS: Minocycline HCl 50 MG CAP PO SCH (09:10)
[2021-10-02] MEDS: Sodium Chloride 1 GM TAB PO SCH (09:10)
[2021-10-02] MEDS: Ondansetron PF 4 MG/2 ML Vial IVP PRN (09:48)
[2021-10-02] MEDS: HYDROcodone/Acetaminophen 10/325 mg Tablet PO PRN (18:00)
[2021-10-02] MEDS: Pregabalin 75 MG CAP PO SCH (21:07)
[2021-10-02] MEDS: Atorvastatin Calcium 10 MG TAB PO SCH (21:07)
[2021-10-02] MEDS: rOPINIRole HCl 2 MG TAB PO SCH (21:09)
[2021-10-03] MEDS: HumaLOG 300 UNITS/3 ML VIAL SC PRN ×2 (06:23→20:47)
[2021-10-03 08:35] LABS: Vancomycin, Random 16.1 ug/mL (See Comment)
[2021-10-03] MEDS: Calcium Acetate 667 MG CAP PO SCH ×3 (10:50→17:13)
[2021-10-03] MEDS: Ascorbic Acid 500 mg Chewable Tablet PO SCH (10:50)
[2021-10-03] MEDS: busPIRone HCl 5 MG TAB PO SCH ×2 (10:50→20:43)
[2021-10-03] MEDS: Ferrous Sulfate 325 MG TAB PO SCH ×2 (10:50→17:13)
[2021-10-03] MEDS: Cyanocobalamin (Vitamin B-12) 1,000 MCG TAB PO SCH (10:51)
[2021-10-03] MEDS: Fluconazole 100 MG TAB PO SCH (10:51)
[2021-10-03] MEDS: Methocarbamol 500 MG TAB PO SCH ×2 (10:51→22:42)
[2021-10-03] MEDS: Senokot S 8.6-50 MG TAB PO SCH ×2 (10:51→20:32)
[2021-10-03] MEDS: Cholecalciferol 1,000 UNITS (25 MCG) TAB PO SCH (10:51)
[2021-10-03] MEDS: Folic Acid 1 MG TAB PO SCH (10:51)
[2021-10-03] MEDS: Escitalopram Oxalate 20 mg Tablet PO SCH (10:51)
[2021-10-03] MEDS: Zinc Sulfate 220 MG CAP PO SCH (10:51)
[2021-10-03] MEDS: Heparin 5,000 UNITS/ML VIAL SC SCH ×3 (10:51→20:34)
[2021-10-03] MEDS: Multivit, Therapeutic 1 TAB PO SCH (10:51)
[2021-10-03] MEDS ORDERED: Heparin 10,000 UNITS/ 10 ML VIAL ONE (11:40)
[2021-10-03] MEDS: Morphine 4 MG/ML VIAL SLOW IVP PRN ×2 (16:07→20:34)
[2021-10-03] MEDS: HYDROcodone/Acetaminophen 10/325 mg Tablet PO PRN ×2 (17:13→21:34)
[2021-10-03] MEDS: tiZANidine HCl 4 MG TAB PO PRN (20:41)
[2021-10-03] MEDS: Pregabalin 75 MG CAP PO SCH (20:41)
[2021-10-03] MEDS: Nystatin Powder 15 GM BOT TOP SCH (20:44)
[2021-10-03] MEDS: Atorvastatin Calcium 10 MG TAB PO SCH (20:44)
[2021-10-03] MEDS: rOPINIRole HCl 2 MG TAB PO SCH (23:15)
[2021-10-04] MEDS: HumaLOG 300 UNITS/3 ML VIAL SC PRN ×4 (06:59→21:06)
[2021-10-04] MEDS: Morphine 4 MG/ML VIAL SLOW IVP PRN ×3 (08:10→20:20)
[2021-10-04] MEDS: Ascorbic Acid 500 mg Chewable Tablet PO SCH (08:59)
[2021-10-04] MEDS: Calcium Acetate 667 MG CAP PO SCH ×3 (08:59→17:10)
[2021-10-04] MEDS: Fluconazole 100 MG TAB PO SCH (08:59)
[2021-10-04] MEDS: Heparin 5,000 UNITS/ML VIAL SC SCH ×3 (09:00→20:21)
[2021-10-04] MEDS: Cyanocobalamin (Vitamin B-12) 1,000 MCG TAB PO SCH (09:00)
[2021-10-04] MEDS: Multivit, Therapeutic 1 TAB PO SCH (09:00)
[2021-10-04] MEDS: Methocarbamol 500 MG TAB PO SCH ×2 (09:00→20:22)
[2021-10-04] MEDS: HYDROcodone/Acetaminophen 10/325 mg Tablet PO PRN ×3 (09:00→22:20)
[2021-10-04] MEDS: Zinc Sulfate 220 MG CAP PO SCH (09:00)
[2021-10-04] MEDS: busPIRone HCl 5 MG TAB PO SCH ×2 (09:00→20:21)
[2021-10-04] MEDS: Escitalopram Oxalate 20 mg Tablet PO SCH (09:01)
[2021-10-04] MEDS: Cholecalciferol 1,000 UNITS (25 MCG) TAB PO SCH (09:01)
[2021-10-04] MEDS: Folic Acid 1 MG TAB PO SCH (09:01)
[2021-10-04] MEDS: Ferrous Sulfate 325 MG TAB PO SCH ×2 (09:03→17:10)
[2021-10-04] MEDS: Senokot S 8.6-50 MG TAB PO SCH ×2 (09:11→20:16)
[2021-10-04] MEDS: Nystatin Powder 15 GM BOT TOP SCH ×3 (09:12→20:21)
[2021-10-04] MEDS: Loperamide HCl 1 MG/7.5 ML UDCUP PO PRN (15:11)
[2021-10-04] MEDS: Pregabalin 75 MG CAP PO SCH (20:17)
[2021-10-04] MEDS: Atorvastatin Calcium 10 MG TAB PO SCH (20:22)
[2021-10-04] MEDS: rOPINIRole HCl 2 MG TAB PO SCH (20:22)
[2021-10-05] MEDS: HumaLOG 300 UNITS/3 ML VIAL SC PRN ×2 (05:33→21:00)
[2021-10-05 06:59] LABS: Band 7 % (5-11); Hypochromia SLIGHT = 6-15 cells (100X) (0-5/hpf); Lymphocytes 5 % (21-51); MDiff Complete? YES; Mean Corpuscular HGB CONC 31.9 g/dL (32.0-36.0); Mean Corpuscular Hemoglobin 28.9 pg (27.0-31.0); Mean Corpuscular Volume 90.4 fL (78.0-98.0); Mean Platelet Volume 9.3 fL (7.4-10.4); Monocytes 17 % (0-10); Neutrophil 71 % (42-75); Platelet Count 166 thou/uL (130-400); Platelet Morphology Comment Appears Adequate; Red Blood Cell (RBC) Count 2.76 mill/uL (4.20-5.40)
[2021-10-05 07:00] LABS: Anion Gap 9 mmol/L (10-20); BUN (Urea Nitrogen) 29 mg/dL (7.0-18.7); Calc. Creatinine Clearance 81 mL/min (70-130); Calcium 8.1 mg/dL (7.8-10.44); Carbon Dioxide 27 mmol/L (22-29); Chloride 98 mmol/L (98-107); Glucose 215 mg/dL (70-105); Potassium 3.4 mmol/L (3.5-5.1); Sodium 131 mmol/L (136-145)
[2021-10-05] MEDS: Morphine 4 MG/ML VIAL SLOW IVP PRN ×2 (08:29→14:58)
[2021-10-05] MEDS: Ferrous Sulfate 325 MG TAB PO SCH ×2 (11:16→16:25)
[2021-10-05] MEDS: Calcium Acetate 667 MG CAP PO SCH ×3 (11:16→16:26)
[2021-10-05] MEDS: busPIRone HCl 5 MG TAB PO SCH ×2 (11:16→20:59)
[2021-10-05] MEDS: Senokot S 8.6-50 MG TAB PO SCH ×2 (11:17→21:00)
[2021-10-05] MEDS: Nystatin Powder 15 GM BOT TOP SCH ×3 (11:17→21:17)
[2021-10-05] MEDS: Heparin 5,000 UNITS/ML VIAL SC SCH ×3 (11:17→21:00)
[2021-10-05] MEDS: Methocarbamol 500 MG TAB PO SCH ×2 (11:17→20:59)
[2021-10-05] MEDS ORDERED: Heparin 10,000 UNITS/ 10 ML VIAL ONE (11:39)
[2021-10-05] MEDS: Ascorbic Acid 500 mg Chewable Tablet PO SCH (16:22)
[2021-10-05] MEDS: Escitalopram Oxalate 20 mg Tablet PO SCH (16:22)
[2021-10-05] MEDS: Fluconazole 100 MG TAB PO SCH (16:22)
[2021-10-05] MEDS: Cholecalciferol 1,000 UNITS (25 MCG) TAB PO SCH (16:22)
[2021-10-05] MEDS: Folic Acid 1 MG TAB PO SCH (16:22)
[2021-10-05] MEDS: Cyanocobalamin (Vitamin B-12) 1,000 MCG TAB PO SCH (16:22)
[2021-10-05] MEDS: Multivit, Therapeutic 1 TAB PO SCH (16:22)
[2021-10-05] MEDS: Zinc Sulfate 220 MG CAP PO SCH (16:23)
[2021-10-05] MEDS: HYDROcodone/Acetaminophen 10/325 mg Tablet PO PRN ×2 (16:25→21:08)
[2021-10-05] MEDS: Loperamide HCl 1 MG/7.5 ML UDCUP PO PRN (17:45)
[2021-10-05] MEDS: Pregabalin 75 MG CAP PO SCH (20:58)
[2021-10-05] MEDS: rOPINIRole HCl 2 MG TAB PO SCH (20:58)
[2021-10-05] MEDS: Atorvastatin Calcium 10 MG TAB PO SCH (21:00)
[2021-10-05] MEDS: tiZANidine HCl 4 MG TAB PO PRN (21:08)
[2021-10-06] MEDS ORDERED: Midodrine HCl 5 MG TAB PO SCH (01:17)
[2021-10-06] MEDS: HumaLOG 300 UNITS/3 ML VIAL SC PRN ×2 (05:48→20:16)
[2021-10-06 06:33] LABS: Anion Gap 8 mmol/L (10-20); BUN (Urea Nitrogen) 21 mg/dL (7.0-18.7); Calc. Creatinine Clearance 100 mL/min (70-130); Calcium 7.8 mg/dL (7.8-10.44); Carbon Dioxide 30 mmol/L (22-29); Chloride 100 mmol/L (98-107); Glucose 255 mg/dL (70-105); Potassium 3.4 mmol/L (3.5-5.1); Sodium 135 mmol/L (136-145)
[2021-10-06 06:36] LABS: Band 1 % (5-11); Eosinophils 2 % (0-10); Hemoglobin 7.3 g/dL (12.0-16.0); Hypochromia SLIGHT = 6-15 cells (100X) (0-5/hpf); Lymphocytes 14 % (21-51); MDiff Complete? YES; Mean Corpuscular HGB CONC 30.6 g/dL (32.0-36.0); Mean Corpuscular Hemoglobin 28.3 pg (27.0-31.0); Mean Corpuscular Volume 92.4 fL (78.0-98.0); Monocytes 8 % (0-10); Neutrophil 75 % (42-75); Platelet Count 175 thou/uL (130-400); Platelet Morphology Comment Appears Adequate; Polychromasia SLIGHT = 2-3 cells (100X) (0-2/hpf); RBC Distribution Width 16.3 % (11.5-14.5); Red Blood Cell (RBC) Count 2.59 mill/uL (4.20-5.40); Stomatocytes SLIGHT = 2-5 cells (100X) (0-1/hpf); White Blood Cell (WBC) Count 22.1 thou/uL (4.8-10.8)
[2021-10-06] MEDS ORDERED: Sodium Chloride 0.9% 250 ML IV SCH (06:45)
[2021-10-06] MEDS: Cholecalciferol 1,000 UNITS (25 MCG) TAB PO SCH (09:17)
[2021-10-06] MEDS: Ascorbic Acid 500 mg Chewable Tablet PO SCH (09:17)
[2021-10-06] MEDS: busPIRone HCl 5 MG TAB PO SCH ×2 (09:17→20:15)
[2021-10-06] MEDS: Ferrous Sulfate 325 MG TAB PO SCH ×2 (09:17→17:14)
[2021-10-06] MEDS: Calcium Acetate 667 MG CAP PO SCH ×3 (09:17→17:14)
[2021-10-06] MEDS: Escitalopram Oxalate 20 mg Tablet PO SCH (09:18)
[2021-10-06] MEDS: Senokot S 8.6-50 MG TAB PO SCH ×2 (09:18→20:16)
[2021-10-06] MEDS: Heparin 5,000 UNITS/ML VIAL SC SCH ×3 (09:18→20:16)
[2021-10-06] MEDS: Cyanocobalamin (Vitamin B-12) 1,000 MCG TAB PO SCH (09:18)
[2021-10-06] MEDS: Methocarbamol 500 MG TAB PO SCH ×2 (09:18→20:15)
[2021-10-06] MEDS: Nystatin Powder 15 GM BOT TOP SCH ×3 (09:18→22:05)
[2021-10-06] MEDS: Multivit, Therapeutic 1 TAB PO SCH (09:18)
[2021-10-06] MEDS: Fluconazole 100 MG TAB PO SCH (09:18)
[2021-10-06] MEDS: Folic Acid 1 MG TAB PO SCH (09:18)
[2021-10-06] MEDS: Zinc Sulfate 220 MG CAP PO SCH (09:19)
[2021-10-06] MEDS ORDERED: Heparin 10,000 UNITS/ 10 ML VIAL ONE (11:45)
[2021-10-06 16:24] LABS: Bilirubin Negative (Negative); Blood, Urine 3+ (Negative); Clarity Extra Turbid (Clear); Glucose, Urine (Dipstick) Normal (Negative); Ketone, Urine Negative (Negative); Leukocyte 500 Leu/uL (Negative); Nitrite Negative (Negative); Protein, Urine (Dipstick) 200 mg/dL (Neg-Trace); Specific Gravity, Urine 1.026 (1.002-1.036); Urobilinogen Normal mg/dL (Less than 2); WBC/HPF Greater than 50 HPF (0-3); pH, Urine 5.5 (5.0-9.0)
[2021-10-06 16:42] LABS: RBC/HPF 21-50 HPF (0-3)
[2021-10-06 16:43] LABS: Bacteria/HPF 4+ HPF (None Seen)
[2021-10-06 16:46] LABS: Renal Epithelial 0-3 HPF (None Seen); Squamous Epithelial 0-3 HPF (0-3); Yeast-Budding 4+ HPF (None Seen); Yeast-Hyphae 2+ HPF (None Seen)
[2021-10-06] MEDS: Acetaminophen 325 MG TAB PO PRN ×2 (17:13→20:17)
[2021-10-06] MEDS: Atorvastatin Calcium 10 MG TAB PO SCH (20:15)
[2021-10-06] MEDS: rOPINIRole HCl 2 MG TAB PO SCH (20:15)
[2021-10-06] MEDS: Pregabalin 75 MG CAP PO SCH (20:15)
[2021-10-07] MEDS: HumaLOG 300 UNITS/3 ML VIAL SC PRN ×3 (05:30→16:13)
[2021-10-07 06:03] LABS: Band 3 % (5-11); Hemoglobin 7.2 g/dL (12.0-16.0); Hypochromia SLIGHT = 6-15 cells (100X) (0-5/hpf); Lymphocytes 12 % (21-51); MDiff Complete? YES; Mean Corpuscular HGB CONC 30.9 g/dL (32.0-36.0); Mean Corpuscular Hemoglobin 28.7 pg (27.0-31.0); Mean Corpuscular Volume 92.8 fL (78.0-98.0); Monocytes 8 % (0-10); Neutrophil 77 % (42-75); Platelet Count 164 thou/uL (130-400); Platelet Morphology Comment Appears Adequate; RBC Distribution Width 16.4 % (11.5-14.5); Red Blood Cell (RBC) Count 2.49 mill/uL (4.20-5.40); White Blood Cell (WBC) Count 19.9 thou/uL (4.8-10.8)
[2021-10-07] MEDS ORDERED: HYDROmorphone 2 MG TAB PO PRN ×2 (09:23→09:30)
[2021-10-07] MEDS: Acetaminophen 325 MG TAB PO PRN (09:30)
[2021-10-07 09:35] LABS: Anion Gap 13 mmol/L (10-20); BUN (Urea Nitrogen) 25 mg/dL (7.0-18.7); Calc. Creatinine Clearance 78 mL/min (70-130); Calcium 7.8 mg/dL (7.8-10.44); Carbon Dioxide 26 mmol/L (22-29); Chloride 99 mmol/L (98-107); Glucose 206 mg/dL (70-105); Potassium 3.6 mmol/L (3.5-5.1); Sodium 134 mmol/L (136-145)
[2021-10-07] MEDS: busPIRone HCl 5 MG TAB PO SCH ×2 (10:52→20:14)
[2021-10-07] MEDS: Calcium Acetate 667 MG CAP PO SCH ×3 (10:52→16:12)
[2021-10-07] MEDS: Ferrous Sulfate 325 MG TAB PO SCH ×2 (10:52→16:12)
[2021-10-07] MEDS: Ascorbic Acid 500 mg Chewable Tablet PO SCH (10:52)
[2021-10-07] MEDS: Nystatin Powder 15 GM BOT TOP SCH ×3 (10:53→20:15)
[2021-10-07] MEDS: Folic Acid 1 MG TAB PO SCH (10:53)
[2021-10-07] MEDS: Cyanocobalamin (Vitamin B-12) 1,000 MCG TAB PO SCH (10:53)
[2021-10-07] MEDS: Escitalopram Oxalate 20 mg Tablet PO SCH (10:53)
[2021-10-07] MEDS: Heparin 5,000 UNITS/ML VIAL SC SCH ×3 (10:53→20:14)
[2021-10-07] MEDS: Multivit, Therapeutic 1 TAB PO SCH (10:53)
[2021-10-07] MEDS: Methocarbamol 500 MG TAB PO SCH ×2 (10:53→20:12)
[2021-10-07] MEDS: Cholecalciferol 1,000 UNITS (25 MCG) TAB PO SCH (10:53)
[2021-10-07] MEDS: Fluconazole 100 MG TAB PO SCH (10:53)
[2021-10-07] MEDS: Senokot S 8.6-50 MG TAB PO SCH ×2 (10:54→19:40)
[2021-10-07] MEDS: Zinc Sulfate 220 MG CAP PO SCH (10:54)
[2021-10-07] MEDS: Midodrine HCl 5 MG TAB PO SCH ×3 (11:13→20:14)
[2021-10-07] MEDS: Morphine 4 MG/ML VIAL SLOW IVP PRN (15:24)
[2021-10-07] MEDS: Ondansetron PF 4 MG/2 ML Vial IVP PRN (18:04)
[2021-10-07] MEDS: Pregabalin 75 MG CAP PO SCH (20:13)
[2021-10-07] MEDS: Atorvastatin Calcium 10 MG TAB PO SCH (20:14)
[2021-10-07] MEDS: rOPINIRole HCl 2 MG TAB PO SCH (20:14)
[2021-10-08] MEDS: Methocarbamol 500 MG TAB PO SCH ×2 (08:51→20:32)
[2021-10-08] MEDS: Cyanocobalamin (Vitamin B-12) 1,000 MCG TAB PO SCH (08:52)
[2021-10-08] MEDS: Ferrous Sulfate 325 MG TAB PO SCH ×2 (08:52→17:05)
[2021-10-08] MEDS: busPIRone HCl 5 MG TAB PO SCH ×2 (08:53→20:28)
[2021-10-08] MEDS: Heparin 5,000 UNITS/ML VIAL SC SCH ×3 (08:53→20:28)
[2021-10-08] MEDS: Folic Acid 1 MG TAB PO SCH (08:53)
[2021-10-08] MEDS: Cholecalciferol 1,000 UNITS (25 MCG) TAB PO SCH (08:53)
[2021-10-08] MEDS: Midodrine HCl 5 MG TAB PO SCH ×3 (08:53→20:28)
[2021-10-08] MEDS: Escitalopram Oxalate 20 mg Tablet PO SCH (08:53)
[2021-10-08] MEDS: Ascorbic Acid 500 mg Chewable Tablet PO SCH (08:54)
[2021-10-08] MEDS: Fluconazole 100 MG TAB PO SCH (08:54)
[2021-10-08] MEDS: Nystatin Powder 15 GM BOT TOP SCH ×3 (08:54→20:26)
[2021-10-08] MEDS: Zinc Sulfate 220 MG CAP PO SCH (08:54)
[2021-10-08] MEDS: Senokot S 8.6-50 MG TAB PO SCH ×2 (08:54→20:29)
[2021-10-08] MEDS: Multivit, Therapeutic 1 TAB PO SCH (08:54)
[2021-10-08] MEDS: Calcium Acetate 667 MG CAP PO SCH ×3 (08:55→17:05)
[2021-10-08] MEDS: HYDROcodone/Acetaminophen 10/325 mg Tablet PO PRN ×2 (08:56→14:38)
[2021-10-08] MEDS: HumaLOG 300 UNITS/3 ML VIAL SC PRN (12:01)
[2021-10-08] MEDS: Ondansetron ODT 4 MG TAB PO PRN (13:44)
[2021-10-08] MEDS: Morphine 4 MG/ML VIAL SLOW IVP PRN (17:04)
[2021-10-08] MEDS ORDERED: EPOETIN ALFA-EPBX (ESRD) 10,000 UNIT/ML VIAL SC SCH (17:30)
[2021-10-08] MEDS: rOPINIRole HCl 2 MG TAB PO SCH (20:25)
[2021-10-08] MEDS: Acetaminophen 325 MG TAB PO PRN (20:26)
[2021-10-08] MEDS: Pregabalin 75 MG CAP PO SCH (20:27)
[2021-10-08] MEDS: Atorvastatin Calcium 10 MG TAB PO SCH (20:28)
[2021-10-09] MEDS: HYDROcodone/Acetaminophen 10/325 mg Tablet PO PRN (05:02)
[2021-10-09] MEDS: HumaLOG 300 UNITS/3 ML VIAL SC PRN ×3 (05:03→16:46)
[2021-10-09] MEDS: Calcium Acetate 667 MG CAP PO SCH ×3 (08:11→16:46)
[2021-10-09] MEDS: Ascorbic Acid 500 mg Chewable Tablet PO SCH (08:12)
[2021-10-09] MEDS: Zinc Sulfate 220 MG CAP PO SCH (08:12)
[2021-10-09] MEDS: Fluconazole 100 MG TAB PO SCH (08:12)
[2021-10-09] MEDS: Midodrine HCl 5 MG TAB PO SCH ×3 (08:12→19:57)
[2021-10-09] MEDS: Methocarbamol 500 MG TAB PO SCH ×2 (08:12→19:52)
[2021-10-09] MEDS: Folic Acid 1 MG TAB PO SCH (08:12)
[2021-10-09] MEDS: busPIRone HCl 5 MG TAB PO SCH ×2 (08:12→19:57)
[2021-10-09] MEDS: Cholecalciferol 1,000 UNITS (25 MCG) TAB PO SCH (08:13)
[2021-10-09] MEDS: Ferrous Sulfate 325 MG TAB PO SCH ×2 (08:13→16:46)
[2021-10-09] MEDS: Escitalopram Oxalate 20 mg Tablet PO SCH (08:13)
[2021-10-09] MEDS: Multivit, Therapeutic 1 TAB PO SCH (08:14)
[2021-10-09] MEDS: Cyanocobalamin (Vitamin B-12) 1,000 MCG TAB PO SCH (08:15)
[2021-10-09] MEDS: Nystatin Powder 15 GM BOT TOP SCH ×3 (08:16→19:55)
[2021-10-09] MEDS: Heparin 5,000 UNITS/ML VIAL SC SCH ×3 (08:16→19:53)
[2021-10-09] MEDS: Senokot S 8.6-50 MG TAB PO SCH ×2 (08:16→19:58)
[2021-10-09] MEDS ORDERED: Morphine ER 15 MG TAB PO SCH ×2 (09:00→14:45)
[2021-10-09 09:51] VITALS: BMI 86.6
[2021-10-09] MEDS: Morphine 4 MG/ML VIAL SLOW IVP PRN ×2 (10:00→17:22)
[2021-10-09] MEDS: rOPINIRole HCl 2 MG TAB PO SCH (19:52)
[2021-10-09] MEDS: Acetaminophen 325 MG TAB PO PRN (19:53)
[2021-10-09] MEDS: Pregabalin 75 MG CAP PO SCH (19:53)
[2021-10-09] MEDS: Morphine ER 15 MG TAB PO SCH (19:56)
[2021-10-09] MEDS: Atorvastatin Calcium 10 MG TAB PO SCH (19:57)
[2021-10-10] MEDS: HumaLOG 300 UNITS/3 ML VIAL SC PRN ×2 (05:14→12:05)
[2021-10-10] MEDS: Cholecalciferol 1,000 UNITS (25 MCG) TAB PO SCH (09:03)
[2021-10-10] MEDS: Ferrous Sulfate 325 MG TAB PO SCH ×2 (09:04→16:36)
[2021-10-10] MEDS: Cyanocobalamin (Vitamin B-12) 1,000 MCG TAB PO SCH (09:04)
[2021-10-10] MEDS: Escitalopram Oxalate 20 mg Tablet PO SCH (09:05)
[2021-10-10] MEDS: Folic Acid 1 MG TAB PO SCH (09:05)
[2021-10-10] MEDS: Calcium Acetate 667 MG CAP PO SCH ×3 (09:05→16:36)
[2021-10-10] MEDS: Heparin 5,000 UNITS/ML VIAL SC SCH ×3 (09:05→20:41)
[2021-10-10] MEDS: Multivit, Therapeutic 1 TAB PO SCH (09:05)
[2021-10-10] MEDS: Midodrine HCl 5 MG TAB PO SCH ×3 (09:05→20:41)
[2021-10-10] MEDS: Fluconazole 100 MG TAB PO SCH (09:05)
[2021-10-10] MEDS: Morphine ER 15 MG TAB PO SCH ×2 (09:06→20:42)
[2021-10-10] MEDS: Zinc Sulfate 220 MG CAP PO SCH (09:06)
[2021-10-10] MEDS: busPIRone HCl 5 MG TAB PO SCH ×2 (09:06→20:38)
[2021-10-10] MEDS: Methocarbamol 500 MG TAB PO SCH ×2 (09:06→20:41)
[2021-10-10] MEDS: Ascorbic Acid 500 mg Chewable Tablet PO SCH (09:06)
[2021-10-10] MEDS: Nystatin Powder 15 GM BOT TOP SCH ×3 (09:07→20:37)
[2021-10-10] MEDS: Senokot S 8.6-50 MG TAB PO SCH ×2 (09:07→21:28)
[2021-10-10] MEDS: Morphine 4 MG/ML VIAL SLOW IVP PRN (12:04)
[2021-10-10] MEDS: HYDROcodone/Acetaminophen 10/325 mg Tablet PO PRN (16:36)
[2021-10-10] MEDS: rOPINIRole HCl 2 MG TAB PO SCH (20:40)
[2021-10-10] MEDS: Pregabalin 75 MG CAP PO SCH (20:40)
[2021-10-10] MEDS: Atorvastatin Calcium 10 MG TAB PO SCH (20:41)
[2021-10-11] MEDS: HYDROcodone/Acetaminophen 10/325 mg Tablet PO PRN ×2 (06:22→12:35)
[2021-10-11] MEDS: Cyanocobalamin (Vitamin B-12) 1,000 MCG TAB PO SCH (09:25)
[2021-10-11] MEDS: Cholecalciferol 1,000 UNITS (25 MCG) TAB PO SCH (09:26)
[2021-10-11] MEDS: Fluconazole 100 MG TAB PO SCH (09:27)
[2021-10-11] MEDS: Calcium Acetate 667 MG CAP PO SCH ×3 (09:28→17:40)
[2021-10-11] MEDS: busPIRone HCl 5 MG TAB PO SCH ×2 (09:28→20:18)
[2021-10-11] MEDS: Morphine ER 15 MG TAB PO SCH ×2 (09:29→21:03)
[2021-10-11] MEDS: Multivit, Therapeutic 1 TAB PO SCH (09:29)
[2021-10-11] MEDS: Ascorbic Acid 500 mg Chewable Tablet PO SCH (09:32)
[2021-10-11] MEDS: Escitalopram Oxalate 20 mg Tablet PO SCH (09:32)
[2021-10-11] MEDS: Folic Acid 1 MG TAB PO SCH (09:32)
[2021-10-11] MEDS: Midodrine HCl 5 MG TAB PO SCH ×3 (09:33→20:17)
[2021-10-11] MEDS: Zinc Sulfate 220 MG CAP PO SCH (09:33)
[2021-10-11] MEDS: Methocarbamol 500 MG TAB PO SCH ×2 (09:34→20:25)
[2021-10-11] MEDS: Nystatin Powder 15 GM BOT TOP SCH ×3 (09:35→20:19)
[2021-10-11] MEDS: Ferrous Sulfate 325 MG TAB PO SCH ×2 (09:41→17:40)
[2021-10-11] MEDS: Senokot S 8.6-50 MG TAB PO SCH ×2 (09:41→20:19)
[2021-10-11] MEDS: Heparin 5,000 UNITS/ML VIAL SC SCH ×3 (09:41→20:19)
[2021-10-11] MEDS: Pregabalin 75 MG CAP PO SCH (20:17)
[2021-10-11] MEDS: Atorvastatin Calcium 10 MG TAB PO SCH (20:19)
[2021-10-11] MEDS: rOPINIRole HCl 2 MG TAB PO SCH (20:26)
[2021-10-11 21:57] VITALS: TEMP 98.8
[2021-10-12] MEDS: Ondansetron ODT 4 MG TAB PO PRN (04:48)
[2021-10-12 06:49] LABS: Hemoglobin 8.8 g/dL (12.0-16.0); Mean Corpuscular HGB CONC 30.9 g/dL (32.0-36.0); Mean Corpuscular Volume 90.7 fL (78.0-98.0); Mean Platelet Volume 9.1 fL (7.4-10.4); Platelet Count 219 thou/uL (130-400); Red Blood Cell (RBC) Count 3.13 mill/uL (4.20-5.40); White Blood Cell (WBC) Count 20.4 thou/uL (4.8-10.8)
[2021-10-12 06:56] LABS: Anion Gap 15 mmol/L (10-20); BUN (Urea Nitrogen) 63 mg/dL (7.0-18.7); Calc. Creatinine Clearance 47 mL/min (70-130); Calcium 8.6 mg/dL (7.8-10.44); Carbon Dioxide 24 mmol/L (22-29); Chloride 94 mmol/L (98-107); Glucose 150 mg/dL (70-105); Potassium 4.4 mmol/L (3.5-5.1); Sodium 129 mmol/L (136-145)
[2021-10-12 07:34] VITALS: BP 100/51
[2021-10-12 07:49] LABS: Band 4 % (5-11); Lymphocytes 10 % (21-51); MDiff Complete? YES; Metamyelocyte 1 % (0-0); Monocytes 11 % (0-10); Neutrophil 72 % (42-75); Nucleated RBC 1 % (0); Platelet Morphology Comment Appears Adequate; Polychromasia SLIGHT = 2-3 cells (100X) (0-2/hpf)
[2021-10-12] MEDS: Morphine ER 15 MG TAB PO SCH (08:48)
[2021-10-12] MEDS: Fluconazole 100 MG TAB PO SCH (08:50)
[2021-10-12] MEDS: busPIRone HCl 5 MG TAB PO SCH (08:50)
[2021-10-12] MEDS: Senokot S 8.6-50 MG TAB PO SCH (08:51)
[2021-10-12] MEDS: Heparin 5,000 UNITS/ML VIAL SC SCH (08:51)
[2021-10-12] MEDS: Ascorbic Acid 500 mg Chewable Tablet PO SCH (08:51)
[2021-10-12] MEDS: Methocarbamol 500 MG TAB PO SCH (08:51)
[2021-10-12] MEDS: Ferrous Sulfate 325 MG TAB PO SCH (08:51)
[2021-10-12] MEDS: Escitalopram Oxalate 20 mg Tablet PO SCH (08:51)
[2021-10-12] MEDS: Multivit, Therapeutic 1 TAB PO SCH (08:52)
[2021-10-12] MEDS: Calcium Acetate 667 MG CAP PO SCH (08:52)
[2021-10-12] MEDS: Cholecalciferol 1,000 UNITS (25 MCG) TAB PO SCH (08:52)
[2021-10-12] MEDS: Cyanocobalamin (Vitamin B-12) 1,000 MCG TAB PO SCH (08:52)
[2021-10-12] MEDS: Folic Acid 1 MG TAB PO SCH (08:52)
[2021-10-12] MEDS: Zinc Sulfate 220 MG CAP PO SCH (08:53)
[2021-10-12] MEDS: Midodrine HCl 5 MG TAB PO SCH (09:03)
[2021-10-12] MEDS: Nystatin Powder 15 GM BOT TOP SCH (09:04)
== END 2021-10-12 10:56 | disposition hospice, inpatient (51) | DRG 606 ==
LOC: T4-B 09-19 14:18
PROVIDERS: ADMIT Internal Medicine; ATTEND Internal Medicine Geriatric Medicine
PROC: 5A09357 Assistance with Respiratory Ventilation, Less than 24 Consecutive Hours, Continuous Positive Airway Pressure (ICD-10-PCS; 2021-09-19)
PROC: 3E0G76Z Introduction of Nutritional Substance into Upper GI, Via Natural or Artificial Opening (ICD-10-PCS; 2021-09-20)
PROC: 5A1D70Z Performance of Urinary Filtration, Intermittent, Less than 6 Hours Per Day (ICD-10-PCS; principal; 2021-09-21)
PROC: 30233N1 Transfusion of Nonautologous Red Blood Cells into Peripheral Vein, Percutaneous Approach (ICD-10-PCS; 2021-09-28)
PROC: 8E0ZXY6 Isolation (ICD-10-PCS; 2021-10-04)
DX: M79.3 Panniculitis, unspecified (principal); Z66 Do not resuscitate; Z20.822 Contact with and (suspected) exposure to COVID-19; Z51.5 Encounter for palliative care; N18.6 End stage renal disease; A41.9 Sepsis, unspecified organism; I96 Gangrene, not elsewhere classified; B37.49 Other urogenital candidiasis; Z68.45 Body mass index [BMI] 70 or greater, adult; I50.32 Chronic diastolic (congestive) heart failure; L03.311 Cellulitis of abdominal wall; Z16.24 Resistance to multiple antibiotics; D62 Acute posthemorrhagic anemia; N17.9 Acute kidney failure, unspecified; D63.1 Anemia in chronic kidney disease; E66.01 Morbid (severe) obesity due to excess calories; G47.33 Obstructive sleep apnea (adult) (pediatric); E10.22 Type 1 diabetes mellitus with diabetic chronic kidney disease; I50.9 Heart failure, unspecified; L89.890 Pressure ulcer of other site, unstageable; I95.89 Other hypotension; E88.09 Other disorders of plasma-protein metabolism, not elsewhere classified; E10.65 Type 1 diabetes mellitus with hyperglycemia; Z28.21 Immunization not carried out because of patient refusal; Z99.2 Dependence on renal dialysis; Z74.01 Bed confinement status; Z99.89 Dependence on other enabling machines and devices; Z88.6 Allergy status to analgesic agent; Z88.0 Allergy status to penicillin; Z79.899 Other long term (current) drug therapy; Z79.4 Long term (current) use of insulin
CPT/HCPCS: 36415; 36416; 36430; 80048; 80053; 80150; 80202; 81001; 82570; 83605; 83970; 84100; 84145; 84300; 85014; 85018; 85025; 86850; 86900; 86901; 87040; 87086; 90935; G0257; J0278; J0692; J1644; J1815; J2270; J2405; J3370; J3490; J7030; J7050; P9016; Q0162; Q5105